=== PATIENT | male | born 1960 | race Caucasian/White ===

== ENCOUNTER 2022-08-01 20:44 | Emergency (ER) | payer OTHER, SELFPAY ==
[2022-08-01 20:47] VITALS: BP 108/62; PULSE 63; RESP 16; TEMP 36.8; O2SAT 97; BMI 24.7
--- NOTE | 2022-08-01 21:00 | XR_ITS ---
[address] [address] Patient Name: BERTIN ARECHIGA MRN: [id number] date: 1960 Sex: M Assigned Patient Location: ER Current Patient Location: ER Accession/Order Number: [id number] Exam Date: 08/01/2022 21:10 Report Date: 08/01/2022 21:42 At the request of: FEI KINGSLEY Procedure: XR tibia fibula RT 2V EXAM: XR tibia fibula RT 2V, XR knee RT 3V HISTORY: Hit right knee with wood COMPARISON: None. TECHNIQUE: 4 views of the tibia and fibula and 3 views of the knee FINDINGS: No osseous lesion, fracture, dislocation or subluxation. Joint spaces are normal. No visualized effusion. No visualized soft tissue edema. IMPRESSION: Normal x-rays Electronically authenticated by: HANNA LOUIS Date: 08/01/2022 21:42
--- NOTE | 2022-08-01 21:00 | XR_ITS ---
[address] [address] Patient Name: BERTIN ARECHIGA MRN: [id number] date: 1960 Sex: M Assigned Patient Location: ER Current Patient Location: ER Accession/Order Number: [id number] Exam Date: 08/01/2022 21:10 Report Date: 08/01/2022 21:42 At the request of: FEI KINGSLEY Procedure: XR knee RT 3V EXAM: XR tibia fibula RT 2V, XR knee RT 3V HISTORY: Hit right knee with wood COMPARISON: None. TECHNIQUE: 4 views of the tibia and fibula and 3 views of the knee FINDINGS: No osseous lesion, fracture, dislocation or subluxation. Joint spaces are normal. No visualized effusion. No visualized soft tissue edema. IMPRESSION: Normal x-rays Electronically authenticated by: HANNA LOUIS Date: 08/01/2022 21:42
--- NOTE | 2022-08-01 21:01 | ED_ITS ---
HPI - Extremity Injury (Lower) General Stated Complaint: KNEE PAIN Time Seen by Provider: 08/01/22 20:54 Mode of arrival: walk-in History of Present Illness HPI Narrative: using a chain saw and piece of wood swung back striking him just below his right knee. Presents with focal area of swelling just beneath the right knee. No discoloration. Denies other injury. 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 Related Data Home Medications Medication Instructions Recorded Confirmed baclofen 10 mg tablet 10 mg PO Q8H PRN pain 08/01/22 08/01/22 gabapentin 600 mg tablet 600 mg BID 08/01/22 Allergies Allergy/AdvReac Type Severity Reaction Status Date / Time No Known Drug Allergies Allergy Verified 08/01/22 20:50 Review of Systems ROS Status of ROS 10 or more systems reviewed and unremarkable except as noted in history and below PFSH PFSH Social History Smoking status: Former smoker Exam Constitutional Vital Signs - 24 hr 08/01/22 20:47 Temperature 98.2 F Pulse Rate [Monitor] 63 Respiratory Rate 16 Blood Pressure [Left Arm] 108/62 Pulse Oximetry 97 Common normals: no apparent distress, average body habitus, oriented x3, no limitations and healthy appearing HENMT Common normals: normocephalic and head/scalp atraumatic Eye Common normals: EOMs intact bilaterally and conjunctivae normal Respiratory Common normals: normal respiratory effort and no use of accessory muscles Cardio Common normals: regular rate and regular rhythm GI Common normals: Normal to inspection, nondistended, normoactive bowel sounds present Extremity Extremity image (front): 1. focal raised contusion Neuro Common normals: oriented x3, CN's II-XII intact bilaterally and moves all extremities Psych Appearance: grossly normal Course Vital Signs Vital signs: Vital Signs Temperature 98.2 F 08/01/22 20:47 Pulse Rate 63 08/01/22 20:47 Respiratory Rate 16 08/01/22 20:47 Blood Pressure 108/62 08/01/22 20:47 Pulse Oximetry 97 08/01/22 20:47 Temperature 98.2 F 08/01/22 20:47 Pulse Rate 63 08/01/22 20:47 Respiratory Rate 16 08/01/22 20:47 Blood Pressure 108/62 08/01/22 20:47 Pulse Oximetry 97 08/01/22 20:47 MDM - Extremity Injury (Lower) MDM Narrative Medical decision making narrative: patient cutting wood with chain saw and wood swung back striking him on his tibia just beneath his right knee. Has focal area of contusion that is raised and measures about 5 cm. No swelling of the greene area below. xray of the knee and tib fib neg. Patient advised of diagnosis of contusion and discharged home Discharge Plan Discharge Clinical Impression: Contusion of right tibia Patient Disposition: Home, Self-Care Prescriptions / Home Meds: No Action gabapentin 600 mg tablet 600 mg BID baclofen 10 mg tablet 10 mg PO Q8H PRN (Reason: pain) Instructions: Contusion in Adults (ED) Stand Alone Forms: Portal Instructions Referrals: Fallon Gonzalez MD [Primary Care Provider] - 1 week Follow Up Appointments: follow up with your doctor in a couple of days. Return if increasing pain
[2022-08-01] MEDS: IBUPROFEN 400 MG TABLET 800 MG PO (22:10)
[2022-08-01] MEDS: HYDROCODONE/ACETAMINOPHEN 5-325 MG TABLET 2 TAB PO (22:10)
== END 2022-08-01 22:13 | disposition home or self-care (01) ==
PROVIDERS: Emergency Provider Internal Medicine; PCP Family Medicine
DX: S80.11XA Contusion of right lower leg, initial encounter (principal); W22.8XXA Striking against or struck by other objects, initial encounter; Z87.891 Personal history of nicotine dependence
CPT/HCPCS: 73562; 73590; 99283

== ENCOUNTER 2022-08-10 08:06 | Day surgery (SDC) | payer OTHER, SELFPAY ==
--- NOTE | 2022-08-10 08:41 | P.ON_ITS ---
Date of procedure: 08/10/22 Procedure: Right Lumbar 2/3 & 4/5 Radiofrequency ablation PreOp diagnosis: pain secondary to include lumbar spondylosis Postop diagnosis same Under fluoroscopic guidance Rhizotomy was created using radio frequency ablation at 80?C for 90 seconds 1 to 2 lesions created at each site. Post lesioning injection of 2 mL each of 0.25% Marcaine and 2% lidocaine with Depo-Medrol 40mg. 0.5 to 1 mL injected at each site IV in place yes Intravenous fluids: NS at KVO Anesthesia local 2% lidocaine Anesthesia Other: MAC Timeout process compliant After informed consent obtained.Patient brought to the procedure room placed in the prone position skin overlying the area was prepped and draped in a sterile f ashion using betadine. 25 gauge needle was used to create a skin wheal over each of the targeted areas utilizing 2% lidocaine. A rhizotomy needle with a 10 mm active tip was inserted over each of the anesthetized areas and directed towards each of the medial branches accomplished under fluoroscopic guidance. after encountering the same we had positive sensory stimulation, negative motor stimulation was noted. lesions were then created. Post lesioning, steroid solution was injected needles removed. Patient was transferred to recovery room in stable condition to be discharged home after meeting criteria. Anesthesia: MAC Surgeon: Gracie Carrasquillo Condition: stable
[2022-08-10 08:50] VITALS: BP 132/87; PULSE 55; RESP 16; TEMP 36.7; O2SAT 100
[2022-08-10 09:21] LABS: Glucometer 98 mg/dL (74-106)
[2022-08-10] MEDS: METHYLPREDNISOLONE ACETATE 40 MG/ML VIAL INJ (09:50)
[2022-08-10] MEDS: LIDOCAINE HCL 2% 400 MG/20 ML MDV 8 ML INJ (09:50)
[2022-08-10] MEDS: BUPIVACAINE HCL 0.25% PF 25 MG/10 ML VIAL 4 ML INJ (09:51)
[2022-08-10 10:08] VITALS: BP 148/89; PULSE 52; RESP 16; TEMP 36.7; O2SAT 96
[2022-08-10 10:10] VITALS: BP 137/87; PULSE 55; RESP 16; TEMP 36.6; O2SAT 99
[2022-08-18] MEDS: LACTATED RINGER'S SOLUTION 1,000 ML 50 ML IV (09:51)
== END 2022-08-10 10:28 | disposition home or self-care (01) ==
LOC: SURGOUT 08:07
PROVIDERS: PCP Family Medicine; Visit Provider Anesthesiology Pain Medicine
DX: M47.816 Spondylosis without myelopathy or radiculopathy, lumbar region (principal)
CPT/HCPCS: 36415; 64635; 64636; J1030; J2704

== ENCOUNTER 2022-08-24 07:59 | Day surgery (SDC) | payer OTHER, SELFPAY ==
[2022-08-24 08:40] LABS: Glucometer 106 mg/dL (74-106)
[2022-08-24] MEDS: 0.9 % SODIUM CHLORIDE 500 ML 50 ML IV (08:41)
[2022-08-24] MEDS: BUPIVACAINE HCL 0.25% PF 25 MG/10 ML VIAL INJ (09:09)
[2022-08-24] MEDS: LIDOCAINE HCL 2% 400 MG/20 ML MDV 8 ML INJ (09:09)
[2022-08-24] MEDS: METHYLPREDNISOLONE ACETATE 40 MG/ML VIAL INJ (09:10)
[2022-08-24 09:24] VITALS: BP 122/75; PULSE 50; RESP 16; O2SAT 100
[2022-08-24 09:26] VITALS: BP 121/71; PULSE 50; RESP 16; O2SAT 99
--- NOTE | 2022-08-24 09:47 | W.PM.PROCNOT ---
Date of procedure: 08/24/22 Pre-op diagnosis: lumbar spondylosis Post-op diagnosis: same Procedure: Left lumbar 2,3 and 4,5 Radiofrequency ablation Under fluoroscopic guidance Rhizotomy was created using radio frequency ablation at 80?C for 90 seconds 1 to 2 lesions created at each site. Post lesioning injection of 2 mL each of 0.25% Marcaine and 2% lidocaine with Depo-Medrol 40mg. 0.5 to 1 mL injected at each site IV in place yes/no If Intravenous fluids: NS at KVO Anesthesia local 2% lidocaine for Anesthesia Other: MAC Timeout process compliant After informed consent obtained.Patient brought to the procedure room placed in the prone position skin overlying the area was prepped and draped in a sterile fashion using betadine. 25 gauge needle was used to create a skin wheal over each of the targeted areas utilizing 2% lidocaine. A rhizotomy needle with a 10 mm active tip was inserted over each of the anesthetized areas and directed towards each of the medial branches accomplished under fluoroscopic guidance. after encountering the same we had positive sensory stimulation, negative motor stimulation was noted. lesions were then created. Post lesioning, steroid solution was injected needles removed. Patient was transferred to recovery room in stable condition to be discharged home after meeting criteria. Anesthesia: MAC Surgeon: Gracie Carrasquillo Condition: stable
== END 2022-08-24 09:38 | disposition home or self-care (01) ==
LOC: SURGOUT 08:00
PROVIDERS: PCP Family Medicine; Visit Provider Anesthesiology Pain Medicine
DX: M47.816 Spondylosis without myelopathy or radiculopathy, lumbar region (principal); E11.9 Type 2 diabetes mellitus without complications
CPT/HCPCS: 36415; 64635; 64636; 82948; J1030; J2704

== ENCOUNTER 2022-09-23 09:14 | Outpatient (OUT) | payer OTHER, SELFPAY ==
--- NOTE | 2022-09-23 09:55 | P.CN_ITS ---
Consult Note: HPI Data of Consult Patient: known to practice within the last 3 years Requesting Physician: CUAUHTEMOC OLIVA NP Primary Care Provider: Fallon Gonzalez MD Consult Narrative Reason for consult: RFA follow up Narrative: Abimael Ruano a pleasant 62 year old male presents to our office for follow up on chronic low back pain, recently had bilateral L2-3 L4-5 RFA (two separate procedures one time for left side one time for right side). Patient reporting 3/10 pain in low back most days, today 5/10 as he was doing more activity and strenuous activity yesterday. Patient reporting >80% pain relief and improvement in ADLs since RFA. Patient is using medical marijuana and tramdol from another provider, still on gabapentin 600mg BID and baclofen 10mg BID PRN for muscle spasms through our office. cc:: CC: CUAUHTEMOC OLIVA NP Review of Systems ROS Status of ROS 10 or more systems reviewed and unremarkable except as noted in history and below PFSH PFS Medical History (Updated 09/23/22 @ 10:02 by Aaliyah Slater NP) Social History Smoking status: Former smoker Meds Home Medications and Allergies Home Medications Medication Instructions Recorded Confirmed Type baclofen 10 mg tablet 10 mg PO Q8H PRN pain 08/01/22 08/24/22 History gabapentin 600 mg tablet 600 mg BID 08/01/22 History atorvastatin 10 mg tablet 10 mg PO .hs 08/05/22 08/24/22 History docusate sodium 100 mg capsule 100 mg PO DAILY 08/05/22 08/24/22 History flecainide 50 mg tablet 50 mg PO Q12H 08/05/22 08/24/22 History medical marijuan 08/05/22 History metoprolol succinate 50 mg 25 mg PO QDAY 08/05/22 08/24/22 History tablet,extended release 24 hr psyllium (Hydrocil oral powder) 1 tbsp PO DAILY 08/05/22 08/24/22 History tramadol 50 mg tablet 50 mg PO TID PRN pain 08/05/22 08/24/22 History Allergies Allergy/AdvReac Type Severity Reaction Status Date / Time No Known Drug Allergies Allergy Verified 08/24/22 08:31 Exam Constitutional Common normals: no apparent distress, average body habitus, oriented x3, healthy appearing, alert and well nourished General appearance: cooperative HENMS Common normals: normocephalic Head and scalp: normocephalic Mouth: oral and palatal mucosa normal Eye Common normals: PERRL Pupil: PERRL Neck & C-Spine Common normals: full ROM General: normal visual inspection Chest Common normals: inspection of chest normal Respiratory Common normals: normal respiratory effort, no retractions and no use of accessory muscles Back & Pelvis Common normals: thoracic and lumbar spine normal to inspection Thoracic spine/upper back: normal to inspection and thoracic ROM normal Lumbar spine/lower back: ROM limited (mild) and pain with ROM (mild) Extremity Other: 5/5 strength in BLE Neuro Common normals: oriented x3, CN's II-XII intact bilaterally, moves all extremities, no focal motor deficits, no sensory deficits noted, deep tendon reflexes 2+ bilaterally and gait normal Sensorium/orientation: alert Motor exam: strength 5/5 throughout and no movement abnormalities noted Psych Common normals: mental status grossly normal, thought process normal, c ooperative, affect normal, speech normal and activity/motor behavior normal Speech: normal speech Thought process: normal thought process Assessment and Plan Assessment and Plan (1) Lumbar spondylosis: (2) Muscle spasm: Plan Patient reporting >80% pain relief and improvement in function with ADLs since L&R L3-4 L4-5 RFA. Discussed expectancy of at least 6 months relief of pain in most patients, discussed calling the office if his pain worsens. Reviewed curr ent medication regimen with patient, no refills at this time. Patient denies negative S/E from current medications. I have checked an [facility] report on this patient today and there are no aberrancies noted in the prescribing history. ? A drug screen was completed and reviewed within the last year, and if there has not been a drug screen completed we ordered one today to monitor higher risk, state monitored pain medication use. Continue gabapentin 600mg BID Continue Baclofen 10mg PRN muscle spasms F/U in 3 months
== END 2022-09-23 09:15 | disposition home or self-care (01) ==
LOC: PM 09:15
PROVIDERS: PCP Family Medicine; Visit Provider Nurse Practitioner
DX: M47.816 Spondylosis without myelopathy or radiculopathy, lumbar region (principal); M62.838 Other muscle spasm
CPT/HCPCS: G0463

== ENCOUNTER 2022-10-27 11:23 | Outpatient (OUT) | payer OTHER, SELFPAY ==
--- NOTE | 2022-10-27 11:29 | XR_ITS ---
[address] [address] Patient Name: BERTIN ARECHIGA MRN: [id number] date: 1960 Sex: M Assigned Patient Location: LAB Current Patient Location: LAB Accession/Order Number: [id number] Exam Date: 10/27/2022 11:30 Report Date: 10/27/2022 13:20 At the request of: JACKELIN HENRY Procedure: XR shoulder RT min 2V EXAM: XR shoulder RT min 2V HISTORY: Pain In Right Shoulder M25.511 COMPARISON: None. TECHNIQUE: 2 views FINDINGS: No acute fracture or dislocation. Mild degenerative change of the acromioclavicular joint. Unremarkable soft tissues. XR/XR shoulder RT min 2V IMPRESSION: Mild degenerative changes as above. Electronically authenticated by: BERTIN SHELBY Date: 10/27/2022 13:20
== END 2022-10-27 11:24 | disposition home or self-care (01) ==
PROVIDERS: PCP Family Medicine; Visit Provider Family Medicine
DX: M25.511 Pain in right shoulder (principal); I10 Essential (primary) hypertension; E78.5 Hyperlipidemia, unspecified; Z12.5 Encounter for screening for malignant neoplasm of prostate
CPT/HCPCS: 73030

== ENCOUNTER 2022-10-28 10:08 | Outpatient (OUT) | payer OTHER, SELFPAY ==
[2022-10-28 11:39] LABS: Basophils Absolute Auto 0.1 10^3/uL (0.0-0.1); Eosinophils Absolute Auto 0.3 10^3/uL (0.0-0.7); Eosinophils Percent Auto 3.4 % (0.9-7.0); Hematocrit 45.9 % (42.0-54.0); Immature Granulocytes Abs Auto 0.01 10^3/uL (0.00-0.03); Immature Granulocytes Pct Auto 0.1 % (0.0-0.5); Lymphocytes Absolute Auto 1.6 10^3/uL (1.2-3.8); Lymphocytes Percent Auto 20.9 % (20.5-60.0); Mean Corpuscular HGB Conc 32.7 g/dL (29.9-35.2); Mean Corpuscular Hemoglobin 29.2 pg (25.9-34.0); Mean Corpuscular Volume 89.3 fL (80.0-94.0); Mean Platelet Volume 9.8 fL (9.5-13.5); Monocytes Absolute Auto 0.4 10^3/uL (0.3-0.8); Monocytes Percent Auto 5.8 % (1.7-12.0); Neutrophils Absolute Auto 5.2 10^3/uL (1.4-6.5); Neutrophils Percent Auto 68.8 % (43.0-75.0); Platelet Count 209 10^3/uL (150-450); Red Blood Count 5.14 10^6/uL (4.70-6.10); White Blood Count 7.6 10^3/uL (4.0-11.0)
[2022-10-28 11:40] LABS: Prostate Specific Antigen Scrn 3.11 ng/mL (<=4.00)
[2022-10-28 11:52] LABS: Alanine Aminotransferase 31 U/L (16-63); Albumin Globulin Ratio 1.3; Albumin Level 4.1 g/dL (3.4-5.0); Alkaline Phosphatase 77 U/L (46-116); Anion Gap 9.6; Aspartate Amino Transferase 22 U/L (15-37); BUN Creatinine Ratio 17.3; Bilirubin Total 0.4 mg/dL (0.2-1.0); Calcium 9.2 mg/dL (8.5-10.1); Carbon Dioxide 30.5 mmol/L (21.0-32.0); Chloride 104 mmol/L (98-107); Chol HDL Ratio 2.5; Cholesterol 128 mg/dL (<=200); Estimated GFR (African America >60 (>=60); Estimated GFR (Non-African Ame >60 (>=60); Globulin 3.2 g/dL; Glucose 98 mg/dL (74-106); HDL Cholesterol 51 mg/dL (40-60); LDL Cholesterol Calculated 66.6 mg/dL; Potassium 4.1 mmol/L (3.5-5.1); Sodium 140 mmol/L (136-145); Total Protein 7.3 g/dL (6.4-8.2); Triglycerides 52 mg/dL (<=150); VLDL CHOLESTEROL 10.4 mg/dL
== END 2022-10-28 10:09 | disposition home or self-care (01) ==
LOC: LAB 10:08
PROVIDERS: PCP Family Medicine; Visit Provider Family Medicine
DX: I10 Essential (primary) hypertension (principal); E78.5 Hyperlipidemia, unspecified; Z12.5 Encounter for screening for malignant neoplasm of prostate
CPT/HCPCS: 36415; 80053; 80061; 85025; G0103

== ENCOUNTER 2022-12-16 09:56 | Outpatient (OUT) | payer OTHER, SELFPAY ==
--- NOTE | 2022-12-16 10:21 | P.CN_ITS ---
Consult Note: HPI Data of Consult Requesting Physician: Aaliyah Slater NP Primary Care Provider: Fallon Gonzalez MD Consult Narrative Reason for consult: f/u Narrative: Abimael Ruano a pleasant 62 year old male presents for evaluation and management of chronic low back pain. Today rating pain 6/10. Has noticed increase in right lower back pain over the last week after working hard in the yard. Pain has not completely responded to current medication regimen, baclofen BID PRN and gabapentin 600mg BID. Patient would like to discuss additional options. cc:: CC: Aaliyah Slater NP Review of Systems ROS Status of ROS 10 or more systems reviewed and unremarkable except as noted in history and below Musculoskeletal Reports: back pain PFSH PFSH Medical History (Updated 09/23/22 @ 10:02 by Aaliyah Slater NP) Atrial fibrillation ?I48.91 - Unspecified atrial fibrillation (ICD-10) Carpal tunnel syndrome ?G56.00 - Carpal tunnel syndrome, unspecified upper limb (ICD-10) Diabetes ?E11.9 - Type 2 diabetes mellitus without complications (ICD-10) Former smoker ?Z87.891 - Personal history of nicotine dependence (ICD-10) Hernia ?K46.9 - Unspecified abdominal hernia without obstruction or gangrene (ICD- 10) High cholesterol ?E78.00 - Pure hypercholesterolemia, unspecified (ICD-10) Hypertension ?I10 - Essential (primary) hypertension (ICD-10) Implantable loop recorder present ?Z95.818 - Presence of other cardiac implants and grafts (ICD-10) Low back pain ?M54.50 - Low back pain, unspecified (ICD-10) Neck pain ?M54.2 - Cervicalgia (ICD-10) Osteoarthritis ?M19.90 - Unspecified osteoarthritis, unspecified site (ICD-10) Upper back pain ?M54.9 - Dorsalgia, unspecified (ICD-10) Social History Smoking status: Former smoker Meds Home Medications and Allergies Home Medications Medication Instructions Recorded Confirmed Type baclofen 10 mg tablet 10 mg PO Q8H PRN pain 08/01/22 08/24/22 History gabapentin 600 mg tablet 600 mg BID 08/01/22 History atorvastatin 10 mg tablet 10 mg PO .hs 08/05/22 08/24/22 History docusate sodium 100 mg capsule 100 mg PO DAILY 08/05/22 08/24/22 History flecainide 50 mg tablet 50 mg PO Q12H 08/05/22 08/24/22 History medical marijuan 08/05/22 History metoprolol succinate 50 mg 25 mg PO QDAY 08/05/22 08/24/22 History tablet,extended release 24 hr psyllium (Hydrocil oral powder) 1 tbsp PO DAILY 08/05/22 08/24/22 History tramadol 50 mg tablet 50 mg PO TID PRN pain 08/05/22 08/24/22 History Allergies Allergy/AdvReac Type Severity Reaction Status Date / Time No Known Drug Allergies Allergy Verified 08/24/22 08:31 Exam Constitutional Common normals: no apparent distress, average body habitus, oriented x3, healthy appearing, alert and well nourished General appearance: cooperative [facility] Common normals: normocephalic Head and scalp: normocephalic Mouth: oral and palatal mucosa normal Eye Common normals: PERRL Pupil: PERRL Neck & C-Spine Common normals: full ROM General: normal visual inspection Chest Common normals: inspection of chest normal Respiratory Common normals: normal respiratory effort, no retractions and no use of ac cessory muscles Back & Pelvis Common normals: thoracic and lumbar spine normal to inspection Lumbar spine/lower back: paraspinal muscle tenderness, paraspinal muscle spasm and straight leg raise negative bilaterally Sacroiliac joints: SI joint(s) abnormal (pain with MINDY and tender over PSIS) Back image (male): 1. Extremity Other: 5/5 strength in BLE Neuro Common normals: oriented x3, CN's II-XII intact bilaterally, moves all extr emities, no focal motor deficits, no sensory deficits noted, deep tendon reflexes 2+ bilaterally and gait normal Sensorium/orientation: alert Motor exam: strength 5/5 throughout and no movement abnormalities noted Psych Common normals: mental status grossly normal, thought process normal, cooperative, affect normal, speech normal and activity/motor behavior normal Speech: normal speech Thought process: normal thought process Assessment and Plan Assessment and Plan (1) Lumbar spondylosis: (2) Muscle spasm: Plan increase baclofen to TID PRN with increase in right lumbar paraspinal muscle spasms continue gabapentin 600mg BID f/u with Dr Yung for right lumbar paraspinal TPI consider right SIJ injection if pain persists after TPI
== END 2022-12-16 09:57 | disposition home or self-care (01) ==
LOC: PM 09:59
PROVIDERS: PCP Family Medicine; Visit Provider Nurse Practitioner
DX: M47.816 Spondylosis without myelopathy or radiculopathy, lumbar region (principal); M62.838 Other muscle spasm
CPT/HCPCS: G0463

== ENCOUNTER 2022-12-22 12:57 | Outpatient (OUT) | payer OTHER, SELFPAY ==
[2022-12-22 14:23] LABS: Prostate Specific Antigen Dx 5.19 ng/mL (<=4.00)
--- OUTSIDE RECORDS SUMMARY | 2023-02-01 14:39 | XMS_ITS | CCD ---
Author Name Unknown Address [address] [facility] [facility] [address] [place] [address] Organization [facility] Care Team Providers Care French Polisher Name Role Phone Brett Quiros Unavailable Unavailable Unavailable FALLON HENRY Primary Care Unavailable SANTO HAMRON Referring Unavailable FALLON HENRY Primary Care Unavailable SANTO HARMON Referring Unavailable FALLON HENRY Primary Care Unavailable SANTO HARMON Referring Unavailable SHAAN ., DR ROWAN Shea Admitting Unavailable GARDUNO ., DR ROWAN Shea Attending Unavailable CARL, DR FALLON Emmanuel Primary Care Unavailable GARDUNO ., DR ROWAN Shea Consulting Unavailable LAKSHMIPATHY, NARENDRANATH Admitting Unava ilable LAKSHMIPATHY, NARSHYAM Attending Unava ilable CARL, DR FALLON Emmanuel Primary Care Unavailable LAKSHMIPATHY, NARSHYAM Consulting Unava ilable SHAAN ., DR ROWAN Shea Admitting Unavailable GARDUNO ., DR ROWAN Shea Attending Unavailable CARL, DR FALLON Emmanuel Primary Care Unavailable WATKINS .MICHELLE Consulting Unavailable GARDUNO ., DR ROWAN Shea Admitting Unavailable GARDUNO ., DR ROWAN Shea Attending Unavailable CARL, DR FALLON Emmanuel Primary Care Unavailable GARDUNO ., DR ROWAN Shea Consulting Unavailable ROD KANG Consulting Unavailable GADRUNO ., DR ROWAN Shea Admitting Unavailable GARDUNO ., DR ROWAN Shea Attending Unavailable CARL, DR FALLON Emmanuel Primary Care Unavailable WATKINS ., MICHELLE Consulting Unavailable SHAAN ., DR ROWAN Shea Admitting Unavailable GARDUNO ., DR ROWAN Shea Attending Unavailable CARL, DR FALLON Emmanuel Primary Care Unavailable GARDUNO ., DR ROWAN Shea Consulting Unavailable LAKSHMIPATHY, NARENDKUMARATH Admitting Unava ilable LAKSHMIPATHY, NARSHYAM Attending Unava ilable CARL, DR FALLON Emmanuel Primary Care Unavailable DR ABEBA DOUGHERTY Consulting Unavailable LAKSHMIPATHY, NARENDKUMARATH Consulting Unava ilable Henry, Fallon Unavailable PATTIE PICHARDO Attending Unavailable Medications Current Medications Medication Drug Class(es) Dates Sig (Normalized) Sig (Original) ALPRAZolam 0.5 mg oral tablet (5 sources) Benzodiazepine Xanax 0.5 MG 1 tablet Orally prn Active aspirin 81 mg delayed release oral tablet (6 sources) Platelet Aggregation Inhibitor, Nonsteroidal Anti-inflammatory Drug take 1 tablet by mouth every twenty-four hours Aspirin 81 81 MG 1 tablet Orally Once a day Active take 1 tablet by mouth once gina y Aspirin 81 81 MG 1 tablet Orally Once a day Active atorvastatin 10 mg oral tablet (6 sources) HMG-CoA Reductase Inhibitor take 1 tablet by mouth once daily Atorvastatin Calcium 10 mg TAKE 1 TABLET BY MOUTH DAILY for 90 Active docusate sodium 100 mg oral capsule (6 sources) take 1 capsule by mouth every twenty-four hours Docusate Sodium 100 MG 1 capsule as needed Orally Once a day Active gabapentin 600 mg oral tablet (6 sources) Anti-epileptic Agent take 1 tablet by mouth every twelve hours Gabapentin 600 MG 1 tablet Orally twice a day Active metaxalone 800 mg oral tablet (6 sources) take 1 tablet by mouth every twelve hours Metaxalone 800 MG 1 tablet Orally two times a day Active 24 hr metoprolol succinate 25 mg extended release oral tablet (5 sources) beta-Adrenergic Vandana take 1 tablet by mouth every twenty-four hours Metoprolol Succinate ER 25 MG 1 tablet Orally Once a day Active Psyllium (5 sources) Psyllium 48.57 % as directed Orally Active traMADol hydrochloride 50 mg oral tablet (6 sources) Opioid Agonist Start: take 1 tablet by mouth twice daily as needed traMADol HCl 50 MG 1 tablet as needed Orally bid prn for 30 days Jan, Active Start: 10-25-2022 take 1 tablet by maurice twice daily as needed traMADol HCl 50 MG 1 tablet as needed Orally bid prn for 30 days Oct, Active Completed/Discontinued Medications Medication Drug Class(es) Dates Sig (Normalized) Sig (Original) amLODIPine 10 mg / benazepril hydrochloride 20 mg oral capsule (1 source) Dihydropyridine Calcium Channel Vandana, Angiotensin Converting Enzyme Inhibitor take 10-20 mg by mouth once daily amLODIPine Besy-Benazepril HCl - 10-20 MG Oral Capsule TAKE 1 CAPSULE Daily Quantity: 0 Refills: 0 Ordered: 16-Feb-2021 Ehsa Scott MD Active Problems Active Problems Problem Classification Problem Date Documented Date Episodic/Chronic Cardiac dysrhythmias (7 sources) Paroxysmal atrial fibrillation; Translations: [Paroxysmal atrial fibrillation] Chronic Cardiac dysrhythmias (6 sources) Sinus bradycardia; Translations: [Bradycardia, unspecified] Episodic Diabetes mellitus without complication (1 source) Type 2 diabetes mellitus without complications; Translations: [TYPE 2 DM WITHOUT COMPLICATIONS] Onset: 01-14-2022 Chronic Disorders of lipid metabolism (7 sources) Hyperlipidemia; Translations: [Hyperlipidemia, unspecified] Chronic Essential hypertension (8 sources) Benign essential hypertension; Translations: [Benign essential hypertension] Chronic Osteoarthritis (7 sources) Primary osteoarthritis, unspecified hand; Translations: [Chronic osteoarthritis] Onset: 10-15-2021 Chronic Other connective tissue disease (1 source) Other muscle spasm; Translations: [OTHER MUSCLE SPASM] Onset: 05-29-2022 Episodic Other connective tissue disease (1 source) Full thickness rotator cuff tear; Translations: [Complete rotator cuff tear or rupture of right shoulder, not specified as traumatic] Episodic Other connective tissue disease (1 source) Complete rotator cuff tear or rupture of right shoulder, not specified as traumatic Episodic Other hereditary and degenerative nervous system conditions (1 source) Other dystonia; Translations: [OTHER DYSTONIA] Onset: 12-13-2021 Chronic Other lower respiratory disease (1 source) Dyspnea, unspecified; Translations: [Dyspnea, unspecified] Onset: 10-15-2021 Episodic Other non-traumatic joint disorders (3 sources) Pain in right shoulder; Translations: [Pain in right shoulder] Onset: 10-15-2021 Episodic Other non-traumatic joint disorders (1 source) Pain in left shoulder; Translations: [Pain in left shoulder] Onset: 10-15-2021 Episodic Other non-traumatic joint disorders (4 sources) Pain in right hip; Translations: [PAIN IN RIGHT HIP] Onset: 05-20-2022 Episodic Other non-traumatic joint disorders (1 source) Pain in left hip; Translations: [PAIN IN LEFT HIP] Onset: 05-28-2022 Episodic Other screening for suspected conditions (not mental disorders or infectious disease) (2 sources) Encounter for screening for malignant neoplasm of prostate; Translations: [Elevated prostate specific antigen [PSA]] Episodic Spondylosis; intervertebral disc disorders; other back problems (20 sources) Spondylosis without myelopathy or radiculopathy, lumbar region; Translations: [Other intervertebral disc degeneration, lumbar region] Onset: 12-08-2021 Chronic Spondylosis; intervertebral disc disorders; other back problems (8 sources) Muscle spasm of back; Translations: [Intervertebral disc disorders with radiculopathy, lumbar region] Onset: 01-25-2022 Episodic Unclassified (4 sources) LOW BACK PAIN, UNSPECIFIED; Translations: [LOW BACK PAIN, UNSPECIFIED] Onset: 03-09-2022 Past or Other Problems Problem Classification Problem Date Documented Da te Episodic/Chronic Unclassified (1 source) LOW BACK PAIN, UNSPECIFIED; Translations: [LOW BACK PAIN, UNSPECIFIED] Onset: 05-20-2022 Results Test Name Value Interpretation Reference Range Facil ity XR HIPS STEPH 3_4V WO PELVISon 05-20-2022 XR HIPS STEPH 3_4V WO PELVIS EXAMINATION: XR HIPS STEPH 3_4V WO PELVIS HISTORY: Bilateral hip joint pain , chronic COMPARISON: XR hips bilateral 09/12/2020 FINDINGS: RIGHT FINDINGS: BONES: No significant arthropathy or acute abnormality. SOFT TISSUES: No visible soft tissue swelling. OTHER: Negative. LEFT FINDINGS: BONES: No significant arthropathy or acute abnormality. SOFT TISSUES: No visible soft tissue swelling. OTHER: Negative. IMPRESSION: RIGHT CONCLUSION: Minimal degenerative changes. No acute bone abnormality. LEFT CONCLUSION: Minimal degenerative changes. No acute bone abnormality. Electronically authenticated by: ABEBA DOUGHERTY Date: 2022-05-20 11:00 Normal [facility] POINT OF CARE GLUCOSEon 11-2 Glucose [Mass/Vol] 84 mg/dL Normal 74-106 [facility] Comment on above: Performed By: #### P OCGLUC #### [facility] [address] [address] [address] Erin Anthony TOAN SCREEN WITH REFLEXon TOAN Screen, IFA Negative Normal Negative [facility] Comment on above: Order Comment: [facility] performed at: [employer], [facility], [address] [place] [address], , Accounts Officer: Remberto Clemens MD PhD\X0D0A\[facility] Collection Date/Time: \X0D0A\[facility] Results Received Date/Time: \X0D0A\[facility] Reported Date/Time: [id number] Result Comment: \X0D 0A\TOAN IFA is a first line screen for detecting the\X0D0A\presence of up to approximately 150 autoantibodies in\X0D0A\various autoimmune diseases. A negative TOAN IFA result\X0D0A\suggests TOAN-associated autoimmune disease is not\X0D0A\present at this time, but is not definitive. If there\X0D0A\is high clinical suspicion for Sjogren's Syndrome,\X0D0A\testing for anti-SS-A/Ro antibody should be considered.\X0D0A\Anti-Marjan-1 antibody should be considered for clinically\X0D0A\suspected inflammatory myopathies.\X0D0A\ \X0D0A\AC-0: Negative\X0D0A\International Consensus on TOAN Patterns\X0D0A\[email or web address]\X0D0A\ \X0D0A\For additional information, please refer to\X0D0A\[email or web address]\X0D0A\ \X0D0A\(This link is being provided for informational/\X0D0A\educational purposes only.)\X0D0A\ Performed By: #### O RD264 #### [place] [address] Ph. [phone] ANCA Screen with Reflex to A NCA Titeron 10-15-2021 ANCA Screen Negative Normal Negative [facility] Comment on above: Order Comment: [facility] performed at: [facility], [facility], [address] [place] [address], , Accounts Officer: Remberto Clemens MD PhD\X0D0A\[facility] Collection Date/Time: \X0D0A\[facility] Results Received Date/Time: \X0D0A\[facility] Reported Date/Time: Result Comment: \X0D 0A\ANCA Screen includes evaluation for p-ANCA, c-ANCA and\X0D0A\atypical p-ANCA. A positive ANCA screen reflexes to\X0D0A\titer and pattern(s), e.g., cytoplasmic pattern\X0D0A\(c-ANCA), perinuclear pattern (p-ANCA), or atypical\X0D0A\p-ANCA pattern. c-ANCA and p- ANCA are observed in\X0D0A\vasculitis, whereas atypical p-ANCA is observed in IBD\X0D0A\(Inflammatory Bowel Disease). Atypical p-ANCA is\X0D0A\detected in about 55% to 80% of patients with\X0D0A\ulcerative colitis but only 5% to 25% of patients with\X0D0A\Crohn's disease.\X0D0A\ Performed By: #### O RD264 #### [place] [id number] Ph. [phone] ANGIOTENSIN CONVERTING ENZYM [place] 10-15-2021 Angiotensin Conv Enzyme 5 U/L Low [facility] Comment on above: Order Comment: [facility] performed at: [employer], [facility], [address] [place] [address], , Accounts Officer: Remberto Clemens MD PhD\X0D0A\[facility] Collection Date/Time: \X0D0A\[facility] Results Received Date/Time: \X0D0A\[facility] Reported Date/Time: Performed By: #### O RD264 #### [address] [address] Ph. [phone] ANTI CENTROMERE ANTIBODYon 0 10-15-2021 Centromere B Antibody <1.0 Normal [facility] Comment on above: Order Comment: [facility] performed at: [facility], [address] [place] [address], , Accounts Officer: Remberto Clemens MD PhD\X0D0A\[facility] Collection Date/Time: \X0D0A\[facility] Results Received Date/Time: \X0D0A\[facility] Reported Date/Time: Result Comment: \X0D 0A\ Reference Range: < 1.0 NEG AI\X0D0A\ Performed By: #### O RD264 #### [place] [id number] Ph. [phone] ANTI-DNA ANTIBODY, DOUBLE-ST RANDEDon 10-15-2021 DNA (ds) Antibody <1 Normal <=4 [facility] Comment on above: Order Comment: [facility] performed at: [facility], [address] [place] [address], , Accounts Officer: Remberto Clemens MD PhD\X0D0A\[facility] Collection Date/Time: \X0D0A\[facility] Results Received Date/Time: \X0D0A\[facility] Reported Date/Time: Result Comment: \X0D 0A\ Value Interpretation\X0D0A\ \X0D0A\ or=10 IU/mL: Positive\X0D0A\ Performed By: #### O RD264 #### [place] [id number] Ph. [phone] ANTI-CAMP NURSE (EUN AB)on 10-16-19 CAMP NURSE Antibody <1.0 Normal [facility] Comment on above: Order Comment: [facility] performed at: [facility], [address] [place] [address], , Accounts Officer: Remberto Clemens MD PhD\X0D0A\[facility] Collection Date/Time: \X0D0A\[facility] Results Received Date/Time: \X0D0A\[facility] Reported Date/Time: Result Comment: \X0D 0A\ Reference Range: < 1.0 NEG AI\X0D0A\ Performed By: #### O RD263 #### [place] [address] Ph. [phone] ANTI-SCLERODERMA ANTIBODY (a ka SCL 70)on 10-15-2021 Scl-70 Antibody <1.0 Normal [facility] Comment on above: Order Comment: [facility] performed at: [facility], [facility], [address] [place] [address], , Accounts Officer: Remberto Clemens MD PhD\X0D0A\[facility] Collection Date/Time: \X0D0A\[facility] Results Received Date/Time: \X0D0A\[facility] Reported Date/Time: Result Comment: \X0D 0A\ Reference Range: < 1.0 NEG AI\X0D0A\ Performed By: #### O RD264 #### [place] [address] Ph. [phone] C-Reactive Proteinon 022 CRP [Mass/Vol] mg/L Normal 0.0-1.0 [facility] Comment on above: Performed By: #### C K, URIC, CRP, CMP ####[address] [address]Ry. [phone] C3 COMPLEMENTon 10-15-2021 Complement Component C3c 132 mg/dL Normal 82-185 [facility] Comment on above: Order Comment: [facility] performed at: [employer], [facility] [employer], [address] [place] [address], , Accounts Officer: Remberto Clemens MD PhD\X0D0A\[facility] Collection Date/Time: \X0D0A\[facility] Results Received Date/Time: \X0D0A\[facility] Reported Date/Time: Performed By: #### O RD264 #### [place] [address] Ph. [phone] C4 COMPLEMENTon 10-15-2021 Complement Component C4c 31 mg/dL Normal 15-53 [facility] Comment on above: Order Comment: [facility] performed at: [employer], [facility] [employer] [place], [address] [place] [address], , Accounts Officer: Remberto Clemens MD PhD\X0D0A\[facility] Collection Date/Time: \X0D0A\[facility] Results Received Date/Time: [id number]\X0D0A\[facility] Reported Date/Time: Performed By: #### O [address]263 #### [place] [address] Ph. [phone] Complete Blood Count with Au to Diffon 10-15-2021 Basophils (Bld) [#/Vol] 0.1 10*3/uL Normal 0.0-0.1 [facility] Comment on above: Performed By: #### C BCAD #### [place] [address] Ph. [phone] Basophils/100 WBC (Bld) 1 % Normal 0-1 [facility] Comment on above: Performed By: #### C BCAD #### [place] [address] Ph. [phone] Eosinophils (Bld) [#/Vol] 0.3 10*3/uL Normal 0.0-0.5 [facility] Comment on above: Performed By: #### C BCAD #### [place] [address] Ph. [phone] Eosinophils/100 WBC (Bld) 3 % Normal 0-5 [facility] Comment on above: Performed By: #### C BCAD #### [place] [address] Ph. [phone] Erythrocyte distribution wid th (RBC) [Ratio] 12.8 % Normal 11.5-14.5 [facility] Comment on above: Performed By: #### C BCAD #### [place] [address] Ph. [phone] Hematocrit (Bld) [Volume fraction] 45.9 % Normal 4 2.0-52.0 [facility] Comment on above: Performed By: #### C BCAD #### [place] [address] Ph. [phone] Hemoglobin (Bld) [Mass/Vol] 15.2 g/dL Normal 13.5-17. 5 [facility] Comment on above: Performed By: #### C BCAD #### [place] [address] Ph. [phone] Lymphocytes (Bld) [#/Vol] 2.4 10*3/uL Normal 1.0-4.0 [facility] Comment on above: Performed By: #### C BCAD #### [place] [address] Ph. [phone] Lymphocytes/100 WBC (Bld) 26 % Normal 20-40 [facility] Comment on above: Performed By: #### C BCAD #### [place] [address] Ph. [phone] MCH (RBC) [Entitic mass] 28.8 pg Normal 27.0-35.0 [facility] Comment on above: Performed By: #### C BCAD #### [address] [address] Ph. [phone] MCHC (RBC) [Mass/Vol] 33.1 g/dL Normal 32.0-36.0 [facility] Comment on above: Performed By: #### C BCAD #### [place] [address] Ph. [phone] MCV (RBC) [Entitic vol] 87 fL Normal 80-100 [facility] Comment on above: Performed By: #### C BCAD #### [place] [address] Ph. [phone] Monocytes (Bld) [#/Vol] 0.6 10*3/uL Normal 0.3-1.0 [facility] Comment on above: Performed By: #### C BCAD #### [place] [address] Ph. [phone] Monocytes/100 WBC (Bld) 7 % Normal 1-15 [facility] Comment on above: Performed By: #### C BCAD #### [place] [address] Ph. [phone] Neutrophils (Bld) [#/Vol] 5.9 10*3/uL Normal 1.8-7.7 [facility] Comment on above: Performed By: #### C BCAD #### [address] [address] Ph. [phone] Neutrophils/100 WBC (Bld) 64 % Normal 50-70 [facility] Comment on above: Performed By: #### C BCAD #### [place] [address] Ph. [phone] Platelet mean volume (Bld) [ Entitic vol] 9.5 fL Normal 9.4-12.3 [facility] Comment on above: Performed By: #### C BCAD #### [address] [address] Ph. [phone] Platelets (Bld) [#/Vol] 230 10*3/uL Normal 150-450 [facility] Comment on above: Performed By: #### C BCAD #### [place] [address] Ph. [phone] RBC (Bld) [#/Vol] 5.27 10*6/uL Normal 4.70-6.10 [facility] Comment on above: Performed By: #### C BCAD #### [address] [address] Ph. [phone] WBC (Bld) [#/Vol] 9.3 10*3/uL Normal 3.7-11.0 [facility] Comment on above: Performed By: #### C BCAD #### [address] [address] Ph. [phone] Comprehensive Metabolic Pane idania 10-15-2021 Albumin [Mass/Vol] 4.4 g/dL Normal 3.5-5.0 [facility] Comment on above: Performed By: #### C K, URIC, CRP, CMP ####[address] [address]Qc. [phone] ALP [Catalytic activity/Vol] 73 U/L Normal 38-126 [facility] Comment on above: Performed By: #### C K, URIC, CRP, CMP ####[address] [address]Sj. [phone] ALT [Catalytic activity/Vol] 18 U/L Normal 0-50 [facility] Comment on above: Performed By: #### C K, URIC, CRP, CMP ####[address] [address]Pb. [phone] AST [Catalytic activity/Vol] 32 U/L Normal 17-59 [facility] Comment on above: Performed By: #### C K, URIC, CRP, CMP ####[address] [address]Up. [phone] Bilirubin [Mass/Vol] 0.8 mg/dL Normal 0.2-1.3 [facility] Comment on above: Performed By: #### C K, URIC, CRP, CMP ####[address] [address]Yt. [phone] Calcium [Mass/Vol] 8.8 mg/dL Normal 8.4-10.2 [facility] Comment on above: Performed By: #### C K, URIC, CRP, CMP ####[address] [address]Co. [phone] Chloride [Moles/Vol] 101 mmol/L Normal 98-107 [facility] Comment on above: Performed By: #### C K, URIC, CRP, CMP ####[address] [address]Cz. [phone] CO2 [Moles/Vol] 27 mmol/L Normal 22-32 [facility] Comment on above: Performed By: #### C K, URIC, CRP, CMP ####[address] [address]Hs. [phone] Creatinine [Mass/Vol] 0.95 mg/dL Normal 0.66-1.25 [facility] Comment on above: Performed By: #### C K, URIC, CRP, CMP ####[address] [address]Fr. [phone] GFR/1.73 sq M.predicted shanthi g non-blacks MDRD (S/P/Bld) [Vol rate/Area] 86 mL/min/{1.73_m2} Normal >60 [facility] Comment on above: Result Comment: Stag e 1 Kidney damage (e.g., protein in the urine) with normal GFR >=90\X0D0A\Stage 2 Kidney damage with mild decrease in GFR 60-89\X0D0A\Stage 3a Moderate decrease in GFR 45-59\X0D0A\Stage 3b Moderate decrease in GFR 30-44\X0D0A\Stage 4 Severe reduction in GFR 15- 29\X0D0A\Stage 5 Kidney failure <15 Performed By: #### C K, URIC, CRP, CMP ####[address] [address]Mr. [phone] Glucose [Mass/Vol] 84 mg/dL Normal 65-100 [facility] Comment on above: Performed By: #### C K, URIC, CRP, CMP ####[address] [address]Zd. [phone] Potassium [Moles/Vol] 4.1 mmol/L Normal 3.6-5.0 [facility] Comment on above: Performed By: #### C K, URIC, CRP, CMP ####[address] [address]Wk. [phone] Protein [Mass/Vol] 7.1 g/dL Normal 6.3-8.2 [facility] Comment on above: Performed By: #### C K, URIC, CRP, CMP ####[address] [address]Ok. [phone] Sodium [Moles/Vol] 140 mmol/L Normal 135-145 [facility] Comment on above: Performed By: #### C K, URIC, CRP, CMP ####[address] [address]Nk. [phone] Urea nitrogen [Mass/Vol] 15 mg/dL Normal 9-20 [facility] Comment on above: Performed By: #### C K, URIC, CRP, CMP ####[address] [address]Vj. [phone] Creatine Kinaseon 10-15-2021 CK [Catalytic activity/Vol] 105 U/L Normal 49-397 [facility] Comment on above: Performed By: #### C K, URIC, CRP, CMP ####[address] [address]Oo. [phone] Erythrocyte Sedimentation Ra ann 10-15-2021 ESR (Bld) [Velocity] 2 mm/h Normal 0-20 [facility] Comment on above: Result Comment: The ESR varies with age. The maximum normal ESR at a given age is calculated using the formulas:Men: Age in years/2Women: (Age in years + 10)/2 Performed By: #### E SR ####[address] [address]Uh. [phone] HLA-B27 ANTIGENon 10-15-2021 HLA-B27 Antigen Negative Normal Negative [facility] Comment on above: Order Comment: [facility] performed at: [facility], [facility], [address] [place] [address], , Accounts Officer: Remberto Clemens MD PhD\X0D0A\[facility] Collection Date/Time: [id number]\X0D0A\[facility] Results Received Date/Time: [id number]\X0D0A\[facility] Reported Date/Time: Performed By: #### O RD634 #### [address] [address] Ph. [phone] MISCELLANEOUS SENDOUTon 09-0 Misc Ref Lab Result See Below Normal 0-0 [facility] Comment on above: Result Comment: Rheumatoid Factor Result : <14 IU/mL\X0D0A\X0D0A\Reference Range: <14 IU/mL \X0D0A\ \X0D0A\Performing Laboratory Information:\X0D0A\[facility] [address] Accounts Officer: Remberto Clemens MD PhD Performed By: #### O RD263 #### [place] [address] Ph. [phone] MRI COMPARISON OF OUTSIDE FI LMSon 10-15-2021 MRI COMPARISON OF OUTSIDE FILMS RADRPT There is no result for this study. This is a placeholder for comparison films only. Final result Normal [facility] SJOGREN'S ANTIBODIES (SS-A, SS-B)on 10-15-2021 Sjogren's Antibody (SS-A) <1.0 Normal [facility] Comment on above: Order Comment: [facility] performed at: [facility], [facility], [address] [place] [address], , Accounts Officer: Remberto Clemens MD PhD\X0D0A\[facility] Collection Date/Time: [id number]\X0D0A\[facility] Results Received Date/Time: [id number]\X0D0A\[facility] Reported Date/Time: Result Comment: \X0D 0A\ Reference Range: < 1.0 NEG AI\X0D0A\ Performed By: #### O RD438 #### [place] [id number] Ph. [phone] Sjogren's Antibody (SS-B) <1.0 Normal [facility] Comment on above: Order Comment: [facility] performed at: [facility], [address] [place] [address], , Accounts Officer: Remberto Clemens MD PhD\X0D0A\[facility] Collection Date/Time: \X0D0A\[facility] Results Received Date/Time: \X0D0A\[facility] Reported Date/Time: Result Comment: \X0D 0A\ Reference Range: < 1.0 NEG AI\X0D0A\ Performed By: #### O RD438 #### [place] [address] Ph. [phone] GUERRA ANTIBODYon 10-15-2021 Guerra Antibody <1.0 Normal [facility] Comment on above: Order Comment: [facility] performed at: [employer] [place], [address] [place] [address], , Accounts Officer: Remberto Clemens MD PhD\X0D0A\[facility] Collection Date/Time: \X0D0A\[facility] Results Received Date/Time: \X0D0A\[facility] Reported Date/Time: Result Comment: \X0D 0A\ Reference Range: < 1.0 NEG AI\X0D0A\ Performed By: #### O RD383 #### [place] [address] Ph. [phone] THYROID PEROXIDASE ANTIBODYo n 10-15-2021 Thyroid Peroxidase Abs 8 IU/mL Normal <9 [facility] Comment on above: Order Comment: [facility] performed at: [employer] [employer], [address] [place] [address], , Accounts Officer: Remberto Clemens MD PhD\X0D0A\Quest Collection Date/Time: \X0D0A\[facility] Results Received Date/Time: [id number]\X0D0A\[facility] Reported Date/Time: [id number] Performed By: #### O [id number] #### [address] [phone] THYROID STIMULATING IMMUNOGL OBULINon 10-15-2021 TSI Numeric Value <89 Normal <140 [facility] Comment on above: Order Comment: [facility] performed at: [facility], [employer] [facility], [address] [place] [address], , Accounts Officer: Remberto Clemens MD PhD\X0D0A\Quest Collection Date/Time: \X0D0A\[facility] Results Received Date/Time: [id number]\X0D0A\[facility] Reported Date/Time: Result Comment: \X0D 0A\Thyroid stimulating immunoglobulins (TSI) can engage\X0D0A\the TSH receptors resulting in hyperthyroidism in\X0D0A\Graves' disease patients. TSI levels can be useful in\X0D0A\monitoring the clinical outcome of Graves' disease as\X0D0A\well as assessing the potential for hyperthyroidism\X0D0A\from maternal- transfer. TSI results greater than\X0D0A\or equal to (>=) 140% of the Reference Control are\X0D0A\considered positive.\X0D0A\ \X0D0A\NOTE:\X0D0A\A serum TSH level greater than 350 [employer]\X0D0A\Units/mL can interfere with the TSI bioassay and\X0D0A\potentially give false positive results.\X0D0A\ \X0D0A\Patients who are and are suspected of having\X0D0A\hyperthyroidism should have both TSI and human\X0D0A\Chorionic Gonadotropin(hCG) tests measured. A serum\X0D0A\hCG level greater than 40,625 mIU/mL can interfere\X0D0A\with the TSI bioassay and may give false negative\X0D0A\results. In these patients it is recommended that\X0D0A\a second TSI be obtained when the hCG concentration\X0D0A\falls below 40,625 mIU/mL (usually after approximately\X0D0A\20-weeks gestation).\X0D0A\ \X0D0A\The analytical performance characteristics of this\X0D0A\assay have been determined by [facility]\X0D0A\[facility], [place], [place]. The modifications\X0D0A\have not been cleared or approved by the FDA. This\X0D0A\assay has been validated pursuant to the CLIA\X0D0A\regulations and is used for clinical purposes.\X0D0A\ Performed By: #### O [id number] #### [place] [address] Ph. [phone] Uric Acidon 10-15-2021 URIC 4.9 mg/dL Normal 3.5-8.5 [facility] Comment on above: Performed By: #### C K, URIC, CRP, CMP ####[address] [address]. [phone] XR CHEST (2 VW)on 10-15-2021 XR CHEST (2 VW) RADRPT EXAM: XR CHEST (2 VW) HISTORY: . Dyspnea, unspecified type COMPARISON: None TECHNIQUE: Upright PA and lateral chest x-ray FINDINGS: The heart is not enlarged and the vasculature is not distended. No acute infiltrate, effusion or pneumothorax is identified. Degenerative changes are seen in the spine. A loop recorder is noted. Report electronically signed by: Dr. Rod Mcgill IMPRESSION: No acute infiltrate or evidence of cardiac decompensation. Direct comparison with a previous study would be helpful in determining the chronicity of these findings. Dyspnea Interpreted by: Rod Mcgill MD Signed by: Rod Mcgill MD 10/15/21 Final result Normal [facility] XR COMPARISON OF OUTSIDE BALWINDER MSon 10-15-2021 XR COMPARISON OF OUTSIDE FILMS RADRPT There is no result for this study. This is a placeholder for comparison films only. Final result Normal [facility] XR COMPARISON OF OUTSIDE FILMS RADRPT There is no result for this study. This is a placeholder for comparison films only. Final result Normal [facility] XR COMPARISON OF OUTSIDE FILMS RADRPT There is no result for this study. This is a placeholder for comparison films only. Final result Normal [facility] XR COMPARISON OF OUTSIDE FILMS RADRPT There is no result for this study. This is a placeholder for comparison films only. Final result Normal [facility] XR COMPARISON OF OUTSIDE FILMS RADRPT There is no result for this study. This is a placeholder for comparison films only. Final result Normal [facility] XR HAND LEFT (2 VIEWS)on XR HAND LEFT (2 VIEWS) RADRPT EXAM: XR WRIST RIGHT (2 VIEWS), XR SHOULDER RIGHT (MIN 2 VIEWS), XR SHOULDER LEFT (MIN 2 VIEWS), XR HAND LEFT (2 VIEWS), XR HAND RIGHT (2 VIEWS), XR WRIST LEFT (2 VIEWS) HISTORY: TECH NOTES: Hand arthropathy Hand arthropathy COMPARISON: Comparison is made to the outside studies dated 02/17/2021. TECHNIQUE/FINDINGS: Left shoulder: There is moderate joint space narrowing with marginal spurring at the left acromioclavicular joint. There is no evidence of acute fracture or subluxation. Right shoulder: There is moderate joint space narrowing with marginal spurring at the right acromioclavicular joint. There is no evidence of acute fracture or subluxation. Left wrist and left hand: There is moderate joint space narrowing with marginal spurring at the radiocarpal joint, triscaphe joint, first carpometacarpal, metacarpophalangeal joints and at the interphalangeal joint thumb. Right wrist and right hand: There is mild joint space narrowing with marginal spurring at the radiocarpal joint, carpometacarpal joint and triscaphe joint. Moderate joint space narrowing with marginal spurring is noted at the metacarpophalangeal joint and at the interphalangeal joints of the fingers and thumb. Report electronically signed by: Dr. Agnieszka Sal IMPRESSION: Bilateral shoulders: 1. 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 2. No evidence of acute fracture or subluxation. Left wrist and left hand: 1. Mild to moderate polyarticular osteoarthritis. 2. No evidence of acute fracture or subluxation. Right wrist and right hand: 1. Mild to moderate polyarticular osteoarthritis worst at the first metacarpophalangeal joint. 2. No evidence of acute fracture or subluxation. Hand arthropathy Interpreted by: Agnieszka Sal MD Signed by: Agnieszka Sal MD 10/16/21 Final result Normal [facility] XR HAND RIGHT (2 VIEWS)on XR HAND RIGHT (2 VIEWS) RADRPT EXAM: XR WRIST RIGHT (2 VIEWS), XR SHOULDER RIGHT (MIN 2 VIEWS), XR SHOULDER LEFT (MIN 2 VIEWS), XR HAND LEFT (2 VIEWS), XR HAND RIGHT (2 VIEWS), XR WRIST LEFT (2 VIEWS) HISTORY: TECH NOTES: Hand arthropathy Hand arthropathy COMPARISON: Comparison is made to the outside studies dated 02/17/2021. TECHNIQUE/FINDINGS: Left shoulder: There is moderate joint space narrowing with marginal spurring at the left acromioclavicular joint. There is no evidence of acute fracture or subluxation. Right shoulder: There is moderate joint space narrowing with marginal spurring at the right acromioclavicular joint. There is no evidence of acute fracture or subluxation. Left wrist and left hand: There is moderate joint space narrowing with marginal spurring at the radiocarpal joint, triscaphe joint, first carpometacarpal, metacarpophalangeal joints and at the interphalangeal joint thumb. Right wrist and right hand: There is mild joint space narrowing with marginal spurring at the radiocarpal joint, carpometacarpal joint and triscaphe joint. Moderate joint space narrowing with marginal spurring is noted at the metacarpophalangeal joint and at the interphalangeal joints of the fingers and thumb. Report electronically signed by: Dr. Agnieszka Sal IMPRESSION: Bilateral shoulders: 1. 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 2. No evidence of acute fracture or subluxation. Left wrist and left hand: 1. Mild to moderate polyarticular osteoarthritis. 2. No evidence of acute fracture or subluxation. Right wrist and right hand: 1. Mild to moderate polyarticular osteoarthritis worst at the first metacarpophalangeal joint. 2. No evidence of acute fracture or subluxation. Hand arthropathy Interpreted by: Agnieszka Sal MD Signed by: Agnieszka Sal MD 10/16/21 Final result Normal [facility] XR SHOULDER LEFT (MIN 2 VIEW S)on 10-15-2021 XR SHOULDER LEFT (MIN 2 VIEWS) RADRPT EXAM: XR WRIST RIGHT (2 VIEWS), XR SHOULDER RIGHT (MIN 2 VIEWS), XR SHOULDER LEFT (MIN 2 VIEWS), XR HAND LEFT (2 VIEWS), XR HAND RIGHT (2 VIEWS), XR WRIST LEFT (2 VIEWS) HISTORY: TECH NOTES: Hand arthropathy Hand arthropathy COMPARISON: Comparison is made to the outside studies dated 02/17/2021. TECHNIQUE/FINDINGS: Left shoulder: There is moderate joint space narrowing with marginal spurring at the left acromioclavicular joint. There is no evidence of acute fracture or subluxation. Right shoulder: There is moderate joint space narrowing with marginal spurring at the right acromioclavicular joint. There is no evidence of acute fracture or subluxation. Left wrist and left hand: There is moderate joint space narrowing with marginal spurring at the radiocarpal joint, triscaphe joint, first carpometacarpal, metacarpophalangeal joints and at the interphalangeal joint thumb. Right wrist and right hand: There is mild joint space narrowing with marginal spurring at the radiocarpal joint, carpometacarpal joint and triscaphe joint. Moderate joint space narrowing with marginal spurring is noted at the metacarpophalangeal joint and at the interphalangeal joints of the fingers and thumb. Report electronically signed by: Dr. Agnieszka Sal IMPRESSION: Bilateral shoulders: 1. 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 2. No evidence of acute fracture or subluxation. Left wrist and left hand: 1. Mild to moderate polyarticular osteoarthritis. 2. No evidence of acute fracture or subluxation. Right wrist and right hand: 1. Mild to moderate polyarticular osteoarthritis worst at the first metacarpophalangeal joint. 2. No evidence of acute fracture or subluxation. XR SHOULDER LEFT (MIN 2 VIEWS) Bilateral shoulder pain, unspecified chronicity Interpreted by: Agnieszka Sal MD Signed by: Agnieszka Sal MD 10/16/21 Final result Normal [facility] XR SHOULDER RIGHT (MIN 2 VIE WS)on 10-15-2021 XR SHOULDER RIGHT (MIN 2 VIEWS) RADRPT EXAM: XR WRIST RIGHT (2 VIEWS), XR SHOULDER RIGHT (MIN 2 VIEWS), XR SHOULDER LEFT (MIN 2 VIEWS), XR HAND LEFT (2 VIEWS), XR HAND RIGHT (2 VIEWS), XR WRIST LEFT (2 VIEWS) HISTORY: TECH NOTES: Hand arthropathy Hand arthropathy COMPARISON: Comparison is made to the outside studies dated 02/17/2021. TECHNIQUE/FINDINGS: Left shoulder: There is moderate joint space narrowing with marginal spurring at the left acromioclavicular joint. There is no evidence of acute fracture or subluxation. Right shoulder: There is moderate joint space narrowing with marginal spurring at the right acromioclavicular joint. There is no evidence of acute fracture or subluxation. Left wrist and left hand: There is moderate joint space narrowing with marginal spurring at the radiocarpal joint, triscaphe joint, first carpometacarpal, metacarpophalangeal joints and at the interphalangeal joint thumb. Right wrist and right hand: There is mild joint space narrowing with marginal spurring at the radiocarpal joint, carpometacarpal joint and triscaphe joint. Moderate joint space narrowing with marginal spurring is noted at the metacarpophalangeal joint and at the interphalangeal joints of the fingers and thumb. Report electronically signed by: Dr. Agnieszka Sal IMPRESSION: Bilateral shoulders: 1. 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 2. No evidence of acute fracture or subluxation. Left wrist and left hand: 1. Mild to moderate polyarticular osteoarthritis. 2. No evidence of acute fracture or subluxation. Right wrist and right hand: 1. Mild to moderate polyarticular osteoarthritis worst at the first metacarpophalangeal joint. 2. No evidence of acute fracture or subluxation. XR SHOULDER LEFT (MIN 2 VIEWS) Bilateral shoulder pain, unspecified chronicity Interpreted by: Agnieszka Sal MD Signed by: Agnieszka Sal MD 10/16/21 Final result Normal [facility] XR WRIST LEFT (2 VIEWS)on XR WRIST LEFT (2 VIEWS) RADRPT EXAM: XR WRIST RIGHT (2 VIEWS), XR SHOULDER RIGHT (MIN 2 VIEWS), XR SHOULDER LEFT (MIN 2 VIEWS), XR HAND LEFT (2 VIEWS), XR HAND RIGHT (2 VIEWS), XR WRIST LEFT (2 VIEWS) HISTORY: TECH NOTES: Hand arthropathy Hand arthropathy COMPARISON: Comparison is made to the outside studies dated 02/17/2021. TECHNIQUE/FINDINGS: Left shoulder: There is moderate joint space narrowing with marginal spurring at the left acromioclavicular joint. There is no evidence of acute fracture or subluxation. Right shoulder: There is moderate joint space narrowing with marginal spurring at the right acromioclavicular joint. There is no evidence of acute fracture or subluxation. Left wrist and left hand: There is moderate joint space narrowing with marginal spurring at the radiocarpal joint, triscaphe joint, first carpometacarpal, metacarpophalangeal joints and at the interphalangeal joint thumb. Right wrist and right hand: There is mild joint space narrowing with marginal spurring at the radiocarpal joint, carpometacarpal joint and triscaphe joint. Moderate joint space narrowing with marginal spurring is noted at the metacarpophalangeal joint and at the interphalangeal joints of the fingers and thumb. Report electronically signed by: Dr. Agnieszka Sal IMPRESSION: Bilateral shoulders: 1. 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 2. No evidence of acute fracture or subluxation. Left wrist and left hand: 1. Mild to moderate polyarticular osteoarthritis. 2. No evidence of acute fracture or subluxation. Right wrist and right hand: 1. Mild to moderate polyarticular osteoarthritis worst at the first metacarpophalangeal joint. 2. No evidence of acute fracture or subluxation. Hand arthropathy Interpreted by: Agnieszka Sal MD Signed by: Agnieszka Sal MD 10/16/21 Final result Normal [facility] XR WRIST RIGHT (2 VIEWS)on 0 10-15-2021 XR WRIST RIGHT (2 VIEWS) RADRPT EXAM: XR WRIST RIGHT (2 VIEWS), XR SHOULDER RIGHT (MIN 2 VIEWS), XR SHOULDER LEFT (MIN 2 VIEWS), XR HAND LEFT (2 VIEWS), XR HAND RIGHT (2 VIEWS), XR WRIST LEFT (2 VIEWS) HISTORY: TECH NOTES: Hand arthropathy Hand arthropathy COMPARISON: Comparison is made to the outside studies dated 02/17/2021. TECHNIQUE/FINDINGS: Left shoulder: There is moderate joint space narrowing with marginal spurring at the left acromioclavicular joint. There is no evidence of acute fracture or subluxation. Right shoulder: There is moderate joint space narrowing with marginal spurring at the right acromioclavicular joint. There is no evidence of acute fracture or subluxation. Left wrist and left hand: There is moderate joint space narrowing with marginal spurring at the radiocarpal joint, triscaphe joint, first carpometacarpal, metacarpophalangeal joints and at the interphalangeal joint thumb. Right wrist and right hand: There is mild joint space narrowing with marginal spurring at the radiocarpal joint, carpometacarpal joint and triscaphe joint. Moderate joint space narrowing with marginal spurring is noted at the metacarpophalangeal joint and at the interphalangeal joints of the fingers and thumb. Report electronically signed by: Dr. Agnieszka Sal IMPRESSION: Bilateral shoulders: 1. 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 2. No evidence of acute fracture or subluxation. Left wrist and left hand: 1. Mild to moderate polyarticular osteoarthritis. 2. No evidence of acute fracture or subluxation. Right wrist and right hand: 1. Mild to moderate polyarticular osteoarthritis worst at the first metacarpophalangeal joint. 2. No evidence of acute fracture or subluxation. Hand arthropathy Interpreted by: Agnieszka Sal MD Signed by: Agnieszka Sal MD 10/16/21 Final result Normal [facility] CT CARDIAC SCORINGon 02-14 CT CARDIAC SCORING Addendum Begins Patient Name: BERTIN ARECHIGA ADDENDUM: Technical: Following is to serve as an over-read for an unenhanced cardiac CT, to evaluate the extra vascular structures. Contiguous axial CT sections are performed from the level of the talya to the upper abdomen. Findings: The visualized portions of both lungs are clear. There is no sign of pathologic lymph node enlargement. A few nonenlarged calcified lymph nodes are identified in the subcarinal space. There is no pericardial or pleural effusion. Images through the upper abdomen are unremarkable. The visualized osseous and soft tissue structures of the chest wall are intact. Impression: The extra vascular structures have an unremarkable CT appearance. Electronically signed by: NOE LITTLE MD Addendum Ends Patient Name: BERTIN ARECHIGA STUDY: CT CARDIAC SCORING; 02/25/2020 12:11 pm INDICATION: ABN ECG PALPITATIONS SCREENING FOR CARDIOVASCULAR CONDITION. COMPARISON: None. ACCESSION NUMBER(S): [id number] ORDERING CLINICIAN: ESHA SCOTT TECHNIQUE: Using prospective ECG gating, CT scan of the coronary arteries was performed without intravenous contrast. Coronary calcium scoring was performed according to the method of Agatston. CT Dose-Length Product (DLP): 65.1 mGy*cm CT Dose Reduction Employed: Yes, prospective gating, iterative reconstruction. FINDINGS: The score and distribution of calcium in the coronary arteries is as follows: LM 4 LAD 0 LCx 0 RCA 0 Total 4 The visualized ascending thoracic aorta measures 3.5 cm in diameter. The heart is normal in size. No pericardial effusion is present. The main pulmonary artery, right and left pulmonary artery are normal in size. IMPRESSION: 1. Coronary artery calcium score of 4*. 2. CHRISTIAN 37th percentile for age, gender, and race in asymptomatic patients. *Coronary Artery Agatston score Score risk Very low 1-99 Mildly increased 100-299 Moderately increased >300 Moderate to severely increased >800 Yuriy et al. JCCT 2016 (http://dx.doi.org/10.1016/j.jcct.2016.11.003) CHRISTIAN Percentile In general, greater than 75th percentile for age, gender, and race is considered to be a higher relative risk and higher lifetime risk condition. Greater than 75th percentile=moderate to severely increased relative risk irrespective of the score. Advise using CHRISTIAN 10 year CHD risk calculator below for better discrimination of risk. CHRISTIAN 10-Year CHD Risk with Coronary Artery Calcification can be calcuate using link below [email or web address].aspx Fredis perez al. JACC 2014 (http://dx.doi.org/10.1016/j.j acc.2015.08.035) [employer]iliary Powerplant Operator: Dr. Chilango Delarosa, Date: 02/25/2020 7:53 pm Electronically signed by: NOE LITTLE MD [facility] Vital Signs Date Time Vital Sign Value Performing Clinician Facility 01-21-2023 11:15-0500 Body height 177.8 cm Fallon Henry Other Present Other 01-21-2023 11:15-0500 Body mass index (BMI) [Ratio] 23.07 kg/m2 Fallon Henry Other Present Other 01-21-2023 11:15-0500 Body weight 72.94 kg Fallon Henry Other Present Other 01-21-2023 11:15-0500 Diastolic blood pressure 73 mm[Hg] Fallon Henry Other Present Other 01-21-2023 11:15-0500 Systolic blood pressure 115 mm[Hg] Fallon Henry Other Present Other 10-25-2022 13:30-0400 Body height 177.8 cm Fallon Henry Other Present Other 10-25-2022 13:30-0400 Body mass index (BMI) [Ratio] 23.3 kg/m2 Fallon Henry Other Present Other 10-25-2022 13:30-0400 Body weight 73.66 kg Fallon Henry Other Present Other 10-25-2022 13:30-0400 Diastolic blood pressure 84 mm[Hg] Fallon Carl Other Present Other 10-25-2022 13:30-0400 Respiratory rate 12 /min Fallon Carl Other Present Other 10-25-2022 13:30-0400 Systolic blood pressure 136 mm[Hg] Fallon Carl Other Present Other Encounters Encounter Date Encounter Type Care Provider Facility Start: 01-21-2023 End: 01-21-2023 ambulatory Fallon Henry Other Present Other Start: 01-21-2023 Office outpatient visit 10 minutes Fallon Henry [facility] Start: 01-20-2023 End: 01-20-2023 ambulatory PATTIE PICHARDO Not Available Start: 01-14-2023 End: 01-14-2023 ambulatory Fallon Henry Other Present Other Start: 01-14-2023 Telephone encounter Fallon Carl [facility] Start: 11-08-2022 End: 11-08-2022 ambulatory Fallon Carl Other Present Other Start: 11-08-2022 Telephone encounter Fallon Henry [facility] Start: 11-02-2022 End: 11-02-2022 ambulatory Fallon Carl Other Present Other Start: 11-02-2022 Telephone encounter Fallon Henry [facility] Start: 10-29-2022 End: 10-29-2022 ambulatory Fallon Henry Other Present Other Start: 10-29-2022 Telephone encounter Fallon Henry [employer] Start: 10-25-2022 End: 10-25-2022 ambulatory Fallon Henry Other [employer] Other Start: 10-25-2022 Office outpatient visit 15 minutes Fallon Henry [facility] Start: 05-20-2022 End: 05-21-2022 ambulatory SOURAV ESPINOZA Facility:[facility] Start: 03-04-2022 End: 03-05-[address] ROWAN GARDUNO . Facility:[facility] Start: 02-16-2022 End: 02-16-[address] ROWAN GARDUNO . Facility:[facility] Start: 01-21-2022 End: 01-22-[address] ROWAN GARDUNO . Facility:[facility] Start: 01-05-2022 End: 01-05-[address] ROWAN GARDUNO . Facility:[facility] Start: 12-08-2021 End: 12-09-[address] ROWAN GARDUNO . Facility:[facility] Start: 10-15-2021 ambulatory FALLON HENRY [facility] Start: 02-16-2021 Rx Renewal Brett Dolan ce Work Phone: [place] [address] DO Work Phone: Procedures Date Procedure Procedure Detail Performing Clinician Start: 10-15-2021 Cyclic citrullinated peptide antibody FALLON HENRY Comment on above: Order Comment: [facility] performed at: [facility], [facility], [address] [place] [address], , Accounts Officer: Remberto Clemens MD PhD\X0D0A\Quest Collection Date/Time: \X0D0A\[facility] Results Received Date/Time: [id number]\X0D0A\[facility] Reported Date/Time: Result Comment: \X0D 0A\Negative: <20\X0D0A\Weak Positive: 20 - 39\X0D0A\Moderate Positive: 40 - 59\X0D0A\Strong Positive: >59\X0D0A\ Performed By: #### O [id number] #### [place] [address] [facility] [phone] Payers Date Payer Category Payer Unknown [id number] 1960 Unknown [id number] 2.16.840.1.580195.3.579.2.754 1960 Unknown [id number] 2.16.840.1.692199.3.579.2.754 1960 Unknown [id number] 2.16.840.1.136488.3.579.2.754 1961 Unknown [id number] 2.16.840.1.231690.3.579.2.754 1961 Unknown [id number] 2.16.840.1.409316.3.579.2.754 1961 Unknown [id number] 2.16.840.1.981114.3.579.2.754 1961 Unknown [id number] 2.16.840.1.983030.3.579.2.754 1961 Unknown [id number] 2.16.840.1.834431.3.579.2.754 1961 Unknown [id number] 2.16.84 0.1.784431.3.579.2.593 1961 Unknown [id number] 2.16.84 0.1.145629.3.579.2.593 1961 Unknown [id number] 2.16.84 0.1.412564.3.579.2.593 1961 Unknown [id number] 2.16.84 0.1.725982.3.579.2.593 1961 Unknown [id number] 2.16.84 0.1.321734.3.579.2.593 1961 Unknown [id number] 2.16.84 0.1.781438.3.579.2.593 1961 Unknown [id number] 2.16.84 0.1.779869.3.579.2.593 1961 Unknown [id number] 2.16.840 .1.545850.3.579.2.1259 Unknown INSTITUTIONAL BILLING Self-pay [id number] 2.16.840.1.036654.19 Self-pay [id number] 2.16.840.1.494498.19 Self-pay [id number] 2.16.840.1.134291.19 Self-pay [id number] 2.16.840.1.373754.19 Self-pay [id number] 2.16.840.1.069763.19 Self-pay [id number] 2.16.840.1.890756.19 Social History Date Type Detail Facility Sex Assigned At Present Other Clinical Notes 12-08-2021 to 01-21-2023 Note Date & Type Note Facility 01-21-2023 Evaluation note Encounter Date Diagnosis Assessment Notes Jan, Complete tear of right rotator cuff, unspecified whether traumatic (ICD-10 - M75.121) Pt has followup with his telephone lines repairer for clearance today. He is medically cleared barring abnormalities on testing at [facility] which is pending or with his telephone lines repairer. Jan, Intermittent atrial fibrillation (ICD-10 - I48.0) as above. Present Other 12-01-2023 Evaluation note* Encounter Date Diagnosis Assessment Notes Treatment Notes Treatment Clinical Notes Jan, Acute pain of right shoulder (ICD-10 - M25.511) Present Other 09-25-2023 Evaluation note* Encounter Date Diagnosis Assessment Notes Treatment Notes Treatment Clinical Notes Oct, PSA elevation (ICD-10 - R97.20) Present Other 09-11-2023 Evaluation note* Encounter Date Diagnosis Assessment Notes Treatment Notes Treatment Clinical Notes Oct, Acute pain of right shoulder (ICD-10 - M25.511) Pt agrees to referral, xray and further assessment at ortho Oct, Essential hypertension (ICD-10 - I10) Blood pressure remains well controlled at this time. Denies cardiac symptoms. Shows no signs or symptoms or poor control. Patient to continue with above medication and we will continue to monitor. Advised to pay attention to body and symptoms. Any developing patterns. Stay well hydrated. Oct, Hyperlipemia (ICD-10 - E78.5) Patient to continue to watch diet and increase exercise routine. Remain active as tolerated and we will continue to monitor with routine blood work. Patient is to continue with above medication as directed. Oct, Screening PSA (prostate specific antigen) (ICD-10 - Z12.5) Present Other 04-06-2023 NoteCONSULTATION CONSULTATION DATE: 05/20/2022 TO: Fallon Henry M.D. CHIEF COMPLAINT: Includes lower back pain, worse on the right than left side. HISTORY: He describes it at 5-7/10 pain, sharp in character, increased with activities such as standing, walking and performing transitioning maneuvers. He also reports having had progressive pain in his right hip area, which also increased with activities such as standing, walking and performing transitioning maneuvers. He feels most comfortable in the semi-recumbent position. Denies any change in bowel and bladder habits or new sensorimotor change in the lower extremities. EXAM: Notable for the patient having no clinical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
== END 2022-12-22 12:58 | disposition home or self-care (01) ==
LOC: LAB 12:58
PROVIDERS: PCP Family Medicine
DX: R97.20 Elevated prostate specific antigen [PSA] (principal)
CPT/HCPCS: 36415; 84153

== ENCOUNTER 2023-01-04 14:25 | Outpatient (OUT) | payer OTHER, SELFPAY ==
--- NOTE | 2023-01-04 | CONS_ITS ---
CONSULTATION DATE: ??01/04/2023 TO:? Fallon Gonzalez M.D. HISTORY:?? Patient returns today complaining of 7/10 pain in his left hip area, left buttock area, described as deep throbbing pain, increased with activities such as standing, walking and performing transitioning maneuvers.? He feels most comfortable in the semi-recumbent position.? Denies any change in bowel and bladder habits or new sensorimotor changes in his lower extremities. EXAM:? Notable for patient having dysesthesia and hypoesthesia overlying the distribution of the left superior nerve.? Patient has severe myofascial spasm of the lumbar iliocostalis muscle. IMPRESSION:? 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 RECOMMENDATIONS:? I recommend proceeding with a diagnostic left superior gluteal nerve injection under fluoroscopic guidance. As part of providing excellent, safe, comprehensive care, the following was completed at our patient's visit: 1. A medication reconciliation and review to ensure accurate knowledge of current/active medications, including asking our patients to inform us about any [id number] medications or herbal remedies/nutritional supplements/alternative remedies. 2. A review to specifically ensure our patients have had annual screening for: elevated body mass index (BMI, see intake chart for exact total), tobacco use, screening for depression, and screening for unhealthy alcohol use.? When screening is concerning, patients are provided with education and the specific recommendation to discuss the concerning health issue and treatment options with their primary care provider. BARBY
--- NOTE | 2023-01-05 | CONS_ITS ---
PROCEDURE DATE: ??01/04/2023 TO:? Fallon Gonzalez M.D. PROCEDURE:? Left lumbar iliocostalis trigger point injection. PREOPERATIVE DIAGNOSIS:? Pain secondary to myofascial spasm left lumbar iliocostalis muscle. POSTOPERATIVE DIAGNOSIS:? Pain secondary to myofascial spasm left lumbar iliocostalis muscle. SOLUTION USED FOR INJECTION:? 2 mL of 2% lidocaine, 2 mL of 0.25% Marcaine and 10 mg of Kenalog, total of 5 mL, and 3 mL used for the injection. IMMEDIATE COMPLICATIONS:? None. PROCEDURE:? After informed consent was obtained from the patient, placed in the prone position.? Skin overlying the area was prepped with alcohol.? A 25 gauge, 1 ?? needle inserted into the substance of the left lumbar iliocostalis muscle at the L5 level.? Needle tip advanced until there was a mild twitch response, at which point we injected 3 mL of solution.? No indication of intravascular or intraneural needle tip placement or injection.? Patient tolerated procedure well with no complications, reports reduction in her pain symptoms.?? ? MTDD
== END 2023-01-04 14:26 | disposition home or self-care (01) ==
LOC: PM 14:29
PROVIDERS: PCP Family Medicine; Visit Provider Nurse Practitioner
DX: M25.552 Pain in left hip (principal)
CPT/HCPCS: 20552

== ENCOUNTER 2023-04-05 10:15 | Day surgery (SDC) | payer OTHER, SELFPAY ==
[2023-04-05 10:28] VITALS: BP 134/80; PULSE 59; RESP 16; TEMP 36.6; O2SAT 97
--- OUTSIDE RECORDS SUMMARY | 2023-04-05 10:30 | XMS_ITS | CCD ---
Author Name Unknown Address [address] [facility] [address] [place] [address] Organization [facility] Care Team Providers Care Cook Candy Name Role Phone ShilohBrett redding Devin Unavailable Unavailable Unavailable FALLON HENRY Primary Care Unavailable SANTO HARMON Referring Unavailable FALLON HENRY Primary Care Unavailable SANTO HARMON Referring Unavailable FALLON EHNRY Primary Care Unavailable SANTO HARMON Referring Unavailable SHAAN ., DR ROWAN Shea Admitting Unavailable GARDUNO ., DR ROWAN Shea Attending Unavailable CARL, DR FALLON Emmanuel Primary Care Unavailable GARDUNO ., DR ROWAN Shea Consulting Unavailable LAKSHMIPATHY, NARENDKUMARATH Admitting Unava ilable LAKRIYA, SOURAV Attending Unava DR FALLON Mcdermott Primary Care Unavailable LAKSHMIPATHY, NARSHYAM Consulting Unava ilable GARDUNO ., DR ROWAN Shea Admitting Unavailable GARDUNO ., DR ROWAN Shea Attending Unavailable CARL, DR FALLON Emmanuel Primary Care Unavailable ROLAND .MICHELLE Consulting Unavailable GARDUNO ., DR ROWAN Shea Admitting Unavailable GARDUNO ., DR ROWAN Shea Attending Unavailable CARL, DR FALLON Emmanuel Primary Care Unavailable GARDUNO ., DR ROWAN Shea Consulting Unavailable ROD KANG Consulting Unavailable GARDUNO ., DR ROWAN Shea Admitting Unavailable GARDUNO ., DR ROWAN Shea Attending Unavailable CARL, DR FALLON Emmanuel Primary Care Unavailable ROLAND .MICHELLE Consulting Unavailable GARDUNO ., DR ROWAN Shea Admitting Unavailable GARDUNO ., DR ROWAN Shea Attending Unavailable DR FALLON HENRY Primary Care Unavailable GARDUNO ., DR ROWAN Shea Consulting Unavailable LAKSHMIPATHAdan, NARENDOLGA Admitting Unava ilable ALEXIS, SOURAV Attending Unava ilDR FALLON Rojas Primary Care Unavailable ZIEBER, DR ABEBA R Consulting Unavailable VERÓNICAMISOURAV LEIGH Consulting Fallon Polanco Unavailable Fallon Henry MD Primary Care Provider Fallon Henry MD Primary Care Provider PATTIE PICHARDO Attending Unavailable PATTIE PICHARDO Attending Unavailable WIL CAO Attending Unavailable PATTIE PICHARDO Attending Unavailable Medications Current Medications Medication Drug Class(es) Dates Sig (Normalized) Sig (Original) ALPRAZolam 0.5 mg oral tablet (5 sources) Benzodiazepine Xanax 0.5 MG 1 tablet Orally prn Active amLODIPine 10 mg / atorvastatin 20 mg oral tablet (2 sources) Dihydropyridine Calcium Channel Vandana, HMG-CoA Reductase Inhibitor amLODIPine-atorv astatin (Caduet) 10-20 MG tablet 1 (one) time each day at the same time. 0 Active amLODIPine 10 mg / benazepril hydrochloride 40 mg oral capsule (6 sources) Dihydropyridine Calcium Channel Vandana, Angiotensin Converting Enzyme Inhibitor Start: 04-01-2022 take 1 capsule by mouth in the morning amLODIPine-benaz epril (Lotrel) 10-40 MG capsule Take 1 capsule by mouth in the morning. 0 04/01/2022 Active Start: 04-01-2022 End: 02-16-2023 take 1 capsule by mouth once in the morning amLODIPine-benazepril (LOTREL) 10-40 mg per capsule Indications: Essential hypertension Take 1 capsule by mouth in the morning. 90 capsule 3 02/16/2023 Active take 10-20 mg by maurice th once daily amLODIPine Besy-Benazepril HCl - 10-20 MG Oral Capsule TAKE 1 CAPSULE Daily Quantity: 0 Refills: 0 Ordered: 16-Feb-2021 Esha Scott MD Active aspirin 81 mg delayed release oral tablet (10 sources) Platelet Aggregation Inhibitor, Nonsteroidal Anti-inflammatory Drug take 1 tablet by mouth in the morning aspirin 81 MG EC tablet Take 81 mg by mouth in the morning. 0 Active take 1 tablet by mouth once gina y Aspirin 81 81 MG 1 tablet Orally Once a day Active atorvastatin 10 mg oral tablet (10 sources) HMG-CoA Reductase Inhibitor Start: 02-01-2021 take 1 tablet by mouth once daily atorvastatin (LIPITOR) 10 mg tablet Take 1 tablet (10 mg total) by mouth nightly. 0 02/01/2021 Active baclofen 10 mg oral tablet (4 sources) gamma-Aminobutyr ic Acid-ergic Agonist Start: 05-20-2022 take 0.5-1 tablets by mouth three times daily as needed baclofen (Lioresal) 10 MG tablet TAKE 1/2 (ONE-HALF) TO 1 (ONE) TABLET BY MOUTH THREE TIMES DAILY NEEDED 0 05/20/2022 Active Cannabinoids (medical cannabis) (2 sources) take 1 dose by inhalation once daily as needed Cannabinoids (medical cannabis) Inhale 1 each Daily as needed. 0 Active docusate sodium 100 mg oral capsule (10 sources) take 1 capsule by mouth in the morning Docusate Sodium (DSS) 100 MG capsule Take 100 mg by mouth in the morning. 0 Active gabapentin 600 mg oral tablet (12 sources) Anti-epileptic Agent take 1 tablet by mouth in the morning gabapentin (Neurontin) 600 MG tablet Take 600 mg by mouth in the morning and 600 mg in the evening. 0 Active gabapentin (Neur ontin) 600 MG tablet every 8 (eight) hours. 0 Active medical marijuana (2 sources) take 1 dose by inhalation once daily as needed for pain medical marijuana Inhale 1 each daily as needed. Pt states he has a medical marijuana card and uses in the evening as needed for chronic pain 0 Active metaxalone 800 mg oral tablet (6 sources) take 1 tablet by mouth every twelve hours Metaxalone 800 MG 1 tablet Orally two times a day Active methylPREDNISolone 4 mg oral tablet (2 sources) Corticosteroid Start : 03-30 End: 03-30 take 1 tablet by mouth once methylPREDNISolone (Medrol Dospak) 4 MG tablets Indications: Status post right rotator cuff repair Take 1 tablet (4 mg) by mouth 1 (one) time for 1 dose Use as directed by package instructions 1 tablet 0 03/30/2023 03/30/2023 Active 24 hr metoprolol succinate 25 mg extended release oral tablet (5 sources) beta-Adrenergic Vandana take 1 tablet by mouth every twenty-four hours Metoprolol Succinate ER 25 MG 1 tablet Orally Once a day Active psyllium 3400 mg powder for oral suspension (7 sources) take 1 dose by mouth in the morning psyllium (METAMUCIL) powder Take 1 packet by mouth in the morning. 0 Active Psyllium 48.57 % as directed Orally Active traMADol hydrochloride 50 mg oral tablet (12 sources) Opioid Agonist Start: 01-14-2023 take 1 tablet by mouth twice daily as needed traMADol HCl 50 MG 1 tablet as needed Orally bid prn for 30 days Jan, Active Start: 10-25-2022 take 1 tablet by maurice th twice daily as needed traMADol HCl 50 MG 1 tablet as needed Orally bid prn for 30 days Oct, Active take 1 tablet by maurice th every eight hours as needed traMADol (Ultram) 50 MG tablet Take 50 mg by mouth every 8 (eight) hours if needed. 0 Active Problems Active Problems Problem Classification Problem Date Documented Date Episodic/Chronic Cardiac dysrhythmias (11 sources) Paroxysmal atrial fibrillation; Translations: [Paroxysmal atrial fibrillation] Onset: 01-19-2022 Chronic Diabetes mellitus without complication (1 source) Type 2 diabetes mellitus without complications; Translations: [TYPE 2 DM WITHOUT COMPLICATIONS] Onset: 01-14-2022 Chronic Disorders of lipid metabolism (7 sources) Hyperlipidemia; Translations: [Hyperlipidemia, unspecified] Chronic Essential hypertension (13 sources) Benign essential hypertension; Translations: [Benign essential hypertension] Onset: 04-26-2018 Chronic Osteoarthritis (9 sources) Primary osteoarthritis, unspecified hand; Translations: [Chronic osteoarthritis] Onset: 10-15-2021 03-29-2023 Chronic Other circulatory disease (2 sources) Raynaud's phenomenon; Translations: [Raynaud's syndrome without gangrene] Onset: 11-09-2022 11-09-2022 Chronic Other connective tissue disease (1 source) [...] Translations: [Dyspnea, unspecified] Onset: 10-15-2021 Episodic Other nervous system disorders (2 sources) Carpal tunnel syndrome; Translations: [Carpal tunnel syndrome, unspecified upper limb] Onset: 11-09-2022 11-09-2022 Chronic Other nervous system disorders (2 sources) Lesion of ulnar nerve, right upper limb; Translations: [Lesion of ulnar nerve] Onset: 11-09-2022 11-09-2022 Chronic Other nervous system disorders (2 sources) Chronic pain due to injury; Translations: [Chronic pain due to trauma] Onset: 11-09-2022 11-09-2022 Chronic Other nervous system disorders (2 sources) Chronic pain; Translations: [Other chronic pain] Onset: 11-09-2022 11-09-2022 Chronic Other nervous system disorders (2 sources) Disorder of right median nerve; Translations: [Other lesions of median nerve, right upper limb] Onset: 11-09-2022 11-09-2022 Chronic Other nervous system disorders (2 sources) Ulnar neuropathy; Translations: [Lesion of ulnar nerve, right upper limb] Onset: 11-09-2022 11-09-2022 Chronic Other non-traumatic joint disorders (3 sources) Pain [...] conditions (not mental disorders or infectious disease) (5 sources) Encounter for screening for malignant neoplasm of prostate; Translations: [Elevated prostate specific antigen [PSA]] Onset: 12-22-2022 Episodic Spondylosis; intervertebral disc disorders; other back problems (20 sources) Spondylosis without myelopathy or radiculopathy, lumbar region; Translations: [Other intervertebral disc degeneration, lumbar region] Onset: 12-08-2021 Chronic Unclassified (4 sources) LOW BACK PAIN, UNSPECIFIED; Translations: [LOW BACK PAIN, UNSPECIFIED] Onset: 03-09-2022 Past or Other Problems Problem Classification Problem Date Documented Da te Episodic/Chronic Cardiac dysrhythmias (10 sources) Sinus bradycardia; Translations: [Bradycardia, unspecified] Onset: 01-19-2022 01-19-2022 Episodic Mood disorders (2 sources) Mood disorders Onset: 11-24-2018 11-24-2018 Nonspecific chest pain (4 sources) Chest pain; Translations: [Other chest pain] Onset: 09-07-2021 09-07-2021 Episodic Other connective tissue disease (2 sources) Neurogenic pain; Translations: [Neuralgia and neuritis, unspecified] Onset: 11-09-2022 11-09-2022 Episodic Other connective tissue disease (2 sources) Pain of left hand; Translations: [Pain in left hand] Onset: 11-09-2022 11-09-2022 Episodic Other connective tissue disease (2 sources) Pain in right hand; Translations: [Pain in right hand] Onset: 11-09-2022 11-09-2022 Episodic Spondylosis; intervertebral disc disorders; other back problems (14 sources) Muscle spasm of back; Translations: [Intervertebral disc disorders with radiculopathy, lumbar region] Onset: 01-25-2022 11-09-2022 Episodic Unclassified (1 source) LOW BACK PAIN, UNSPECIFIED; Translations: [LOW BACK PAIN, UNSPECIFIED] Onset: 05-20-2022 Unclassified (2 sources) Onset: 11-24-2018 11-24-2018 Results Test Name Value Interpretation Reference Range Facility XR HIPS STEPH 3_4V WO PELVISon 05-20-2022 [...] ABEBA DOUGHERTY Date: 2022-05-20 11:00 Normal [facility] POINT OF CARE GLUCOSEon 12-16 Glucose [Mass/Vol] 84 mg/dL Normal 74-106 [facility] Comment on above: Performed By: #### P OCGLUC #### [facility] [address] [address] [address] Erin Anthony TOAN SCREEN WITH REFLEXon TOAN Screen, IFA Negative Normal Negative [facility] Comment on above: Order Comment: [facility] performed at: [facility], [facility], [address] [place] [address], , Station Worker: Remberto Clemens MD PhD\X0D0A\[facility] Collection Date/Time: [id number]\X0D0A\[facility] Results Received Date/Time: [id number]\X0D0A\[facility] Reported Date/Time: [id number] Result Comment: \X0D 0A\TOAN IFA is a [...] inflammatory myopathies.\X0D0A\ \X0D0A\AC-0: Negative\X0D0A\International Consensus on TOAN Patterns\X0D0A\https://doi.org/10.1515/fclb-9767-2151\X0D0A\ \X0D0A\For additional information, please refer to\X0D0A\[email or web address].[email or web address]\X0D0A\ \X0D0A\(This link is being provided for informational/\X0D0A\educational purposes only.)\X0D0A\ Performed By: #### O RD264 #### [address] [address] Ph. [phone] ANCA Screen with Reflex to A NCA [place] 10-15-2021 ANCA Screen Negative Normal Negative [facility] Comment on above: Order Comment: [facility] performed at: [facility], [address] [place] [address], , Station Worker: Remberto Clemens MD PhD\X0D0A\[facility] Collection Date/Time: \X0D0A\[facility] Results Received Date/Time: \X0D0A\[facility] Reported Date/Time: Result Comment: \X0D 0A\ANCA Screen includes evaluation for p-ANCA, c-ANCA and\X0D0A\atypical p-ANCA. A positive ANCA screen reflexes to\X0D0A\titer and pattern(s), e.g., cytoplasmic pattern\X0D0A\(c-ANCA), perinuclear pattern (p-ANCA), or atypical\X0D0A\p-ANCA pattern. c-ANCA and p-ANCA are observed in\X0D0A\vasculitis, whereas atypical p-ANCA is observed in IBD\X0D0A\(Inflammatory Bowel Disease). Atypical p-ANCA is\X0D0A\detected in about 55% to 80% of patients with\X0D0A\ulcerative colitis but only 5% to 25% of patients with\X0D0A\Crohn's disease.\X0D0A\ Performed By: #### O RD264 #### [address] [address] Ph. [phone] ANGIOTENSIN CONVERTING ENZYM [place] 10-15-2021 Angiotensin Conv Enzyme 5 U/L Low [facility] Comment on above: Order Comment: [facility] performed at: [facility], [address] [place] [address], Station Worker: Remberto Clemens MD PhD\X0D0A\[facility] Collection Date/Time: \X0D0A\[facility] Results Received Date/Time: \X0D0A\[facility] Reported Date/Time: Performed By: #### O RD264 #### [place] [address] Ph. [phone] ANTI CENTROMERE ANTIBODYon 0 10-15-2021 Centromere B Antibody <1.0 Normal [facility] Comment on above: Order Comment: [facility] performed at: [employer], [employer], [address] [place] [address], Station Worker: Remberto Clemens MD PhD\X0D0A\[facility] Collection Date/Time: \X0D0A\[facility] Results Received Date/Time: \X0D0A\[facility] Reported Date/Time: Result Comment: \X0D 0A\ Reference Range: < 1.0 NEG AI\X0D0A\ Performed By: #### O RD264 #### [place] [address] Ph. [phone] ANTI-DNA ANTIBODY, DOUBLE-ST RANDEDon 10-15-2021 DNA (ds) Antibody <1 Normal <=4 [facility] Comment on above: Order Comment: [facility] performed at: [facility], [address] [place] [address], , Station Worker: Remberto Clemens MD PhD\X0D0A\[facility] Collection Date/Time: \X0D0A\[facility] Results Received Date/Time: \X0D0A\[facility] Reported Date/Time: Result Comment: \X0D 0A\ Value Interpretation\X0D0A\ \X0D0A\ or=10 IU/mL: Positive\X0D0A\ Performed By: #### O RD264 #### [place] [address] Ph. [phone] ANTI-GENERAL SCRAP WORKER (EUN AB)on 10-16-19 GENERAL SCRAP WORKER Antibody <1.0 Normal [facility] Comment on above: Order Comment: [facility] performed at: [employer], [facility] [facility], [address] [place] [address], , Station Worker: Remberto Clemens MD PhD\X0D0A\[facility] Collection Date/Time: \X0D0A\[facility] Results Received Date/Time: \X0D0A\[facility] Reported Date/Time: Result Comment: \X0D 0A\ Reference Range: < 1.0 NEG AI\X0D0A\ Performed By: #### O RD263 #### [place] [address] Ph. [phone] ANTI-SCLERODERMA ANTIBODY (a ka SCL 70)on 10-15-2021 Scl-70 Antibody <1.0 Normal [facility] Comment on above: Order Comment: [facility] performed at: [facility], [address] [place] [address], , Station Worker: Remberto Clemens MD PhD\X0D0A\[facility] Collection Date/Time: \X0D0A\[facility] Results Received Date/Time: \X0D0A\[facility] Reported Date/Time: Result Comment: \X0D 0A\ Reference Range: < 1.0 NEG AI\X0D0A\ Performed By: #### O RD264 #### [place] [address] Ph. [phone] C-Reactive Proteinon 022 CRP [Mass/Vol] mg/L Normal 0.0-1.0 [facility] Comment on above: Performed By: #### C K, URIC, CRP, CMP ####[facility] [place], [place] [address]Wj. [phone] C3 COMPLEMENTon 10-15-2021 Complement Component C3c 132 mg/dL Normal 82-185 [facility] Comment on above: Order Comment: [facility] performed at: [employer], [employer], [address] [place] [address], , Station Worker: Remberto Clemens MD PhD\X0D0A\[facility] Collection Date/Time: \X0D0A\[facility] Results Received Date/Time: \X0D0A\[facility] Reported Date/Time: Performed By: #### O RD264 #### [place] [address] Ph. [phone] C4 COMPLEMENTon 10-15-2021 Complement Component C4c 31 mg/dL Normal 15-53 [facility] Comment on above: Order Comment: [facility] performed at: [employer], [employer], [address] [place] [address], , Station Worker: Remberto Clemens MD PhD\X0D0A\[facility] Collection Date/Time: \X0D0A\[facility] Results Received Date/Time: \X0D0A\[facility] Reported Date/Time: Performed By: #### O RD263 #### [address] [address] Ph. [phone] Complete Blood Count with Au to Diffon 10-15-2021 Basophils (Bld) [#/Vol] 0.1 10*3/uL Normal 0.0-0.1 [facility] Comment on above: Performed By: #### C BCAD #### [place] [address] Ph. [phone] Basophils/100 WBC (Bld) 1 % Normal 0-1 [facility] Comment on above: Performed By: #### C BCAD #### [place] [address] Ph. [phone] Eosinophils (Bld) [#/Vol] 0.3 10*3/uL Normal 0.0-0.5 [facility] Comment on above: Performed By: #### C BCAD #### [place] [address] Ph. [phone] Eosinophils/100 WBC (Bld) 3 % Normal 0-5 [facility] Comment on above: Performed By: #### C BCAD #### [place] [address] Ph. [phone] Erythrocyte distribution width (RBC) [Ratio] 12.8 % Normal 11.5-14.5 [facility] Comment on above: Performed By: #### C BCAD #### [place] [address] Ph. [phone] Hematocrit (Bld) [Volume fraction] 45.9 % Normal 42.0-52.0 [facility] Comment on above: Performed By: #### C BCAD #### [place] [address] Ph. [phone] Hemoglobin (Bld) [Mass/Vol] 15.2 g/dL Normal 13.5-17.5 [facility] Comment on above: Performed By: #### C BCAD #### [place] [address] Ph. [phone] Lymphocytes (Bld) [#/Vol] 2.4 10*3/uL Normal 1.0-4.0 [facility] Comment on above: Performed By: #### C BCAD #### [address] [address] Ph. [phone] Lymphocytes/100 WBC (Bld) 26 % Normal 20-40 [facility] Comment on above: Performed By: #### C BCAD #### [address] [address] Ph. [phone] MCH (RBC) [Entitic mass] 28.8 pg Normal 27.0-35.0 [facility] Comment on above: Performed By: #### C BCAD #### [address] [address] Ph. [phone] MCHC (RBC) [Mass/Vol] 33.1 g/dL Normal 32.0-36.0 [facility] Comment on above: Performed By: #### C BCAD #### [address] [address] Ph. [phone] MCV (RBC) [Entitic vol] 87 fL Normal 80-100 [facility] Comment on above: Performed By: #### C BCAD #### [address] [address] Ph. [phone] Monocytes (Bld) [#/Vol] 0.6 10*3/uL Normal 0.3-1.0 [facility] Comment on above: Performed By: #### C BCAD #### [address] [address] Ph. [phone] Monocytes/100 WBC (Bld) 7 % Normal 1-15 [facility] Comment on above: Performed By: #### C BCAD #### [address] [address] Ph. [phone] Neutrophils (Bld) [#/Vol] 5.9 10*3/uL Normal 1.8-7.7 [facility] Comment on above: Performed By: #### C BCAD #### [address] [address] Ph. [phone] Neutrophils/100 WBC (Bld) 64 % Normal 50-70 [facility] Comment on above: Performed By: #### C BCAD #### [address] [address] Ph. [phone] Platelet mean volume (Bld) [Entitic vol] 9.5 fL Normal 9.4-12.3 [facility] Comment on above: Performed By: #### C BCAD #### [address] [address] Ph. [phone] Platelets (Bld) [#/Vol] 230 10*3/uL Normal 150-450 [facility] Comment on above: Performed By: #### C BCAD #### [address] [place] [address] Ph. [phone] RBC (Bld) [#/Vol] 5.27 10*6/uL Normal 4.70-6.10 [facility] Comment on above: Performed By: #### C BCAD #### [address] [address] Ph. [phone] WBC (Bld) [#/Vol] 9.3 10*3/uL Normal 3.7-11.0 [facility] Comment on above: Performed By: #### C BCAD #### [address] [address] Ph. [phone] Comprehensive Metabolic Pane idania 10-15-2021 Albumin [Mass/Vol] 4.4 g/dL Normal 3.5-5.0 [facility] Comment on above: Performed By: #### C K, URIC, CRP, CMP ####[address] [address]Jk. [phone] ALP [Catalytic activity/Vol] 73 U/L Normal 38-126 [facility] Comment on above: Performed By: #### C K, URIC, CRP, CMP ####[address] [address]Oh. [phone] ALT [Catalytic activity/Vol] 18 U/L Normal 0-50 [facility] Comment on above: Performed By: #### C K, URIC, CRP, CMP ####[address] [address]Pu. [phone] AST [Catalytic activity/Vol] 32 U/L Normal 17-59 [facility] Comment on above: Performed By: #### C K, URIC, CRP, CMP ####[address] [address]Yd. [phone] Bilirubin [Mass/Vol] 0.8 mg/dL Normal 0.2-1.3 [facility] Comment on above: Performed By: #### C K, URIC, CRP, CMP ####[address] [address]Sd. [phone] Calcium [Mass/Vol] 8.8 mg/dL Normal 8.4-10.2 [facility] Comment on above: Performed By: #### C K, URIC, CRP, CMP ####[address] [address]Aw. [phone] Chloride [Moles/Vol] 101 mmol/L Normal 98-107 [facility] Comment on above: Performed By: #### C K, URIC, CRP, CMP ####[address] [address]Ub. [phone] CO2 [Moles/Vol] 27 mmol/L Normal 22-32 [facility] Comment on above: Performed By: #### C K, URIC, CRP, CMP ####[place] [address] [address]Os. [phone] Creatinine [Mass/Vol] 0.95 mg/dL Normal 0.66-1.25 [facility] Comment on above: Performed By: #### C K, URIC, CRP, CMP ####[address] [address]Dm. [phone] GFR/1.73 sq M.predicted among non-blacks MDRD (S/P/Bld) [Vol rate/Area] 86 mL/min/{1.73_m2} Normal >60 [facility] Comment on above: Result Comment: Stag e 1 Kidney damage (e.g., protein in the urine) with normal GFR >=90\X0D0A\Stage 2 Kidney damage with mild decrease in GFR 60-89\X0D0A\Stage 3a Moderate decrease in GFR 45-59\X0D0A\Stage 3b Moderate decrease in GFR 30-44\X0D0A\Stage 4 Severe reduction in GFR 15-29\X0D0A\Stage 5 Kidney failure <15 Performed By: #### C K, URIC, CRP, CMP ####[address] [address]Yh. [phone] Glucose [Mass/Vol] 84 mg/dL Normal 65-100 [facility] Comment on above: Performed By: #### C K, URIC, CRP, CMP ####[address] [address]Wj. [phone] Potassium [Moles/Vol] 4.1 mmol/L Normal 3.6-5.0 [facility] Comment on above: Performed By: #### C K, URIC, CRP, CMP ####[address] [address]Um. [phone] Protein [Mass/Vol] 7.1 g/dL Normal 6.3-8.2 [facility] Comment on above: Performed By: #### C K, URIC, CRP, CMP ####[address] [place], [place] [address]Nu. [phone] Sodium [Moles/Vol] 140 mmol/L Normal 135-145 [facility] Comment on above: Performed By: #### C K, URIC, CRP, CMP ####[address] [place], [place] [address]Ua. [phone] Urea nitrogen [Mass/Vol] 15 mg/dL Normal 9-20 [facility] Comment on above: Performed By: #### C K, URIC, CRP, CMP ####[address] [place], [place] [address]Lv. [phone] Creatine Kinaseon 10-15-2021 CK [Catalytic activity/Vol] 105 U/L Normal 49-397 [facility] Comment on above: Performed By: #### C K, URIC, CRP, CMP ####[address] [address]Jq. [phone] Erythrocyte Sedimentation Ra ann 10-15-2021 ESR (Bld) [Velocity] 2 mm/h Normal 0-20 [facility] Comment on above: Result Comment: The ESR varies with age. The maximum normal ESR at a given age is calculated using the formulas:Men: Age in years/2Women: (Age in years + 10)/2 Performed By: #### E SR ####[address] [address]Yt. [phone] HLA-B27 ANTIGENon 10-15-2021 HLA-B27 Antigen Negative Normal Negative [facility] Comment on above: Order Comment: [facility] performed at: [facility], [facility], [address] [place] [address], , Station Worker: Remberto Clemens MD PhD\X0D0A\[facility] Collection Date/Time: [id number]\X0D0A\[facility] Results Received Date/Time: \X0D0A\[facility] Reported Date/Time: Performed By: #### O RD634 #### [address] [address] Ph. [phone] MISCELLANEOUS SENDOUTon 09-0 Misc Ref Lab Result See Below Normal 0-0 [facility] Comment on above: Result Comment: Rheu matoid Factor Result: <14 IU/mL\X0D0A\X0D0A\Reference Range: <14 IU/mL \X0D0A\ \X0D0A\Performing Laboratory Information:\X0D0A\[facility] [address] [place] [address] Station Worker: Remberto Clemens MD PhD Performed By: #### O RD263 #### [place] [id number] Ph. [phone] MRI COMPARISON OF OUTSIDE FI LMSon 10-15-2021 MRI COMPARISON OF OUTSIDE FILMS RADRPT There is no result for this study. This is a placeholder for comparison films only. Final result Normal [facility] SJOGREN'S ANTIBODIES (SS-A, SS-B)on 10-15-2021 Sjogren's Antibody (SS-A) <1.0 Normal [facility] Comment on above: Order Comment: Quest performed at: [facility], [employer], [address] [place] [address], , Station Worker: Remberto Clemens MD PhD\X0D0A\Quest Collection Date/Time: \X0D0A\Quest Results Received Date/Time: \X0D0A\Quest Reported Date/Time: Result Comment: \X0D 0A\ Reference Range: < 1.0 NEG AI\X0D0A\ Performed By: #### O [id number] #### [place] [address] Ph. [phone] Sjogren's Antibody (SS-B) <1.0 Normal [facility] Comment on above: Order Comment: Quest performed at: [employer], [employer] [place], [address] [place] [address], , Station Worker: Remberto Clemens MD PhD\X0D0A\Quest Collection Date/Time: \X0D0A\Quest Results Received Date/Time: \X0D0A\Quest Reported Date/Time: Result Comment: \X0D 0A\ Reference Range: < 1.0 NEG AI\X0D0A\ Performed By: #### O RD438 #### [place] [address] Ph. [phone] GUERRA ANTIBODYon 10-15-2021 Guerra Antibody <1.0 Normal [facility] Comment on above: Order Comment: Quest performed at: [employer] [place], [address] [place] [address], , Station Worker: Remberto Clemens MD PhD\X0D0A\Quest Collection Date/Time: \X0D0A\Quest Results Received Date/Time: \X0D0A\Quest Reported Date/Time: Result Comment: \X0D 0A\ Reference Range: < 1.0 NEG AI\X0D0A\ Performed By: #### O RD383 #### [place] [address] Ph. [phone] THYROID PEROXIDASE ANTIBODYo n 10-15-2021 Thyroid Peroxidase Abs 8 IU/mL Normal <9 [facility] Comment on above: Order Comment: Quest performed at: [employer], [address] [place] [address], , Station Worker: Remberto Clemens MD PhD\X0D0A\Quest Collection Date/Time: \X0D0A\Quest Results Received Date/Time: [id number]\X0D0A\Quest Reported Date/Time: [id number] Performed By: #### O RD264 #### [place] [address] [place] [id number] Ph. [phone] THYROID STIMULATING IMMUNOGL OBULINon 10-15-2021 TSI Numeric Value <89 Normal <140 [facility] Comment on above: Order Comment: Quest performed at: [employer], [address] [place] [address], , Station Worker: Remberto Clemens MD PhD\X0D0A\Quest Collection Date/Time: \X0D0A\Quest Results Received Date/Time: [id number]\X0D0A\Quest Reported Date/Time: [id number] Result Comment: \X0D 0A\Thyroid stimulating immunoglobulins (TSI) [...] characteristics of this\X0D0A\assay have been determined by [employer]\X0D0A\[facility], [place], [place]. The modifications\X0D0A\have not been cleared or approved by the FDA. This\X0D0A\assay has been validated pursuant to the CLIA\X0D0A\regulations and is used for clinical purposes.\X0D0A\ Performed By: #### O RD562 #### [address] [address] Ph. [phone] Uric Acidon 10-15-2021 URIC 4.9 mg/dL Normal 3.5-8.5 [facility] Comment on above: Performed By: #### C K, URIC, CRP, CMP ####[address] [address]Hk. [phone] XR CHEST (2 VW)on 10-15-2021 XR CHEST [...] by: Rod Mcgill MD Signed by: Rod Mgcill MD 10/15/21 Final result Normal [facility] XR COMPARISON OF OUTSIDE BALWINDER MSon 10-15-2021 XR COMPARISON OF OUTSIDE FILMS RADRPT There is no result for this study. This is a placeholder for comparison films only. Final result Normal [facility] XR COMPARISON OF OUTSIDE FILMS RADRPT There is no result for this study. This is a placeholder for comparison films only. Final result Normal [facility] XR COMPARISON OF OUTSIDE FILMS RADRPT There is no result for this study. This is a placeholder for comparison films only. Final result Normal [facility] XR COMPARISON OF OUTSIDE FILMS RADRPT There is no result for this study. This is a placeholder for comparison films only. Final result Normal [facility] XR COMPARISON OF OUTSIDE FILMS RADRPT There is no result for this study. This is a placeholder for comparison films only. Final result Normal [facility] XR HAND LEFT (2 VIEWS)on XR HAND [...] Agnieszka Sal MD 10/16/21 Final result Normal [facility] XR HAND RIGHT (2 VIEWS)on XR HAND [...] Agnieszka Sal MD 10/16/21 Final result Normal [facility] XR SHOULDER LEFT (MIN 2 VIEW S)on [...] Agnieszka Sal MD 10/16/21 Final result Normal [facility] XR SHOULDER RIGHT (MIN 2 VIE WS)on [...] Agnieszka Sal MD 10/16/21 Final result Normal [facility] XR WRIST LEFT (2 VIEWS)on XR WRIST [...] Agnieszka Sal MD 10/16/21 Final result Normal [facility] XR WRIST RIGHT (2 VIEWS)on 0 10-15-2021 [...] Agnieszka Sal MD 10/16/21 Final result Normal [facility] TH CT CARDIAC SCORINGon 02-14 CT CARDIAC SCORING [...] FOR CARDIOVASCULAR CONDITION. COMPARISON: None. ACCESSION NUMBER(S): [id number] ORDERING CLINICIAN: ESHA SCOTT TECHNIQUE: Using prospective [...] increased >800 Yuriy et al. JCCT 2016 (http://dx.doi.org/10. 1016/j.jcct.2016.11.00 3) CHRISTIAN Percentile In general, greater than 75th [...] Calcification can be calcuate using link below [email or web address]://[email or web address] [email or web address] [email or web address] x Fredis perez al. JACC 2015 (http://dx.doi.org/10. 1016/j.j acc.2015.08.035) Reading Machine Packager: Dr. Chilango Delarosa, Date: 02/25/2020 7:53 pm Electronically signed by: NOE LITTLE MD [facility] Vital Signs Date Time Vital Sign Value Performing Clinician Facility 02-08-2023 12:17-0500 Body height 177.8 cm Humberto Khoury MD Work Phone: [facility] 02-08-2023 12:17-0500 Body mass index (BMI) [Ratio] 23.24 kg/m2 Humberto Khoury MD Work Phone: [facility] 02-08-2023 12:17-0500 Body weight 73.48 kg Humberto Khoury MD Work Phone: [facility] 02-08-2023 12:17-0500 Diastolic blood pressure 83 mm[Hg] Humberto Khoury MD Work Phone: [facility] 02-08-2023 12:17-0500 Heart rate 64 /min Humberto Khoury MD Work Phone: [facility] 02-08-2023 12:17-0500 Systolic blood pressure 127 mm[Hg] Humberto Khoury MD Work Phone: [facility] 01-21-2023 11:15-0500 Body height 177.8 cm Fallon Henry Other [employer] Other 01-21-2023 11:15-0500 Body mass index (BMI) [Ratio] 23.07 kg/m2 Fallon Henry Other [employer] Other 01-21-2023 11:15-0500 Body weight 72.94 kg Fallon Henry Other [employer] Other 01-21-2023 11:15-0500 Diastolic blood pressure 73 mm[Hg] Fallon Henry Other [employer] Other 01-21-2023 11:15-0500 Systolic blood pressure 115 mm[Hg] Fallon Henry Other [employer] Other 10-25-2022 13:30-0400 Body height 177.8 cm Fallon Henry Other [employer] Other 10-25-2022 13:30-0400 Body mass index (BMI) [Ratio] 23.3 kg/m2 Fallon Henry Other [employer] Other 10-25-2022 13:30-0400 Body weight 73.66 kg Fallon Henry Other [employer] Other 10-25-2022 13:30-0400 Diastolic blood pressure 84 mm[Hg] Fallon Henry Other [employer] Other 10-25-2022 13:30-0400 Respiratory rate 12 /min Fallon Henry Other [employer] Other 10-25-2022 13:30-0400 Systolic blood pressure 136 mm[Hg] Fallon Henry Other [employer] Other Encounters Encounter Date Encounter Type Care Provider Facility Start: 03-30-2023 End: 03-30-2023 ambulatory WIL CAO Not Available Start: 03-30-2023 End: 03-30-2023 Postop follow up visit related to original px Wil Cao [employer] Work Phone: [facility] Comment on above: Status post right ro tator cuff repair (Primary Dx); Arthritis of right acromioclavicular joint Start: 03-15-2023 End: 03-15-2023 ambulatory PATTIE PICHARDO Not Available Start: 02-13-2023 Refill Yasmin Roca er [employer]SE [employer]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 Work Phone: [facility] Comment on above: Med Refill Start: 02-10-2023 End: 02-10-2023 ambulatory PATTIE PICHARDO Not Available Start: 02-08-2023 End: 02-08-2023 Office outpatient visit 25 minutes Humberto Khoury MD Work Phone: [facility] Comment on above: Elevated PSA (Primar y Dx) Start: 01-21-2023 End: 01-21-2023 ambulatory Fallon Henry Other [employer] Other Start: 01-21-2023 Office outpatient vi sit 10 minutes Fallon Henry [facility] Start: 01-21-2023 Patient encounter status Tiffanie Khoruy MD Work Phone: [employer] Work Phone: Start: 01-20-2023 End: 01-20-2023 ambulatory PATTIE PICHARDO Not Available Start: 01-14-2023 End: 01-14-2023 ambulatory Fallon Henry Other [employer] Other Start: 01-14-2023 Telephone encounter Fallon Henry [facility] Start: 11-08-2022 End: 11-08-2022 ambulatory Fallon Henry Other [employer] Other Start: 11-08-2022 Telephone encounter Fallon Henry [facility] Start: 11-02-2022 End: 11-02-2022 ambulatory Fallon Henry Other [employer] Other Start: 11-02-2022 Telephone encounter Fallon Henry [facility] Start: 10-29-2022 End: 10-29-2022 ambulatory Fallon Henry Other [employer] Other Start: 10-29-2022 Telephone encounter Fallon Henry [employer] Start: 10-25-2022 End: 10-25-2022 ambulatory Fallon Henry Other [employer] Other Start: 10-25-2022 Office outpatient vi sit 15 minutes Fallon Carl [facility] Start: 05-20-2022 End: 05-21-2022 ambulatory SOURAV SANCHESMIPATHY Facility:[facility] Start: 03-04-2022 End: 03-05-[address] ROWAN GARDUNO . Facility:[facility] Start: 02-16-2022 End: 02-16-[address] ROWAN GARDUNO . Facility:[facility] Start: 01-21-2022 End: 01-22-[address] ROWAN GARDUNO . Facility:[facility] Start: 01-05-2022 End: 01-05-[address] ROWAN GARDUNO . Facility:[facility] Start: 12-08-2021 End: 12-09-[address] ROWAN GARDUNO . Facility:[facility] Start: 10-15-2021 ambulatory FALLON CARL [facility] Start: 02-16-2021 Rx Renewal Brett Dolan ce Work Phone: [facility] 250 DO Work Phone: Procedures Date Procedure Procedure Detail Performing Clinician Start: 10-15-2021 Cyclic citrullinated peptide antibody FALLON CARL Comment on above: Order Comment: Quest performed at: [facility], [facility], [address] [place] [address], , Station Worker: Remberto Clemens MD PhD\X0D0A\Quest Collection Date/Time: [id number]\X0D0A\Quest Results Received Date/Time: \X0D0A\Quest Reported Date/Time: [id number] Result Comment: \X0D 0A\Negative: <20\X0D0A\Weak Positive: 20 - 39\X0D0A\Moderate Positive: 40 - 59\X0D0A\Strong Positive: >59\X0D0A\ Performed By: #### O RD264 #### [place] [address] Ph. [phone] History of repair of musculotendinous cuff of shoulder Status post right rotator cuff repair Wil Cao NP Work Phone: Plan of Treatment Date Care Activity Detail Author Start: 02-09-2024 Adult BMI Screening Adult BMI Screen ing [facility] Start: 02-09-2024 Tobacco Screening Tobacco Screening [facility] Start: 05-10-2023 End: 05-10-2023 Patient encounter procedure 05/10/2023 11:15 AM EDT Office Visit [facility] [address] [place] [phone] Humberto Khoury MD [address] [place] [address] [facility] Start: 05-09-2023 End: 02-08-2024 Prostatic specific antigen, diagnostic Prostatic specific antigen, diagnostic Lab Routine Elevated PSA Expected: 05/09/2023, Expires: 02/08/2024 [facility] Work Phone: Comment on above: Expected: 05/09/2023 , Expires: 02/08/2024 Start: 04-26-2023 End: 04-26-2023 Patient encounter procedure 04/26/2023 9:45 AM EDT Office Visit [facility] [address] [facility] [address] [place] [id number] Pattie Pichardo, DO [address] [facility] [address] [place] [address] [facility] Start: 10-15-2022 Influenza vaccination Influenza Vacc ine [facility] Start: 2011 Administration of varicella zoster vaccine Zoster (Shingles) Vaccine (1 of 2) [facility] Start: 02-19-1980 DTaP,Tdap and Td Vaccines (1 - Tdap) DTaP,Tdap and Td Vaccines (1 - Tdap) [facility] Start: 1973 Depression Screening Depression Scre ening [facility] Immunizations Immunization Date Immunization Notes Care Provider Fa cility 02-15-2016 influenza virus vaccine, unspecified formulation Humberto Khoury MD Work Phone: [facility] 11-13-2013 influenza virus vaccine, unspecified formulation Humberto Khoury MD Work Phone: [facility] Payers Date Payer Category Payer Unknown [id number] 2020 Unknown 1960 Unknown [id number] 2.16.8 40.1.921843.3.579.2.754 1960 Unknown [id number] 2.16.8 40.1.704918.3.579.2.754 1960 Unknown [id number] 2.16.8 40.1.952480.3.579.2.754 1960 Unknown [id number] 2.16.8 40.1.579181.3.579.2.754 1961 Unknown [id number] 2.16.8 40.1.719150.3.579.2.754 1960 Unknown [id number] 2.16.8 40.1.669169.3.579.2.754 1960 Unknown [id number] 2.16.8 40.1.024734.3.579.2.754 1960 Unknown [id number] 2.16.8 40.1.991577.3.579.2.754 1960 Unknown [id number] 2.16.84 0.1.117089.3.579.2.593 1961 Unknown [id number] 2.16.84 0.1.708904.3.579.2.593 1961 Unknown [id number] 2.16.84 0.1.407214.3.579.2.593 1961 Unknown [id number] 2.16.84 0.1.487410.3.579.2.593 1961 Unknown [id number] 2.16.84 0.1.101489.3.579.2.593 1961 Unknown [id number] 2.16.84 0.1.610619.3.579.2.593 1961 Unknown [id number] 2.16.84 0.1.334386.3.579.2.593 1961 Unknown [id number] 2.16.84 0.1.192399.3.579.2.1259 1961 Unknown [id number] 2.16.84 0.1.647766.3.579.2.1259 1961 Unknown [id number] 2.16.840 .1.648311.3.579.2.1259 1960 Unknown [id number] 2.16.840 .1.390300.3.579.2.1259 Self-pay [id number] 2.16.840.1.841747.19 Self-pay [id number] 2.16.840.1.558834.19 Self-pay [id number] 2.16.840.1.923998.19 Self-pay [id number] 2.840.1.696155.19 Self-pay [id number] 2.0.1.734713.19 Self-pay [id number] 2.0.1.556297.19 Social History Date Type Detail Facility Start: 04-19-2018 End: 01-20-2023 Sex Assigned At [facility] Start: 05-04-2021 End: 11-10-2022 Tobacco smoking status NHIS Ex-smoker [facility] End: 02-04-2001 History of tobacco use Current smoker [facility] End: 02-04-2001 History of tobacco use Cigarette Smoker [facility] Start: 05-04-2021 End: 01-20-2023 Cigarettes smoked current (pack per day) - Reported 1.5 [facility] Start: 05-04-2021 Tobacco use and exposure Smoke less tobacco non-user [facility] Start: 02-08-2023 End: 03-30-2023 Alcohol intake Ex-drinker (finding) [facility] Frequency of Alcohol Consumption Never [facility] Start: 1960 Sex Assigned At Not on file P [facility] Start: 11-10-2022 Tobacco use and exposure Forme r smokeless tobacco user [facility] Start: 01-07-2023 Alcohol Comment caffeine more than 4 cups per day [facility] Medical Equipment Procedure Code Equipment Code Equipment Origin al Text Equipment Identifier Dates Recorder Crd Annette q Ii Ins - [id number] - [id number] Start: 07-10-2021 [employer], [id number] Start: 02-02-2023 Clinical Notes 12-08-2021 to 03-30-2023 Wil Cao NP - 03/30/2023 10:30 AM Deon Khoury MD - 02/08/2023 12:15 PM EST Note Date & Type Note Facility 03-30-2023 History of Present illness Narrative HISTORY OF PRESENT ILLNESS: Bertin Arechiga is an 63 y.o. @ male. Chief complaint RT shoulder s/p scope RT shoulder: 8 weeks s/p arthroscopic RT RCR, distal clavicle resection and subacromial decompression DOS 02/02/23. Describes pain as constant ache but noting slow improvement. He is not in therapy, he was told not to do therapy. Pain mainly posterior lateral shoulder. Pain radiates into entire arm all the way into fingers, constant since surgery. Constant neck pain since surgery. Admits constant N/T in Little finger and thumb x the last few weeks. Admits gabapentin for back issues (pain management). He took one yesterday. No relief with shoulder pain. Using ice with little relief and CBD cream, with some relief. Minimal swelling. Admits stiffness. Doing pendulums. Notes pendulums are painful. Portals well healed. Pain 5/10 at rest, goes to 7/10 after he does pendulum exercises. He is not sleeping well, goes between the bed and chair. Notes his RT hand spasms and he shakes when trying to eat. Shoulder and arm is very weak, he is taking baclofen BID from pain management PHYSICAL EXAM: Right Shoulder Exam Range of Motion Active abduction: 30 Shoulder Musculoskeletal Exam Range of Motion Right Active forward elevation: 30. Shoulder active abduction: 30. Active external rotation at side: 20. Internal rotation: side. ASSESSMENT: ICD-10-CM 1. Status post right rotator cuff repair Z98.890 methylPREDNISolone (Medrol Dospak) 4 MG tablets Ambulatory referral to Physical Therapy 2. Arthritis of right acromioclavicular joint M19.011 Ambulatory referral to Physical Therapy May begin AROM/PROM, also sent a referral for P.T. for therapy to begin no strengthening, will try MDP, take as directed, no nsaids while taking MDP until 24 hrs after the last dose of MDP, may increase BP/HR, f/U in 2 weeks documented in this encounter [facility] 02-08-2023 History of Present illness Narrative Images from the original note were not included. [address] [place] [phone] Patient: Bertin Arechiga Date of : 1960 Encounter Date: 02/08/2023 History of Present Illness: The patient is a 62 y.o. male, an established patient, and is here for follow up with his . He has a history of a PSA which had increased from 1.5 in December 16 1021 to 3.11 in October 2022. Is asymptomatic urologically. He had a repeat PSA which had increased to 5.19. This prompted a 3 eusebia MRI performed January 27, 2023 showing a prostate volume of 31 cc with PI rads 2 only. Summary of old records: Urinalysis today: No results for input(s): EXTPOCURCO , EXTPOCURCH , EXTPOCAPP , EXTPOCURBS , EXTPOCURBIL , EXTPOCUKET , EXTPOCUSPG , EXTPOCUHGB , EXTPOCUPRO , EXTPOCUURO , EXTPOCULEU , EXTPOCUNIT , EXTPOCUWBC , EXTPOCUBLD , EXTPOCURBC , EXTPOCUCRY , EXTPOCUBAC , EXTPOCUTREP , EXTPOCUPH in the last 72 hours. Last BUN and creatinine: Lab Results Component Value Date BUN 19 01/25/2023 Lab Results Component Value Date CREATININE 0.95 01/25/2023 Last PSA: No results found for: PSA Lab Results Component Value Date PROSTATICSP 1.50 12/23/2021 Additional Lab/Culture results: None Imaging Reviewed during this Office Visit: None (Results were independently reviewed by physician and radiology report verified) Past Medical, Family, and Social History Update: The following portions of the patient's history were reviewed and updated as appropriate: allergies, current medications, past family history, past medical history, past social history, past surgical history and problem list. Past Medical History: Diagnosis Date Angina pectoris ([facility]) 1981 was kept few days in hospital and tests were ran Anxiety not diagnosed doesn't see doctor Arrhythmia 1981 x1 episode when he was 31 Arthritis Atrial fibrillation ([facility]) Back pain 1989 Carpal tunnel syndrome Disc disorder of lumbosacral region Fractures Gallstones Headache Hypertension hasn't seen dr in 15 years not officially dx not on meds Injury of back Lumbar paraspinal muscle spasm Lumbar radiculopathy Neurogenic pain Raynaud's phenomenon without gangrene Past Surgical History: Procedure Laterality Date Afib Ablation, Carto, ICE N/A 03/18/2022 Performed by Abelardo Oneill MD at [facility] () ARTHROSCOPIC REPAIR ROTATOR CUFF SHOULDER Right 02/02/2023 Performed by Pattie Pichardo DO at [facility] COLONOSCOPY N/A 04/25/2018 Performed by Chilango Jason DO at [facility] HEMORRHOIDECTOMY N/A 04/25/2018 Performed by Chilango Jason DO at [facility] HERNIA REPAIR INSERTION LOOP RECORDER RELEASE CARPAL TUNNEL Right 02/04/2021 Performed by Pattie Pichardo DO at [facility] Family History Problem Relation Age of Onset Heart disease Mother Hypertension Mother Heart disease Father Passed of heart at 46 Heart disease Brother Heart attack at 60 Hypertension Brother Heart disease Paternal Grandmother Passed at 49 Hypertension Sister Stroke Sister At 59 Hypertension Sister Current Outpatient Medications Medication Sig Dispense Refill amLODIPine-benazepril (LOTREL) 10-40 mg per capsule Take 1 capsule by mouth in the morning. 30 capsule 11 aspirin 81 mg Take 1 tablet (81 mg total) by mouth in the morning. 30 tablet 11 atorvastatin (LIPITOR) 10 mg tablet Take 1 tablet (10 mg total) by mouth nightly. baclofen (LIORESAL) 10 mg tablet TAKE 1/2 (ONE-HALF) TO 1 (ONE) TABLET BY MOUTH THREE TIMES DAILY NEEDED docusate sodium (COLACE) 100 mg capsule Take 1 capsule (100 mg total) by mouth in the morning. gabapentin (NEURONTIN) 600 mg tablet Take 1 tablet (600 mg total) by mouth in the morning and 1 tablet (600 mg total) before bedtime. medical marijuana Inhale 1 each daily as needed. Pt states he has a medical marijuana card and uses in the evening as needed for chronic pain psyllium (METAMUCIL) powder Take 1 packet by mouth in the morning. traMADoL (ULTRAM) 50 mg tablet Take 1 tablet (50 mg total) by mouth every 8 (eight) hours as needed for pain. No current facility-administered medications for this visit. (All medications reviewed and updated by provider since last office visit or hospitalization) Allergies: Patient has no known allergies. Tobacco History: Social History Tobacco Use Smoking Status Former Packs/day: 1.50 Years: 28.00 Additional pack years: 0.00 Total pack years: 42.00 Types: Cigarettes Quit date: 02/04/2001 Years since quittin.0 Smokeless Tobacco Never (If patient a smoker, smoking cessation counseling offered) Social History: Social History Substance and Sexual Activity Alcohol Use Not Currently Review of Systems: General: Negative for chills and fever. Cardiovascular: Negative for chest pain and shortness of breath. Gastrointestinal: Negative for constipation, diarrhea, nausea, and vomitting. Physical Exam: BP 127/83 Pulse 64 Ht 177.8 cm (5' 10 ) Wt 73.5 kg (162 lb) BMI 23.24 kg/m Assessment and Plan: Bertin was seen today for follow-up. Diagnoses and all orders for this visit: Elevated PSA Problem List Other Elevated PSA - Primary Overview 12/22/22: PSA 3.11 (up from 1.5). No family history of prostate cancer. Question of asymmetry on exam. Will recheck PSA. He is looking into whether or not he is able to get an MRI with his loop recorder 12/24/22: PSA 5.19. Will check MRI MRI vol 31 cc; pi rads 2 02/08/23: Findings reviewed. Plan recheck psa in about 3-4 months. If still rising may consider random biopsies Follow-up: Humberto Khoury MD This note was created with the assistance of a speech recognition program. While intending to generate a timely document that accurately reflects the content of the visit, no guarantee can be provided that every grammatical or spelling mistake has been or will be identified or corrected. Thank you for your understanding. documented in this encounter [facility] 01-21-2023 Evaluation note Encounter Date Diagnosis Assessment Notes Jan, Complete tear of right rotator cuff, unspecified whether traumatic (ICD-10 - M75.121) Pt has followup with his fast brim pouncer for clearance today. He is medically cleared barring abnormalities on testing at [facility] which is pending or with his fast brim pouncer. Jan, Intermittent atrial fibrillation (ICD-10 - I48.0) as above. [employer] Other 12-01-2023 Evaluation note* Encounter Date Diagnosis Assessment Notes Treatment Notes Treatment Clinical Notes Jan, Acute pain of right shoulder (ICD-10 - M25.511) [employer] Other 09-25-2023 Evaluation note* Encounter Date Diagnosis Assessment Notes Treatment Notes Treatment Clinical Notes Oct, PSA elevation (ICD-10 - R97.20) [employer] Other 09-11-2023 Evaluation note* Encounter Date Diagnosis [...] PSA (prostate specific antigen) (ICD-10 - Z12.5) [employer] Other 04-06-2023 NoteCONSULTATION CONSULTATION DATE: 05/20/2022 TO: [...] our patients to inform us about any iwbg-etw-ppcoybu medications or herbal remedies/nutritional supplements/alternative remedies. 2. [...] treatment options with their primary care provider.[id number] Note CONSULTATION CONSULTATION DATE: 03/04/2022 HISTORY OF [...] ablation for his atrial fibrillation scheduled at [facility] in [place]. Medications include Eliquis, gabapentin 600 mg b.i.d., [...] successful cardiac ablation and approval from his fast brim pouncer. We will also gain approval to hold his Eliquis for our procedure. 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 The patient also sees Dr. Harmon in [place] for his Raynaud's disease and also autonomic [...] the autonomic dystonia and the hyperhidrosis at [facility], where he may get attention for this. In the meantime, we will look to proceed with the chronic low back pain that the patient has and is the most problematic for him, by proceeding with a lumbar medial branch block at the level of L2-3 and L4-5. Questions/answers were done. The patient understands and would like to proceed. CC: Fallon Henry M.D.[facility] noteNo [facility] [employer] Other Evaluation note* Diagnosis Elevated PSA- Primary Elevated prostate specific antigen (PSA) documented in this encounter [facility] [employer] SystemEvaluation note* Diagnosis Essential hypertension Unspecified essential hypertension documented in this encounter [facility] [employer] note* Diagnosis Status post right rotator cuff repair- Primary Arthritis of right acromioclavicular joint documented in this encounter [facility] HealthcareHistory general Narrative - Reported* Type Description Date [...] 5 2018 Hospitalization History see surgical history [employer] Other History general Narrative - Reported* Type [...] 2018 - had polyp re check 5 yrs 2018 Surgical History Back injection 12/2022 Hospitalization History see surgical history [employer] Other Instructions* Attachments The following attachments cannot be sent through Care Everywhere. * Going Home on Blood Thinners (Urdu) [facility] SystemInstructionsNot on file documented [facility]UC [facility] Summary Purpose Family History No Family History Records FoundNo Family History Records FoundNo Family History Records FoundNo Family History Records Found Advance Directives No Advanced Directives Records FoundLatest Code Status on File Code Status Date Activated Date Inactivated Comments Full Code 03/18/2022 10:28 AM 03/18/2022 5:55 PM Reason for Referral Reason R shoulder - xr ay pending Diagnosis 1 Acute pain of right shoulder (M25.511) Referral Organization [facility] Rukuku tasneem Referring Provider First Name Fallon Referring Provider Last Name Carl Referring Provider Specialty [facility] [employer] Referred Organization [facility] Referred Provider Pattie Pichardo Referred Address ,[place], [place],[address] Referred Provider Specialty Orthopedic S urgery Referral Priority Routine General Notes Regi Merchant 12:12:13 PM >received today, waiting for XR and for Notes to be locked Regi Merchant 10/29/2022 08:52:53 AM >XR attached, sent TE to lock office notes Reason *FU 11/16 Dr. Kathya abbott - Urology [facility] [place]. PSA went from 1.5 to 3.1 Diagnosis 1 PSA elevation (R97.2 0) Referral Organization [facility] Rukuku tasneem Referring Provider First Name Fallon Referring Provider Last Name Carl Referring Provider Specialty [facility] [employer] Referred Organization [employer] Referred Address [address] [facility] [facility],[place],[address] Referred Provider Specialty Urology Referral Priority Routine General Notes Regi Merchant 01:58:34 PM >received today. P: [phone] F: [phone] Regi Merchant 11/09/2022 02:06:57 PM >attachments made, notes locked, referral faxed Specialty Diagnoses / Procedures Referred By Elder morgan Referred To Contact Physical Therapy Diagnoses Status post right rotator cuff repair Arthritis of right acromioclavicular joint Procedures MT OFFICE/OUTPATIENT NEW HIGH MDM 60 MINUTES Wil Cao NP [address] [place] [address] Kai Suarez, PT [address] [facility] [address] [place] [address] Referral ID Status Reason Start Date Expiration Date Visits Requested Visits Authorized [id number] Pending Review Specialty Services Required 03/30/2023 09/26/2023 1 1 Additional Source Comments (unrecognized sect ion and content) No Status Records FoundNo Status Records FoundNo Status Records FoundNo Status Records Found INFORMATION SOURCE (unrecogn ized section and content) DATE CREATED AUTHOR [facility] DATE CREATED AUTHOR AUTHOR'S ORGANIZ ATION 10/27/2021 [facility] DATE CREATED AUTHOR AUTHOR'S ORGANIZ ATION 05/29/2022 [facility] DATE CREATED AUTHOR AUTHOR'S ORGANIZ ATION 04/01/2023 [facility] dical Specialists EPIC REASON FOR VISIT (unrecogniz ed section and content) Reason Comments Follow-up Reason Comments Med Refill Reason Comments Pain Care Teams (unrecognized sec tion and content) Cook Candy Relationship Specialty Start Date End Date Fallon Henry MD [address] [place], [place] [id number] PCP - General Family Medicine 01/22/21 Cook Candy Relationship Specialty Start Date End Date Fallon Henry MD [address] [place] [id number] PCP - General Family Medicine 01/22/21 Cook Candy Relationship Specialty Start Date End Date Fallon Henry MD [address] [place] [phone] PCP - General Family Medicine 11/09/22 FOR RECORDS PERTAINING TO PATIENTS WHO ARE [...] BE BASED ON THE PRIMARY CLINICAL RECORDS. [employer] provides no warranty or guarantee of the accuracy or completeness of information in this document.
[2023-04-05 11:05] VITALS: BP 152/85; PULSE 52; RESP 18; O2SAT 97
[2023-04-05 11:06] VITALS: BP 158/83; PULSE 53; RESP 18; O2SAT 97
[2023-04-05] MEDS: BUPIVACAINE HCL 0.25% PF 25 MG/10 ML VIAL 2 ML INJ (11:09)
--- NOTE | 2023-04-05 11:10 | W.PM.PROCNOT ---
Date of procedure: 04/05/23 Pre-op diagnosis: Left superior gluteal neuritis Post-op diagnosis: same as pre-op Procedure: Left Superior gluteal nerve block, diagnostic Performed under fluoroscopic guidance Immediate complications none Anesthesia: none Solution used for injection: In each syringe, 2 milliliters 0.25% Marcaine 2.5 mL is used for injection for each side Time out process compliant After informed consent obtained patient was brought to the procedure room placed in the prone position skin overlying the area was prepped and draped in a sterile fashion using betadine. 25 gauge spinal needle Insert over each of the target areas identified in fluoroscopy corresponding needles were advanced Under fluoroscopic guidance until the target/targets encountered, no indication of intravascular or Intraneuronal needle tip placement. Solution injected.needles removed post procedurally. patient transferred to recovery room in stable condition to be discharged home after meeting criteria Anesthesia: Local Surgeon: Gracie Carrasquillo Condition: stable
== END 2023-04-05 11:12 | disposition home or self-care (01) ==
LOC: SURGOUT 10:15
PROVIDERS: PCP Family Medicine; Visit Provider Anesthesiology Pain Medicine
DX: G57.82 Other specified mononeuropathies of left lower limb (principal)
CPT/HCPCS: 64450; J0665

== ENCOUNTER 2023-04-20 14:06 | Outpatient (OUT) | payer OTHER, SELFPAY ==
--- NOTE | 2023-04-20 14:43 | P.CN_ITS ---
Consult Note: HPI Data of Consult Patient: known to practice within the last 3 years Requesting Physician: Aaliyah Slater NP Primary Care Provider: Fallon Gonzalez MD Consult Narrative Reason for consult: f/u Narrative: Abimael Ruano a pleasant 62 year old male presents for evaluation and management of chronic low back pain. Today rating pain 2/10 in right low back. No pain in left low back pain since left superior gluteal NB and trigger point injections with Dr Carrasquillo. Patient has been recovering from right rotator cuff surgery and is in PT now. Patient is getting tramadol 50mg BID PRN through PCP, does utilize medical marijuana. Patient reports low back pain is well controlled and he does not need additional injections cc:: CC: Aaliyah Slater NP Review of Systems ROS Status of ROS 10 or more systems reviewed and unremark able except as noted in history and below Musculoskeletal Reports: back pain and joint pain PFSH PFSH Medical History Hernia ?K46.9 - Unspecified abdominal hernia without obstruction or gangrene (ICD- 10) Upper back pain ?M54.9 - Dorsalgia, unspecified (ICD-10) Neck pain ?M54.2 - Cervicalgia (ICD-10) Low back pain ?M54.50 - Low back pain, unspecified (ICD-10) Osteoarthritis ?M19.90 - Unspecified osteoarthritis, unspecified site (ICD-10) Carpal tunnel syndrome ?G56.00 - Carpal tunnel syndrome, unspecified upper limb (ICD-10) Diabetes ?E11.9 - Type 2 diabetes mellitus without complications (ICD-10) Former smoker ?Z87.891 - Personal history of nicotine dependence (ICD-10) Atrial fibrillation ?I48.91 - Unspecified atrial fibrillation (ICD-10) Implantable loop recorder present ?Z95.818 - Presence of other cardiac implants and grafts (ICD-10) High cholesterol ?E78.00 - Pure hypercholesterolemia, unspecified (ICD-10) Hypertension ?I10 - Essential (primary) hypertension (ICD-10) Social History Smoking status: Former smoker Meds Home Medications and Allergies Home Medications Medication Instructions Recorded Confirmed Type baclofen 10 mg tablet 10 mg PO Q8H PRN pain 08/01/22 04/05/23 History gabapentin 600 mg tablet 600 mg BID 08/01/22 History atorvastatin 10 mg tablet 10 mg PO .hs 08/05/22 04/05/23 History docusate sodium 100 mg capsule 100 mg PO DAILY 08/05/22 04/05/23 History flecainide 50 mg tablet 50 mg PO Q12H 08/05/22 04/05/23 History medical marijuan 08/05/22 History metoprolol succinate 50 mg 25 mg PO QDAY 08/05/22 04/05/23 History tablet,extended release 24 hr psyllium (Hydrocil oral powder) 1 tbsp PO DAILY 08/05/22 04/05/23 History tramadol 50 mg tablet 50 mg PO TID PRN pain 08/05/22 04/05/23 History aspirin 81 mg capsule 81 mg PO DAILY 04/05/23 04/05/23 History Allergies Allergy/AdvReac Type Severity Reaction Status Date / Time No Known Drug Allergies Allergy Verified 04/05/23 10:33 Exam Constitutional Documenting provider has reviewed patient's vital signs: yes Common normals: no apparent distress, oriented x3, healthy appearing, alert and well nourished General appearance: cooperative HENMT Common normals: normocephalic, hearing grossly normal bilaterally and moist oral mucous membranes Head and scalp: normocephalic Mouth: oral and palatal mucosa normal Eye Common normals: PERRL Pupil: PERRL Neck & C-Spine Common normals: full ROM General: normal visual inspection Chest Common normals: inspection of chest normal Respiratory Common normals: normal respiratory effort, no retractions and no use of accessory muscles Back & Pelvis Common normals: thoracic and lumbar spine normal to inspection Lumbar spine/lower back: normal to inspection, lumbar ROM normal and pain with ROM Sacroiliac joints: SI joints normal Extremity Other: 5/5 strength in BLE Neuro Common normals: oriented x3, CN's II-XII intact bilaterally, moves all extremities, no focal motor deficits, no sensory deficits noted and deep tendon reflexes 2+ bilaterally Sensorium/orientation: alert Motor exam: strength 5/5 throughout and no movement abnormalities noted Psych Common normals: mental status grossly normal, thought process normal, cooperative, affect normal, speech normal and activity/motor behavior normal Speech: normal speech Thought process: normal thought process Results Additional Findings Additional findings: I have checked an OARRS report on this patient today and there are no aberrancies noted in the prescribing history.?? A drug screen was completed and reviewed within the last year, and if there has not been a drug screen completed we ordered one today to monitor higher risk, state monitored pain medication use. As part of providing excellent, safe, comprehensive care, the following was completed at our patient's visit: 1. A medication reconciliation and review to ensure accurate knowledge of current/active medications, including asking our patients to inform us about any geqj-rcr-pjhpaff medications or herbal remedies/nutritional supplements/alternative remedies. 2. A review to specifically ensure our patients have had annual screening for: elevated body mass index (BMI), tobacco use, screening for depression, and screening for unhealthy alcohol use. When screening is concerning, patients are provided with education and the specific recommendation to discuss the concerning health issue and treatment options with their primary care provider. Assessment and Plan Assessment and Plan (1) Lumbar spondylosis: (2) Muscle spasm: Plan continue gabapentin 600mg BID and baclofen 10mg BID PRN myofascial pain f/u 6 months, sooner if needed
== END 2023-04-20 14:07 | disposition home or self-care (01) ==
LOC: PM 14:07
PROVIDERS: PCP Family Medicine; Visit Provider Nurse Practitioner
DX: M47.816 Spondylosis without myelopathy or radiculopathy, lumbar region (principal); M62.838 Other muscle spasm
CPT/HCPCS: G0463

== ENCOUNTER 2023-10-27 09:56 | Outpatient (OUT) | payer OTHER, SELFPAY ==
--- OUTSIDE RECORDS SUMMARY | 2023-10-27 10:02 | XMS_ITS | CCD ---
Author Organization [facility] Care Team Providers Care Plant Custodian Name Role Phone Hanna Quiros Unavailable Unavailable Unavailable FALLON HENRY Primary [...] Admitting Unava ilable LAKSHMIPATHY, NARSHYAM Attending Unava ilbran HENRY, DR FALLON Emmanuel Primary Care Unavailable LAKSHKELLIPATHY, NARSHYAM Consulting Unava ilable SHAAN ., DR [...] Unavailable LAKSHMIPATHY, NARENDRANATH Admitting Unava ilable LAKSHMIPATHY, NARENDOLGA Attending Unava ilbran HENRY, DR FALLON Emmanuel Primary Care Unavailable DR ABEBA DOUGHERTY Consulting Unavailable LAKSHMIPATHY, NARSHYAM Consulting Unava ilable Henry, Fallon Unavailable Fallon Henry MD Primary Care Provider Fallon Henry MD Primary Care Provider [phone] HUMBERTO KHOURY Attending Unavailable HENRY, FALLON E Referring Unavailable HENRY, FALLON E Primary Care Unavailable HUMBERTO KHOURY Attending Unavailable HENRY, FALLON E Referring Unavailable HENRY, FALLON E Primary Care Unavailable HUMBERTO KHOURY Referring Unavailable HENRY, FALLON E Primary Care Unavailable DL, PATTIE Vera Admitting Unavailable DL, PATTIE Vera Attending Unavailable HENRY, FALLON E Primary Care Unavailable HANNA SCHMIDT Attending Unavailable HENRY, FALLON E Primary Care Unavailable DL, PATTIE Vera Attending Unavailable DL, PATTIE Vera Attending Unavailable APLING, WIL Menjivar Attending Unavailable BLACKSTON, MEAL T Attending Unavailable APLING, WIL B Referring Unavailable BRINK, CORNELL Attending Unavailable APLING, WIL B Referring Unavailable BRINK, CORNELL Attending Unavailable APLING, WIL B Referring Unavailable BLACKSTON, MELA T Attending Unavailable APLING, WIL B Referring Unavailable BLACKSTON, MELA T Attending Unavailable APLING, WIL B Referring Unavailable BRINK, CORNELL Attending Unavailable APLING, WIL B Referring Unavailable DL, PATTIE Vera Attending Unavailable BLACKSTON, MELA T Attending Unavailable APLING, WIL B Referring Unavailable KELBLEY, CRISTI Attending Unavailable APLING, WIL B Referring Unavailable BRINK, CORNELL Attending Unavailable APLING, WIL B Referring Unavailable BRINK, CORNELL Attending Unavailable APLING, WIL B Referring Unavailable BRINK, CORNELL Attending Unavailable APLING, WIL B Referring Unavailable BLACKSTON, MELA T Attending Unavailable APLING, WIL B Referring Unavailable KELBLEY, CRISTI Attending Unavailable APLING, WIL B Referring Unavailable BRINK, CORNELL Attending Unavailable APLING, WIL B Referring Unavailable BLACKSTON, MELA T Attending Unavailable APLING, WIL B Referring Unavailable BRINK, CORNELL Attending Unavailable APLING, WIL B Referring Unavailable BLACKSTON, MELA T Attending Unavailable APLING, WIL B Referring Unavailable BRINK, CORNELL Attending Unavailable APLING, WIL B Referring Unavailable BRINK, CORNELL Attending Unavailable APLING, WIL B Referring Unavailable BLACKSTON, MELA T Attending Unavailable APLING, WIL B Referring Unavailable BRINK, CORNELL Attending Unavailable APLING, WIL B Referring Unavailable BRINK, CORNELL Attending Unavailable APLING, WIL B Referring Unavailable BLACKSTON, MELA T Attending Unavailable WIL CAO Referring Unavailable CORNELL CHAO Attending Unavailable WIL CAO Referring Unavailable CORNELL CHAO Attending Unavailable WIL CAO Referring Unavailable CORNELL CHAO Attending Unavailable WIL CAO Referring Unavailable PATTIE PICHARDO Attending Unavailable PATTIE PICHARDO Attending Unavailable Medications Current Medications Medication Drug Class(es) Dates Sig (Normalized) Sig (Original) ALPRAZolam 0.5 mg oral tablet (5 sources) Benzodiazepine Xanax 0.5 MG 1 tablet Orally prn Active amLODIPine 10 mg / atorvastatin 20 mg oral tablet (2 sources) Dihydropyridine Calcium Channel Vandana, HMG-CoA Reductase Inhibitor amLODIPine-atorva statin (Caduet) 10-20 MG tablet 1 (one) time each day at the same time. 0 Active amLODIPine 10 mg / benazepril hydrochloride 40 mg oral capsule (7 sources) Dihydropyridine Calcium Channel Vandana, Angiotensin Converting Enzyme Inhibitor Start: 04-01-2022 End: 02-16-2023 take 1 capsule by mouth once in the morning amLODIPine-benaze pril (LOTREL) 10-40 mg per capsule Indications: Essential hypertension Take 1 capsule by mouth in the morning. 90 capsule 3 02/16/2023 Active Start: 04-01-2022 take 1 capsule by mo uth in the morning amLODIPine-benazepril (Lotrel) 10-40 MG capsule Take 1 capsule by mouth in the morning. 0 04/01/2022 Active take 10-20 mg by maurice th once daily amLODIPine Besy-Benazepril HCl - 10-20 MG Oral Capsule TAKE 1 CAPSULE Daily Quantity: 0 Refills: 0 Ordered: 16-Feb-2021 Esha Scott MD Active aspirin 81 mg delayed release oral tablet (11 sources) Platelet Aggregation Inhibitor, Nonsteroidal Anti-inflammatory Drug take 1 tablet by mouth in the morning aspirin 81 mg Take 1 tablet (81 mg total) by mouth in the morning. 30 tablet 11 Active take 1 tablet by mouth once gina y Aspirin 81 81 MG 1 tablet Orally Once a day Active atorvastatin 10 mg oral tablet (11 sources) HMG-CoA Reductase Inhibitor Start: 02-01-2021 take 1 tablet by mouth once daily atorvastatin (LIPITOR) 10 mg tablet Take 1 tablet (10 mg total) by mouth nightly. 0 02/01/2021 Active baclofen 10 mg oral tablet (5 sources) gamma-Aminobutyr ic Acid-ergic Agonist Start: 05-20-2022 take 0.5-1 tablets by mouth three times daily as needed baclofen (LIORESAL) 10 mg tablet TAKE 1/2 (ONE-HALF) TO 1 (ONE) TABLET BY MOUTH THREE TIMES DAILY NEEDED 0 05/20/2022 Active Cannabinoids (medical cannabis) (2 sources) take 1 dose by inhalation once daily as needed Cannabinoids (medical cannabis) Inhale 1 each Daily as needed. 0 Active docusate sodium 100 mg oral capsule (11 sources) take 1 capsule by mouth in the morning docusate sodium (COLACE) 100 mg capsule Take 1 capsule (100 mg total) by mouth in the morning. 0 Active gabapentin 600 mg oral tablet (13 sources) Anti-epileptic Agent take 1 tablet by mouth in the morning, then take 1 tablet by mouth at bedtime gabapentin (NEURONTIN) 600 mg tablet Take 1 tablet (600 mg total) by mouth in the morning and 1 tablet (600 mg total) before bedtime. 0 Active gabapentin (Neur ontin) 600 MG tablet every 8 (eight) hours. 0 Active medical marijuana (3 sources) take 1 dose by inhalation once [...] psyllium 3400 mg powder for oral suspension (8 sources) take 1 dose by mouth in the morning psyllium (METAMUCIL) powder Take 1 packet by mouth in the morning. 0 Active Psyllium 48.57 % as directed Orally Active traMADol hydrochloride 50 mg oral tablet (13 sources) Opioid Agonist Start: 01-14-2023 take 1 [...] maurice th every eight hours as needed for pain traMADoL (ULTRAM) 50 mg tablet Take 1 tablet (50 mg total) by mouth every 8 (eight) hours as needed for pain. 0 Active Problems Active Problems Problem Classification Problem Date Documented Date Episodic/Chronic Cardiac dysrhythmias (12 sources) Paroxysmal atrial fibrillation; Translations: [Paroxysmal atrial fibrillation] Onset: 01-19-2022 Chronic Diabetes mellitus without complication (1 source) Type 2 diabetes mellitus without complications; Translations: [TYPE 2 DM WITHOUT COMPLICATIONS] Onset: 01-14-2022 Chronic Disorders of lipid metabolism (7 sources) Hyperlipidemia; Translations: [Hyperlipidemia, unspecified] Chronic Essential hypertension (14 sources) Benign essential hypertension; Translations: [Benign essential [...] conditions (not mental disorders or infectious disease) (9 sources) Encounter for screening for malignant neoplasm of prostate; Translations: [Elevated prostate specific antigen [PSA]] Onset: 12-22-2022 Episodic Spondylosis; intervertebral disc disorders; other back problems (20 sources) Spondylosis without myelopathy or radiculopathy, lumbar region; Translations: [Other intervertebral disc degeneration, lumbar region] Onset: 12-08-2021 Chronic Unclassified (4 sources) LOW BACK PAIN, UNSPECIFIED; Translations: [LOW BACK PAIN, UNSPECIFIED] Onset: 03-09-2022 Unclassified (1 source) right shoulder rotator cuff tear Onset: 02-02-2023 Past or Other Problems Problem Classification Problem Date Documented Da te Episodic/Chronic Cardiac dysrhythmias (11 sources) Sinus bradycardia; Translations: [Bradycardia, unspecified] Onset: 01-19-2022 01-19-2022 Episodic Mood disorders (3 sources) Mood disorders Onset: 11-24-2018 11-24-2018 Nonspecific chest pain (5 sources) Chest pain; Translations: [Other chest pain] [...] [LOW BACK PAIN, UNSPECIFIED] Onset: 05-20-2022 Unclassified (3 sources) Onset: 11-24-2018 11-24-2018 Results Test Name Value Interpretation Reference Range Facility Prostate specific Ag [Mass/V ol]on 05-10-2023 PROSTATIC SPEC ANT 2.23 ng/mL Normal 0.00-4.[address] [facility] Comment on above: Result Comment: The method used for this test is Kathya Qitio DXI chemiluminescent immunoassay. Values obtained by different assay methods cannot be used interchangeably. Performed By: #### 2 857-1 #### [facility] ([id number]) [address], [address] [place] [address] XR HIPS STEPH 3_4V WO PELVISon 05-20-2022 [...] ABEBA DOUGHERTY Date: 2022-05-20 11:00 Normal [facility] POINT OF CARE GLUCOSEon 11-2 Glucose [Mass/Vol] 84 mg/dL Normal 74-106 [facility] Comment on above: Performed By: #### P OCGLUC #### [facility] [address] [place] [address] Dr. Erin Anthony TOAN SCREEN WITH REFLEXon TOAN Screen, IFA Negative Normal Negative [facility] Comment on above: Order Comment: [facility] performed at: [email or web address], [facility], [address] [place] [address], , Pediatric Urologist: Remberto Clemens MD PhD\X0D0A\[facility] Collection Date/Time: [id number]\X0D0A\[facility] Results Received Date/Time: [id number]\X0D0A\[facility] Reported Date/Time: [id number] Result Comment: \X0D 0A\TOAN IFA is a [...] inflammatory myopathies.\X0D0A\ \X0D0A\AC-0: Negative\X0D0A\International Consensus on TOAN Patterns\X0D0A\https://doi.org/10.1515/nhov-0657-9212\X0D0A\ \X0D0A\For additional information, please refer to\X0D0A\http://[email or web address]/faq/[email or web address]\X0D0A\ \X0D0A\(This link is being provided for informational/\X0D0A\educational purposes only.)\X0D0A\ Performed By: #### O RD264 #### [place] [address] Ph. [phone] ANCA Screen with Reflex to A NCA Titeron 10-15-2021 ANCA Screen Negative Normal Negative [facility] Comment on above: Order Comment: [facility] performed at: [facility], [employer] [facility], [address] [place] [address], , Pediatric Urologist: Remberto Clemens MD PhD\X0D0A\[facility] Collection Date/Time: [id number]\X0D0A\[facility] Results Received Date/Time: [id number]\X0D0A\[facility] Reported Date/Time: [id number] Result Comment: \X0D 0A\ANCA Screen includes evaluation [...] disease.\X0D0A\ Performed By: #### O RD264 #### [place] [address] Ph. [phone] ANGIOTENSIN CONVERTING ENZYM [place] 10-15-2021 Angiotensin Conv Enzyme 5 U/L Low [facility] Comment on above: Order Comment: [facility] performed at: [email or web address], [employer], [address] [place] [address], , Pediatric Urologist: Remberto Clemens MD PhD\X0D0A\[facility] Collection Date/Time: \X0D0A\[facility] Results Received Date/Time: \X0D0A\[facility] Reported Date/Time: Performed By: #### O RD264 #### [place] [address] Ph. [phone] ANTI CENTROMERE ANTIBODYon 0 10-15-2021 Centromere B Antibody <1.0 Normal [facility] Comment on above: Order Comment: [facility] performed at: [email or web address], [employer] [facility], [address] [place] [address], , Pediatric Urologist: Remberto Clemens MD PhD\X0D0A\[facility] Collection Date/Time: \X0D0A\[facility] Results Received Date/Time: \X0D0A\[facility] Reported Date/Time: Result Comment: \X0D 0A\ Reference Range: < 1.0 NEG AI\X0D0A\ Performed By: #### O RD264 #### [place] [address] Ph. [phone] ANTI-DNA ANTIBODY, DOUBLE-ST RANDEDon 10-15-2021 DNA (ds) Antibody <1 Normal <=4 [facility] Comment on above: Order Comment: [facility] performed at: [employer], [address] [place] [address], , Pediatric Urologist: Remberto Clemens MD PhD\X0D0A\[facility] Collection Date/Time: \X0D0A\[facility] Results Received Date/Time: \X0D0A\[facility] Reported Date/Time: Result Comment: \X0D 0A\ Value Interpretation\X0D0A\ \X0D0A\ or=10 IU/mL: Positive\X0D0A\ Performed By: #### O RD264 #### [place] [address] Ph. [phone] ANTI-INSTRUCTOR KNITTING (EUN AB)on 10-16-19 INSTRUCTOR KNITTING Antibody <1.0 Normal [facility] Comment on above: Order Comment: [facility] performed at: [facility], [address] [place] [address], , Pediatric Urologist: Remberto Clemens MD PhD\X0D0A\[facility] Collection Date/Time: \X0D0A\[facility] Results Received Date/Time: \X0D0A\[facility] Reported Date/Time: Result Comment: \X0D 0A\ Reference Range: < 1.0 NEG AI\X0D0A\ Performed By: #### O RD263 #### [place] [address] Ph. [phone] ANTI-SCLERODERMA ANTIBODY (a ka SCL 70)on 10-15-2021 Scl-70 Antibody <1.0 Normal [facility] Comment on above: Order Comment: [facility] performed at: [facility], [address] [place] [address], Pediatric Urologist: Remberto Clemens MD PhD\X0D0A\[facility] Collection Date/Time: \X0D0A\[facility] Results Received Date/Time: \X0D0A\[facility] Reported Date/Time: Result Comment: \X0D 0A\ Reference Range: < 1.0 NEG AI\X0D0A\ Performed By: #### O RD264 #### [place] [address] Ph. [phone] C-Reactive Proteinon 022 CRP [Mass/Vol] mg/L Normal 0.0-1.0 [facility] Comment on above: Performed By: #### C K, URIC, CRP, CMP ####[place], [place] [address]Ph. [phone] C3 COMPLEMENTon 10-15-2021 Complement Component C3c 132 mg/dL Normal 82-185 [facility] Comment on above: Order Comment: [facility] performed at: [email or web address], [employer] [facility], [address] [place] [address], , Pediatric Urologist: Remberto Clemens MD PhD\X0D0A\[facility] Collection Date/Time: \X0D0A\[facility] Results Received Date/Time: \X0D0A\[facility] Reported Date/Time: Performed By: #### O RD264 #### [place] [address] Ph. [phone] C4 COMPLEMENTon 10-15-2021 Complement Component C4c 31 mg/dL Normal 15-53 [facility] Comment on above: Order Comment: [facility] performed at: [email or web address], [employer] [facility], [address] [place] [address], Pediatric Urologist: Remberto Clemens MD PhD\X0D0A\[facility] Collection Date/Time: \X0D0A\[facility] Results Received Date/Time: \X0D0A\[facility] Reported Date/Time: Performed By: #### O RD263 #### [place] [address] Ph. [phone] Complete Blood Count with Au to Diffon 10-15-2021 Basophils (Bld) [#/Vol] 0.1 10*3/uL Normal 0.0-0.1 [facility] Comment on above: Performed By: #### C BCAD #### [place] [address] Ph. [phone] Basophils/100 WBC (Bld) 1 % Normal 0-1 [facility] Comment on above: Performed By: #### C BCAD #### [place] [address] Ph. [phone] Eosinophils (Bld) [#/Vol] 0.3 10*3/uL Normal 0.0-0.5 [facility] Comment on above: Performed By: #### C BCAD #### [place] [address] Ph. [phone] Eosinophils/100 WBC (Bld) 3 % Normal 0-5 [facility] Comment on above: Performed By: #### C BCAD #### [place] [address] Ph. [phone] Erythrocyte distribution width (RBC) [Ratio] 12.8 % Normal 11.5-14.5 [facility] Comment on above: Performed By: #### C BCAD #### [place] [address] Ph. [phone] Hematocrit (Bld) [Volume fraction] 45.9 % Normal 42.0-52.0 [facility] Comment on above: Performed By: #### C BCAD #### [address] [address] Ph. [phone] Hemoglobin (Bld) [Mass/Vol] 15.2 g/dL Normal 13.5-17.5 [facility] Comment on above: Performed By: #### C BCAD #### [address] [address] Ph. [phone] Lymphocytes (Bld) [#/Vol] 2.4 10*3/uL Normal 1.0-4.0 [facility] Comment on above: Performed By: #### C BCAD #### [place] [address] Ph. [phone] Lymphocytes/100 WBC (Bld) 26 % Normal 20-40 [facility] Comment on above: Performed By: #### C BCAD #### [address] [address] Ph. [phone] MCH (RBC) [Entitic mass] 28.8 pg Normal 27.0-35.0 [facility] Comment on above: Performed By: #### C BCAD #### [address] [address] Ph. [phone] MCHC (RBC) [Mass/Vol] 33.1 g/dL Normal 32.0-36.0 [facility] Comment on above: Performed By: #### C BCAD #### [address] [address] Ph. [phone] MCV (RBC) [Entitic vol] 87 fL Normal 80-100 [facility] Comment on above: Performed By: #### C BCAD #### [address] [address] Ph. [phone] Monocytes (Bld) [#/Vol] 0.6 10*3/uL Normal 0.3-1.0 [facility] Comment on above: Performed By: #### C BCAD #### [address] [address] Ph. [phone] Monocytes/100 WBC (Bld) 7 % Normal 1-15 [facility] Comment on above: Performed By: #### C BCAD #### [address] [address] Ph. [phone] Neutrophils (Bld) [#/Vol] 5.9 10*3/uL Normal 1.8-7.7 [facility] Comment on above: Performed By: #### C BCAD #### [address] [address] Ph. [phone] Neutrophils/100 WBC (Bld) 64 % Normal 50-70 [facility] Comment on above: Performed By: #### C BCAD #### [address] [address] Ph. [phone] Platelet mean volume (Bld) [Entitic vol] 9.5 fL Normal 9.4-12.3 [facility] Comment on above: Performed By: #### C BCAD #### [address] [address] Ph. [phone] Platelets (Bld) [#/Vol] 230 10*3/uL Normal 150-450 [facility] Comment on above: Performed By: #### C BCAD #### [address] [address] Ph. [phone] RBC (Bld) [#/Vol] 5.27 10*6/uL Normal 4.70-6.10 [facility] Comment on above: Performed By: #### C BCAD #### [address] [address] Ph. [phone] WBC (Bld) [#/Vol] 9.3 10*3/uL Normal 3.7-11.0 [facility] Comment on above: Performed By: #### C BCAD #### [address] [address] Ph. [phone] Comprehensive Metabolic Pane idania 10-15-2021 Albumin [Mass/Vol] 4.4 g/dL Normal 3.5-5.0 [facility] Comment on above: Performed By: #### C K, URIC, CRP, CMP ####[address] [address]Ld. [phone] ALP [Catalytic activity/Vol] 73 U/L Normal 38-126 [facility] Comment on above: Performed By: #### C K, URIC, CRP, CMP ####[address] [address]Wm. [phone] ALT [Catalytic activity/Vol] 18 U/L Normal 0-50 [facility] Comment on above: Performed By: #### C K, URIC, CRP, CMP ####[address] [address]Ll. [phone] AST [Catalytic activity/Vol] 32 U/L Normal 17-59 [facility] Comment on above: Performed By: #### C K, URIC, CRP, CMP ####[address] [address]Mo. [phone] Bilirubin [Mass/Vol] 0.8 mg/dL Normal 0.2-1.3 [facility] Comment on above: Performed By: #### C K, URIC, CRP, CMP ####[address] [address]Vr. [phone] Calcium [Mass/Vol] 8.8 mg/dL Normal 8.4-10.2 [facility] Comment on above: Performed By: #### C K, URIC, CRP, CMP ####[place] [address] [place], [place] [address]Ew. [phone] Chloride [Moles/Vol] 101 mmol/L Normal 98-107 [facility] Comment on above: Performed By: #### C K, URIC, CRP, CMP ####[address] [address]Ck. [phone] CO2 [Moles/Vol] 27 mmol/L Normal 22-32 [facility] Comment on above: Performed By: #### C K, URIC, CRP, CMP ####[address] [address]Sf. [phone] Creatinine [Mass/Vol] 0.95 mg/dL Normal 0.66-1.25 [facility] Comment on above: Performed By: #### C K, URIC, CRP, CMP ####[address] [address]Ck. [phone] GFR/1.73 sq M.predicted among non-blacks MDRD (S/P/Bld) [Vol rate/Area] 86 mL/min/{1.73_m2} Normal >60 [facility] Comment on above: Result Comment: Stag e 1 Kidney damage (e.g., protein in the urine) with normal GFR >=90\X0D0A\Stage 2 Kidney damage with mild decrease in GFR 60-89\X0D0A\Stage 3a Moderate decrease in GFR 45-59\X0D0A\Stage 3b Moderate decrease in GFR 30-44\X0D0A\Stage 4 Severe reduction in GFR 15-29\X0D0A\Stage 5 Kidney failure <15 Performed By: #### C K, URIC, CRP, CMP ####[address] [address]Bw. [phone] Glucose [Mass/Vol] 84 mg/dL Normal 65-100 [facility] Comment on above: Performed By: #### C K, URIC, CRP, CMP ####[address] [address]Xd. [phone] Potassium [Moles/Vol] 4.1 mmol/L Normal 3.6-5.0 [facility] Comment on above: Performed By: #### C K, URIC, CRP, CMP ####[address] [address]Mi. [phone] Protein [Mass/Vol] 7.1 g/dL Normal 6.3-8.2 [facility] Comment on above: Performed By: #### C K, URIC, CRP, CMP ####[address] [address]Ua. [phone] Sodium [Moles/Vol] 140 mmol/L Normal 135-145 [facility] Comment on above: Performed By: #### C K, URIC, CRP, CMP ####[address] [address]Pt. [phone] Urea nitrogen [Mass/Vol] 15 mg/dL Normal 9-20 [facility] Comment on above: Performed By: #### C K, URIC, CRP, CMP ####[address] [address]Vb. [phone] Creatine Kinaseon 10-15-2021 CK [Catalytic activity/Vol] 105 U/L Normal 49-397 [facility] Comment on above: Performed By: #### C K, URIC, CRP, CMP ####[address] [address]. [phone] Erythrocyte Sedimentation Ra ann 10-15-2021 ESR (Bld) [Velocity] 2 mm/h Normal 0-20 [facility] Comment on above: Result Comment: The ESR varies with age. The maximum normal ESR at a given age is calculated using the formulas:Men: Age in years/2Women: (Age in years + 10)/2 Performed By: #### E SR ####[address] [address]Oy. [phone] HLA-B27 ANTIGENon 10-15-2021 HLA-B27 Antigen Negative Normal Negative [facility] Comment on above: Order Comment: [facility] performed at: [facility], [facility], [address] [place] [address], , Pediatric Urologist: Remberto Clemens MD PhD\X0D0A\Quest Collection Date/Time: [id number]\X0D0A\[facility] Results Received Date/Time: [id number]\X0D0A\[facility] Reported Date/Time: Performed By: #### O RD634 #### [address] [address] Ph. [phone] MISCELLANEOUS SENDOUTon 09-0 Misc Ref Lab Result See Below Normal 0-0 [facility] Comment on above: Result Comment: Rheu matoid Factor Result: <14 IU/mL\X0D0A\X0D0A\Reference Range: <14 IU/mL \X0D0A\ \X0D0A\Performing Laboratory Information:\X0D0A\[facility] [place] [id number] [facility] Pediatric Urologist: Remberto Clemens MD PhD Performed By: #### O RD263 #### [address] [address] Ph. [phone] MRI COMPARISON OF OUTSIDE FI LMSon 10-15-2021 MRI COMPARISON OF OUTSIDE FILMS RADRPT There is no result for this study. This is a placeholder for comparison films only. Final result Normal [facility] SJOGREN'S ANTIBODIES (SS-A, SS-B)on 10-15-2021 Sjogren's Antibody (SS-A) <1.0 Normal [facility] Comment on above: Order Comment: [facility] performed at: [facility], [address] [place] [address], , Pediatric Urologist: Remberto Clemens MD PhD\X0D0A\[facility] Collection Date/Time: \X0D0A\[facility] Results Received Date/Time: \X0D0A\[facility] Reported Date/Time: Result Comment: \X0D 0A\ Reference Range: < 1.0 NEG AI\X0D0A\ Performed By: #### O RD438 #### [place] [address] Ph. [phone] Sjogren's Antibody (SS-B) <1.0 [facility] Comment on above: Order Comment: [facility] performed at: [facility], [address] [place] [address], , Pediatric Urologist: Remberto Clemens MD PhD\X0D0A\[facility] Collection Date/Time: \X0D0A\[facility] Results Received Date/Time: \X0D0A\[facility] Reported Date/Time: Result Comment: \X0D 0A\ Reference Range: < 1.0 NEG AI\X0D0A\ Performed By: #### O RD438 #### [place] [address] Ph. [phone] GUERRA ANTIBODYon 10-15-2021 Guerra Antibody <1.0 Normal [facility] Comment on above: Order Comment: [facility] performed at: [facility], [address] [place] [address], , Pediatric Urologist: Remberto Clemens MD PhD\X0D0A\[facility] Collection Date/Time: \X0D0A\[facility] Results Received Date/Time: \X0D0A\[facility] Reported Date/Time: Result Comment: \X0D 0A\ Reference Range: < 1.0 NEG AI\X0D0A\ Performed By: #### O [id number] #### [place] [address] Ph. [phone] THYROID PEROXIDASE ANTIBODYo n 10-15-2021 Thyroid Peroxidase Abs 8 IU/mL Normal <9 [facility] Comment on above: Order Comment: [facility] performed at: [facility], [address] [place] [address], , Pediatric Urologist: Remberto Clemens MD PhD\X0D0A\Quest Collection Date/Time: \X0D0A\[facility] Results Received Date/Time: \X0D0A\[facility] Reported Date/Time: Performed By: #### O [id number] #### [place] [address] Ph. [phone] THYROID STIMULATING IMMUNOGL OBULINon 10-15-2021 TSI Numeric Value <89 Normal <140 [facility] Comment on above: Order Comment: [facility] performed at: [facility], [address] [place] [address], Pediatric Urologist: Remberto Clemens MD PhD\X0D0A\Quest Collection Date/Time: \X0D0A\[facility] Results Received Date/Time: \X0D0A\[facility] Reported Date/Time: Result Comment: \X0D 0A\Thyroid stimulating [...] characteristics of this\X0D0A\assay have been determined by [facility]\X0D0A\[facility], [place], [place]. The modifications\X0D0A\have not been cleared or approved by the FDA. This\X0D0A\assay has been validated pursuant to the CLIA\X0D0A\regulations and is used for clinical purposes.\X0D0A\ Performed By: #### O [address] #### [place] [address] Ph. [phone] [place] [address]-01-2022 URIC 4.9 mg/dL Normal 3.5-8.5 [facility] Comment on above: Performed By: #### C K, URIC, CRP, CMP ####[facility] [place], [place] [address]Dd. [phone] XR CHEST (2 VW)on 10-15-2021 XR CHEST [...] Rod Mcgill MD 10/15/21 Final result Normal [facility] XR COMPARISON OF OUTSIDE BALWINDER MSon 10-15-2021 XR COMPARISON OF OUTSIDE FILMS RADRPT There is no result for this study. This is a placeholder for comparison films only. Final result Normal [facility] XR COMPARISON OF OUTSIDE FILMS RADRPT There is no result for this study. This is a placeholder for comparison films only. Final result Normal [facility] XR COMPARISON OF OUTSIDE FILMS RADRPT There is no result for this study. This is a placeholder for comparison films only. Final result Normal [facility] XR COMPARISON OF OUTSIDE FILMS RADRPT There is no result for this study. This is a placeholder for comparison films only. Final result Normal [facility] XR COMPARISON OF OUTSIDE FILMS RADRPT There is no result for this study. This is a placeholder for comparison films only. Final result Normal [facility] XR HAND LEFT (2 VIEWS)on XR [...] Agnieszka Sal MD 10/16/21 Final result Normal [facility] XR HAND RIGHT (2 VIEWS)on XR [...] Agnieszka Sal MD 10/16/21 Final result Normal [facility] XR SHOULDER LEFT (MIN 2 VIEW [...] Agnieszka Sal MD 10/16/21 Final result Normal [facility] XR SHOULDER RIGHT (MIN 2 VIE [...] Agnieszka Sal MD 10/16/21 Final result Normal [facility] XR WRIST LEFT (2 VIEWS)on XR [...] Agnieszka Sal MD 10/16/21 Final result Normal [facility] XR WRIST RIGHT (2 VIEWS)on 0 [...] Agnieszka Sal MD 10/16/21 Final result Normal [facility] CT CARDIAC SCORINGon 02-14 CT CARDIAC SCORING [...] LITTLE MD Addendum Ends Patient Name: BERTIN RAECHIGA STUDY: CT CARDIAC SCORING; 02/25/2020 12:11 pm INDICATION: ABN ECG PALPITATIONS SCREENING FOR CARDIOVASCULAR CONDITION. COMPARISON: None. ACCESSION NUMBER(S): [id number] ORDERING CLINICIAN: ESHA SCOTT TECHNIQUE: Using prospective [...] link below [email or web address] x Fredis et al. JACC 2015 (http://dx.doi.org/10. 1016/j.j acc.2015.08.035) Reading Independent Producer: Dr. Chilango Delarosa, Date: 02/25/2020 7:53 pm Electronically signed by: NOE LITTLE MD [facility] Vital Signs Date Time Vital Sign Value Performing Clinician Facility 05-10-2023 11: Body height 177.8 cm Humberto Khoury MD Work Phone: [facility] [employer] [facility] 05-10-2023 11:17040 Body mass index (BMI) [Ratio] 23.24 kg/m2 Humberto Khoury MD Work Phone: [facility] [employer] [facility] 05-10-2023 11:17 Body weight 73.48 kg Humberto Khoury MD Work Phone: [facility] 05-10-2023 11:17-0400 Diastolic blood pressure 72 mm[Hg] Humberto Khoury MD Work Phone: [facility] [employer] [facility] 05-10-2023 11:17-0400 Heart rate 54 /min Humberto Khoury MD Work Phone: [facility] [employer] [facility] 05-10-2023 11:17-0400 Systolic blood pressure 120 mm[Hg] Humberto Khoury MD Work Phone: [facility] [employer] 02-08-2023 12:17-0500 Body height 177.8 cm Humberto Khoury MD Work Phone: [facility] [employer] 02-08-2023 12:17-0500 Body mass index (BMI) [Ratio] 23.24 kg/m2 Humberto Khoury MD Work Phone: [facility] [employer] 02-08-2023 12:17-0500 Body weight 73.48 kg Humberto Khoury MD Work Phone: [facility] [employer] 02-08-2023 12:17-0500 Diastolic blood pressure 83 mm[Hg] Humberto Khoury MD Work Phone: [facility] [employer] 02-08-2023 12:17-0500 Heart rate 64 /min Humberto Khoury MD Work Phone: [facility] [employer] 02-08-2023 12:17-0500 Systolic blood pressure 127 mm[Hg] Humberto Khoury MD Work Phone: [facility] [employer] 01-21-2023 11:15-0500 Body height 177.8 cm Fallon Henry Other [employer] Other 01-21-2023 11:15-0500 Body mass index (BMI) [Ratio] 23.07 kg/m2 Fallon Henry Other [employer] Other 01-21-2023 11:15-0500 Body weight 72.94 kg Fallon Henry Other [employer] Other 01-21-2023 11:15-0500 Diastolic blood pressure 73 mm[Hg] Fallon Henry Other [employer] Other 01-21-2023 11:15-0500 Systolic blood pressure 115 mm[Hg] Fallon Henry Other [employer] Other 10-25-2022 13:30-0400 Body height 177.8 cm Fallon Henry Other [employer] Other 10-25-2022 13:30-0400 Body mass index (BMI) [Ratio] 23.3 kg/m2 Fallon Henry Other [employer] Other 10-25-2022 13:30-0400 Body weight 73.66 kg Fallon Henry Other [employer] Other 10-25-2022 13:30-0400 Diastolic blood pressure 84 mm[Hg] Fallon Henry Other [employer] Other 10-25-2022 13:30-0400 Respiratory rate 12 /min Fallon Henry Other [employer] Other 10-25-2022 13:30-0400 Systolic blood pressure 136 mm[Hg] Fallon Henry Other [employer] Other Encounters Encounter Date Encounter Type Care Provider Facility Start: 08-02-2023 End: 08-02-2023 ambulatory PATTIE PICHARDO Not Available Start: 06-21-2023 End: 06-21-2023 ambulatory CORNELL CHAO Not Available Start: 06-17-2023 End: 06-17-2023 ambulatory CORNELL CHAO Not Available Start: 06-15-2023 End: 06-15-2023 ambulatory CORNELL CHAO Not Available Start: 06-13-2023 End: 06-13-2023 ambulatory MELA T BLACKSTON Not Available Start: 06-10-2023 End: 06-10-2023 ambulatory CORNELL BRINK Not Available Start: 06-08-2023 End: 06-08-2023 ambulatory CORNELL BRINK Not Available Start: 06-06-2023 End: 06-06-2023 ambulatory MELA T BLACKSTON Not Available Start: 06-03-2023 End: 06-03-2023 ambulatory CORNELL BRINK Not Available Start: 05-27-2023 End: 05-27-2023 ambulatory CORNELL BRINK Not Available Start: 05-25-2023 End: 05-25-2023 ambulatory MELA T BLACKSTON Not Available Start: 05-19-2023 End: 05-19-2023 ambulatory CORNELL BRINK Not Available Start: 05-17-2023 End: 05-17-2023 ambulatory MELA T BLACKSTON Not Available Start: 05-13-2023 End: 05-13-2023 ambulatory CORNELL BRINK Not Available Start: 05-11-2023 End: 05-11-2023 ambulatory CRISTI KELBLEY Not Available Start: 05-10-2023 End: 05-11-2023 ambulatory HUMBERTO KHOURY [facility] Start: 05-10-2023 End: 05-10-2023 Office outpatient visit 15 minutes Humberto Khoury MD Work Phone: [facility] Comment on above: Elevated PSA (Primar y Dx) Start: 05-09-2023 End: 05-09-2023 ambulatory MELA T BLACKSTON Not Available Start: 05-06-2023 End: 05-06-2023 ambulatory CORNELL BRINK Not Available Start: 05-04-2023 End: 05-04-2023 ambulatory CORNELL BRINK Not Available Start: 05-02-2023 End: 05-02-2023 ambulatory CORNELL BRINK Not Available Start: 04-29-2023 End: 04-29-2023 ambulatory CRISTI KELBLEY Not Available Start: 04-27-2023 End: 04-27-2023 ambulatory MELA T BLACKSTON Not Available Start: 04-26-2023 End: 04-26-2023 ambulatory PATTIE PICHARDO Not Available Start: 04-21-2023 End: 04-21-2023 ambulatory CORNELL CHAO Not Available Start: 04-18-2023 End: 04-18-2023 ambulatory MELA SUAREZ Not Available Start: 04-13-2023 End: 04-13-2023 ambulatory MELA SUAREZ Not Available Start: 04-11-2023 End: 04-11-2023 ambulatory CORNELL CHAO Not Available Start: 04-08-2023 End: 04-08-2023 ambulatory CORNELL CHAO Not Available Start: 04-06-2023 End: 04-06-2023 ambulatory MELA SUAREZ Not Available Start: 03-30-2023 End: 03-30-2023 Postop follow up visit related to original px Wil Cao [employer] Work Phone: [facility] Comment on above: Status post right ro tator cuff repair (Primary Dx); Arthritis of right acromioclavicular joint Start: 03-30-2023 End: 03-30-2023 ambulatory WIL CAO Not Available Start: 03-15-2023 End: 03-15-2023 ambulatory PATTIE PICHARDO Not Available Start: 02-13-2023 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 [employer] Work Phone: [facility] Comment on above: Med Refill Start: 02-10-2023 End: 02-10-2023 ambulatory PATTIE PICHARDO Not Available Start: 02-08-2023 End: 02-08-2023 ambulatory HUMBERTO KOHURY [facility] Start: 02-08-2023 End: 02-08-2023 Office outpatient visit 25 minutes Humberto Khoury MD Work Phone: [facility] Comment on above: Elevated PSA (Primar y Dx) Start: 02-02-2023 End: 02-02-2023 Evaluation and management of inpatient HANNA SCHMIDT [facility] Start: 02-02-2023 End: 02-02-2023 Evaluation and management of inpatient PATTIE PICHARDO [facility] Start: 01-21-2023 End: 01-21-2023 ambulatory Fallon Henry Other [employer] Other Start: 01-21-2023 Office outpatient vi sit 10 minutes Fallon Henry [facility] Start: 01-21-2023 Patient encounter status Tiffanie Khoury MD Work Phone: [employer] Work Phone: Start: 01-20-2023 End: 01-20-2023 ambulatory PATTIE PICHARDO Not Available Start: 01-14-2023 End: 01-14-2023 ambulatory Fallon Henry Other [employer] Other Start: 01-14-2023 Telephone encounter Fallon Carl [facility] Start: 11-08-2022 End: 11-08-2022 ambulatory Fallon Henry Other [employer] Other Start: 11-08-2022 Telephone encounter Fallon Carl [facility] Start: 11-02-2022 End: 11-02-2022 ambulatory Fallon Carl Other [employer] Other Start: 11-02-2022 Telephone encounter Fallon Carl [facility] Start: 10-29-2022 End: 10-29-2022 ambulatory Fallon Carl Other [employer] Other Start: 10-29-2022 Telephone encounter Fallon Henry [employer] Start: 10-25-2022 End: 10-25-2022 ambulatory Fallon Carl Other [employer] Other Start: 10-25-2022 Office outpatient vi sit 15 minutes Fallon Henry [facility] Start: 05-20-2022 End: 05-21-2022 ambulatory SOURAV SANCHESMIWHITNEYY Facility:[facility] Start: 03-04-2022 End: 03-05-[address] ROWAN GARDUNO . Facility:[facility] Start: 02-16-2022 End: 02-16-[address] ROWAN GARDUNO . Facility:[facility] Start: 01-21-2022 End: 01-22-[address] ROWAN GARDUNO . Facility:[facility] Start: 01-05-2022 End: 01-05-[address] ROWAN GARDUNO . Facility:[facility] Start: 12-08-2021 End: 12-09-[address] ROWAN GARDUNO . Facility:[facility] Start: 10-15-2021 ambulatory FALLON HNERY [facility] Start: 02-16-2021 Rx Renewal Hanna Dolan ce Work Phone: [place] [address] DO Work Phone: Procedures Date Procedure Procedure Detail Performing Clinician Start: 02-08-2023 Follow-up visit Follow-up HUMBERTO Karen KHOURY Start: 10-15-2021 Cyclic citrullinated peptide antibody FALLON HENRY Comment on above: Order Comment: [facility] performed at: [email or web address] [facility], [address] [place] [address], , Pediatric Urologist: Remberto Clemens MD PhD\X0D0A\Quest Collection Date/Time: \X0D0A\Quest Results Received Date/Time: \X0D0A\[facility] Reported Date/Time: [id number] Result Comment: \X0D 0A\Negative: <20\X0D0A\Weak Positive: 20 - 39\X0D0A\Moderate Positive: 40 - 59\X0D0A\Strong Positive: >59\X0D0A\ Performed By: #### O [address] #### [place] [address] Ph. [phone] History of repair of musculotendinous cuff of shoulder Status post right rotator cuff repair Wil Cao [employer]UC[employer] Work Phone: Plan of Treatment Date Care Activity Detail Author Start: 05-09-2024 Adult BMI Screening Adult BMI Screen [facility] Start: 05-09-2024 Tobacco Screening Tobacco Screening [facility] Start: 02-09-2024 Adult BMI Screening Adult BMI Screen ing [facility] Start: 02-09-2024 Tobacco Screening Tobacco Screening [facility] Start: 05-10-2023 End: 05-10-2023 Patient encounter procedure 05/10/2023 11:15 AM EDT Office Visit [facility] [address] [place] [address] [facility] [place] [address] Humberto Khoury MD [address] [place] [address] [facility] Start: 05-09-2023 End: 02-08-2024 Prostatic specific antigen, diagnostic Prostatic specific antigen, diagnostic Lab Routine Elevated PSA Expected: 05/09/2023, Expires: 02/08/2024 [facility] Work Phone: Comment on above: Expected: 05/09/2023 , Expires: 02/08/2024 Start: 04-26-2023 End: 04-26-2023 Patient encounter procedure 04/26/2023 9:45 AM EDT Office Visit [facility] [address] [place] [address] Pattie Pichardo DO [address] [place] [address] [facility] Start: 10-15-2022 Influenza vaccination Influenza Vacc ine [facility] Start: 2011 Administration of varicella zoster vaccine Zoster (Shingles) Vaccine (1 of 2) [facility] Start: 02-19-1980 DTaP,Tdap and Td Vaccines (1 - Tdap) DTaP,Tdap and Td Vaccines (1 - Tdap) [facility] Start: 1973 Depression Screening Depression Scre ening [facility] Immunizations Immunization Date Immunization Notes Care Provider Fa cility 02-15-2016 influenza virus vaccine, unspecified formulation Humberto Khoury MD Work Phone: [facility] 11-13-2013 influenza virus vaccine, unspecified formulation Humberto Khoury MD Work Phone: [facility] Payers Date Payer Category Payer Unknown 2020 Unknown [id number] 1960 Unknown [id number] 2.16.8 40.1.221056.3.579.2.754 1960 Unknown [id number] 2.16.8 40.1.797689.3.579.2.754 1961 Unknown [id number] 2.16.8 40.1.816663.3.579.2.754 1961 Unknown [id number] 2.16.8 40.1.425890.3.579.2.754 1961 Unknown [id number] 2.16.8 40.1.774239.3.579.2.754 1961 Unknown [id number] 2.16.8 40.1.727713.3.579.2.754 1961 Unknown [id number] 2.16.8 40.1.610404.3.579.2.754 1961 Unknown [id number] 2.16.8 40.1.824286.3.579.2.754 1961 Unknown [id number] 2.16.84 0.1.667904.3.579.2.593 1961 Unknown [id number] 2.16.84 0.1.992524.3.579.2.593 1961 Unknown [id number] 2.16.84 0.1.512573.3.579.2.593 1961 Unknown [id number] 2.16.84 0.1.116359.3.579.2.593 1961 Unknown [id number] 2.16.84 0.1.398586.3.579.2.593 1961 Unknown [id number] 2.16.84 0.1.970873.3.579.2.593 1961 Unknown [id number] 2.16.84 0.1.880757.3.579.2.593 1961 Unknown [id number] 2.16.8 40.1.872142.3.579.2.1286 1961 Unknown [id number] 2.16.84 0.1.858898.3.579.2.1286 1961 Unknown [id number] 2.16.8 40.1.942590.3.579.2.1286 1961 Unknown [id number] 2.16.84 0.1.950488.3.579.2.1286 1961 Unknown [id number] 2.16.84 0.1.495000.3.579.2.1286 1961 Unknown [id number] 2.16.84 0.1.342120.3.579.2.1286 1961 Unknown [id number] 2.16.84 0.1.468804.3.579.2.9 1961 Unknown [id number] 2.16.84 0.1.980778.3.579.2.1259 1961 Unknown [id number] 2.16.84 0.1.272243.3.579.2.1259 1961 Unknown [id number] 2.16.84 0.1.511140.3.579.2.9 1961 Unknown [id number] 2.16.84 0.1.848818.3.579.2.1259 1961 Unknown [id number] 2.16.84 0.1.941771.3.579.2.9 1961 Unknown [id number] 2.16.84 0.1.846110.3.579.2.1259 1961 Unknown [id number] 2.16.84 0.1.875978.3.579.2.1259 1961 Unknown [id number] 2.16.84 0.1.014345.3.579.2.9 1961 Unknown [id number] 2.16.84 0.1.870427.3.579.2.9 1961 Unknown [id number] 2.16.84 0.1.817298.3.579.2.1258 1961 Unknown [id number] 2.16.84 0.1.693835.3.579.2.1258 1961 Unknown [id number] 2.16.84 0.1.494577.3.579.2.1258 1961 Unknown [id number] 2.16.84 0.1.525366.3.579.2.9 1961 Unknown [id number] 2.16.84 0.1.307877.3.579.2.1258 1961 Unknown [id number] 2.16.84 0.1.557422.3.579.2.9 1961 Unknown [id number] 2.16.84 0.1.085327.3.579.2.1258 1961 Unknown [id number] 2.16.84 0.1.748505.3.579.2.9 1961 Unknown [id number] 2.16.84 0.1.303895.3.579.2.1258 1961 Unknown [id number] 2.16.84 0.1.327646.3.579.2.9 1961 Unknown [id number] 2.16.84 0.1.456825.3.579.2.1258 1961 Unknown [id number] 2.16.84 0.1.889982.3.579.2.9 1961 Unknown [id number] 2.16.84 0.1.906476.3.579.2.1258 1961 Unknown [id number] 2.16.84 0.1.457573.3.579.2.1259 1961 Unknown [id number] 2.16.84 0.1.541785.3.579.2.1258 1961 Unknown [id number] 2.16.84 0.1.599729.3.579.2.1258 1961 Unknown [id number] 2.16.84 0.1.986806.3.579.2.1258 1961 Unknown [id number] 2.16.84 0.1.516535.3.579.2.1258 1961 Unknown [id number] 2.16.84 0.1.889170.3.579.2.1258 1961 Unknown [id number] 2.16.84 0.1.063366.3.579.2.1258 1961 Unknown [id number] 2.16.840 .1.868504.3.579.2.1258 1961 Unknown [id number] 2.16.840 .1.010948.3.579.2.1259 Self-pay [id number] 2.16.840.1.898821.19 Self-pay [id number] 2.16.840.1.549900.19 Self-pay [id number] 2.16.840.1.177533.19 Self-pay [id number] 2.16.840.1.479484.19 Self-pay [id number] 2.16.840.1.789209.19 Self-pay [id number] 2.16.840.1.410404.19 Social History Date Type Detail Facility Start: 04-19-2018 End: 03-27-2020 Sex Assigned At [facility] Start: 05-04-2021 End: 11-10-2022 Tobacco smoking status NHIS Ex-smoker [facility] End: 02-04-2001 History of tobacco use Current smoker [facility] End: 02-04-2001 History of tobacco use Cigarette Smoker [facility] Start: 03-27-2020 End: 05-04-2021 Cigarettes smoked current (pack per day) - Reported 1.5 [facility] Start: 05-04-2021 Tobacco use and exposure Smoke less tobacco non-user [facility] Start: 02-08-2023 End: 05-10-2023 Alcohol intake Ex-drinker (finding) [facility] Frequency of Alcohol Consumption Never [facility] Start: 1960 Sex Assigned At Not on file P [facility] Start: 11-10-2022 Tobacco use and exposure Forme r smokeless tobacco user [facility] Start: 01-07-2023 Alcohol Comment caffeine more than 4 cups per day [facility] Medical Equipment Procedure Code Equipment Code Equipment Origin al Text Equipment Identifier Dates Recorder Crd Annette q Ii Ins - [id number] - [id number] Start: 07-10-2021 Ultratape, 38 [id number] Start: 02-02-2023 Clinical Notes 12-08-2021 to 05-10-2023 Humberto Khoury MD - 05/10/2023 11:15 AM EDTera Cao NP - 03/30/2023 10:30 AM Deon Khoury MD - 02/08/2023 12:15 PM EST Note Date & Type Note Facility 05-10-2023 History of Present illness Narrative Images from the original note were not included. [address] [place] [address] A [facility] [address] Patient: Bertin Arechiga Date of : 1960 Encounter Date: 05/10/2023 History of Present Illness: The patient is a 63 y.o. male, an established patient, and is here for followup. He has a history of a PSA which had increased from 1.5 in December 16 1021 to 3.11 in October 2022. Is asymptomatic urologically. He had a repeat PSA which had increased to 5.19. This prompted a 3 eusebia MRI performed January 27, 2023 showing a prostate volume of 31 cc with PI rads 2 only. Continues to void fine without symptoms. No repeat psa done yet. Summary of old records: Urinalysis today: No [...] Past Medical History: Diagnosis Date Angina pectoris ([facility]) 1981 was kept few days in hospital and tests were ran Anxiety not diagnosed doesn't see doctor Arrhythmia 1981 x1 episode when he was 31 Arthritis Atrial fibrillation ([facility]) Back pain 1989 Carpal tunnel syndrome Disc disorder of lumbosacral region Fractures Gallstones Headache Hypertension hasn't seen dr in 15 years not officially dx not on meds Injury of back Lumbar paraspinal muscle spasm Lumbar radiculopathy Neurogenic pain Raynaud's phenomenon without gangrene Past Surgical History: Procedure Laterality Date Afib Ablation, Carto, ICE N/A 03/18/2022 Performed by Abelardo Oneill MD at [facility] (EP) ARTHROSCOPIC REPAIR ROTATOR CUFF SHOULDER Right 02/02/2023 Performed by Pattie Pichardo DO at [facility] COLONOSCOPY N/A 04/25/2018 Performed by Chilango Jason DO at [facility] HEMORRHOIDECTOMY N/A 04/25/2018 Performed by Chilango Jason DO at [facility] HERNIA REPAIR INSERTION LOOP RECORDER RELEASE CARPAL TUNNEL Right 02/04/2021 Performed by Pattie Pichardo DO at [facility] Family History Problem Relation Age of Onset [...] mouth in the morning. 90 capsule 3 aspirin 81 mg Take 1 tablet (81 [...] Types: Cigarettes Quit date: 02/04/2001 Years since quittin.2 Smokeless Tobacco Never (If patient a smoker, smoking cessation counseling offered) Social History: Social History Substance and Sexual Activity Alcohol Use Not Currently Review of Systems: General: Negative for chills and fever. Cardiovascular: Negative for chest pain and shortness of breath. Gastrointestinal: Negative for constipation, diarrhea, nausea, and vomitting. Physical Exam: BP 120/72 Pulse 54 Ht 177.8 cm (5' 10 ) Wt [...] If still rising may consider random biopsies 05/10/23: Repeat PSA today. Options reviewed. If PSA continues to rise plan for random biopsies. If improved we will continue to monitor Follow-up: Humberto Khoury MD This note was created with the assistance of a speech recognition program. While intending to generate a timely document that accurately reflects the content of the visit, no guarantee can be provided that every grammatical or spelling mistake has been or will be identified or corrected. Thank you for your understanding. documented in this encounter [facility] 03-30-2023 History of Present illness Narrative HISTORY [...] in 2 weeks documented in this encounter [facility] 02-08-2023 History of Present illness Narrative Images from the original note were not included. [address] [place] [address] [facility] [address] Patient: Bertin Arechiga Date of : 1960 [...] Past Medical History: Diagnosis Date Angina pectoris ([facility]) 1981 was kept few days in hospital and tests were ran Anxiety not diagnosed doesn't see doctor Arrhythmia 1981 x1 episode when he was 31 Arthritis Atrial fibrillation ([facility]) Back pain 1989 Carpal tunnel syndrome Disc disorder of lumbosacral region Fractures Gallstones Headache Hypertension hasn't seen dr in 15 years not officially dx not on meds Injury of back Lumbar paraspinal muscle spasm Lumbar radiculopathy Neurogenic pain Raynaud's phenomenon without gangrene Past Surgical History: Procedure Laterality Date Afib Ablation, Carto, ICE N/A 03/18/2022 Performed by Abelardo Oneill MD at [facility] () ARTHROSCOPIC REPAIR ROTATOR CUFF SHOULDER Right 02/02/2023 Performed by Pattie Pichardo DO at [facility] COLONOSCOPY N/A 04/25/2018 Performed by Chilango Jason DO at [facility] HEMORRHOIDECTOMY N/A 04/25/2018 Performed by Chilango Jason DO at [facility] HERNIA REPAIR INSERTION LOOP RECORDER RELEASE CARPAL TUNNEL Right 02/04/2021 Performed by Pattie Pichardo DO at [facility] Family History Problem Relation Age of Onset [...] for your understanding. documented in this encounter [facility] 01-21-2023 Evaluation note Encounter Date Diagnosis Assessment Notes Jan, Complete tear of right rotator cuff, unspecified whether traumatic (ICD-10 - M75.121) Pt has followup with his supervisor data processing for clearance today. He is medically cleared barring abnormalities on testing at [facility] which is pending or with his supervisor data processing. Jan, Intermittent atrial fibrillation (ICD-10 - I48.0) as above. [employer] Other 12-01-2023 Evaluation note* Encounter Date Diagnosis Assessment Notes Treatment Notes Treatment Clinical Notes Jan, Acute pain of right shoulder (ICD-10 - M25.511) [employer] Other 09-25-2023 Evaluation note* Encounter Date Diagnosis Assessment Notes Treatment Notes Treatment Clinical Notes Oct, PSA elevation (ICD-10 - R97.20) [employer] Other 09-11-2023 Evaluation note* Encounter Date Diagnosis [...] PSA (prostate specific antigen) (ICD-10 - Z12.5) [employer] Other 04-06-2023 NoteCONSULTATION CONSULTATION DATE: 05/20/2022 TO: [...] our patients to inform us about any xhnm-kuv-lrnptek medications or herbal remedies/nutritional supplements/alternative remedies. 2. [...] treatment options with their primary care provider.[facility] [id number] Note CONSULTATION CONSULTATION DATE: 03/04/2022 HISTORY OF [...] ablation for his atrial fibrillation scheduled at [facility] in [place]. Medications include Eliquis, gabapentin 600 mg b.i.d., [...] successful cardiac ablation and approval from his supervisor data processing. We will also gain approval to hold his Eliquis for our procedure. 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 The patient also sees Dr. Harmon in [place] for his Raynaud's disease and also autonomic [...] the autonomic dystonia and the hyperhidrosis at [facility], where he may get attention for this. In the meantime, we will look to proceed with the chronic low back pain that the patient has and is the most problematic for him, by proceeding with a lumbar medial branch block at the level of L2-3 and L4-5. Questions/answers were done. The patient understands and would like to proceed. CC: Fallon Henry M.D.[facility] noteNo [facility] [employer] Other Evaluation note* Diagnosis Elevated PSA- Primary Elevated prostate specific antigen (PSA) [facility] Essential hypertension Unspecified essential hypertension [facility] Diagnosis Status post right rotator cuff repair- Primary Arthritis of right acromioclavicular joint [facility] Diagnosis Elevated PSA- Primary Elevated prostate specific antigen (PSA) documented in this encounter [facility] [employer] [facility]ative - Reported* Type Description Date [...] 2019 - had polyp re check 5 yrs 2018 Hospitalization History see surgical history [employer] Other History general Narrative - Reported* Type [...] 2019 - had polyp re check 5 yrs 2019 Surgical History Back injection 12/2022 Hospitalization History see surgical history [employer] Other Instructions* Attachments The following attachments cannot be sent through Care Everywhere. * Going Home on Blood Thinners (Irish) documented in this [facility] Search SystemInstructionsNot on file documented in this encounterPro[facility] Search SystemInstructionsNot on file documented in this [facility]Pro[facility] Search System Summary Purpose Family History No Family History [...] pain of right shoulder (M25.511) Referral Organization [facility] [email or web address] Referring Provider First Name Fallon Referring Provider Last Name Carl Referring Provider Specialty [facility] [employer] Referred Organization [facility] Referred Provider Pattie Pichardo Referred Address ,[place], [place],[address] Referred Provider Specialty Orthopedic S urgery Referral Priority Routine General Notes Micheleradhakarsten Regi 12:12:13 PM >received today, waiting for XR and for Notes to be locked Shonda Regi 10/29/2022 08:52:53 AM >XR attached, sent TE to lock office notes Reason *FU 11/16 Dr. Kathya abbott - Urology [facility] surgeons [facility]. PSA went from 1.5 to 3.1 Diagnosis 1 PSA elevation (R97.2 0) Referral Organization [facility] [email or web address] Referring Provider First Name Fallon Referring Provider Last Name Carl Referring Provider Specialty [facility] [employer] Referred Organization [employer] Referred Address [address],[place], [place],[address] Referred Provider Specialty Urology Referral Priority Routine General Notes MicheleradhaRegi shelley 01:58:34 PM >received today. P: [phone] F: [id number] Regi Merchant 11/09/2022 02:06:57 PM >attachments made, notes locked, referral faxed Specialty Diagnoses / Procedures Referred By Elder morgan Referred To Contact Physical Therapy Diagnoses Status post right rotator cuff repair Arthritis of right acromioclavicular joint Procedures IA OFFICE/OUTPATIENT NEW HIGH MDM 60 MINUTES Wil Cao, INDEPENDENT PRODUCER [address] [place] [address] Mela Suarez, PT [address] [place] [address] Referral ID Status Reason Start Date Expiration Date Visits Requested Visits Authorized [id number] Pending Review Specialty Services Required 03/30/2023 09/26/2023 1 1 Additional Source Comments (unrecognized sect ion and content) No Status Records FoundNo Status Records FoundNo Status Records FoundNo Status Records FoundNo Status Records FoundNo Status Records Found INFORMATION SOURCE (unrecogn ized section and content) DATE CREATED AUTHOR [facility] DATE CREATED AUTHOR AUTHOR'S ORGANIZ ATION 10/27/2021 [facility] DATE CREATED AUTHOR AUTHOR'S ORGANIZ ATION 05/29/2022 [facility] DATE CREATED AUTHOR AUTHOR'S ORGANIZ ATION 05/11/2023 [facility] DATE CREATED AUTHOR AUTHOR'S ORGANIZ ATION [facility]/11/20[facility] DATE CREATED AUTHOR AUTHOR'S ORGANIZ ATION 08/03/2023 [facility] dical Specialists EPIC REASON FOR VISIT (unrecogniz ed section and content) Reason Comments Follow-up Reason Comments Med Refill Reason Comments Pain Care Teams (unrecognized sec tion and content) Plant Custodian Relationship Specialty Start Date End Date Fallno Henry MD [address] [place] [id number] PCP - General Family Medicine 01/22/21 Plant Custodian Relationship Specialty Start Date End Date Fallon Henry MD [address] [place] [id number] PCP - General Family Medicine 01/22/21 Plant Custodian Relationship Specialty Start Date End Date Fallon Henry MD [address] [place] [address] [phone] PCP - General Family Medicine 11/09/22 Plant Custodian Relationship Specialty Start Date End Date Fallon Henry MD [address] [place] [id number] PCP - General Family Medicine 01/22/21 FOR RECORDS PERTAINING TO PATIENTS WHO ARE [...] BE BASED ON THE PRIMARY CLINICAL RECORDS. [facility] [employer] [facility]. provides no warranty or guarantee of the accuracy or completeness of information in this document.
--- NOTE | 2023-10-27 10:34 | P.CN_ITS ---
Consult Note: HPI Data of Consult Patient: known to practice within the last 3 years Requesting Physician: Aaliyah Sltaer NP Primary Care Provider: Fallon Gonzalez MD Consult Narrative Reason for consult: f/u Narrative: Abimael Ruano a pleasant 62 year old male presents for evaluation and management of chronic neck, right shoulder and low back pain. Today rating pain 3/10 in right low back. No pain in left low back pain since left superior gluteal NB and trigger point injections with Dr Carrasquillo. Patient is getting tramadol 50mg BID PRN through PCP, does utilize medical marijuana. Patient reports low back pain is well controlled and he does not need additional injections. Patient reports he continues to have moderate to severe right shoulder pain post rotator cuff surgery, and is noticing increase in neck pain. hx of cervical DDD and cervical facet arthropathy. gabapentin 600mg BID and baclofen 10mg BID PRN helpful without side effects. cc:: CC: Aaliyah Slater NP Review of Systems ROS Status of ROS 10 or more systems reviewed and unremark able except as noted in history and below Musculoskeletal Reports: neck pain and joint pain PFSH PFSH Medical History Hernia ?K46.9 - Unspecified abdominal hernia without obstruction or gangrene (ICD- 10) Upper back pain ?M54.9 - Dorsalgia, unspecified (ICD-10) Neck pain ?M54.2 - Cervicalgia (ICD-10) Low back pain ?M54.50 - Low back pain, unspecified (ICD-10) Osteoarthritis ?M19.90 - Unspecified osteoarthritis, unspecified site (ICD-10) Carpal tunnel syndrome ?G56.00 - Carpal tunnel syndrome, unspecified upper limb (ICD-10) Diabetes ?E11.9 - Type 2 diabetes mellitus without complications (ICD-10) Former smoker ?Z87.891 - Personal history of nicotine dependence (ICD-10) Atrial fibrillation ?I48.91 - Unspecified atrial fibrillation (ICD-10) Implantable loop recorder present ?Z95.818 - Presence of other cardiac implants and grafts (ICD-10) High cholesterol ?E78.00 - Pure hypercholesterolemia, unspecified (ICD-10) Hypertension ?I10 - Essential (primary) hypertension (ICD-10) Social History Smoking status: Former smoker Meds Home Medications and Allergies Home Medications ?Medication ?Instructions ?Recorded ?Confirmed ?Type baclofen 10 mg tablet 10 mg PO Q8H PRN pain 08/01/22 04/05/23 History gabapentin 600 mg tablet 600 mg BID 08/01/22 History atorvastatin 10 mg tablet 10 mg PO .hs 08/05/22 04/05/23 History docusate sodium 100 mg capsule 100 mg PO DAILY 08/05/22 04/05/23 History flecainide 50 mg tablet 50 mg PO Q12H 08/05/22 04/05/23 History medical marijuan 08/05/22 History metoprolol succinate 50 mg 25 mg PO QDAY 08/05/22 04/05/23 History tablet,extended release 24 hr psyllium (Hydrocil oral powder) 1 tbsp PO DAILY 08/05/22 04/05/23 History tramadol 50 mg tablet 50 mg PO TID PRN pain 08/05/22 04/05/23 History aspirin 81 mg capsule 81 mg PO DAILY 04/05/23 04/05/23 History gabapentin 600 mg tablet 600 mg PO BID #60 tabs 10/05/23 Rx Allergies Allergy/AdvReac Type Severity Reaction Status Date / Time No Known Drug Allergies Allergy Verified 04/05/23 10:33 Exam Constitutional Documenting provider has reviewed patient's vital signs: yes Common normals: no apparent distress, oriented x3, healthy appearing, alert and well nourished General appearance: cooperative [facility] Common normals: normocephalic, hearing grossly normal bilaterally and moist oral mucous membranes Head and scalp: normocephalic Mouth: oral and palatal mucosa normal Eye Common normals: PERRL Pupil: PERRL Neck & C-Spine Common normals: full ROM General: normal visual inspection Cervical spine: pain with cervical ROM, paracervical muscle tenderness, paracervical muscle spasm and trapezius muscle tenderness Other: negative spurlings facet pain C3/4 C4/5 trigger points noted to right paracervical spine, including splenus capitus as well as right trapezius and suprascapular Chest Common normals: inspection of chest normal Respiratory Common normals: normal respiratory effort, no retractions and no use of accessory muscles Back & Pelvis Common normals: thoracic and lumbar spine normal to inspection Lumbar spine/lower back: normal to inspection and lumbar ROM normal; no pain with ROM Sacroiliac joints: SI joints normal Extremity Right upper extremity: shoulder joint Other: 5/5 strength in BLE increased pain with empty can test right shoulder, posterior liftoff, overhead ROM Neuro Common normals: oriented x3, CN's II-XII intact bilaterally, moves all extremities, no focal motor deficits, no sensory deficits noted and deep tendon reflexes 2+ bilaterally Sensorium/orientation: alert Motor exam: strength 5/5 throughout and no movement abnormalities noted Psych Common normals: mental status grossly normal, thought process normal, cooperative, affect normal, speech normal and activity/motor behavior normal Speech: normal speech Thought process: normal thought process Results Additional Findings Additional findings: If on a controlled substance or opioids, I have checked an [place]AR[place] report on this patient and there are no aberrancies noted in the prescribing history.??If on a controlled substance or opioid a drug screen was completed and reviewed within the last year, and if there has not been a drug screen completed we ordered one today to monitor higher risk, state monitored pain medication use. As part of providing excellent, safe, comprehensive care, the following was completed at our patient's visit: 1. A medication reconciliation and review to ensure accurate knowledge of current/active medications, including asking our patients to inform us about any izdx-rzi-birwjhs medications or herbal remedies/nutritional supplements/alternative remedies. 2. A review to specifically ensure our patients have had annual screening for screening for depression, screening for tobacco use, and screening for unhealthy alcohol use. For concerning screenings had a discussion with the patient, provided patient education, and recommended follow-up with primary care provider when appropriate. If patient noted with a risk of falling, they received education on strength, gait, and balance training to prevent future risk of falling. Assessment and Plan Assessment and Plan (1) Myalgia, other site: Assessment and Plan: Trigger points noted to right paracervical spine including splenus capitus, trapezius, and suprascapular area (2) Lumbar spondylosis: (3) Muscle spasm: (4) Degenerative disc disease, cervical: (5) Cervical spondylosis: (6) Chronic right shoulder pain: (7) Status post rotator cuff surgery: Plan update cervical xray to evaluate cervical DDD and facet arthropathy TPI to be completed with Dr Carrasquillo to above noted areas continue current medications f/u with Dr Carrasquillo
== END 2023-10-27 09:57 | disposition home or self-care (01) ==
LOC: PM 09:57
PROVIDERS: PCP Family Medicine; Visit Provider Nurse Practitioner
DX: M47.812 Spondylosis without myelopathy or radiculopathy, cervical region (principal); M50.30 Other cervical disc degeneration, unspecified cervical region; M79.18 Myalgia, other site; M47.816 Spondylosis without myelopathy or radiculopathy, lumbar region; M25.511 Pain in right shoulder; Z98.890 Other specified postprocedural states
CPT/HCPCS: 72050; G0463

== ENCOUNTER 2023-10-27 10:43 | Outpatient (OUT) | payer OTHER, SELFPAY ==
--- NOTE | 2023-10-27 10:48 | XR_ITS ---
The [address] [address] Patient Name: BERTIN ARECHIGA MRN: [id number] date: 1960 Sex: M Assigned Patient Location: LAB Current Patient Location: Accession/Order Number: [id number] Exam Date: 10/27/2023 10:55 Report Date: 10/28/2023 06:36 At the request of: MATEO FERGUSON Procedure: XR cervical spine 5V EXAMINATION: XR cervical spine 5V HISTORY: Cervical Degenerative Disc Disease COMPARISON: XR C-spine 09/12/2020 FINDINGS: BONES: Mild grade 1 anterolisthesis of C4-C5 and C5 on C6. Multilevel moderate-marked degenerative facet arthropathy which appears to be mostly confined to the right side. No fracture or bone lesion. DISC SPACES: Mild narrowing C4-C5. Moderate narrowing C5-C6. Marked narrowing C6-C7. PARASPINOUS: Negative. No paraspinous abnormality is seen. OTHER: Negative. XR/XR cervical spine 5V IMPRESSION: 1. Multilevel degenerative changes; grossly stable. Electronically authenticated by: ABEBA DOUGHERTY Date: 10/28/2023 06:36
--- OUTSIDE RECORDS SUMMARY | 2023-10-27 11:06 | XMS_ITS | CCD ---
Author Organization [facility] Care Team Providers Care Landscape Manager Name Role Phone Hanna Quiros Unavailable Unavailable [...] Provider Fallon Henry MD Primary Care Provider HUMBERTO KHOURY Attending Unavailable HENRY, FALLON E [...] Unavailable APLING, WIL Menjivar Attending Unavailable BLACKSTON, MELA T Attending Unavailable [...] PROSTATIC SPEC ANT 2.23 ng/mL Normal 0.00-4.00 [facility] Comment on above: Result Comment: The method used for this test is Kathya PopJam DXI chemiluminescent immunoassay. Values obtained by different assay methods cannot be used interchangeably. Performed By: #### 2 857-1 #### [facility] ([id number]) [address], [address] [place] [address] XR HIPS STEPH 3_4V WO PELVISon 05-20-2022 [...] ABEBA DOUGHERTY Date: 2022-05-20 11:00 Normal [facility] POINT OF CARE GLUCOSEon 11-2 Glucose [Mass/Vol] 84 mg/dL Normal 74-106 [facility] Comment on above: Performed By: #### P OCGLUC #### [facility] [address] [place] [address] Dr. Erin Anthony TOAN SCREEN WITH REFLEXon TOAN Screen, IFA Negative Normal Negative [facility] Comment on above: Order Comment: [facility] performed at: [facility], [facility], [address] [place] [address], , Commissary Representative: Remberto Clemens MD PhD\X0D0A\[facility] Collection Date/Time: [id number]\X0D0A\[facility] Results Received Date/Time: [id number]\X0D0A\[facility] Reported Date/Time: [id number] Result Comment: \X0D 0A\TOAN IFA is a [...] inflammatory myopathies.\X0D0A\ \X0D0A\AC-0: Negative\X0D0A\International Consensus on TOAN Patterns\X0D0A\https://doi.org/10.1515/tdnk-6618-8038\X0D0A\ \X0D0A\For additional information, please refer to\X0D0A\[email or web address]/faq/MEI540\X0D0A\ \X0D0A\(This link is being provided for informational/\X0D0A\educational purposes only.)\X0D0A\ Performed By: #### O RD264 #### [place] [address] Ph. [phone] ANCA Screen with Reflex to A NCA Titeron 10-15-2021 ANCA Screen Negative Normal Negative [facility] Comment on above: Order Comment: Quest performed at: [facility], [employer] [facility], [address] [place] [address], , Commissary Representative: Remberto Clemens MD PhD\X0D0A\Quest Collection Date/Time: [id number]\X0D0A\[facility] Results Received Date/Time: [id number]\X0D0A\[facility] Reported Date/Time: [id number] Result Comment: \X0D 0A\ANCA Screen includes evaluation [...] disease.\X0D0A\ Performed By: #### O RD264 #### [place] [id number] Ph. [phone] ANGIOTENSIN CONVERTING ENZYM [place] 10-15-2021 Angiotensin Conv Enzyme 5 U/L Low [facility] Comment on above: Order Comment: [facility] performed at: [employer], [employer], [address] [place] [address], , Commissary Representative: Remberto Clemens MD PhD\X0D0A\[facility] Collection Date/Time: \X0D0A\[facility] Results Received Date/Time: \X0D0A\[facility] Reported Date/Time: Performed By: #### O RD264 #### [place] [id number] Ph. [phone] ANTI CENTROMERE ANTIBODYon 0 10-15-2021 Centromere B Antibody <1.0 Normal [facility] Comment on above: Order Comment: Quest performed at: [facility], [employer] [place], [address] [place] [address], , Commissary Representative: Remberto Clemens MD PhD\X0D0A\[facility] Collection Date/Time: \X0D0A\[facility] Results Received Date/Time: \X0D0A\[facility] Reported Date/Time: Result Comment: \X0D 0A\ Reference Range: < 1.0 NEG AI\X0D0A\ Performed By: #### O RD264 #### [place] [id number] Ph. [phone] ANTI-DNA ANTIBODY, DOUBLE-ST RANDEDon 10-15-2021 DNA (ds) Antibody <1 Normal <=4 [facility] Comment on above: Order Comment: [facility] performed at: [facility], [address] [place] [address], , Commissary Representative: Remberto Clemens MD PhD\X0D0A\Quest Collection Date/Time: \X0D0A\[facility] Results Received Date/Time: \X0D0A\[facility] Reported Date/Time: Result Comment: \X0D 0A\ Value Interpretation\X0D0A\ \X0D0A\ or=10 IU/mL: Positive\X0D0A\ Performed By: #### O RD264 #### [place] [address] Ph. [phone] ANTI-MICROSOFT BI ARCHITECT (EUN AB)on 10-16-19 MICROSOFT BI ARCHITECT Antibody <1.0 Normal [facility] Comment on above: Order Comment: [facility] performed at: [facility], [address] [place] [address], , Commissary Representative: Remberto Clemens MD PhD\X0D0A\Quest Collection Date/Time: \X0D0A\[facility] Results Received Date/Time: \X0D0A\[facility] Reported Date/Time: Result Comment: \X0D 0A\ Reference Range: < 1.0 NEG AI\X0D0A\ Performed By: #### O RD263 #### [place] [address] Ph. [phone] ANTI-SCLERODERMA ANTIBODY (a ka SCL 70)on 10-15-2021 Scl-70 Antibody <1.0 Normal [facility] Comment on above: Order Comment: [facility] performed at: [facility], [address] [place] [address], Commissary Representative: Remberto Clemens MD PhD\X0D0A\Quest Collection Date/Time: \X0D0A\[facility] Results Received Date/Time: \X0D0A\[facility] Reported Date/Time: Result Comment: \X0D 0A\ Reference Range: < 1.0 NEG AI\X0D0A\ Performed By: #### O RD264 #### [place] [address] Ph. [phone] C-Reactive Proteinon 022 CRP [Mass/Vol] mg/L Normal 0.0-1.0 [facility] Comment on above: Performed By: #### C K, URIC, CRP, CMP ####[place], [place] [address]Ph. [phone] C3 COMPLEMENTon 10-15-2021 Complement Component C3c 132 mg/dL Normal 82-185 [facility] Comment on above: Order Comment: Quest performed at: [employer], [employer] [place], [address] [place] [address], , Commissary Representative: Remberto Clemens MD PhD\X0D0A\[facility] Collection Date/Time: \X0D0A\[facility] Results Received Date/Time: \X0D0A\[facility] Reported Date/Time: Performed By: #### O RD264 #### [place] [address] Ph. [phone] C4 COMPLEMENTon 10-15-2021 Complement Component C4c 31 mg/dL Normal 15-53 [facility] Comment on above: Order Comment: [facility] performed at: [employer], [employer] [place], [address] [place] [address], Commissary Representative: Remberto Clemens MD PhD\X0D0A\Quest Collection Date/Time: \X0D0A\[facility] Results Received Date/Time: \X0D0A\[facility] Reported Date/Time: Performed By: #### O RD263 #### [place] [address] Ph. [phone] Complete Blood Count with Au to Diffon 10-15-2021 Basophils (Bld) [#/Vol] 0.1 10*3/uL Normal 0.0-0.1 [facility] Comment on above: Performed By: #### C BCAD #### [place] [address] Ph. [phone] Basophils/100 WBC (Bld) 1 % Normal 0-1 [facility] Comment on above: Performed By: #### C BCAD #### [place] [address] Ph. [phone] Eosinophils (Bld) [#/Vol] 0.3 10*3/uL Normal 0.0-0.5 [facility] Comment on above: Performed By: #### C BCAD #### [place] [address] Ph. [phone] Eosinophils/100 WBC (Bld) 3 % Normal 0-5 [facility] Comment on above: Performed By: #### C BCAD #### [place] [address] Ph. [phone] Erythrocyte distribution width (RBC) [Ratio] 12.8 % Normal 11.5-14.5 [facility] Comment on above: Performed By: #### C BCAD #### [place] [address] Ph. [phone] Hematocrit (Bld) [Volume fraction] 45.9 % Normal 42.0-52.0 [facility] Comment on above: Performed By: #### C BCAD #### [address] [address] Ph. [phone] Hemoglobin (Bld) [Mass/Vol] 15.2 g/dL Normal 13.5-17.5 [facility] Comment on above: Performed By: #### C BCAD #### [address] [address] Ph. [phone] Lymphocytes (Bld) [#/Vol] 2.4 10*3/uL Normal 1.0-4.0 [facility] Comment on above: Performed By: #### C BCAD #### [place] [address] Ph. [phone] Lymphocytes/100 WBC (Bld) 26 % Normal 20-40 [facility] Comment on above: Performed By: #### C BCAD #### [address] [address] Ph. [phone] MCH (RBC) [Entitic mass] 28.8 pg Normal 27.0-35.0 [facility] Comment on above: Performed By: #### C BCAD #### [address] [address] Ph. [phone] MCHC (RBC) [Mass/Vol] 33.1 g/dL Normal 32.0-36.0 [facility] Comment on above: Performed By: #### C BCAD #### [address] [address] Ph. [phone] MCV (RBC) [Entitic vol] 87 fL Normal 80-100 [facility] Comment on above: Performed By: #### C BCAD #### [address] [address] Ph. [phone] Monocytes (Bld) [#/Vol] 0.6 10*3/uL Normal 0.3-1.0 [facility] Comment on above: Performed By: #### C BCAD #### [address] [address] Ph. [phone] Monocytes/100 WBC (Bld) 7 % Normal 1-15 [facility] Comment on above: Performed By: #### C BCAD #### [address] [address] Ph. [phone] Neutrophils (Bld) [#/Vol] 5.9 10*3/uL Normal 1.8-7.7 [facility] Comment on above: Performed By: #### C BCAD #### [address] [address] Ph. [phone] Neutrophils/100 WBC (Bld) 64 % Normal 50-70 [facility] Comment on above: Performed By: #### C BCAD #### [address] [address] Ph. [phone] Platelet mean volume (Bld) [Entitic vol] 9.5 fL Normal 9.4-12.3 [facility] Comment on above: Performed By: #### C BCAD #### [address] [address] Ph. [phone] Platelets (Bld) [#/Vol] 230 10*3/uL Normal 150-450 [facility] Comment on above: Performed By: #### C BCAD #### [address] [address] Ph. [phone] RBC (Bld) [#/Vol] 5.27 10*6/uL Normal 4.70-6.10 [facility] Comment on above: Performed By: #### C BCAD #### [address] [address] Ph. [phone] WBC (Bld) [#/Vol] 9.3 10*3/uL Normal 3.7-11.0 [facility] Comment on above: Performed By: #### C BCAD #### [address] [address] Ph. [phone] Comprehensive Metabolic Pane idania 10-15-2021 Albumin [Mass/Vol] 4.4 g/dL Normal 3.5-5.0 [facility] Comment on above: Performed By: #### C K, URIC, CRP, CMP ####[address] [address]Jr. [phone] ALP [Catalytic activity/Vol] 73 U/L Normal 38-126 [facility] Comment on above: Performed By: #### C K, URIC, CRP, CMP ####[address] [address]Yl. [phone] ALT [Catalytic activity/Vol] 18 U/L Normal 0-50 [facility] Comment on above: Performed By: #### C K, URIC, CRP, CMP ####[address] [address]Yx. [phone] AST [Catalytic activity/Vol] 32 U/L Normal 17-59 [facility] Comment on above: Performed By: #### C K, URIC, CRP, CMP ####[address] [address]Lt. [phone] Bilirubin [Mass/Vol] 0.8 mg/dL Normal 0.2-1.3 [facility] Comment on above: Performed By: #### C K, URIC, CRP, CMP ####[address] [address]Xc. [phone] Calcium [Mass/Vol] 8.8 mg/dL Normal 8.4-10.2 [facility] Comment on above: Performed By: #### C K, URIC, CRP, CMP ####[place] [address] [place], [place] [address]Wa. [phone] Chloride [Moles/Vol] 101 mmol/L Normal 98-107 [facility] Comment on above: Performed By: #### C K, URIC, CRP, CMP ####[address] [address]Wb. [phone] CO2 [Moles/Vol] 27 mmol/L Normal 22-32 [facility] Comment on above: Performed By: #### C K, URIC, CRP, CMP ####[address] [address]Dp. [phone] Creatinine [Mass/Vol] 0.95 mg/dL Normal 0.66-1.25 [facility] Comment on above: Performed By: #### C K, URIC, CRP, CMP ####[address] [address]Zk. [phone] GFR/1.73 sq M.predicted among non-blacks MDRD (S/P/Bld) [Vol rate/Area] 86 mL/min/{1.73_m2} Normal >60 [facility] Comment on above: Result Comment: Stag e 1 Kidney damage (e.g., protein in the urine) with normal GFR >=90\X0D0A\Stage 2 Kidney damage with mild decrease in GFR 60-89\X0D0A\Stage 3a Moderate decrease in GFR 45-59\X0D0A\Stage 3b Moderate decrease in GFR 30-44\X0D0A\Stage 4 Severe reduction in GFR 15-29\X0D0A\Stage 5 Kidney failure <15 Performed By: #### C K, URIC, CRP, CMP ####[address] [address]Nq. [phone] Glucose [Mass/Vol] 84 mg/dL Normal 65-100 [facility] Comment on above: Performed By: #### C K, URIC, CRP, CMP ####[address] [address]Vq. [phone] Potassium [Moles/Vol] 4.1 mmol/L Normal 3.6-5.0 [facility] Comment on above: Performed By: #### C K, URIC, CRP, CMP ####[address] [address]Re. [phone] Protein [Mass/Vol] 7.1 g/dL Normal 6.3-8.2 [facility] Comment on above: Performed By: #### C K, URIC, CRP, CMP ####[address] [address]Vo. [phone] Sodium [Moles/Vol] 140 mmol/L Normal 135-145 [facility] Comment on above: Performed By: #### C K, URIC, CRP, CMP ####[address] [address]Qa. [phone] Urea nitrogen [Mass/Vol] 15 mg/dL Normal 9-20 [facility] Comment on above: Performed By: #### C K, URIC, CRP, CMP ####[address] [address]Zj. [phone] Creatine Kinaseon 10-15-2021 CK [Catalytic activity/Vol] 105 U/L Normal 49-397 [facility] Comment on above: Performed By: #### C K, URIC, CRP, CMP ####[address] [address]Mj. [phone] Erythrocyte Sedimentation Ra ann 10-15-2021 ESR (Bld) [Velocity] 2 mm/h Normal 0-20 [facility] Comment on above: Result Comment: The ESR varies with age. The maximum normal ESR at a given age is calculated using the formulas:Men: Age in years/2Women: (Age in years + 10)/2 Performed By: #### E SR ####[address] [address]We. [phone] HLA-B27 ANTIGENon 10-15-2021 HLA-B27 Antigen Negative Normal Negative [facility] Comment on above: Order Comment: Quest performed at: [facility], [employer], [address] [place] [address], , Commissary Representative: Remberto Clemens MD PhD\X0D0A\Quest Collection Date/Time: [id number]\X0D0A\[facility] Results Received Date/Time: [id number]\X0D0A\[facility] Reported Date/Time: Performed By: #### O RD634 #### [address] [address] Ph. [phone] MISCELLANEOUS SENDOUTon 09-0 Misc Ref Lab Result See Below Normal 0-0 [facility] Comment on above: Result Comment: Rheu matoid Factor Result: <14 IU/mL\X0D0A\X0D0A\Reference Range: <14 IU/mL \X0D0A\ \X0D0A\Performing Laboratory Information:\X0D0A\[facility] [place] [id number] [facility] Commissary Representative: Remberto Clemens MD PhD Performed By: #### O RD263 #### [address] [address] Ph. [phone] MRI COMPARISON OF OUTSIDE FI LMSon 10-15-2021 MRI COMPARISON OF OUTSIDE FILMS RADRPT There is no result for this study. This is a placeholder for comparison films only. Final result Normal [facility] SJOGREN'S ANTIBODIES (SS-A, SS-B)on 10-15-2021 Sjogren's Antibody (SS-A) <1.0 Normal [facility] Comment on above: Order Comment: Quest performed at: [employer] [place], [address] [place] [address], , Commissary Representative: Remberto Clemens MD PhD\X0D0A\Quest Collection Date/Time: \X0D0A\[facility] Results Received Date/Time: \X0D0A\[facility] Reported Date/Time: Result Comment: \X0D 0A\ Reference Range: < 1.0 NEG AI\X0D0A\ Performed By: #### O RD438 #### [place] [address] Ph. [phone] Sjogren's Antibody (SS-B) <1.0 [facility] Comment on above: Order Comment: Quest performed at: [employer] [place], [address] [place] [address], , Commissary Representative: Remberto Clemens MD PhD\X0D0A\Quest Collection Date/Time: \X0D0A\[facility] Results Received Date/Time: \X0D0A\[facility] Reported Date/Time: Result Comment: \X0D 0A\ Reference Range: < 1.0 NEG AI\X0D0A\ Performed By: #### O RD438 #### [place] [address] Ph. [phone] GUERRA ANTIBODYon 10-15-2021 Guerra Antibody <1.0 Normal [facility] Comment on above: Order Comment: Quest performed at: [employer], [address] [place] [address], , Commissary Representative: Remberto Clemens MD PhD\X0D0A\Quest Collection Date/Time: \X0D0A\[facility] Results Received Date/Time: \X0D0A\[facility] Reported Date/Time: Result Comment: \X0D 0A\ Reference Range: < 1.0 NEG AI\X0D0A\ Performed By: #### O RD383 #### [place] [address] Ph. [phone] THYROID PEROXIDASE ANTIBODYo n 10-15-2021 Thyroid Peroxidase Abs 8 IU/mL Normal <9 [facility] Comment on above: Order Comment: Quest performed at: [employer], [address] [place] [address], , Commissary Representative: Remberto Clemens MD PhD\X0D0A\Quest Collection Date/Time: \X0D0A\[facility] Results Received Date/Time: \X0D0A\[facility] Reported Date/Time: Performed By: #### O RD264 #### [place] [address] Ph. [phone] THYROID STIMULATING IMMUNOGL OBULINon 10-15-2021 TSI Numeric Value <89 Normal <140 [facility] Comment on above: Order Comment: Quest performed at: [employer], [address] [place] [address], Commissary Representative: Remberto Clemens MD PhD\X0D0A\Quest Collection Date/Time: \X0D0A\Quest [...] characteristics of this\X0D0A\assay have been determined by [facility]\X0D0A\[facility], [place], [place]. The modifications\X0D0A\have not been cleared or approved by the FDA. This\X0D0A\assay has been validated pursuant to the CLIA\X0D0A\regulations and is used for clinical purposes.\X0D0A\ Performed By: #### O RD562 #### [place] [address] Ph. [phone] [place] [address]-01-2022 URIC 4.9 mg/dL Normal 3.5-8.5 [facility] Comment on above: Performed By: #### C K, URIC, CRP, CMP ####[facility] [place], [place] [address]Db. [phone] XR CHEST (2 VW)on 10-15-2021 XR CHEST [...] Rod Mcgill MD 10/15/21 Final result Normal [facility] XR COMPARISON OF OUTSIDE BALWINDER MSon 10-15-2021 XR COMPARISON OF OUTSIDE FILMS RADRPT There is no result for this study. This is a placeholder for comparison films only. Final result Normal [facility] XR COMPARISON OF OUTSIDE FILMS RADRPT There is no result for this study. This is a placeholder for comparison films only. Final result Normal [facility] XR COMPARISON OF OUTSIDE FILMS RADRPT There is no result for this study. This is a placeholder for comparison films only. Final result Normal [facility] XR COMPARISON OF OUTSIDE FILMS RADRPT There is no result for this study. This is a placeholder for comparison films only. Final result Normal [facility] XR COMPARISON OF OUTSIDE FILMS RADRPT There is no result for this study. This is a placeholder for comparison films only. Final result Normal [facility] XR HAND LEFT (2 VIEWS)on XR [...] Agnieszka Sal MD 10/16/21 Final result Normal [facility] XR HAND RIGHT (2 VIEWS)on XR [...] Agnieszka Sal MD 10/16/21 Final result Normal [facility] XR SHOULDER LEFT (MIN 2 VIEW [...] Agnieszka Sal MD 10/16/21 Final result Normal [facility] XR SHOULDER RIGHT (MIN 2 VIE [...] Agnieszka Sal MD 10/16/21 Final result Normal [facility] XR WRIST LEFT (2 VIEWS)on XR [...] Agnieszka Sal MD 10/16/21 Final result Normal [facility] XR WRIST RIGHT (2 VIEWS)on 0 [...] Agnieszka Sal MD 10/16/21 Final result Normal [facility] CT CARDIAC SCORINGon 02-14 CT CARDIAC SCORING [...] FOR CARDIOVASCULAR CONDITION. COMPARISON: None. ACCESSION NUMBER(S): [id number] ORDERING CLINICIAN: ESHA SCOTT TECHNIQUE: Using prospective [...] al. JACC 2015 (http://dx.doi.org/10. 1016/j.j acc.2015.08.035) Reading Teacher Of Family And Consumer Science: Dr. Chilango Delarosa, Date: 02/25/2020 7:53 pm Electronically signed by: NOE LITTLE MD [facility] Vital Signs Date Time Vital Sign Value Performing Clinician Facility 05-10-2023 11: Body height 177.8 cm Humberto Khoury MD Work Phone: [facility] 05-10-2023 11:17040 Body mass index (BMI) [Ratio] 23.24 kg/m2 Humberto Khoury MD Work Phone: [facility] 05-10-2023 11:17 Body weight 73.48 kg Humberto Khoury MD Work Phone: [facility] 05-10-2023 11:17-0400 Diastolic blood pressure 72 mm[Hg] Humberto Khoury MD Work Phone: [facility] 05-10-2023 11:17-0400 Heart rate 54 /min Humberto Khoury MD Work Phone: [facility] 05-10-2023 11:17-0400 Systolic blood pressure 120 mm[Hg] Humberto Khoury MD Work Phone: [facility] [employer] 02-08-2023 12:17-0500 Body height 177.8 cm Humberto Khoury MD Work Phone: [facility] [employer] 02-08-2023 12:17-0500 Body mass index (BMI) [Ratio] 23.24 kg/m2 Humberto Khoury MD Work Phone: [facility] [employer] 02-08-2023 12:17-0500 Body weight 73.48 kg Humberto Khoury MD Work Phone: [facility] [employer] 02-08-2023 12:17-0500 Diastolic blood pressure 83 mm[Hg] Humberto Khoury MD Work Phone: [facility] [employer] 02-08-2023 12:17-0500 Heart rate 64 /min Humberto Khoury MD Work Phone: [facility] [employer] 02-08-2023 12:17-0500 Systolic blood pressure 127 mm[Hg] [facility] 01-21-2023 11:15-0500 Body height 177.8 cm Fallon Henry Other [employer] Other 01-21-2023 11:15-0500 Body mass index (BMI) [Ratio] 23.07 kg/m2 Fallon Henry Other [employer] Other 01-21-2023 11:15-0500 Body weight 72.94 kg Fallon Henry Other [employer] Other 01-21-2023 11:15-0500 Diastolic blood pressure 73 mm[Hg] Fallon Henry Other [employer] Other 01-21-2023 11:15-0500 Systolic blood pressure 115 mm[Hg] Fallon Henry Other [employer] Other 10-25-2022 13:30-0400 Body height 177.8 cm Fallon Henry Other [employer] Other 10-25-2022 13:30-0400 Body mass index (BMI) [Ratio] 23.3 kg/m2 Fallon Henry Other [employer] Other 10-25-2022 13:30-0400 Body weight 73.66 kg Fallon Henry Other [employer] Other 10-25-2022 13:30-0400 Diastolic blood pressure 84 mm[Hg] Fallon Henry Other [employer] Other 10-25-2022 13:30-0400 Respiratory rate 12 /min Fallon Henry Other [employer] Other 10-25-2022 13:30-0400 Systolic blood pressure 136 mm[Hg] Fallon Henry Other [employer] Other Encounters Encounter Date Encounter Type Care [...] Start: 05-10-2023 End: 05-11-2023 ambulatory HUMBERTO KHOURY [facility] Start: 05-10-2023 End: 05-10-2023 Office outpatient visit 15 minutes Humberto Khoury MD Work Phone: [facility] Comment on above: [...] Available Start: 04-06-2023 End: 04-06-2023 ambulatory MELA SUARZE Not Available Start: 03-30-2023 End: 03-30-2023 Postop follow up visit related to original px Wil Cao AN/SQQ 89(V)15 [employer]OURNEY[employer] Work Phone: [facility] Comment on above: Status post right ro tator cuff repair (Primary Dx); Arthritis of right acromioclavicular joint Start: 03-30-2023 End: 03-30-2023 ambulatory WIL CAO Not Available Start: 03-15-2023 End: 03-15-2023 ambulatory PATTIE PICHARDO Not Available Start: 02-13-2023 Refill Yasmin shelley [employer] Work Phone: [facility] Comment on above: Med Refill Start: 02-10-2023 End: 02-10-2023 ambulatory PATTIE PICHARDO Not Available Start: 02-08-2023 End: 02-08-2023 ambulatory HUMBERTO KHOURY [facility] Start: 02-08-2023 End: 02-08-2023 Office outpatient visit 25 minutes Humberto Khoury MD Work Phone: [facility] Comment on above: Elevated PSA (Primar y Dx) Start: 02-02-2023 End: 02-02-2023 Evaluation and management of inpatient HANNA SCHMIDT [facility] Start: 02-02-2023 End: 02-02-2023 Evaluation and management of inpatient PATTIE PICHARDO [facility] Start: 01-21-2023 End: 01-21-2023 ambulatory Fallon Henry Other [employer] Other Start: 01-21-2023 Office outpatient vi sit 10 minutes Fallon Henry [facility] Start: 01-21-2023 Patient encounter status Tiffanie Khoury MD Work Phone: [employer] Work Phone: Start: 01-20-2023 End: 01-20-2023 ambulatory PATTIE PICHARDO Not Available Start: 01-14-2023 End: 01-14-2023 ambulatory Fallon Henry Other [employer] Other Start: 01-14-2023 Telephone encounter Fallon Carl [facility] Start: 11-08-2022 End: 11-08-2022 ambulatory Fallon Henry Other [employer] Other Start: 11-08-2022 Telephone encounter Fallon Carl [facility] Start: 11-02-2022 End: 11-02-2022 ambulatory Fallon Carl Other [employer] Other Start: 11-02-2022 Telephone encounter Fallon Carl [facility] Start: 10-29-2022 End: 10-29-2022 ambulatory Fallon Carl Other [employer] Other Start: 10-29-2022 Telephone encounter Fallon Henry [employer] Start: 10-25-2022 End: 10-25-2022 ambulatory Fallon Carl Other [employer] Other Start: 10-25-2022 Office outpatient vi sit 15 minutes Fallon Henry [facility] Start: 05-20-2022 End: 05-21-2022 ambulatory SOURAV [...] . Facility:H1 Start: 10-15-2021 ambulatory FALLON HENRY [facility] Start: 02-16-2021 Rx Renewal Hanna Dolan ce Work Phone: [place] [address] DO Work Phone: Procedures Date Procedure Procedure Detail Performing Clinician Start: 02-08-2023 Follow-up visit Follow-up HUMBERTO Karen KHOURY Start: 10-15-2021 Cyclic citrullinated peptide antibody FALLON HENRY Comment on above: Order Comment: Quest performed at: [employer] [employer] [facility], [address] [place] [address], , Commissary Representative: Remberto Clemens MD PhD\X0D0A\Quest Collection Date/Time: \X0D0A\[facility] Results Received Date/Time: \X0D0A\[facility] Reported Date/Time: [id number] Result Comment: \X0D 0A\Negative: <20\X0D0A\Weak Positive: 20 - 39\X0D0A\Moderate Positive: 40 - 59\X0D0A\Strong Positive: >59\X0D0A\ Performed By: #### [address] #### [place] [address] Ph. [phone] History of repair of musculotendinous cuff of shoulder Status post right rotator cuff repair Wil Cao AN/SQQ 89(V)15 [employer] Work Phone: Plan of Treatment Date Care Activity Detail Author Start: 05-09-2024 Adult BMI Screening Adult BMI Screen [facility] Start: 05-09-2024 Tobacco Screening Tobacco Screening [facility] Start: 02-09-2024 Adult BMI Screening Adult BMI Screen ing [facility] Start: 02-09-2024 Tobacco Screening Tobacco Screening [facility] Start: 05-10-2023 End: 05-10-2023 Patient encounter procedure 05/10/2023 11:15 AM EDT Office Visit [facility] [address] [place] [address] A [facility] [place] [address] Humberto Khoury MD [address] [place] [address] [facility] Start: 05-09-2023 End: 02-08-2024 Prostatic specific antigen, diagnostic Prostatic specific antigen, diagnostic Lab Routine Elevated PSA Expected: 05/09/2023, Expires: 02/08/2024 [facility] Work Phone: Comment on above: Expected: 05/09/2023 , Expires: 02/08/2024 Start: 04-26-2023 End: 04-26-2023 Patient encounter procedure 04/26/2023 9:45 AM EDT Office Visit [facility] [address] [place] [address] Pattie Pichardo DO [address] [place] [address] [facility] Start: 10-15-2022 Influenza vaccination Influenza Vacc ine [facility] Start: 2011 Administration of varicella zoster vaccine Zoster (Shingles) Vaccine (1 of 2) [facility] Start: 02-19-1980 DTaP,Tdap and Td Vaccines (1 - Tdap) DTaP,Tdap and Td Vaccines (1 - Tdap) [facility] Start: 1973 Depression Screening Depression Scre ening [facility] Immunizations Immunization Date Immunization Notes Care Provider Fa cility 02-15-2016 influenza virus vaccine, unspecified formulation Humberto Khoury MD Work Phone: [facility] 11-13-2013 influenza virus vaccine, unspecified formulation Humberto Khoury MD Work Phone: [facility] Payers Date Payer Category Payer Unknown 2020 Unknown [id number] 1960 Unknown [id number] 2.16.8 40.1.540332.3.579.2.754 1961 Unknown [id number] 2.16.8 40.1.485448.3.579.2.754 1961 Unknown [id number] 2.16.8 40.1.564838.3.579.2.754 1961 Unknown [id number] 2.16.8 40.1.806930.3.579.2.754 1961 Unknown [id number] 2.16.8 40.1.078791.3.579.2.754 1961 Unknown [id number] 2.16.8 40.1.546260.3.579.2.754 1961 Unknown [id number] 2.16.8 40.1.235241.3.579.2.754 1961 Unknown [id number] 2.16.8 40.1.407060.3.579.2.754 1961 Unknown [id number] 2.16.84 0.1.552782.3.579.2.593 1961 Unknown [id number] 2.16.84 0.1.546348.3.579.2.593 1961 Unknown [id number] 2.16.84 0.1.268845.3.579.2.593 1961 Unknown [id number] 2.16.84 0.1.696023.3.579.2.593 1961 Unknown [id number] 2.16.84 0.1.689910.3.579.2.593 1961 Unknown [id number] 2.16.84 0.1.950752.3.579.2.593 1961 Unknown [id number] 2.16.84 0.1.112431.3.579.2.593 1961 Unknown [id number] 2.16.8 40.1.415271.3.579.2.1286 1961 Unknown [id number] 2.16.84 0.1.594485.3.579.2.1286 1961 Unknown [id number] 2.16.8 40.1.509376.3.579.2.1286 1961 Unknown [id number] 2.16.84 0.1.974899.3.579.2.1286 1961 Unknown [id number] 2.16.84 0.1.745331.3.579.2.1286 1961 Unknown [id number] 2.16.84 0.1.721777.3.579.2.1286 1961 Unknown [id number] 2.16.84 0.1.583120.3.579.2.9 1961 Unknown [id number] 2.16.84 0.1.838235.3.579.2.1259 1961 Unknown [id number] 2.16.84 0.1.480420.3.579.2.1259 1961 Unknown [id number] 2.16.84 0.1.528893.3.579.2.9 1961 Unknown [id number] 2.16.84 0.1.825984.3.579.2.1259 1961 Unknown [id number] 2.16.84 0.1.516187.3.579.2.9 1961 Unknown [id number] 2.16.84 0.1.181459.3.579.2.1259 1961 Unknown [id number] 2.16.84 0.1.113207.3.579.2.1259 1961 Unknown [id number] 2.16.84 0.1.367864.3.579.2.9 1961 Unknown [id number] 2.16.84 0.1.105449.3.579.2.9 1961 Unknown [id number] 2.16.84 0.1.777491.3.579.2.1258 1961 Unknown [id number] 2.16.84 0.1.692830.3.579.2.1258 1961 Unknown [id number] 2.16.84 0.1.102411.3.579.2.1258 1961 Unknown [id number] 2.16.84 0.1.507983.3.579.2.9 1961 Unknown [id number] 2.16.84 0.1.261587.3.579.2.1258 1961 Unknown [id number] 2.16.84 0.1.210865.3.579.2.9 1961 Unknown [id number] 2.16.84 0.1.680563.3.579.2.1258 1961 Unknown [id number] 2.16.84 0.1.509195.3.579.2.9 1961 Unknown [id number] 2.16.84 0.1.277152.3.579.2.1258 1961 Unknown [id number] 2.16.84 0.1.091321.3.579.2.9 1961 Unknown [id number] 2.16.84 0.1.129639.3.579.2.1258 1961 Unknown [id number] 2.16.84 0.1.713105.3.579.2.9 1961 Unknown [id number] 2.16.84 0.1.349589.3.579.2.1258 1961 Unknown [id number] 2.16.84 0.1.420681.3.579.2.1259 1961 Unknown [id number] 2.16.84 0.1.286110.3.579.2.1258 1961 Unknown [id number] 2.16.84 0.1.802468.3.579.2.1258 1961 Unknown [id number] 2.16.84 0.1.179081.3.579.2.1258 1961 Unknown [id number] 2.16.84 0.1.967911.3.579.2.1258 1961 Unknown [id number] 2.16.84 0.1.597293.3.579.2.1258 1961 Unknown [id number] 2.16.84 0.1.508911.3.579.2.1258 1961 Unknown [id number] 2.16.840 .1.772368.3.579.2.1258 1961 Unknown [id number] 2.16.840 .1.988072.3.579.2.1259 Self-pay [id number] 2.16.840.1.663169.19 Self-pay [id number] 2.16.840.1.481996.19 Self-pay [id number] 2.16.840.1.386169.19 Self-pay [id number] 2.16.840.1.643208.19 Self-pay [id number] 2.16.840.1.676741.19 Self-pay [id number] 2.16.840.1.447647.19 Social History Date Type Detail Facility Start: 04-19-2018 End: 03-27-2020 Sex Assigned At [facility] Start: 05-04-2021 End: 11-10-2022 Tobacco smoking status NHIS Ex-smoker [facility] End: 02-04-2001 History of tobacco use Current smoker [facility] End: 02-04-2001 History of tobacco use Cigarette Smoker [facility] Start: 03-27-2020 End: 05-04-2021 Cigarettes smoked current (pack per day) - Reported 1.5 [facility] Start: 05-04-2021 Tobacco use and exposure Smoke less tobacco non-user [facility] Start: 02-08-2023 End: 05-10-2023 Alcohol intake Ex-drinker (finding) [facility] Frequency of Alcohol Consumption Never [facility] Start: 1960 Sex Assigned At Not on file [facility] Start: 11-10-2022 Tobacco use and exposure Forme r smokeless tobacco user [facility] Start: 01-07-2023 Alcohol Comment caffeine more than 4 cups per day [facility] Medical Equipment Procedure Code Equipment Code Equipment Origin al Text Equipment Identifier Dates Recorder Crd Annette q Ii Ins - [id number] - [id number] Start: 07-10-2021 Ultratape, [id number] Start: 02-02-2023 Clinical Notes 12-08-2021 to 05-10-2023 Humberto Khoury MD - 05/10/2023 11:15 AM EDTera Cao NP - 03/30/2023 10:30 AM Deon Khoury MD - 02/08/2023 12:15 PM EST Note Date & Type Note Facility 05-10-2023 History of Present illness Narrative Images from the original note were not included. [address] [place] [address] A [facility] [address] Patient: Bertin Arechiga Date of : 1960 [...] Past Medical History: Diagnosis Date Angina pectoris ([facility]) 1981 was kept few days in hospital and tests were ran Anxiety not diagnosed doesn't see doctor Arrhythmia 1981 x1 episode when he was 31 Arthritis Atrial fibrillation ([facility]) Back pain 1989 Carpal tunnel syndrome Disc disorder of lumbosacral region Fractures Gallstones Headache Hypertension hasn't seen dr in 15 years not officially dx not on meds Injury of back Lumbar paraspinal muscle spasm Lumbar radiculopathy Neurogenic pain Raynaud's phenomenon without gangrene Past Surgical History: Procedure Laterality Date Afib Ablation, Carto, ICE N/A 03/18/2022 Performed by Abelardo Oneill MD at [facility] (EP) ARTHROSCOPIC REPAIR ROTATOR CUFF SHOULDER Right 02/02/2023 Performed by Pattie Pichardo DO at [facility] COLONOSCOPY N/A 04/25/2018 Performed by Chilango Jason DO at [facility] HEMORRHOIDECTOMY N/A 04/25/2018 Performed by Chilango Jason DO at [facility] HERNIA REPAIR INSERTION LOOP RECORDER RELEASE CARPAL TUNNEL Right 02/04/2021 Performed by Pattie Pichardo DO at [facility] Family History Problem Relation Age [...] for your understanding. documented in this encounter [facility] 03-30-2023 History of Present illness Narrative [...] in 2 weeks documented in this encounter [facility] 02-08-2023 History of Present illness Narrative Images from the original note were not included. [address] [place] [address] [facility] [address] Patient: Bertin Arechiga Date of : 1960 [...] Past Medical History: Diagnosis Date Angina pectoris ([facility]) 1981 was kept few days in hospital and tests were ran Anxiety not diagnosed doesn't see doctor Arrhythmia 1981 x1 episode when he was 31 Arthritis Atrial fibrillation ([facility]) Back pain 1989 Carpal tunnel syndrome Disc disorder of lumbosacral region Fractures Gallstones Headache Hypertension hasn't seen dr in 15 years not officially dx not on meds Injury of back Lumbar paraspinal muscle spasm Lumbar radiculopathy Neurogenic pain Raynaud's phenomenon without gangrene Past Surgical History: Procedure Laterality Date Afib Ablation, Carto, ICE N/A 03/18/2022 Performed by Abelardo Oneill MD at [facility] () ARTHROSCOPIC REPAIR ROTATOR CUFF SHOULDER Right 02/02/2023 Performed by Pattie Pichardo DO at [facility] COLONOSCOPY N/A 04/25/2018 Performed by Chilango Jason DO at [facility] HEMORRHOIDECTOMY N/A 04/25/2018 Performed by Chilango Jason DO at [facility] HERNIA REPAIR INSERTION LOOP RECORDER RELEASE CARPAL TUNNEL Right 02/04/2021 Performed by Pattie Pichardo DO at [facility] Family History Problem Relation Age [...] for your understanding. documented in this encounter [facility] 01-21-2023 Evaluation note Encounter Date Diagnosis Assessment Notes Jan, Complete tear of right rotator cuff, unspecified whether traumatic (ICD-10 - M75.121) Pt has followup with his director life for clearance today. He is medically cleared barring abnormalities on testing at [facility] which is pending or with his director life. Jan, Intermittent atrial fibrillation (ICD-10 - I48.0) as above. [employer] Other 12-01-2023 Evaluation note* Encounter Date Diagnosis Assessment Notes Treatment Notes Treatment Clinical Notes Jan, Acute pain of right shoulder (ICD-10 - M25.511) [employer] Other 09-25-2023 Evaluation note* Encounter Date Diagnosis Assessment Notes Treatment Notes Treatment Clinical Notes Oct, PSA elevation (ICD-10 - R97.20) [employer] Other 09-11-2023 Evaluation note* Encounter Date Diagnosis [...] PSA (prostate specific antigen) (ICD-10 - Z12.5) [employer] Other 04-06-2023 NoteCONSULTATION CONSULTATION DATE: 05/20/2022 TO: [...] our patients to inform us about any lrdr-flv-ffkpkju medications or herbal remedies/nutritional supplements/alternative remedies. 2. [...] treatment options with their primary care provider.[id number] Note CONSULTATION CONSULTATION DATE: 03/04/2022 HISTORY OF [...] ablation for his atrial fibrillation scheduled at [facility] in [place]. Medications include Eliquis, gabapentin 600 mg b.i.d., [...] successful cardiac ablation and approval from his director life. We will also gain approval to hold his Eliquis for our procedure. 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 The patient also sees Dr. Harmon in [place] for his Raynaud's disease and also autonomic [...] the autonomic dystonia and the hyperhidrosis at [facility], where he may get attention for this. In the meantime, we will look to proceed with the chronic low back pain that the patient has and is the most problematic for him, by proceeding with a lumbar medial branch block at the level of L2-3 and L4-5. Questions/answers were done. The patient understands and would like to proceed. CC: Fallon Henry M.D.[facility] [employer] Other Evaluation note* Diagnosis Elevated PSA- Primary Elevated prostate specific antigen (PSA) [facility] Diagnosis Essential hypertension Unspecified essential hypertension [facility] Diagnosis Status post right rotator cuff repair- Primary Arthritis of right acromioclavicular joint [facility]* Diagnosis Elevated PSA- Primary Elevated prostate specific antigen (PSA) documented in this encounter [facility] - [facility]orted* Type Description [...] yrs 2018 Hospitalization History see surgical history [employer] Other History general Narrative - Reported* Type [...] injection 12/2022 Hospitalization History see surgical history [employer] Other Instructions* Attachments The following attachments cannot be sent through Care Everywhere. * Going Home on Blood Thinners (Slovak) documented in [facility] Fair SystemInstructionsNot on file documented in this encounterProGood Samaritan HospitalThe [facility] Fair SystemInstructionsNot on file documented in this [facility]ProGood [facility] Summary Purpose Family History No Family [...] pain of right shoulder (M25.511) Referral Organization [facility] [employer] Referring Provider First Name Fallon Referring Provider Last Name Carl Referring Provider Specialty [facility] Lazarus Effect Referred Organization [facility] Referred Provider Pattie Pichardo Referred Address ,[place], [place],[address] Referred Provider Specialty Orthopedic S urgery Referral Priority Routine General Notes Micheleradhakarsten Regi 12:12:13 PM >received today, waiting for XR and for Notes to be locked Shonda Regi 10/29/2022 08:52:53 AM >XR attached, sent TE to lock office notes Reason *FU 11/16 Dr. Kathya abbott - Urology [facility] surgeons [facility]. PSA went from 1.5 to 3.1 Diagnosis 1 PSA elevation (R97.2 0) Referral Organization [facility] [employer] Referring Provider First Name Fallon Referring Provider Last Name Carl Referring Provider Specialty [facility] Lazarus Effect Referred Organization [employer] Referred Address [address] [facility],[place],[address] Referred Provider Specialty Urology Referral Priority Routine General Notes MicheleradhaRegi shelley 01:58:34 PM >received today. P: [phone] F: [phone] Regi Merchant 11/09/2022 02:06:57 PM >attachments made, notes locked, referral faxed Specialty Diagnoses / Procedures Referred By Elder morgan Referred To Contact Physical Therapy Diagnoses Status post right rotator cuff repair Arthritis of right acromioclavicular joint Procedures SC OFFICE/OUTPATIENT NEW HIGH MDM 60 MINUTES Wil Cao, AN/SQQ 89(V)15 [employer] [address] [place] [address] Mela Suarez, PT [address] [place] [address] Referral ID Status Reason Start Date Expiration Date Visits Requested Visits Authorized [id number] Pending Review Specialty Services Required 03/30/2023 09/26/2023 1 1 Additional Source Comments (unrecognized sect ion and content) No Status Records FoundNo Status Records FoundNo Status Records FoundNo Status Records FoundNo Status Records FoundNo Status Records Found INFORMATION SOURCE (unrecogn ized section and content) DATE CREATED AUTHOR 02/28/2020 [facility] DATE CREATED AUTHOR AUTHOR'S ORGANIZ ATION 10/27/2021 [facility] DATE CREATED AUTHOR AUTHOR'S ORGANIZ ATION 05/29/2022 [facility] DATE CREATED AUTHOR AUTHOR'S ORGANIZ ATION 05/11/2023 [facility] DATE CREATED AUTHOR AUTHOR'S ORGANIZ ATION [facility]/11/2023 [facility] DATE CREATED AUTHOR AUTHOR'S ORGANIZ ATION 08/03/2023 [facility] dical Specialists EPIC REASON FOR VISIT (unrecogniz ed section and content) Reason Comments Follow-up Reason Comments Med Refill Reason Comments Pain Care Teams (unrecognized sec tion and content) Landscape Manager Relationship Specialty Start Date End Date Fallon Henyr MD [address] [place] [address] PCP - General Family Medicine 01/22/21 Landscape Manager Relationship Specialty Start Date End Date Fallon Henry MD [address] [place] [address] PCP - General Family Medicine 01/22/21 Landscape Manager Relationship Specialty Start Date End Date Fallon Henry MD [address] [place] [phone] PCP - General Family Medicine 11/09/22 Landscape Manager Relationship Specialty Start Date End Date Fallon Henry MD [address] [place] [address] PCP - General Family Medicine 01/22/21 FOR [...] BE BASED ON THE PRIMARY CLINICAL RECORDS. [facility] [employer] [facility]. provides no warranty or guarantee of the accuracy or completeness of information in this document.
== END 2023-10-27 10:44 | disposition home or self-care (01) ==
LOC: LAB 10:44
PROVIDERS: PCP Family Medicine; Visit Provider Nurse Practitioner
DX: M47.812 Spondylosis without myelopathy or radiculopathy, cervical region (principal); M50.30 Other cervical disc degeneration, unspecified cervical region
CPT/HCPCS: 72050

== ENCOUNTER 2023-11-15 11:45 | Outpatient (OUT) | payer OTHER, SELFPAY ==
--- NOTE | 2023-11-15 | CONS_ITS ---
PROCEDURE DATE: 11/15/2023 PROCEDURE: Trigger point injection right splenius capitis and right suprascapular trigger point injection. PREOPERATIVE DIAGNOSIS: Pain secondary to myalgia and spasm of the above mentioned muscle groups. POSTOPERATIVE DIAGNOSIS: Pain secondary to myalgia and spasm of the above mentioned muscle groups. SOLUTION USED FOR INJECTION: 2 mL of 2% lidocaine, 2 mL of 0.25% Marcaine and 10 mg of Kenalog, total of 5 mL, and 5 mL used for the injection in divided doses. IMMEDIATE COMPLICATIONS: None. PROCEDURE: After informed consent was obtained, the patient placed in the sitting position with the neck flexed. Skin overlying the area was prepped with alcohol. A 25 gauge, 1 ?? needle was inserted into the substance of the right splenius capitis muscle and advanced until there was a mild twitch response, at which point we injected 2.5 mL of solution in divided doses. This procedure was repeated in a similar fashion in the right suprascapular area. Post procedure, needle was removed. Patient reports a dramatic reduction in pain symptoms. No evidence of post procedure pneumothorax. [facility] SYSTEM[facility]
--- OUTSIDE RECORDS SUMMARY | 2023-11-15 12:04 | XMS_ITS | CCD ---
Author Organization [facility] Care Team Providers Care Pipe Liner Name Role Phone Hanna Quiros Unavailable Unavailable [...] HENRY, FALLON E Primary Care Unavailable HUMBERTO KOHURY Referring Unavailable HENRY, FALLON E Primary Care [...] PROSTATIC SPEC ANT 2.23 ng/mL Normal 0.00-4.00 [facility] Comment on above: Result Comment: The method used for this test is Kathya Gamma Medica DXI chemiluminescent immunoassay. Values obtained by different assay methods cannot be used interchangeably. Performed By: #### 2 857-1 #### [facility] ([id number]) [address], [address] [place] [address] XR HIPS STEPH 3_4V WO PELVISon 05-20-2022 [...] ABEBA DOUGHERTY Date: 2022-05-20 11:00 Normal [facility] POINT OF CARE GLUCOSEon 11-2 Glucose [Mass/Vol] 84 mg/dL Normal 74-106 [facility] Comment on above: Performed By: #### P OCGLUC #### [facility] [address] [place] [address] Dr. Erin Anthony TOAN SCREEN WITH REFLEXon TOAN Screen, IFA Negative Normal Negative [facility] Comment on above: Order Comment: [facility] performed at: [facility], [employer] [facility], [address] [place] [address], , [employer] Assembler: Remberto Clemens MD PhD\X0D0A\[facility] Collection Date/Time: [id number]\X0D0A\[facility] Results Received Date/Time: [id number]\X0D0A\[facility] Reported Date/Time: [id number] Result Comment: \X0D 0A\TOAN IFA is a [...] inflammatory myopathies.\X0D0A\ \X0D0A\AC-0: Negative\X0D0A\International Consensus on TOAN Patterns\X0D0A\https://doi.org/10.1515/jhjm-8061-3709\X0D0A\ \X0D0A\For additional information, please refer to\X0D0A\http://education.TerraSky/[email or web address]\X0D0A\ \X0D0A\(This link is being provided for informational/\X0D0A\educational purposes only.)\X0D0A\ Performed By: #### O RD264 #### [place] [address] Ph. [phone] ANCA Screen with Reflex to A NCA Titeron 10-15-2021 ANCA Screen Negative Normal Negative [facility] Comment on above: Order Comment: [facility] performed at: [facility], [facility] [facility], [address] [place] [address], , [employer] Assembler: Remberto Clemens MD PhD\X0D0A\[facility] Collection Date/Time: [id number]\X0D0A\[facility] Results Received Date/Time: [id number]\X0D0A\[facility] Reported Date/Time: [id number] Result Comment: \X0D 0A\ANCA Screen includes evaluation [...] disease.\X0D0A\ Performed By: #### O RD264 #### [place] [id number] Ph. [phone] ANGIOTENSIN CONVERTING ENZYM [place] 10-15-2021 Angiotensin Conv Enzyme 5 U/L Low [facility] Comment on above: Order Comment: [facility] performed at: [employer], [facility], [address] [place] [address], , [employer] Assembler: Remberto Clemens MD PhD\X0D0A\[facility] Collection Date/Time: \X0D0A\[facility] Results Received Date/Time: \X0D0A\[facility] Reported Date/Time: Performed By: #### O RD264 #### [place] [id number] Ph. [phone] ANTI CENTROMERE ANTIBODYon 0 10-15-2021 Centromere B Antibody <1.0 Normal [facility] Comment on above: Order Comment: [facility] performed at: [employer], [employer] [facility], [address] [place] [address], , [employer] Assembler: Remberto Clemens MD PhD\X0D0A\[facility] Collection Date/Time: \X0D0A\[facility] Results Received Date/Time: \X0D0A\[facility] Reported Date/Time: Result Comment: \X0D 0A\ Reference Range: < 1.0 NEG AI\X0D0A\ Performed By: #### O RD264 #### [place] [id number] Ph. [phone] ANTI-DNA ANTIBODY, DOUBLE-ST RANDEDon 10-15-2021 DNA (ds) Antibody <1 Normal <=4 [facility] Comment on above: Order Comment: [facility] performed at: [facility], [address] [place] [address], , [employer] Assembler: Remberto Clemens MD PhD\X0D0A\Quest Collection Date/Time: \X0D0A\[facility] Results Received Date/Time: \X0D0A\[facility] Reported Date/Time: Result Comment: \X0D 0A\ Value Interpretation\X0D0A\ \X0D0A\ or=10 IU/mL: Positive\X0D0A\ Performed By: #### O RD264 #### [place] [address] Ph. [phone] ANTI-PROPOSAL REVIEW ANALYST (EUN AB)on 10-16-19 PROPOSAL REVIEW ANALYST Antibody <1.0 Normal [facility] Comment on above: Order Comment: [facility] performed at: [facility], [address] [place] [address], , [employer] Assembler: Remberto Clemens MD PhD\X0D0A\[facility] Collection Date/Time: \X0D0A\[facility] Results Received Date/Time: \X0D0A\[facility] Reported Date/Time: Result Comment: \X0D 0A\ Reference Range: < 1.0 NEG AI\X0D0A\ Performed By: #### O RD263 #### [place] [address] Ph. [phone] ANTI-SCLERODERMA ANTIBODY (a ka SCL 70)on 10-15-2021 Scl-70 Antibody <1.0 Normal [facility] Comment on above: Order Comment: [facility] performed at: [facility], [address] [place] [address], [employer] As[employer]er: Remberto Clemens MD PhD\X0D0A\[facility] Collection Date/Time: \X0D0A\[facility] Results Received Date/Time: \X0D0A\[facility] Reported Date/Time: Result Comment: \X0D 0A\ Reference Range: < 1.0 NEG AI\X0D0A\ Performed By: #### O RD264 #### [place] [address] Ph. [phone] C-Reactive Proteinon 022 CRP [Mass/Vol] mg/L Normal 0.0-1.0 [facility] Comment on above: Performed By: #### C K, URIC, CRP, CMP ####[place], [place] [address]Ph. [phone] C3 COMPLEMENTon 10-15-2021 Complement Component C3c 132 mg/dL Normal 82-185 [facility] Comment on above: Order Comment: [facility] performed at: [employer], [employer], [address] [place] [address], , [employer] Assembler: Remberto Clemens MD PhD\X0D0A\[facility] Collection Date/Time: \X0D0A\[facility] Results Received Date/Time: \X0D0A\[facility] Reported Date/Time: Performed By: #### O RD264 #### [place] [address] Ph. [phone] C4 COMPLEMENTon 10-15-2021 Complement Component C4c 31 mg/dL Normal 15-53 [facility] Comment on above: Order Comment: [facility] performed at: [employer], [facility] [facility], [address] [place] [address], [employer] Assembler: Remberto Clemens MD PhD\X0D0A\[facility] Collection Date/Time: \X0D0A\[facility] Results Received Date/Time: \X0D0A\[facility] Reported Date/Time: Performed By: #### O RD263 #### [place] [address] Ph. [phone] Complete Blood Count with Au to Diffon 10-15-2021 Basophils (Bld) [#/Vol] 0.1 10*3/uL Normal 0.0-0.1 [facility] Comment on above: Performed By: #### C BCAD #### [place] [address] Ph. [phone] Basophils/100 WBC (Bld) 1 % Normal 0-1 [facility] Comment on above: Performed By: #### C BCAD #### [place] [address] Ph. [phone] Eosinophils (Bld) [#/Vol] 0.3 10*3/uL Normal 0.0-0.5 [facility] Comment on above: Performed By: #### C BCAD #### [place] [address] Ph. [phone] Eosinophils/100 WBC (Bld) 3 % Normal 0-5 [facility] Comment on above: Performed By: #### C BCAD #### [place] [address] Ph. [phone] Erythrocyte distribution width (RBC) [Ratio] 12.8 % Normal 11.5-14.5 [facility] Comment on above: Performed By: #### C BCAD #### [place] [address] Ph. [phone] Hematocrit (Bld) [Volume fraction] 45.9 % Normal 42.0-52.0 [facility] Comment on above: Performed By: #### C BCAD #### [address] [address] Ph. [phone] Hemoglobin (Bld) [Mass/Vol] 15.2 g/dL Normal 13.5-17.5 [facility] Comment on above: Performed By: #### C BCAD #### [address] [address] Ph. [phone] Lymphocytes (Bld) [#/Vol] 2.4 10*3/uL Normal 1.0-4.0 [facility] Comment on above: Performed By: #### C BCAD #### [place] [address] Ph. [phone] Lymphocytes/100 WBC (Bld) 26 % Normal 20-40 [facility] Comment on above: Performed By: #### C BCAD #### [address] [address] Ph. [phone] MCH (RBC) [Entitic mass] 28.8 pg Normal 27.0-35.0 [facility] Comment on above: Performed By: #### C BCAD #### [address] [address] Ph. [phone] MCHC (RBC) [Mass/Vol] 33.1 g/dL Normal 32.0-36.0 [facility] Comment on above: Performed By: #### C BCAD #### [address] [address] Ph. [phone] MCV (RBC) [Entitic vol] 87 fL Normal 80-100 [facility] Comment on above: Performed By: #### C BCAD #### [address] [address] Ph. [phone] Monocytes (Bld) [#/Vol] 0.6 10*3/uL Normal 0.3-1.0 [facility] Comment on above: Performed By: #### C BCAD #### [address] [address] Ph. [phone] Monocytes/100 WBC (Bld) 7 % Normal 1-15 [facility] Comment on above: Performed By: #### C BCAD #### [address] [address] Ph. [phone] Neutrophils (Bld) [#/Vol] 5.9 10*3/uL Normal 1.8-7.7 [facility] Comment on above: Performed By: #### C BCAD #### [address] [address] Ph. [phone] Neutrophils/100 WBC (Bld) 64 % Normal 50-70 [facility] Comment on above: Performed By: #### C BCAD #### [address] [address] Ph. [phone] Platelet mean volume (Bld) [Entitic vol] 9.5 fL Normal 9.4-12.3 [facility] Comment on above: Performed By: #### C BCAD #### [address] [address] Ph. [phone] Platelets (Bld) [#/Vol] 230 10*3/uL Normal 150-450 [facility] Comment on above: Performed By: #### C BCAD #### [address] [address] Ph. [phone] RBC (Bld) [#/Vol] 5.27 10*6/uL Normal 4.70-6.10 [facility] Comment on above: Performed By: #### C BCAD #### [address] [address] Ph. [phone] WBC (Bld) [#/Vol] 9.3 10*3/uL Normal 3.7-11.0 [facility] Comment on above: Performed By: #### C BCAD #### [address] [address] Ph. [phone] Comprehensive Metabolic Pane idania 10-15-2021 Albumin [Mass/Vol] 4.4 g/dL Normal 3.5-5.0 [facility] Comment on above: Performed By: #### C K, URIC, CRP, CMP ####[address] [address]Tw. [phone] ALP [Catalytic activity/Vol] 73 U/L Normal 38-126 [facility] Comment on above: Performed By: #### C K, URIC, CRP, CMP ####[address] [address]. [phone] ALT [Catalytic activity/Vol] 18 U/L Normal 0-50 [facility] Comment on above: Performed By: #### C K, URIC, CRP, CMP ####[address] [address]Eo. [phone] AST [Catalytic activity/Vol] 32 U/L Normal 17-59 [facility] Comment on above: Performed By: #### C K, URIC, CRP, CMP ####[address] [address]Yh. [phone] Bilirubin [Mass/Vol] 0.8 mg/dL Normal 0.2-1.3 [facility] Comment on above: Performed By: #### C K, URIC, CRP, CMP ####[address] [address]Af. [phone] Calcium [Mass/Vol] 8.8 mg/dL Normal 8.4-10.2 [facility] Comment on above: Performed By: #### C K, URIC, CRP, CMP ####[place] [address] [place], [place] [address]Bh. [phone] Chloride [Moles/Vol] 101 mmol/L Normal 98-107 [facility] Comment on above: Performed By: #### C K, URIC, CRP, CMP ####[address] [address]He. [phone] CO2 [Moles/Vol] 27 mmol/L Normal 22-32 [facility] Comment on above: Performed By: #### C K, URIC, CRP, CMP ####[address] [address]Bi. [phone] Creatinine [Mass/Vol] 0.95 mg/dL Normal 0.66-1.25 [facility] Comment on above: Performed By: #### C K, URIC, CRP, CMP ####[address] [address]Pe. [phone] GFR/1.73 sq M.predicted among non-blacks MDRD (S/P/Bld) [Vol rate/Area] 86 mL/min/{1.73_m2} Normal >60 [facility] Comment on above: Result Comment: Stag e 1 Kidney damage (e.g., protein in the urine) with normal GFR >=90\X0D0A\Stage 2 Kidney damage with mild decrease in GFR 60-89\X0D0A\Stage 3a Moderate decrease in GFR 45-59\X0D0A\Stage 3b Moderate decrease in GFR 30-44\X0D0A\Stage 4 Severe reduction in GFR 15-29\X0D0A\Stage 5 Kidney failure <15 Performed By: #### C K, URIC, CRP, CMP ####[address] [address]Lv. [phone] Glucose [Mass/Vol] 84 mg/dL Normal 65-100 [facility] Comment on above: Performed By: #### C K, URIC, CRP, CMP ####[address] [address]Xp. [phone] Potassium [Moles/Vol] 4.1 mmol/L Normal 3.6-5.0 [facility] Comment on above: Performed By: #### C K, URIC, CRP, CMP ####[address] [address]Ve. [phone] Protein [Mass/Vol] 7.1 g/dL Normal 6.3-8.2 [facility] Comment on above: Performed By: #### C K, URIC, CRP, CMP ####[address] [address]Em. [phone] Sodium [Moles/Vol] 140 mmol/L Normal 135-145 [facility] Comment on above: Performed By: #### C K, URIC, CRP, CMP ####[address] [address]Ls. [phone] Urea nitrogen [Mass/Vol] 15 mg/dL Normal 9-20 [facility] Comment on above: Performed By: #### C K, URIC, CRP, CMP ####[address] [address]Ly. [phone] Creatine Kinaseon 10-15-2021 CK [Catalytic activity/Vol] 105 U/L Normal 49-397 [facility] Comment on above: Performed By: #### C K, URIC, CRP, CMP ####[address] [address]Ny. [phone] Erythrocyte Sedimentation Ra ann 10-15-2021 ESR (Bld) [Velocity] 2 mm/h Normal 0-20 [facility] Comment on above: Result Comment: The ESR varies with age. The maximum normal ESR at a given age is calculated using the formulas:Men: Age in years/2Women: (Age in years + 10)/2 Performed By: #### E SR ####[address] [address]Ai. [phone] HLA-B27 ANTIGENon 10-15-2021 HLA-B27 Antigen Negative Normal Negative [facility] Comment on above: Order Comment: [facility] performed at: [facility], [facility], [address] [place] [address], , [employer] Assembler: Remberto Clemens MD PhD\X0D0A\Quest Collection Date/Time: [id number]\X0D0A\[facility] Results Received Date/Time: [id number]\X0D0A\[facility] Reported Date/Time: Performed By: #### O RD634 #### [address] [address] Ph. [phone] MISCELLANEOUS SENDOUTon 09-0 Misc Ref Lab Result See Below Normal 0-0 [facility] Comment on above: Result Comment: Rheu matoid Factor Result: <14 IU/mL\X0D0A\X0D0A\Reference Range: <14 IU/mL \X0D0A\ \X0D0A\Performing Laboratory Information:\X0D0A\[facility] [employer] [facility] [place] [id number] [facility] [employer] As[employer]er: Remberto Clemens MD PhD Performed By: #### O RD263 #### [address] [address] Ph. [phone] MRI COMPARISON OF OUTSIDE FI LMSon 10-15-2021 MRI COMPARISON OF OUTSIDE FILMS RADRPT There is no result for this study. This is a placeholder for comparison films only. Final result Normal [facility] SJOGREN'S ANTIBODIES (SS-A, SS-B)on 10-15-2021 Sjogren's Antibody (SS-A) <1.0 Normal [facility] Comment on above: Order Comment: [facility] performed at: [facility], [address] [place] [address], , [employer] As[employer]er: Remberto Clemens MD PhD\X0D0A\Quest Collection Date/Time: \X0D0A\[facility] Results Received Date/Time: \X0D0A\[facility] Reported Date/Time: Result Comment: \X0D 0A\ Reference Range: < 1.0 NEG AI\X0D0A\ Performed By: #### O RD438 #### [place] [address] Ph. [phone] Sjogren's Antibody (SS-B) <1.0 [facility] Comment on above: Order Comment: [facility] performed at: [facility], [address] [place] [address], , [employer] As[employer]er: Remberto Clemens MD PhD\X0D0A\Quest Collection Date/Time: \X0D0A\[facility] Results Received Date/Time: \X0D0A\[facility] Reported Date/Time: Result Comment: \X0D 0A\ Reference Range: < 1.0 NEG AI\X0D0A\ Performed By: #### O RD438 #### [place] [id number] Ph. [phone] GUERRA ANTIBODYon 10-15-2021 Guerra Antibody <1.0 Normal [facility] Comment on above: Order Comment: [facility] performed at: [facility], [address] [place] [address], , [employer] As[employer]er: Remberto Clemens MD PhD\X0D0A\Quest Collection Date/Time: \X0D0A\[facility] Results Received Date/Time: \X0D0A\[facility] Reported Date/Time: Result Comment: \X0D 0A\ Reference Range: < 1.0 NEG AI\X0D0A\ Performed By: #### O RD383 #### [place] [address] Ph. [phone] THYROID PEROXIDASE ANTIBODYo n 10-15-2021 Thyroid Peroxidase Abs 8 IU/mL Normal <9 [facility] Comment on above: Order Comment: [facility] performed at: [facility], [address] [place] [address], , [employer] As[employer]er: Remberto Clemens MD PhD\X0D0A\Quest Collection Date/Time: \X0D0A\[facility] Results Received Date/Time: \X0D0A\[facility] Reported Date/Time: Performed By: #### O RD264 #### [place] [address] Ph. [phone] THYROID STIMULATING IMMUNOGL OBULINon 10-15-2021 TSI Numeric Value <89 Normal <140 [facility] Comment on above: Order Comment: [facility] performed at: [facility], [address] [place] [address], [employer] As[employer]er: Remberto Clemens MD PhD\X0D0A\Quest Collection Date/Time: \X0D0A\Quest [...] characteristics of this\X0D0A\assay have been determined by [facility]\X0D0A\[facility], [place], [place]. The modifications\X0D0A\have not been cleared or approved by the FDA. This\X0D0A\assay has been validated pursuant to the CLIA\X0D0A\regulations and is used for clinical purposes.\X0D0A\ Performed By: #### O RD562 #### [place] [address] Ph. [phone] [place] [address]-01-2022 URIC 4.9 mg/dL Normal 3.5-8.5 [facility] Comment on above: Performed By: #### C K, URIC, CRP, CMP ####[facility] [place], [place] [address]Fs. [phone] XR CHEST (2 VW)on 10-15-2021 XR CHEST [...] Rod Mcgill MD 10/15/21 Final result Normal [facility] XR COMPARISON OF OUTSIDE BALWINDER MSon 10-15-2021 XR COMPARISON OF OUTSIDE FILMS RADRPT There is no result for this study. This is a placeholder for comparison films only. Final result Normal [facility] XR COMPARISON OF OUTSIDE FILMS RADRPT There is no result for this study. This is a placeholder for comparison films only. Final result Normal [facility] XR COMPARISON OF OUTSIDE FILMS RADRPT There is no result for this study. This is a placeholder for comparison films only. Final result Normal [facility] XR COMPARISON OF OUTSIDE FILMS RADRPT There is no result for this study. This is a placeholder for comparison films only. Final result Normal [facility] XR COMPARISON OF OUTSIDE FILMS RADRPT There is no result for this study. This is a placeholder for comparison films only. Final result Normal [facility] XR HAND LEFT (2 VIEWS)on XR HAND [...] Agnieszka Sal MD 10/16/21 Final result Normal [facility] XR HAND RIGHT (2 VIEWS)on XR HAND [...] Agnieszka Sal MD 10/16/21 Final result Normal [facility] XR SHOULDER LEFT (MIN 2 VIEW S)on [...] Agnieszka Sal MD 10/16/21 Final result Normal [facility] XR SHOULDER RIGHT (MIN 2 VIE WS)on [...] Agnieszka Sal MD 10/16/21 Final result Normal [facility] XR WRIST LEFT (2 VIEWS)on XR WRIST [...] Agnieszka Sal MD 10/16/21 Final result Normal [facility] XR WRIST RIGHT (2 VIEWS)on 0 10-15-2021 [...] Agnieszka Sal MD 10/16/21 Final result Normal [facility] CT CARDIAC SCORINGon 02-14 CT CARDIAC [...] FOR CARDIOVASCULAR CONDITION. COMPARISON: None. ACCESSION NUMBER(S): [id number] ORDERING CLINICIAN: ESHA SCOTT TECHNIQUE: Using prospective [...] al. JACC 2015 (http://dx.doi.org/10. 1016/j.j acc.2015.08.035) [employer] Librarian: Dr. Chilango Delarosa, Date: 02/25/2020 7:53 pm Electronically signed by: NOE LITTLE MD [facility] Vital Signs Date Time Vital Sign Value Performing Clinician Facility 05-10-2023 11: Body height 177.8 cm Humberto Khoury MD Work Phone: [email or web address] [email or web address] [facility] 05-10-2023 11:17040 Body mass index (BMI) [Ratio] 23.24 kg/m2 Humberto Khoury MD Work Phone: [email or web address] [email or web address] [facility] 05-10-2023 11:17 Body weight 73.48 kg Humberto Khoury MD Work Phone: [facility] 05-10-2023 11:17-0400 Diastolic blood pressure 72 mm[Hg] Humberto Khoury MD Work Phone: [facility] [email or web address] [facility] 05-10-2023 11:17-0400 Heart rate 54 /min Humberto Khoury MD Work Phone: [facility] [email or web address] [facility] 05-10-2023 11:17-0400 Systolic blood pressure 120 mm[Hg] Humberto Khoury MD Work Phone: [facility] [employer] 02-08-2023 12:17-0500 Body height 177.8 cm Humberto Khoury MD Work Phone: [facility] [employer] 02-08-2023 12:17-0500 Body mass index (BMI) [Ratio] 23.24 kg/m2 Humberto Khoury MD Work Phone: [facility] [employer] 02-08-2023 12:17-0500 Body weight 73.48 kg Humberto Khoury MD Work Phone: [facility] [employer] 02-08-2023 12:17-0500 Diastolic blood pressure 83 mm[Hg] Humberto Khoury MD Work Phone: [facility] [employer] 02-08-2023 12:17-0500 Heart rate 64 /min Humberto Khoury MD Work Phone: [facility] [employer] 02-08-2023 12:17-0500 Systolic blood pressure 127 mm[Hg] [facility] 01-21-2023 11:15-0500 Body height 177.8 cm Fallon Henry Other [employer] Other 01-21-2023 11:15-0500 Body mass index (BMI) [Ratio] 23.07 kg/m2 Fallon Henry Other [employer] Other 01-21-2023 11:15-0500 Body weight 72.94 kg Fallon Henry Other [employer] Other 01-21-2023 11:15-0500 Diastolic blood pressure 73 mm[Hg] Fallon Henry Other [facility] Other 01-21-2023 11:15-0500 Systolic blood pressure 115 mm[Hg] Fallon Henry Other [employer] Other 10-25-2022 13:30-0400 Body height 177.8 cm Fallon Henry Other [employer] Other 10-25-2022 13:30-0400 Body mass index (BMI) [Ratio] 23.3 kg/m2 Fallon Henry Other [facility] Other 10-25-2022 13:30-0400 Body weight 73.66 kg Fallon Henry Other [facility] Other 10-25-2022 13:30-0400 Diastolic blood pressure 84 mm[Hg] Fallon Henry Other [facility] Other 10-25-2022 13:30-0400 Respiratory rate 12 /min Fallon Henry Other [facility] Other 10-25-2022 13:30-0400 Systolic blood pressure 136 mm[Hg] Fallon Henry Other [facility] Other Encounters Encounter Date Encounter Type Care [...] Start: 05-10-2023 End: 05-11-2023 ambulatory [facility]O [facility] Start: 05-10-2023 End: 05-10-2023 Office outpatient visit 15 minutes Humberto Khoury MD Work Phone: [facility] Comment on above: Elevated [...] visit related to original px Wil Cao CLEARANCE 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 Work Phone: [facility] Comment on above: Status post right ro tator cuff repair (Primary Dx); Arthritis of right acromioclavicular joint Start: 03-30-2023 End: 03-30-2023 ambulatory WIL CAO Not Available Start: 03-15-2023 End: 03-15-2023 ambulatory PATTIE PICHARDO Not Available Start: 02-13-2023 Refill Yasmin shelley 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: [facility] Comment on above: Med Refill Start: 02-10-2023 End: 02-10-2023 ambulatory PATTIE PICHARDO Not Available Start: 02-08-2023 End: 02-08-2023 ambulatory HUMBERTO KHOURY [facility] Start: 02-08-2023 End: 02-08-2023 Office outpatient visit 25 minutes Humberto Khoury MD Work Phone: [facility] Comment on above: Elevated PSA (Primar y Dx) Start: 02-02-2023 End: 02-02-2023 Evaluation and management of inpatient HANNA SCHMIDT [facility] Start: 02-02-2023 End: 02-02-2023 Evaluation and management of inpatient PATTIE PICHARDO [facility] Start: 01-21-2023 End: 01-21-2023 ambulatory Fallon Henry Other [employer] Other Start: 01-21-2023 Office outpatient vi sit [address] [facility] Start: 01-21-2023 Patient encounter status Tiffanie Khoury MD Work Phone: [employer] Work Phone: Start: 01-20-2023 End: 01-20-2023 ambulatory PATTIE PICHARDO Not Available Start: 01-14-2023 End: 01-14-2023 ambulatory Fallon Henry Other [employer] Other Start: 01-14-2023 Telephone encounter Fallon Carl [facility] Start: 11-08-2022 End: 11-08-2022 ambulatory Fallon Henry Other [employer] Other Start: 11-08-2022 Tele[address] Fallon Carl [facility] Start: 11-02-2022 End: 11-02-2022 ambulatory Fallon Carl Other [employer] Other Start: 11-02-[address] Fallon Carl [facility] Start: 10-29-2022 End: 10-29-2022 ambulatory Fallon Carl Other [facility] Other Start: 10-29-2022 Telephone encounter Fallon Henry [employer] Start: 10-25-2022 End: 10-25-2022 ambulatory Fallon Carl Other [facility] Other Start: 10-25-2022 Office outpatient vi sit [address] [facility] Start: 05-20-2022 End: 05-21-2022 ambulatory SOURAV SANCHSEMIWHITNEYY Facility:H1 Start: 03-04-2022 End: 03-05-[address] ROWAN GARDUNO . Facility:[facility]1 Start: 02-16-2022 End: 02-16-[address] ROWAN GARDUNO . Facility:[facility]1 Start: 01-21-2022 End: 01-22-[address] ROWAN GARDUNO . Facility:[facility]1 Start: 01-05-2022 End: 01-05-[address] ROWAN GARDUNO . Facility:[facility]1 Start: 12-08-2021 End: 12-09-[address] ROWAN GARDUNO . Facility:[facility]1 Start: 10-15-2021 ambulatory FALLON HENRY [facility] Start: 02-16-2021 Rx Renewal Hanna Dolan ce Work Phone: [place] [address] DO Work Phone: Procedures Date Procedure Procedure Detail Performing Clinician Start: 02-08-2023 Follow-up visit Follow-up HUMBERTO Karen KHOURY Start: 10-15-2021 Cyclic citrullinated peptide antibody FALLON HENRY Comment on above: Order Comment: Quest performed at: [employer], [facility], [address] [place] [address], , [employer] As[employer]er: Remberto Clemens MD PhD\X0D0A\Quest Collection Date/Time: \X0D0A\[facility] Results Received Date/Time: \X0D0A\[facility] Reported Date/Time: [id number] Result Comment: \X0D 0A\Negative: <20\X0D0A\Weak Positive: 20 - 39\X0D0A\Moderate Positive: 40 - 59\X0D0A\Strong Positive: >59\X0D0A\ Performed By: #### [id number] #### [place] [address] Ph. [phone] History of repair of musculotendinous cuff of shoulder Status post right rotator cuff repair Wil Cao CLEARANCE CENTER MANAGER Work Phone: Plan of Treatment Date Care Activity Detail Author Start: 05-09-2024 Adult BMI Screening Adult BMI Screen [facility] Start: 05-09-2024 Tobacco Screening Tobacco Screening [facility] Start: 02-09-2024 Adult BMI Screening Adult BMI Screen ing [facility] Start: 02-09-2024 Tobacco Screening Tobacco Screening [facility] Start: 05-10-2023 End: 05-10-2023 Patient encounter procedure 05/10/2023 11:15 AM EDT Office Visit [facility] [address] [place] [address] [facility] [place] [address] Humberto Khoury MD [address] [place] [address] [facility] Start: 05-09-2023 End: 02-08-2024 Prostatic specific antigen, diagnostic Prostatic specific antigen, diagnostic Lab Routine Elevated PSA Expected: 05/09/2023, Expires: 02/08/2024 [facility] Work Phone: Comment on above: Expected: 05/09/2023 , Expires: 02/08/2024 Start: 04-26-2023 End: 04-26-2023 Patient encounter procedure 04/26/2023 9:45 AM EDT Office Visit [facility] [address] [place] [address] Pattie Pichardo DO [address] [place] [address] [facility] Start: 10-15-2022 Influenza vaccination Influenza Vacc ine [facility] Start: 2011 Administration of varicella zoster vaccine Zoster (Shingles) Vaccine (1 of 2) [facility] Start: 02-19-1980 DTaP,Tdap and Td Vaccines (1 - Tdap) DTaP,Tdap and Td Vaccines (1 - Tdap) [facility] Start: 1973 Depression Screening Depression Scre ening [facility] Immunizations Immunization Date Immunization Notes Care Provider Fa cility 02-15-2016 influenza virus vaccine, unspecified formulation Humberto Khoury MD Work Phone: [facility] 11-13-2013 influenza virus vaccine, unspecified formulation Humberto Khoury MD Work Phone: [facility] Payers Date Payer Category Payer Unknown 2020 Unknown [id number] 1960 Unknown [id number] 2.16.8 40.1.059564.3.579.2.754 1961 Unknown [id number] 2.16.8 40.1.615006.3.579.2.754 1961 Unknown [id number] 2.16.8 40.1.840453.3.579.2.754 1961 Unknown [id number] 2.16.8 40.1.691712.3.579.2.754 1961 Unknown [id number] 2.16.8 40.1.925408.3.579.2.754 1961 Unknown [id number] 2.16.8 40.1.379135.3.579.2.754 1961 Unknown [id number] 2.16.8 40.1.957939.3.579.2.754 1961 Unknown [id number] 2.16.8 40.1.030035.3.579.2.754 1961 Unknown [id number] 2.16.84 0.1.473800.3.579.2.593 1961 Unknown [id number] 2.16.84 0.1.058996.3.579.2.593 1961 Unknown [id number] 2.16.84 0.1.686780.3.579.2.593 1961 Unknown [id number] 2.16.84 0.1.107132.3.579.2.593 1961 Unknown [id number] 2.16.84 0.1.489116.3.579.2.593 1961 Unknown [id number] 2.16.84 0.1.798040.3.579.2.593 1961 Unknown [id number] 2.16.84 0.1.763753.3.579.2.593 1961 Unknown [id number] 2.16.8 40.1.301117.3.579.2.1286 1961 Unknown [id number] 2.16.84 0.1.281067.3.579.2.1286 1961 Unknown [id number] 2.16.8 40.1.577187.3.579.2.1286 1961 Unknown [id number] 2.16.84 0.1.224284.3.579.2.1286 1961 Unknown [id number] 2.16.84 0.1.156659.3.579.2.1286 1961 Unknown [id number] 2.16.84 0.1.426202.3.579.2.1286 1961 Unknown [id number] 2.16.84 0.1.767243.3.579.2.9 1961 Unknown [id number] 2.16.84 0.1.963403.3.579.2.1259 1961 Unknown [id number] 2.16.84 0.1.478391.3.579.2.1259 1961 Unknown [id number] 2.16.84 0.1.409381.3.579.2.9 1961 Unknown [id number] 2.16.84 0.1.230945.3.579.2.1259 1961 Unknown [id number] 2.16.84 0.1.081675.3.579.2.9 1961 Unknown [id number] 2.16.84 0.1.260753.3.579.2.1259 1961 Unknown [id number] 2.16.84 0.1.973775.3.579.2.1259 1961 Unknown [id number] 2.16.84 0.1.911435.3.579.2.9 1961 Unknown [id number] 2.16.84 0.1.486371.3.579.2.9 1961 Unknown [id number] 2.16.84 0.1.355935.3.579.2.1258 1961 Unknown [id number] 2.16.84 0.1.714980.3.579.2.1258 1961 Unknown [id number] 2.16.84 0.1.950823.3.579.2.1258 1961 Unknown [id number] 2.16.84 0.1.673013.3.579.2.9 1961 Unknown [id number] 2.16.84 0.1.969696.3.579.2.1258 1961 Unknown [id number] 2.16.84 0.1.339376.3.579.2.9 1961 Unknown [id number] 2.16.84 0.1.108912.3.579.2.1258 1961 Unknown [id number] 2.16.84 0.1.975107.3.579.2.9 1961 Unknown [id number] 2.16.84 0.1.472801.3.579.2.1258 1961 Unknown [id number] 2.16.84 0.1.165286.3.579.2.9 1961 Unknown [id number] 2.16.84 0.1.608177.3.579.2.1258 1961 Unknown [id number] 2.16.84 0.1.142326.3.579.2.9 1961 Unknown [id number] 2.16.84 0.1.493256.3.579.2.1258 1961 Unknown [id number] 2.16.84 0.1.912354.3.579.2.1259 1961 Unknown [id number] 2.16.84 0.1.706237.3.579.2.1258 1961 Unknown [id number] 2.16.84 0.1.109446.3.579.2.1258 1961 Unknown [id number] 2.16.84 0.1.990783.3.579.2.1258 1961 Unknown [id number] 2.16.84 0.1.971006.3.579.2.1258 1961 Unknown [id number] 2.16.84 0.1.160761.3.579.2.1258 1961 Unknown [id number] 2.16.84 0.1.960906.3.579.2.1258 1961 Unknown [id number] 2.16.840 .1.700015.3.579.2.1258 1961 Unknown [id number] 2.16.840 .1.342686.3.579.2.1259 Self-pay [id number] 2.16.840.1.327070.19 Self-pay [id number] 2.16.840.1.837677.19 Self-pay [id number] 2.16.840.1.885554.19 Self-pay [id number] 2.16.840.1.775388.19 Self-pay [id number] 2.16.840.1.928952.19 Self-pay [id number] 2.16.840.1.381503.19 Social History Date Type Detail Facility Start: 04-19-2018 End: 03-27-2020 Sex Assigned At [facility] Start: 05-04-2021 End: 11-10-2022 Tobacco smoking status NHIS Ex-smoker [facility] End: 02-04-2001 History of tobacco use Current smoker [facility] End: 02-04-2001 History of tobacco use Cigarette Smoker [facility] Start: 03-27-2020 End: 05-04-2021 Cigarettes smoked current (pack per day) - Reported 1.5 [facility] Start: 05-04-2021 Tobacco use and exposure Smoke less tobacco non-user [facility] Start: 02-08-2023 End: 05-10-2023 Alcohol intake Ex-drinker (finding) [facility] Frequency of Alcohol Consumption Never [facility] Start: 1960 Sex Assigned At Not on file P [facility] Start: 11-10-2022 Tobacco use and exposure Forme r smokeless tobacco user [facility] Start: 01-07-2023 Alcohol Comment caffeine more than 4 cups per day [facility] Medical Equipment Procedure Code Equipment Code Equipment Origin al Text Equipment Identifier Dates Recorder Crd Annette q Ii Ins - [id number] - [id number] Start: 07-10-2021 Ultratape, [id number] Start: 02-02-2023 Clinical Notes 12-08-2021 to 05-10-2023 Humberto Khoury MD - 05/10/2023 11:15 AM EDTera Cao NP - 03/30/2023 10:30 AM Deon Khoury MD - 02/08/2023 12:15 PM EST Note Date & Type Note Facility 05-10-2023 History of Present illness Narrative Images from the original note were not included. [address] [place] [address] [facility] [id number] Patient: Bertin Arechiga Date of : 1960 [...] Past Medical History: Diagnosis Date Angina pectoris ([facility]) 1981 was kept few days in hospital and tests were ran Anxiety not diagnosed doesn't see doctor Arrhythmia 1981 x1 episode when he was 31 Arthritis Atrial fibrillation ([facility]) Back pain 1989 Carpal tunnel syndrome Disc disorder of lumbosacral region Fractures Gallstones Headache Hypertension hasn't seen dr in 15 years not officially dx not on meds Injury of back Lumbar paraspinal muscle spasm Lumbar radiculopathy Neurogenic pain Raynaud's phenomenon without gangrene Past Surgical History: Procedure Laterality Date Afib Ablation, Carto, ICE N/A 03/18/2022 Performed by Abelardo Oneill MD at [facility] (EP) ARTHROSCOPIC REPAIR ROTATOR CUFF SHOULDER Right 02/02/2023 Performed by Pattie Pichardo DO at [facility] COLONOSCOPY N/A 04/25/2018 Performed by Chilango Jason DO at [facility] HEMORRHOIDECTOMY N/A 04/25/2018 Performed by Chilango Jason DO at [facility] HERNIA REPAIR INSERTION LOOP RECORDER RELEASE CARPAL TUNNEL Right 02/04/2021 Performed by Pattie Pichardo DO at [facility] Family History Problem Relation Age of [...] for your understanding. documented in this encounter [facility] 03-30-2023 History of Present illness Narrative HISTORY [...] in 2 weeks documented in this encounter [facility] 02-08-2023 History of Present illness Narrative Images from the original note were not included. [address] [place] [address] [facility] [id number] Patient: Bertin Arechiga Date of : 1960 [...] Past Medical History: Diagnosis Date Angina pectoris ([facility]) 1981 was kept few days in hospital and tests were ran Anxiety not diagnosed doesn't see doctor Arrhythmia 1981 x1 episode when he was 31 Arthritis Atrial fibrillation ([facility]) Back pain 1989 Carpal tunnel syndrome Disc disorder of lumbosacral region Fractures Gallstones Headache Hypertension hasn't seen dr in 15 years not officially dx not on meds Injury of back Lumbar paraspinal muscle spasm Lumbar radiculopathy Neurogenic pain Raynaud's phenomenon without gangrene Past Surgical History: Procedure Laterality Date Afib Ablation, Carto, ICE N/A 03/18/2022 Performed by Abelardo Oneill MD at [facility] () ARTHROSCOPIC REPAIR ROTATOR CUFF SHOULDER Right 02/02/2023 Performed by Pattie Pichardo DO at [facility] COLONOSCOPY N/A 04/25/2018 Performed by Chilango Jason DO at [facility] HEMORRHOIDECTOMY N/A 04/25/2018 Performed by Chilango Jason DO at [facility] HERNIA REPAIR INSERTION LOOP RECORDER RELEASE CARPAL TUNNEL Right 02/04/2021 Performed by Pattie Pichardo DO at [facility] Family History Problem Relation Age of [...] for your understanding. documented in this encounter [facility] 01-21-2023 Evaluation note Encounter Date Diagnosis Assessment Notes Jan, Complete tear of right rotator cuff, unspecified whether traumatic (ICD-10 - M75.121) Pt has followup with his cra for clearance today. He is medically cleared barring abnormalities on testing at [facility] which is pending or with his cra. Jan, Intermittent atrial fibrillation (ICD-10 - I48.0) as above. [facility] Other 12-01-2023 Evaluation note* Encounter Date Diagnosis Assessment Notes Treatment Notes Treatment Clinical Notes Jan, Acute pain of right shoulder (ICD-10 - M25.511) [facility] Other 09-25-2023 Evaluation note* Encounter Date Diagnosis Assessment Notes Treatment Notes Treatment Clinical Notes Oct, PSA elevation (ICD-10 - R97.20) [facility] Other 09-11-2023 Evaluation note* Encounter Date Diagnosis [...] PSA (prostate specific antigen) (ICD-10 - Z12.5) [facility] Other 04-06-2023 NoteCONSULTATION CONSULTATION DATE: 05/20/2022 TO: [...] our patients to inform us about any [id number] medications or herbal remedies/nutritional supplements/alternative remedies. 2. [...] treatment options with their primary care provider.[facility] [id number] Note CONSULTATION CONSULTATION DATE: 03/04/2022 HISTORY OF [...] ablation for his atrial fibrillation scheduled at [facility] in [place]. Medications include Eliquis, gabapentin 600 mg b.i.d., [...] successful cardiac ablation and approval from his cra. We will also gain approval to hold his Eliquis for our procedure. Patient agrees to move forward and be followed up in the clinic thereafter.[facility] [id number] NoteCONSULTATION CONSULTATION DATE: 01/21/2022 HISTORY OF PRESENT [...] followed up in the clinic post procedure.[facility] 12-08-2021 NoteCONSULTATION CONSULTATION DATE: 12/08/2021 HISTORY [...] evenings. 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 The patient also sees Dr. Harmon in [place] for his Raynaud's disease and also autonomic [...] the autonomic dystonia and the hyperhidrosis at [facility], where he may get attention for this. In the meantime, we will look to proceed with the chronic low back pain that the patient has and is the most problematic for him, by proceeding with a lumbar medial branch block at the level of L2-3 and L4-5. Questions/answers were done. The patient understands and would like to proceed. CC: Fallon Henry M.D.[facility] noteNo [facility] [employer] Other Evaluation note* Diagnosis Elevated PSA- Primary Elevated prostate specific antigen (PSA) [facility] Diagnosis Essential hypertension Unspecified essential hypertension [facility] Diagnosis Status post right rotator cuff repair- Primary Arthritis of right acromioclavicular joint [facility] Diagnosis Elevated PSA- Primary Elevated prostate specific antigen (PSA) documented in this encounter [facility] [email or web address] [facility] Narrative - Reported* Type Description Date [...] yrs 2018 Hospitalization History see surgical history [facility] Other History general Narrative - Reported* Type [...] injection 12/2022 Hospitalization History see surgical history [facility] Other Instructions* Attachments The following attachments cannot be sent through Care Everywhere. * Going Home on Blood Thinners (Canadian) documented in this encounterPro[facility] HospitalSolorein Technology SystemInstructionsNot on file documented in this encounterProRiverside Methodist HospitalSolorein Technology SystemInstructionsNot on file documented in this encounterProRiverside [facility] HospitalSolorein Technology System Summary Purpose Family History No Family [...] pain of right shoulder (M25.511) Referral Organization [facility] [employer] [facility] Referring Provider First Name Fallon Referring Provider Last Name Carl Referring Provider Specialty [facility] [employer] Referred Organization [facility] Referred Provider Pattie Pichardo Referred Address ,[place], [place],[address] Referred Provider Specialty Orthopedic S urgery Referral Priority Routine General Notes Micheleradhakarsten Regi 12:12:13 PM >received today, waiting for XR and for Notes to be locked Shonda Regi 10/29/2022 08:52:53 AM >XR attached, sent TE to lock office notes Reason *FU 11/16 Dr. Kathya abbott - Urology [facility] surgeons [facility]. PSA went from 1.5 to 3.1 Diagnosis 1 PSA elevation (R97.2 0) Referral Organization [facility] [employer]ne[employer] Referring Provider First Name Fallon Referring Provider Last Name Carl Referring Provider Specialty [facility] [employer] Referred Organization [employer] Referred Address [address],[place],[address] Referred Provider Specialty Urology Referral Priority Routine General Notes MicheleradhaRegi shelley 01:58:34 PM >received today. P: [phone] F: [phone] Regi Merchant 11/09/2022 02:06:57 PM >attachments made, notes locked, referral faxed Specialty Diagnoses / Procedures Referred By Elder morgan Referred To Contact Physical Therapy Diagnoses Status post right rotator cuff repair Arthritis of right acromioclavicular joint Procedures CA OFFICE/OUTPATIENT NEW HIGH MDM 60 MINUTES Wil Cao, CLEARANCE CENTER MANAGER [address] [place] [address] Mela Suarez, PT [address] [place] [address] Referral ID Status Reason Start Date Expiration Date Visits Requested Visits Authorized [id number] Pending Review Specialty Services Required 03/30/2023 09/26/2023 1 1 Additional Source Comments (unrecognized sect ion and content) No Status Records FoundNo Status Records FoundNo Status Records FoundNo Status Records FoundNo Status Records FoundNo Status Records Found INFORMATION SOURCE (unrecogn ized section and content) DATE CREATED AUTHOR 02/28/2020 [facility] DATE CREATED AUTHOR AUTHOR'S ORGANIZ ATION 10/27/2021 [facility] DATE CREATED AUTHOR AUTHOR'S ORGANIZ ATION 05/29/2022 [facility] DATE CREATED AUTHOR AUTHOR'S ORGANIZ ATION 05/11/2023 [facility] DATE CREATED AUTHOR AUTHOR'S ORGANIZ ATION [facility]/11/20[facility] DATE CREATED AUTHOR AUTHOR'S ORGANIZ ATION 08/03/2023 [facility] dical Specialists EPIC REASON FOR VISIT (unrecogniz ed section and content) Reason Comments Follow-up Reason Comments Med Refill Reason Comments Pain Care Teams (unrecognized sec tion and content) Pipe Liner Relationship Specialty Start Date End Date Fallon Henry MD [address] [place] [address] PCP - General Family Medicine 01/22/21 Pipe Liner Relationship Specialty Start Date End Date Fallon Henry MD [address] [place] [id number] PCP - General Family Medicine 01/22/21 Pipe Liner Relationship Specialty Start Date End Date Fallon Henry MD [address] [place] [phone] PCP - General Family Medicine 11/09/22 Pipe Liner Relationship Specialty Start Date End Date Fallon Henry MD [address] [place] [phone] PCP - General Family Medicine 01/22/21 FOR [...] BE BASED ON THE PRIMARY CLINICAL RECORDS. [facility] CME [facility]. provides no warranty or guarantee of the accuracy or completeness of information in this document.
== END 2023-11-15 11:46 | disposition home or self-care (01) ==
LOC: PM 11:45
PROVIDERS: PCP Family Medicine; Visit Provider Anesthesiology Pain Medicine
DX: M79.18 Myalgia, other site (principal)
CPT/HCPCS: 20552; J0665; J3301

== ENCOUNTER 2024-01-30 06:29 | Outpatient (OUT) | payer OTHER, SELFPAY ==
--- OUTSIDE RECORDS SUMMARY | 2024-01-30 06:33 | XMS_ITS | CCD ---
Author Organization [facility] CliniSynm Care Team Providers Care Sales Systems Engineer Name Role Phone Hanna Quiros Unavailable Unavailable Unavailable FALLON HENRY Primary Care Unavailable SANTO HARMON Referring Unavailable FALLON HENRY Primary Care Unavailable SANTO HARMON Referring Unavailable CARL, FALLON Primary Care Unavailable SANTO HARMON Referring Unavailable GARDUNO ., DR ROWAN Shea Admitting Unavailable GARDUNO ., DR ROWAN Shea Attending Unavailable CARL, DR FALLON Emmanuel Primary Care Unavailable GARDUNO ., DR ROWAN Shea Consulting Unavailable LAKSHMIPATHY, NARENDKUMARATH Admitting Unava ilable LAKSHMIPATHY, NARSHYAM Attending Unadipesh HENRY, DR FALLON Emmanuel Primary Care Unavailable LAKSHMIPATHY, NARSHYAM Consulting Unava ilable SHAAN ., DR ROWAN Shea Admitting Unavailable GARDUNO ., DR ROWAN Shea Attending Unavailable CARL, DR FALLON Emmanuel Primary Care Unavailable WATKINS ., MICHELLE Consulting Unavailable GARDUNO ., DR ROWAN Shea Admitting Unavailable GARDUNO ., DR ROWAN Shea Attending Unavailable CARL, DR FALLON Emmanuel Primary Care Unavailable GARDUNO ., DR ROWAN Shea Consulting Unavailable ROD KANG Consulting Unavailable GARDUNO ., DR ROWAN Shea Admitting Unavailable GARDUNO ., DR ROWAN Shea Attending Unavailable CARL, DR FALLON Emmanuel Primary Care Unavailable WATKINS ., MICHELLE Consulting Unavailable GARDUNO ., DR ROWAN Shea Admitting Unavailable GARDUNO ., DR ROWAN Shea Attending Unavailable CARL, DR FALLON Emmanuel Primary Care Unavailable GARDUNO ., DR ROWAN Shea Consulting Unavailable LAKSHMIPATHY, NARENDRANATH Admitting Unava ilable LAKSHMIPATHY, NARSHYAM Attending Unadipesh HENRY, DR FALLON Emmanuel Primary Care Unavailable DR ABEBA DOUGHERTY Consulting Unavailable LAKSHMIPATHY, NARKASSYATH Consulting UnaFallon Pathak Unavailable Fallon Henry MD Primary Care Provider Fallon Henry MD Primary Care Provider [phone] HUMBERTO KHOURY Attending Unavailable HENRY, FALLON E Referring Unavailable HENRY, FALLON E Primary Care Unavailable HENRYHUMBERTO Attending Unavailable HENRY, FALLON E Referring Unavailable HENRY, FALLON E Primary Care Unavailable HENRY, HUMBERTO Referring Unavailable HENRY, FALLON E Primary Care Unavailable DL, PATTIE Vera Admitting Unavailable DL, PATTIE Vera Attending Unavailable HENRY, FALLON E Primary Care Unavailable ROXANA, HANNA Chavez Attending Unavailable HENRY, FALLON E Primary Care [...] B Referring Unavailable BRINK, CORNELL Attending Unavailable WIL CAO Referring Unavailable CORNELL [...] / benazepril hydrochloride 40 mg oral capsule (8 sources) Dihydropyridine Calcium Channel Vandana, Angiotensin Converting [...] Daily Quantity: 0 Refills: 0 Ordered: 16-Feb-2021 Viktor Scott MD Active aspirin 81 mg delayed release oral tablet (12 sources) Platelet Aggregation Inhibitor, Nonsteroidal Anti-inflammatory Drug take 1 tablet by mouth in the morning aspirin 81 mg Take 1 tablet (81 mg total) by mouth in the morning. 30 tablet 11 Active take 1 tablet by mouth once gina y Aspirin 81 81 MG 1 tablet Orally Once a day Active atorvastatin 10 mg oral tablet (12 sources) HMG-CoA Reductase Inhibitor Start: 02-01-2021 take 1 tablet by mouth once daily atorvastatin (LIPITOR) 10 mg tablet Take 1 tablet (10 mg total) by mouth nightly. 02/01/2021 Active baclofen 10 mg oral tablet (6 sources) gamma-Aminobutyr ic Acid-ergic Agonist Start: 05-20-2022 take 0.5-1 tablets by mouth three times daily as needed baclofen (LIORESAL) 10 mg tablet TAKE 1/2 (ONE-HALF) TO 1 (ONE) TABLET BY MOUTH THREE TIMES DAILY NEEDED 05/20/2022 Active Cannabinoids (medical cannabis) (2 sources) take 1 dose by inhalation once daily as needed Cannabinoids (medical cannabis) Inhale 1 each Daily as needed. 0 Active docusate sodium 100 mg oral capsule (12 sources) take 1 capsule by mouth in the morning docusate sodium (COLACE) 100 mg capsule Take 1 capsule (100 mg total) by mouth in the morning. Active gabapentin 600 mg oral tablet (14 sources) Anti-epileptic Agent take 1 tablet by mouth in the morning, then take 1 tablet by mouth at bedtime gabapentin (NEURONTIN) 600 mg tablet Take 1 tablet (600 mg total) by mouth in the morning and 1 tablet (600 mg total) before bedtime. Active gabapentin (Neur ontin) 600 MG tablet every 8 (eight) hours. 0 Active medical marijuana (4 sources) take 1 dose by inhal ation once daily as needed for pain medical marijuana Inhale 1 each daily as needed. Pt states he has a medical marijuana card and uses in the evening as needed for chronic pain Active take 1 dose by inhal ation once daily as needed for pain medical [...] 4 mg oral tablet (2 sources) Corticosteroid Start: 2023 End: 2023 take 1 tablet by mouth once methylPREDNISolone [...] psyllium 3400 mg powder for oral suspension (9 sources) take 1 dose by mouth in the morning psyllium (METAMUCIL) powder Take 1 packet by mouth in the morning. Active Psyllium 48.57 % as directed Orally Active traMADol hydrochloride 50 mg oral tablet (14 sources) Opioid Agonist Start: 01-14-2023 take 1 [...] 8 (eight) hours as needed for pain. Active Problems Active Problems Problem Classification Problem Date Documented Date Episodic/Chronic Cardiac dysrhythmias (13 sources) Paroxysmal atrial fibrillation; Translations: [Paroxysmal atrial fibrillation] Onset: 01-19-2022 Chronic Diabetes mellitus without complication (1 source) Type 2 diabetes mellitus without complications; Translations: [TYPE 2 DM WITHOUT COMPLICATIONS] Onset: 01-14-2022 Chronic Disorders of lipid metabolism (7 sources) Hyperlipidemia; Translations: [Hyperlipidemia, unspecified] Chronic Essential hypertension (15 sources) Benign essential hypertension; Translations: [Benign essential hypertension] Onset: 04-26-2018 Chronic Osteoarthritis (9 sources) Primary osteoarthritis, unspecified hand; Translations: [Chronic osteoarthritis] Onset: 10-15-2021 03-29-2023 Chronic Other circulatory disease (2 sources) Raynaud's phenomenon; Translations: [Raynaud's syndrome without gangrene] Onset: 11-09-2022 11-09-2022 Chronic Other circulatory disease (1 source) History of cardiovascular surgery; Translations: [Presence of other cardiac implants and grafts] Onset: 06-14-2021 07-28-2023 Chronic Other connective tissue disease (1 source) [...] [PAIN IN LEFT HIP] Onset: 05-28-2022 Episodic Spondylosis; intervertebral disc disorders; other back [...] Date Documented Da te Episodic/Chronic Cardiac dysrhythmias (12 sources) Sinus bradycardia; Translations: [Bradycardia, unspecified] Onset: 01-19-2022 01-19-2022 Episodic Mood disorders (4 sources) Mood disorders Onset: 11-24-2018 11-24-2018 Nonspecific chest pain (6 sources) Chest pain; Translations: [Other chest pain] [...] in right hand] Onset: 11-09-2022 11-09-2022 Episodic Other screening for suspected conditions (not mental disorders or infectious disease) (10 sources) Encounter for screening for malignant neoplasm of prostate; Translations: [Elevated prostate specific antigen [PSA]] Onset: 12-22-2022 Episodic Spondylosis; intervertebral disc disorders; other back problems (14 sources) Muscle spasm of back; Translations: [Intervertebral disc disorders with radiculopathy, lumbar region] Onset: 01-25-2022 11-09-2022 Episodic Unclassified (1 source) LOW BACK PAIN, UNSPECIFIED; Translations: [LOW BACK PAIN, UNSPECIFIED] Onset: 05-20-2022 Unclassified (4 sources) Onset: 11-24-2018 11-24-2018 Results Test Name Value Interpretation Reference Range Facility Prostate specific Ag [Mass/V ol]on 05-10-2023 PROSTATIC SPEC ANT 2.23 ng/mL Normal 0.00-4.00 [facility] Comment on above: Result Comment: The method used for this test is Kath[employer] DXI chemiluminescent immunoassay. Values obtained by different assay methods cannot be used interchangeably. Performed By: #### 2 857-1 #### [facility] ([id number]) [address], [address] [place] [address] XR HIPS STEPH 3_4V WO PELVISon 05-20-2022 [...] by: ABEBA DOUGHERTY Date: 2022-05-20 11:00 Normal [facility] POINT OF CARE GLUCOSEon 112 Glucose [Mass/Vol] 84 mg/dL Normal 74-106 [facility] Comment on above: Performed By: #### P OCGLUC #### [facility] [address] [place] [address] Dr. Erin Anthony TOAN SCREEN WITH REFLEXon TOAN Screen, IFA Negative Normal Negative [facility] Comment on above: Order Comment: [facility] performed at: [employer], [facility], [address] [place] [address], , Vending Route Servicer: Remberto Clemens MD PhD\X0D0A\[facility] Collection Date/Time: [id number]\X0D0A\[facility] Results Received Date/Time: [id number]\X0D0A\[facility] Reported Date/Time: [id number] Result Comment: \X0D 0A\TOAN IFA is a [...] inflammatory myopathies.\X0D0A\ \X0D0A\AC-0: Negative\X0D0A\International Consensus on TOAN Patterns\X0D0A\https://doi.org/10.1515/wgbk-3854-9171\X0D0A\ \X0D0A\For additional information, please refer to\X0D0A\http://education.Traxer/faq/ASY810\X0D0A\ \X0D0A\(This link is being provided for informational/\X0D0A\educational purposes only.)\X0D0A\ Performed By: #### O RD264 #### [place] [address] Ph. [phone] ANCA Screen with Reflex to A NCA Titeron 10-15-2021 ANCA Screen Negative Normal Negative [facility] Comment on above: Order Comment: [facility] performed at: [employer], [facility], [address] [place] [address], , Vending Route Servicer: Remberto Clemens MD PhD\X0D0A\[facility] Collection Date/Time: [id number]\X0D0A\[facility] Results Received Date/Time: [id number]\X0D0A\[facility] Reported Date/Time: [id number] Result Comment: \X0D 0A\ANCA Screen includes evaluation [...] disease.\X0D0A\ Performed By: #### O RD264 #### [place] [id number] Ph. [phone] ANGIOTENSIN CONVERTING ENZYM [place] 10-15-2021 Angiotensin Conv Enzyme 5 U/L Low [facility] Comment on above: Order Comment: [facility] performed at: [facility], [address] [place] [address], , Vending Route Servicer: Remberto Clemens MD PhD\X0D0A\[facility] Collection Date/Time: \X0D0A\[facility] Results Received Date/Time: \X0D0A\[facility] Reported Date/Time: Performed By: #### O RD264 #### [place] [id number] Ph. [phone] ANTI CENTROMERE ANTIBODYon 0 10-15-2021 Centromere B Antibody <1.0 Normal [facility] Comment on above: Order Comment: [facility] performed at: [facility], [address] [place] [address], , Vending Route Servicer: Remberto Clemens MD PhD\X0D0A\[facility] Collection Date/Time: \X0D0A\[facility] Results Received Date/Time: [id number]\X0D0A\[facility] Reported Date/Time: Result Comment: \X0D 0A\ Reference Range: < 1.0 NEG AI\X0D0A\ Performed By: #### O [address]264 #### [place] [address] Ph. [phone] ANTI-DNA ANTIBODY, DOUBLE-ST RANDEDon 10-15-2021 DNA (ds) Antibody <1 Normal <=4 [facility] Comment on above: Order Comment: [facility] performed at: [employer], [facility], [address] [place] [address], , Vending Route Servicer: Remberto Clemens MD PhD\X0D0A\[facility] Collection Date/Time: \X0D0A\[facility] Results Received Date/Time: \X0D0A\[facility] Reported Date/Time: Result Comment: \X0D 0A\ Value Interpretation\X0D0A\ \X0D0A\ or=10 IU/mL: Positive\X0D0A\ Performed By: #### O [address] #### [place] [address] Ph. [phone] ANTI-ADMISSIONS ADVISOR (EUN AB)on 10-16-19 ADMISSIONS ADVISOR Antibody <1.0 Normal [facility] Comment on above: Order Comment: [facility] performed at: [facility], [address] [place] [address], , Vending Route Servicer: Remberto Clemens MD PhD\X0D0A\[facility] Collection Date/Time: \X0D0A\[facility] Results Received Date/Time: \X0D0A\[facility] Reported Date/Time: Result Comment: \X0D 0A\ Reference Range: < 1.0 NEG AI\X0D0A\ Performed By: #### O [address] #### [place] [address] Ph. [phone] ANTI-SCLERODERMA ANTIBODY (a ka SCL 70)on 10-15-2021 Scl-70 Antibody <1.0 Normal [facility] Comment on above: Order Comment: [facility] performed at: [facility], [address] [place] [address], , Vending Route Servicer: Remberto Clemens MD PhD\X0D0A\[facility] Collection Date/Time: \X0D0A\[facility] Results Received Date/Time: \X0D0A\[facility] Reported Date/Time: Result Comment: \X0D 0A\ Reference Range: < 1.0 NEG AI\X0D0A\ Performed By: #### O [address] #### [place] [address] Ph. [phone] C-Reactive Proteinon 022 CRP [Mass/Vol] mg/L Normal 0.0-1.0 [facility] Comment on above: Performed By: #### C K, URIC, CRP, CMP ####[place], [place] [address]Ph. [phone] C3 COMPLEMENTon 10-15-2021 Complement Component C3c 132 mg/dL Normal 82-185 [facility] Comment on above: Order Comment: [facility] performed at: [facility], [address] [place] [address], , Vending Route Servicer: Remberto Clemens MD PhD\X0D0A\[facility] Collection Date/Time: \X0D0A\[facility] Results Received Date/Time: \X0D0A\[facility] Reported Date/Time: Performed By: #### O [address] #### [place] [address] Ph. [phone] C4 COMPLEMENTon 10-15-2021 Complement Component C4c 31 mg/dL Normal 15-53 [facility] Comment on above: Order Comment: [facility] performed at: [facility], [facility], [address] [place] [address], , Vending Route Servicer: Remberto Clemens MD PhD\X0D0A\[facility] Collection Date/Time: \X0D0A\[facility] Results Received Date/Time: \X0D0A\[facility] Reported Date/Time: Performed By: #### O [address] #### [place] [address] Ph. [phone] Complete Blood Count with Au to Diffon 10-15-2021 Basophils (Bld) [#/Vol] 0.1 10*3/uL Normal 0.0-0.1 [facility] Comment on above: Performed By: #### C BCAD #### [place] [address] Ph. [phone] Basophils/100 WBC (Bld) 1 % Normal 0-1 [facility] Comment on above: Performed By: #### C BCAD #### [place] [address] Ph. [phone] Eosinophils (Bld) [#/Vol] 0.3 10*3/uL Normal 0.0-0.5 [facility] Comment on above: Performed By: #### C BCAD #### [place] [address] Ph. [phone] Eosinophils/100 WBC (Bld) 3 % Normal 0-5 [facility] Comment on above: Performed By: #### C BCAD #### [place] [address] Ph. [phone] Erythrocyte distribution width (RBC) [Ratio] 12.8 % Normal 11.5-14.5 [facility] Comment on above: Performed By: #### C BCAD #### [address] [address] Ph. [phone] Hematocrit (Bld) [Volume fraction] 45.9 % Normal 42.0-52.0 [facility] Comment on above: Performed By: #### C BCAD #### [address] [address] Ph. [phone] Hemoglobin (Bld) [Mass/Vol] 15.2 g/dL Normal 13.5-17.5 [facility] Comment on above: Performed By: #### C BCAD #### [place] [address] Ph. [phone] Lymphocytes (Bld) [#/Vol] 2.4 10*3/uL Normal 1.0-4.0 [facility] Comment on above: Performed By: #### C BCAD #### [place] [address] Ph. [phone] Lymphocytes/100 WBC (Bld) 26 % Normal 20-40 [facility] Comment on above: Performed By: #### C BCAD #### [address] [address] Ph. [phone] MCH (RBC) [Entitic mass] 28.8 pg Normal 27.0-35.0 [facility] Comment on above: Performed By: #### C BCAD #### [address] [address] Ph. [phone] MCHC (RBC) [Mass/Vol] 33.1 g/dL Normal 32.0-36.0 [facility] Comment on above: Performed By: #### C BCAD #### [address] [address] Ph. [phone] MCV (RBC) [Entitic vol] 87 fL Normal 80-100 [facility] Comment on above: Performed By: #### C BCAD #### [address] [address] Ph. [phone] Monocytes (Bld) [#/Vol] 0.6 10*3/uL Normal 0.3-1.0 [facility] Comment on above: Performed By: #### C BCAD #### [address] [address] Ph. [phone] Monocytes/100 WBC (Bld) 7 % Normal 1-15 [facility] Comment on above: Performed By: #### C BCAD #### [address] [address] Ph. [phone] Neutrophils (Bld) [#/Vol] 5.9 10*3/uL Normal 1.8-7.7 [facility] Comment on above: Performed By: #### C BCAD #### [address] [address] Ph. [phone] Neutrophils/100 WBC (Bld) 64 % Normal 50-70 [facility] Comment on above: Performed By: #### C BCAD #### [address] [address] Ph. [phone] Platelet mean volume (Bld) [Entitic vol] 9.5 fL Normal 9.4-12.3 [facility] Comment on above: Performed By: #### C BCAD #### [address] [address] Ph. [phone] Platelets (Bld) [#/Vol] 230 10*3/uL Normal 150-450 [facility] Comment on above: Performed By: #### C BCAD #### [address] [address] Ph. [phone] RBC (Bld) [#/Vol] 5.27 10*6/uL Normal 4.70-6.10 [facility] Comment on above: Performed By: #### C BCAD #### [address] [address] Ph. [phone] WBC (Bld) [#/Vol] 9.3 10*3/uL Normal 3.7-11.0 [facility] Comment on above: Performed By: #### C BCAD #### [address] [address] Ph. [phone] Comprehensive Metabolic Pane idania 10-15-2021 Albumin [Mass/Vol] 4.4 g/dL Normal 3.5-5.0 [facility] Comment on above: Performed By: #### C K, URIC, CRP, CMP ####[address] [address]Np. [phone] ALP [Catalytic activity/Vol] 73 U/L Normal 38-126 [facility] Comment on above: Performed By: #### C K, URIC, CRP, CMP ####[address] [address]Mi. [phone] ALT [Catalytic activity/Vol] 18 U/L Normal 0-50 [facility] Comment on above: Performed By: #### C K, URIC, CRP, CMP ####[address] [address]Lk. [phone] AST [Catalytic activity/Vol] 32 U/L Normal 17-59 [facility] Comment on above: Performed By: #### C K, URIC, CRP, CMP ####[address] [address]Zi. [phone] Bilirubin [Mass/Vol] 0.8 mg/dL Normal 0.2-1.3 [facility] Comment on above: Performed By: #### C K, URIC, CRP, CMP ####[address] [address]Wx. [phone] Calcium [Mass/Vol] 8.8 mg/dL Normal 8.4-10.2 [facility] Comment on above: Performed By: #### C K, URIC, CRP, CMP ####[address] [address]Qw. [phone] Chloride [Moles/Vol] 101 mmol/L Normal 98-107 [facility] Comment on above: Performed By: #### C K, URIC, CRP, CMP ####[address] [address]Io. [phone] CO2 [Moles/Vol] 27 mmol/L Normal 22-32 [facility] Comment on above: Performed By: #### C K, URIC, CRP, CMP ####[address] [address]Iz. [phone] Creatinine [Mass/Vol] 0.95 mg/dL Normal 0.66-1.25 [facility] Comment on above: Performed By: #### C K, URIC, CRP, CMP ####[address] [address]If. [phone] GFR/1.73 sq M.predicted among non-blacks MDRD (S/P/Bld) [Vol rate/Area] 86 mL/min/{1.73_m2} Normal >60 [facility] Comment on above: Result Comment: Stag e 1 Kidney damage (e.g., protein in the urine) with normal GFR >=90\X0D0A\Stage 2 Kidney damage with mild decrease in GFR 60-89\X0D0A\Stage 3a Moderate decrease in GFR 45-59\X0D0A\Stage 3b Moderate decrease in GFR 30-44\X0D0A\Stage 4 Severe reduction in GFR 15-29\X0D0A\Stage 5 Kidney failure <15 Performed By: #### C K, URIC, CRP, CMP ####[address], [place] [address]Fv. [phone] Glucose [Mass/Vol] 84 mg/dL Normal 65-100 [facility] Comment on above: Performed By: #### C K, URIC, CRP, CMP ####[address] [address]Sy. [phone] Potassium [Moles/Vol] 4.1 mmol/L Normal 3.6-5.0 [facility] Comment on above: Performed By: #### C K, URIC, CRP, CMP ####[address] [address]Ko. [phone] Protein [Mass/Vol] 7.1 g/dL Normal 6.3-8.2 [facility] Comment on above: Performed By: #### C K, URIC, CRP, CMP ####[address] [address]Td. [phone] Sodium [Moles/Vol] 140 mmol/L Normal 135-145 [facility] Comment on above: Performed By: #### C K, URIC, CRP, CMP ####[address] [address]Bk. [phone] Urea nitrogen [Mass/Vol] 15 mg/dL Normal 9-20 [facility] Comment on above: Performed By: #### C K, URIC, CRP, CMP ####[address] [address]Mu. [phone] Creatine Kinaseon 10-15-2021 CK [Catalytic activity/Vol] 105 U/L Normal 49-397 [facility] Comment on above: Performed By: #### C K, URIC, CRP, CMP ####[address] [address]Gn. [phone] Erythrocyte Sedimentation Ra ann 10-15-2021 ESR (Bld) [Velocity] 2 mm/h Normal 0-20 [facility] Comment on above: Result Comment: The ESR varies with age. The maximum normal ESR at a given age is calculated using the formulas:Men: Age in years/2Women: (Age in years + 10)/2 Performed By: #### E SR ####[address] [address]Ri. [phone] HLA-B27 ANTIGENon 10-15-2021 HLA-B27 Antigen Negative Normal Negative [facility] Comment on above: Order Comment: [facility] performed at: [employer], [facility], [address] [place] [address], , Vending Route Servicer: Remberto Clemens MD PhD\X0D0A\[facility] Collection Date/Time: [id number]\X0D0A\[facility] Results Received Date/Time: [id number]\X0D0A\[facility] Reported Date/Time: Performed By: #### O RD634 #### [address] [address] Ph. [phone] MISCELLANEOUS SENDOUTon 09-0 Misc Ref Lab Result See Below Normal 0-0 [facility] Comment on above: Result Comment: Rheu matoid Factor Result: <14 IU/mL\X0D0A\X0D0A\Reference Range: <14 IU/mL \X0D0A\ \X0D0A\Performing Laboratory Information:\X0D0A\AMD [facility] [place] [id number] [facility] Vending Route Servicer: Remberto Clemens MD PhD Performed By: #### O RD263 #### [place] [address] Ph. [phone] MRI COMPARISON OF OUTSIDE FI LMSon 10-15-2021 MRI COMPARISON OF OUTSIDE FILMS RADRPT There is no result for this study. This is a placeholder for comparison films only. Final result Normal [facility] SJOGREN'S ANTIBODIES (SS-A, SS-B)on 10-15-2021 Sjogren's Antibody (SS-A) <1.0 Normal [facility] Comment on above: Order Comment: [facility] performed at: [facility], [address] [place] [address], , Vending Route Servicer: Remberto Clemens MD PhD\X0D0A\[facility] Collection Date/Time: \X0D0A\[facility] Results Received Date/Time: \X0D0A\[facility] Reported Date/Time: Result Comment: \X0D 0A\ Reference Range: < 1.0 NEG AI\X0D0A\ Performed By: #### O [address]438 #### [place] [address] Ph. [phone] Sjogren's Antibody (SS-B) <1.0 Normal [facility] Comment on above: Order Comment: [facility] performed at: [facility], [address] [place] [address], , Vending Route Servicer: Remberto Clemens MD PhD\X0D0A\[facility] Collection Date/Time: \X0D0A\[facility] Results Received Date/Time: \X0D0A\[facility] Reported Date/Time: Result Comment: \X0D 0A\ Reference Range: < 1.0 NEG AI\X0D0A\ Performed By: #### O RD438 #### [address] [place] [address] Ph. [phone] GUERRA ANTIBODYon 10-15-2021 Guerra Antibody <1.0 Normal [facility] Comment on above: Order Comment: [facility] performed at: [employer], [facility], [address] [place] [address], , Vending Route Servicer: Remberto Clemens MD PhD\X0D0A\[facility] Collection Date/Time: \X0D0A\[facility] Results Received Date/Time: \X0D0A\[facility] Reported Date/Time: Result Comment: \X0D 0A\ Reference Range: < 1.0 NEG AI\X0D0A\ Performed By: #### O [address] #### [place] [address] Ph. [phone] THYROID PEROXIDASE ANTIBODYo n 10-15-2021 Thyroid Peroxidase Abs 8 IU/mL Normal <9 [facility] Comment on above: Order Comment: [facility] performed at: [facility], [address] [place] [address], , Vending Route Servicer: Remberto Clemens MD PhD\X0D0A\[facility] Collection Date/Time: \X0D0A\[facility] Results Received Date/Time: [id number]\X0D0A\[facility] Reported Date/Time: [id number] Performed By: #### O [address]264 #### [place] [address] Ph. [phone] THYROID STIMULATING IMMUNOGL OBULINon 10-15-2021 TSI Numeric Value <89 Normal <140 [facility] Comment on above: Order Comment: [facility] performed at: [facility], [address] [place] [address], Vending Route Servicer: Remberto Clemens MD PhD\X0D0A\Quest Collection Date/Time: [id number]\X0D0A\[facility] Results Received Date/Time: [id number]\X0D0A\[facility] Reported Date/Time: [id number] Result Comment: \X0D 0A\Thyroid stimulating immunoglobulins (TSI) [...] characteristics of this\X0D0A\assay have been determined by [facility]\X0D0A\[facility] [place], [place]. The modifications\X0D0A\have not been cleared or approved by the FDA. This\X0D0A\assay has been validated pursuant to the CLIA\X0D0A\regulations and is used for clinical purposes.\X0D0A\ Performed By: #### O RD562 #### [address] [address] Ph. [phone] Uric Acidon 10-15-2021 URIC 4.9 mg/dL Normal 3.5-8.5 [facility] Comment on above: Performed By: #### C K, URIC, CRP, CMP ####[address] [address]Ap. [phone] XR CHEST (2 VW)on 10-15-2021 XR CHEST [...] Rod Mcgill MD 10/15/21 Final result Normal [facility] XR COMPARISON OF OUTSIDE BALWINDER MSon 10-15-2021 XR COMPARISON OF OUTSIDE FILMS RADRPT There is no result for this study. This is a placeholder for comparison films only. Final result Normal [facility] XR COMPARISON OF OUTSIDE FILMS RADRPT There is no result for this study. This is a placeholder for comparison films only. Final result Normal [facility] XR COMPARISON OF OUTSIDE FILMS RADRPT There is no result for this study. This is a placeholder for comparison films only. Final result Normal [facility] XR COMPARISON OF OUTSIDE FILMS RADRPT There is no result for this study. This is a placeholder for comparison films only. Final result Normal [facility] XR COMPARISON OF OUTSIDE FILMS RADRPT There is no result for this study. This is a placeholder for comparison films only. Final result Normal [facility] XR HAND LEFT (2 VIEWS)on XR HAND [...] MD 10/16/21 Final result Normal [facility] XR HAND RIGHT (2 VIEWS)on XR HAND [...] MD 10/16/21 Final result Normal [facility] XR SHOULDER LEFT (MIN 2 VIEW S)on [...] MD 10/16/21 Final result Normal [facility] XR SHOULDER RIGHT (MIN 2 VIE WS)on [...] MD 10/16/21 Final result Normal [facility] XR WRIST LEFT (2 VIEWS)on XR WRIST [...] MD 10/16/21 Final result Normal [facility] XR WRIST RIGHT (2 VIEWS)on 0 10-15-2021 [...] Sal MD 10/16/21 Final result Normal [facility] CT CARDIAC SCORINGon 02-14 CT [...] FOR CARDIOVASCULAR CONDITION. COMPARISON: None. ACCESSION NUMBER(S): [id number] ORDERING CLINICIAN: BALBUENA SCOTT TECHNIQUE: Using prospective ECG gating, CT [...] al. JACC 2015 (http://dx.doi.org/10. 1016/j.j acc.2015.08.035) Reading Meat Stocker: Dr. Chilango Delarosa, Date: 02/25/2020 7:53 pm Electronically signed by: NOE LITTLE MD [facility] Vital Signs Date Time Vital Sign Value Performing Clinician Facility 05-10-2023 11: Body height 177.8 cm Humberto Khoury MD Work Phone: [facility] [facility] 05-10-2023 11:170400 Body mass index (BMI) [Ratio] 23.24 kg/m2 Humberto Khoury MD Work Phone: [facility] [employer] [facility] 05-10-2023 11:17-0400 Body weight 73.48 kg Humberto Khoury MD Work Phone: [facility] [employer] [facility] 05-10-2023 11:17-0400 Diastolic blood pressure 72 mm[Hg] Humberto Khoury MD Work Phone: [facility] [employer] [facility] 05-10-2023 11:17-0400 Heart rate 54 /min Humberto Khoury MD Work Phone: [facility] [employer] [facility] 05-10-2023 11:17-0400 Systolic blood pressure 120 mm[Hg] Humberto Khoury MD Work Phone: [facility] 02-08-2023 12:17-0500 Body height 177.8 cm Humberto Khoury MD Work Phone: [facility] [employer] [facility] 02-08-2023 12:17-0500 Body mass index (BMI) [Ratio] 23.24 kg/m2 Humberto Khoury MD Work Phone: [facility] [employer] [facility] 02-08-2023 12:17-0500 Body weight 73.48 kg Humberto Khoury MD Work Phone: [facility] 02-08-2023 12:17-0500 Diastolic blood pressure 83 mm[Hg] Humberto Khoury MD Work Phone: [facility] [employer] [facility] 02-08-2023 12:17-0500 Heart rate 64 /min Humberto Khoury MD Work Phone: [facility] [employer] [facility] 02-08-2023 12:17-0500 Systolic blood pressure 127 mm[Hg] Humberto Khoury MD Work Phone: [facility] [employer] [facility] 01-21-2023 11:15-0500 Body height 177.8 cm Fallon Henry Other [facility] Other 01-21-2023 11:15-0500 Body mass index (BMI) [Ratio] 23.07 kg/m2 Fallon Henry Other [facility] Other 01-21-2023 11:15-0500 Body weight 72.94 kg Fallon Henry Other [facility] Other 01-21-2023 11:15-0500 Diastolic blood pressure 73 mm[Hg] Fallon Henry Other [facility] Other 01-21-2023 11:15-0500 Systolic blood pressure 115 mm[Hg] Fallon Henry Other [facility] Other 10-25-2022 13:30-0400 Body height 177.8 cm Fallon Henry Other [facility] Other 10-25-2022 13:30-0400 Body mass index (BMI) [Ratio] 23.3 kg/m2 Fallon Henry Other [facility] Other 10-25-2022 13:30-0400 Body weight 73.66 kg Fallon Henry Other [facility] Other 10-25-2022 13:30-0400 Diastolic blood pressure 84 mm[Hg] Fallon Henry Other [facility] Other 10-25-2022 13:30-0400 Respiratory rate 12 /min Fallon Henry Other [facility] Other 10-25-2022 13:30-0400 Systolic blood pressure 136 mm[Hg] Fallon Henry Other [facility] Other Encounters Encounter Date Encounter Type Care Provider Facility Start: 01-19-2024 End: 01-20-2024 Telephone encounter [facility] Start: 08-02-2023 End: 08-02-2023 ambulatory PATTIE PICHARDO Not Available Start: 06-21-2023 End: 06-21-2023 ambulatory CORNELL BRINK Not Available Start: 06-17-2023 End: 06-17-2023 ambulatory CORNELL BRINK Not Available Start: 06-15-2023 End: 06-15-2023 ambulatory CORNELL BRINK Not Available Start: 06-13-2023 End: 06-13-2023 ambulatory MELA Devin BLACK[place]ON Not Available Start: 06-10-2023 End: 06-10-2023 ambulatory CORNELL BRINK Not Available Start: 06-08-2023 End: 06-08-2023 ambulatory CORNELL BRINK Not Available Start: 06-06-2023 End: 06-06-2023 ambulatory MELA Devin [place] Not Available Start: 06-03-2023 End: 06-03-2023 ambulatory CORNELL BRINK Not Available Start: 05-27-2023 End: 05-27-2023 ambulatory CORNELL BRINK Not Available Start: 05-25-2023 End: 05-25-2023 ambulatory MELA Devin [place] Not Available Start: 05-19-2023 End: 05-19-2023 ambulatory CORNELL BRINK Not Available Start: 05-17-2023 End: 05-17-2023 ambulatory MELA Devin [place] Not Available Start: 05-13-2023 End: 05-13-2023 ambulatory CORNELL BRINK Not Available Start: 05-11-2023 End: 05-11-2023 ambulatory CRISTI BENSON Not Available Start: 05-10-2023 End: 05-11-2023 ambulatory HUMBERTO KHOURY [facility] Start: 05-10-2023 End: 05-10-2023 Office outpatient visit 15 minutes Humberto Khoury MD Work Phone: [facility] Comment on above: Elevated PSA (Primar y Dx) Start: 05-09-2023 End: 05-09-2023 ambulatory MELA T [place]ACK[place] Not Available Start: 05-06-2023 End: 05-06-2023 ambulatory CORNELL BRINK Not Available Start: 05-04-2023 End: 05-04-2023 ambulatory CORNELL CHAO Not Available Start: 05-02-2023 End: 05-02-2023 ambulatory CORNELL CHAO Not Available Start: 04-29-2023 End: 04-29-2023 ambulatory CRISTI KNOWLES Not Available Start: 04-27-2023 End: 04-27-2023 ambulatory MELA SUAREZ Not Available Start: 04-26-2023 End: 04-26-2023 ambulatory [...] visit related to original px Wil Cao COMMUNITY HEALTH COORDINATOR Work Phone: [facility] Comment on above: Status post right ro tator cuff repair (Primary Dx); Arthritis of right acromioclavicular joint Start: 03-30-2023 End: 03-30-2023 ambulatory WIL CAO Not Available Start: 03-15-2023 End: 03-15-2023 ambulatory PATTIE PICHARDO Not Available Start: 02-13-2023 Refill Yasmin Roca er HEALTH SERVICES MANAGER-MOLDER BENCH Work Phone: [facility] Comment on above: Med Refill Start: 02-10-2023 End: 02-10-2023 ambulatory PATTIE PICHARDO Not Available Start: 02-08-2023 End: 02-08-2023 ambulatory HUMBERTO KHOURY [facility] Start: 02-08-2023 End: 02-08-2023 Office outpatient visit 25 minutes Humberto Khoury MD Work Phone: [facility] Comment on above: Elevated PSA (Primar y Dx) Start: 02-02-2023 End: 02-02-2023 Evaluation and management of inpatient HANNA SCHMIDT [facility] Start: 02-02-2023 End: 02-02-2023 Evaluation and management of inpatient PATTIE PICHARDO [facility] Start: 01-21-2023 End: 01-21-2023 ambulatory Fallon Henry Other [facility] Other Start: 01-21-2023 Office outpatient vi sit 10 minutes Fallon Henry [facility] Start: 01-21-2023 Patient encounter status Tiffanie Khoury MD Work Phone: [facility] [employer] Work Phone: Start: 01-20-2023 End: 01-20-2023 ambulatory PATTIE PICHARDO Not Available Start: 01-14-2023 End: 01-14-2023 ambulatory Fallon Henry Other [facility] Other Start: 01-14-2023 Telephone encounter Fallon Henry [facility] Start: 11-08-2022 End: 11-08-2022 ambulatory Fallon Henry Other [facility] Other Start: 11-08-2022 Telephone encounter Fallon Henry [facility] Start: 11-02-2022 End: 11-02-2022 ambulatory Fallon Henry Other [facility] Other Start: 11-02-2022 Telephone encounter Fallon Henry [facility] Start: 10-29-2022 End: 10-29-2022 ambulatory Fallon Henry Other [facility] Other Start: 10-29-2022 Telephone encounter Fallon Henry [facility] Start: 10-25-2022 End: 10-25-2022 ambulatory Fallon Henry Other [facility] [employer] Other Start: 10-25-2022 Office outpatient vi sit 15 minutes Fallon Henry [facility] Start: 05-20-2022 End: 05-21-2022 ambulatory SOURAV SANCHESMIPATHY Facility:[facility] Start: 03-04-2022 End: 03-05-[address] ROWAN GARDUNO . Facility:[facility] Start: 02-16-2022 End: 02-16-[address] ROWAN GARDUNO . Facility:[facility] Start: 01-21-2022 End: 01-22-[address] ROWAN GARDUNO . Facility:[facility] Start: 01-05-2022 End: 01-05-[address] ROWAN GARDUNO . Facility:[facility] Start: 12-08-2021 End: 12-09-[address] ROWAN GARDUNO . Facility:[facility] Start: 10-15-2021 ambulatory FALLON HENRY [facility] Start: 02-16-2021 Rx Renewal Hanna Dolan ce Work Phone: [facility] 250 DO Work Phone: Procedures Date Procedure Procedure Detail Performing Clinician Start: 02-08-2023 Follow-up visit Follow-up HUMBERTO KHOURY Start: 10-15-2021 Cyclic citrullinated peptide antibody FALLON HENRY Comment on above: Order Comment: [facility] performed at: [facility], [facility], [address] [place] [address], , Vending Route Servicer: Remberto Clemens MD PhD\X0D0A\Quest Collection Date/Time: [id number]\X0D0A\Quest Results Received Date/Time: [id number]\X0D0A\Quest Reported Date/Time: [id number] Result Comment: \X0D 0A\Negative: <20\X0D0A\Weak Positive: 20 - 39\X0D0A\Moderate Positive: 40 - 59\X0D0A\Strong Positive: >59\X0D0A\ Performed By: #### O RD264 #### [place] [id number] Ph. [phone] History of repair of musculotendinous cuff of shoulder Status post right rotator cuff repair Wil Cao NP Work Phone: Plan of Treatment Date Care Activity Detail Author Start: 05-09-2024 Adult BMI Screening Adult BMI Screen ing [facility] Start: 05-09-2024 Tobacco Screening Tobacco Screening [facility] Start: 03-12-2024 End: 03-12-2024 Patient encounter procedure 03/12/2024 11:15 AM EST [facility] [address] [facility] [address] [place] [address] Loli Alamo MD [address] [place], [place] [id number] [facility] Start: 02-09-2024 Adult BMI Screening Adult BMI Screen ing [facility] Start: 02-09-2024 Tobacco Screening Tobacco Screening [facility] Start: 10-16-2023 Influenza vaccination Influenza Vacc ine [facility] Start: 05-10-2023 End: 05-10-2023 Patient encounter procedure 05/10/2023 11:15 AM EDT Office Visit [facility] [address] [place] [address] [place] [id number] Humberto Khoury MD [address] [place] [address] [facility] Start: 05-09-2023 End: 02-08-2024 Prostatic specific antigen, diagnostic Prostatic specific antigen, diagnostic Lab Routine Elevated PSA Expected: 05/09/2023, Expires: 02/08/2024 SILVANO SBMary Work Phone: Comment on above: Expected: 05/09/2023 , Expires: 02/08/2024 Start: 04-26-2023 End: 04-26-2023 Patient encounter procedure 04/26/2023 9:45 AM EDT Office Visit [facility] [address] [facility] [address] [place] [address] Pattie Pichardo DO [address] [facility] [address] [place] [address] [facility] Start: 10-15-2022 Influenza vaccination Influenza Vacc ine [facility] Start: 2011 Administration of varicella zoster vaccine Zoster (Shingles) Vaccine (1 of 2) [facility] Start: 02-19-1980 DTaP,Tdap and Td Vaccines (1 - Tdap) DTaP,Tdap and Td Vaccines (1 - Tdap) [facility] Start: 1973 Depression Screening Depression Scre ening [facility] Immunizations Immunization Date Immunization Notes Care Provider Fa cili 02-15-2016 influenza virus vaccine, unspecified formulation Humberto Khoury MD Work Phone: [facility] 11-13-2013 influenza virus vaccine, unspecified formulation Humberto Khoury MD Work Phone: [facility] Payers Date Payer Category Payer Managed Care O (unspecified) [facility] [id number] 2020 Unknown 2020 Unknown [id number] 1961 Unknown [id number] 2.16.840.1.333342.3.579 .2.754 1961 Unknown [id number] 2.16.840.1.962591.3.579 .2.754 1961 Unknown [id number] 2.16.840.1.482492.3.579 .2.754 1961 Unknown [id number] 2.16.840.1.584433.3.579 .2.754 1961 Unknown [id number] 2.16.840.1.950160.3.579 .2.754 1961 Unknown [id number] 2.16.840.1.804739.3.579 .2.754 1961 Unknown [id number] 2.16.840.1.856383.3.579 .2.754 1961 Unknown [id number] 2.16.840.1.166699.3.579 .2.754 1961 Unknown [id number] 2.16.840.1.018856.3.579 .2.593 1961 Unknown [id number] 2.16.840.1.890755.3.579 .2.593 1961 Unknown [id number] 2.16.840.1.603076.3.579 .2.593 1961 Unknown [id number] 2.16.840.1.919279.3.579 .2.593 1961 Unknown [id number] 2.16.840.1.608852.3.579 .2.593 1961 Unknown [id number] 2.16.840.1.876685.3.579 .2.593 1961 Unknown [id number] 2.16.840.1.430211.3.579 .2.593 1961 Unknown [id number] 2.16.840.1.629459.3.579 .2.1286 1961 Unknown [id number] 2.16.840.1.394040.3.579 .2.1286 1961 Unknown [id number] 2.16.840.1.754514.3.579 .2.1286 1961 Unknown [id number] 2.16.840.1.716284.3.579 .2.1286 1961 Unknown [id number] 2.16.840.1.058430.3.579 .2.128 1961 Unknown [id number] 2.16.840.1.771321.3.579 .2.1286 1961 Unknown [id number] 2.16.840.1.019634.3.579 .2.1258 1961 Unknown [id number] 2.16.840.1.067569.3.579 .2.1258 1961 Unknown [id number] 2.16.840.1.334769.3.579 .2.1258 1961 Unknown [id number] 2.16.840.1.655939.3.579 .2.9 1961 Unknown [id number] 2.16.840.1.309827.3.579 .2.1258 1961 Unknown [id number] 2.16.840.1.251094.3.579 .2.9 1961 Unknown [id number] 2.16.840.1.569935.3.579 .2.1258 1961 Unknown [id number] 2.16.840.1.287529.3.579 .2.125 1961 Unknown [id number] 2.16.840.1.916340.3.579 .2.1258 1961 Unknown [id number] 2.16.840.1.091554.3.579 .2.1258 1961 Unknown [id number] 2.16.840.1.255623.3.579 .2.1258 1961 Unknown [id number] 2.16.840.1.775253.3.579 .2.1258 1961 Unknown [id number] 2.16.840.1.945626.3.579 .2.1258 1961 Unknown [id number] 2.16.840.1.624215.3.579 .2.1258 1961 Unknown [id number] 2.16.840.1.334745.3.579 .2.1258 1961 Unknown [id number] 2.16.840.1.197657.3.579 .2.1258 1961 Unknown [id number] 2.16.840.1.069960.3.579 .2.1258 1961 Unknown [id number] 2.16.840.1.446311.3.579 .2.1258 1961 Unknown [id number] 2.16.840.1.746143.3.579 .2.1258 1961 Unknown [id number] 2.16.840.1.149708.3.579 .2.1258 1961 Unknown [id number] 2.16.840.1.598970.3.579 .2.1258 1961 Unknown [id number] 2.16.840.1.026314.3.579 .2.1258 1961 Unknown [id number] 2.16.840.1.322957.3.579 .2.1258 1961 Unknown [id number] 2.16.840.1.658520.3.579 .2.1258 1961 Unknown [id number] 2.16.840.1.975393.3.579 .2.1258 1961 Unknown [id number] 2.16.840.1.707847.3.579 .2.1258 1961 Unknown [id number] 2.16.840.1.643294.3.579 .2.1258 1961 Unknown [id number] 2.16.840.1.775936.3.579 .2.1259 1961 Unknown [id number] 2.16.840.1.284671.3.579 .2.1259 1961 Unknown [id number] 2.16.840.1.123851.3.579 .2.1259 1961 Unknown [id number] 2.16.840.1.180556.3.579 .2.1259 1961 Unknown [id number] 2.16.840.1.322499.3.579 .2.1259 Self-pay [id number] 2.16840.1.268431.19 Self-pay [id number] 2.840.1.130963.19 Self-pay [id number] 2.16840.1.538261.19 Self-pay [id number] 2.16840.1.054636.19 Self-pay [id number] 2.160.1.666192.19 Self-pay [id number] 2.840.1.183213.19 Social History Date Type Detail Facility Start: 04-19-2018 End: 03-27-2020 Sex Assigned At [facility] Start: 05-04-2021 End: 11-10-2022 Tobacco smoking status NHIS Ex-smoker [facility] Start: 02-04-1973 End: 02-04-2001 History of tobacco use Current smoker [facility] Start: 02-04-1973 End: 02-04-2001 History of tobacco use Cigarette Smoker [facility] Start: 03-27-2020 End: 05-04-2021 Cigarettes smoked current (pack per day) - Reported 1.5 [facility] Start: 05-04-2021 Tobacco use and exposure Smoke less tobacco non-user [facility] Start: 02-08-2023 End: 05-10-2023 Alcohol intake Ex-drinker (finding) [facility] Frequency of Alcohol Consumption Never [facility] Start: 1960 Sex Assigned At Not on file P [facility] Start: 11-10-2022 Tobacco use and exposure Forme r smokeless tobacco user [facility] Start: 01-07-2023 Alcohol Comment caffeine more than 4 cups per day [facility] Start: 04-19-2018 Sex Male (finding) [facility] Procedure Code Equipment Code Equipment Origin al Text Equipment Identifier Dates Recorder Crd Annette q Ii Ins - [id number] - [id number] Start: 07-10-2021 Ultratape, 38 [id number] Start: 02-02-2023 Healicoil Regenesorb, 4.75mm Suture [place] With One Ultratape And One Ultrabraid Suture [id number] Start: 02-02-2023 [employer]il Knotle ss Regenesorb Suture [place] 5.5mm, Self-Tapping [id number] Start: 02-02-2023 Hs-Fiber Ultraloop [id number] Start: 02-02-2023 Clinical Notes 12-08-2021 to 01-19-2024 Telephone Encounter - Annabel Marin RN - 01/19/2024 12:13 PM ESTTelephone Encounter - Abelardo Oneill MD - 01/19/2024 12:13 PM ESTTelephone Encounter - Abelardo Oneill MD - 01/19/2024 12:13 PM EST Note Date & Type Note Facility 01-19-2024 Miscellaneous Notes OK: Pt calls today asking about removal of ILR and gave your name. It looks like Ally also called pt to schedule a 1 year follow up visit with you. Patient has not been seen by [facility] since 02/05 and was by RDG. Do you want to provide any orders now or would you want pt to have a one year follow up with you (or RDG)? You saw pt last 07/01/22 FYI. Thank you, Annabel Okay to schedule loop recorder removal. No meds to hold. Does not need to be NPO. Can be added on schedule any time. Thanks, OK Called and spoke with pt Rosie - agreeable to 02/01 @ 1500 Reviewed pre op instructions: TTH, entrance C, arrive @ 1400, no fasting or meds to hold She v/u of all discussed documented in this encounter [facility] 01-19-2024 Telephone encounter Note OK: Pt calls today asking about removal of ILR and gave your name. It looks like Ally also called pt to schedule a 1 year follow up visit with you. Patient has not been seen by [facility] since 02/05 and was by RDG. Do you want to provide any orders now or would you want pt to have a one year follow up with you (or RDG)? You saw pt last 07/01/22 FYI. Thank you, Annabel [facility] 01-19-2024 Telephone encounter Note Okay to schedule loop recorder removal. No meds to hold. Does not need to be NPO. Can be added on schedule any time. Thanks, OK [facility] 01-19-2024 Telephone encounter Note Called and spoke with pt Rosie - agreeable to 02/01 @ 1500 Reviewed pre op instructions: TTH, entrance C, arrive @ 1400, no fasting or meds to hold She v/u of all discussed [facility] Glider 05-10-2023 History of Present illness Narrative Images from the original note were not included. [address] [place] [address] [address] [facility] [address] Patient: Bertin Arechiga Date of : 1960 [...] Past Medical History: Diagnosis Date Angina pectoris ([facility] 1982 was kept few days in hospital and tests were ran Anxiety not diagnosed doesn't see doctor Arrhythmia 1981 x1 episode when he was 31 Arthritis Atrial fibrillation ([facility]) Back pain 1989 Carpal tunnel syndrome Disc disorder of lumbosacral region Fractures Gallstones Headache Hypertension hasn't seen dr in 15 years not officially dx not on meds Injury of back Lumbar paraspinal muscle spasm Lumbar radiculopathy Neurogenic pain Raynaud's phenomenon without gangrene Past Surgical History: Procedure Laterality Date Afib Ablation, Carto, ICE N/A 03/18/2022 Performed by Abelardo Oneill MD at [facility] () ARTHROSCOPIC REPAIR ROTATOR CUFF SHOULDER Right 02/02/2023 Performed by Pattie Pichardo DO at [facility] COLONOSCOPY N/A 04/25/2018 Performed by Chilango Jason DO at [facility] HEMORRHOIDECTOMY N/A 04/25/2018 Performed by Chilango Jason DO at [facility] HERNIA REPAIR INSERTION LOOP RECORDER RELEASE CARPAL TUNNEL Right 02/04/2021 Performed by Pattie Pichrado DO at [facility] Family History Problem Relation Age of Onset [...] for your understanding. documented in this encounter [facility] 03-30-2023 History of Present illness Narrative [...] in 2 weeks documented in this encounter [facility] 02-08-2023 History of Present illness Narrative Images from the original note were not included. [address] [place] [address] [address] [facility] [address] Patient: Bertin Arechiga Date of : 1960 [...] Past Medical History: Diagnosis Date Angina pectoris ([facility]) 1981 was kept few days in hospital and tests were ran Anxiety not diagnosed doesn't see doctor Arrhythmia 1981 x1 episode when he was 31 Arthritis Atrial fibrillation ([facility]) Back pain 1989 Carpal tunnel syndrome Disc disorder of lumbosacral region Fractures Gallstones Headache Hypertension hasn't seen dr in 15 years not officially dx not on meds Injury of back Lumbar paraspinal muscle spasm Lumbar radiculopathy Neurogenic pain Raynaud's phenomenon without gangrene Past Surgical History: Procedure Laterality Date Afib Ablation, Carto, ICE N/A 03/18/2022 Performed by Abelardo Oneill MD at [facility] () ARTHROSCOPIC REPAIR ROTATOR CUFF SHOULDER Right 02/02/2023 Performed by Pattie Pichardo DO at [facility] COLONOSCOPY N/A 04/25/2018 Performed by Chilango Jason DO at [facility] HEMORRHOIDECTOMY N/A 04/25/2018 Performed by Chilango Jason DO at [facility] HERNIA REPAIR INSERTION LOOP RECORDER RELEASE CARPAL TUNNEL Right 02/04/2021 Performed by Pattie Pichardo DO at [facility] Family History Problem Relation Age of Onset [...] for your understanding. documented in this encounter [facility] 01-21-2023 Evaluation note Encounter Date Diagnosis Assessment Notes Jan, Complete tear of right rotator cuff, unspecified whether traumatic (ICD-10 - M75.121) Pt has followup with his final application reviewer for clearance today. He is medically cleared barring abnormalities on testing at [facility] which is pending or with his final application reviewer. Jan, Intermittent atrial fibrillation (ICD-10 - I48.0) as above. [facility] Other 12-01-2023 Evaluation note* Encounter Date Diagnosis Assessment Notes Treatment Notes Treatment Clinical Notes Jan, Acute pain of right shoulder (ICD-10 - M25.511) [facility] Other 09-25-2023 Evaluation note* Encounter Date Diagnosis Assessment Notes Treatment Notes Treatment Clinical Notes Oct, PSA elevation (ICD-10 - R97.20) [facility] Other 09-11-2023 Evaluation note* Encounter Date Diagnosis [...] PSA (prostate specific antigen) (ICD-10 - Z12.5) [facility] Other 04-06-2023 NoteCONSULTATION CONSULTATION DATE: 05/20/2022 TO: [...] our patients to inform us about any [id number] medications or herbal remedies/nutritional supplements/alternative remedies. 2. [...] treatment options with their primary care provider.[id number] Note CONSULTATION CONSULTATION DATE: 03/04/2022 HISTORY OF [...] ablation for his atrial fibrillation scheduled at [facility] in [place]. Medications include Eliquis, gabapentin 600 mg b.i.d., [...] successful cardiac ablation and approval from his final application reviewer. We will also gain approval to hold his Eliquis for our procedure. Patient agrees to move forward and be followed up in the clinic thereafter.[facility] [id number] NoteCONSULTATION CONSULTATION DATE: 01/21/2022 HISTORY OF PRESENT [...] followed up in the clinic post procedure.[facility] 12-08-2021 NoteCONSULTATION CONSULTATION DATE: 12/08/2021 HISTORY OF PRESENT ILLNESS: This is a very pleasant, 61-year-old gentleman, who was referred to us by Dr. Fallon eHnry. 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 The patient also sees Dr. Harmon in [place] for his Raynaud's disease and also autonomic [...] the autonomic dystonia and the hyperhidrosis at [facility], where he may get attention for this. In the meantime, we will look to proceed with the chronic low back pain that the patient has and is the most problematic for him, by proceeding with a lumbar medial branch block at the level of L2-3 and L4-5. Questions/answers were done. The patient understands and would like to proceed. CC: Fallon Henry M.D.[facility] Hospitalaluation noteNo InformationNort [employer] Other Evaluation note* Diagnosis Elevated PSA- Primary Elevated prostate specific antigen (PSA) documented in this encounter [facility]* Diagnosis Essential hypertension Unspecified essential hypertension [facility] Diagnosis Status post right rotator cuff repair- Primary Arthritis of right acromioclavicular joint [facility] Elevated PSA- Primary Elevated prostate specific antigen (PSA) [facility] - Reported* Type Description [...] had polyp re check 5 yrs 2019 Hospitalization History see surgical history [facility] Other History general Narrative - Reported* Type [...] injection 12/2022 Hospitalization History see surgical history [facility] Other Instructions* Attachments The following attachments cannot be sent through Care Everywhere. * Going Home on Blood Thinners (Belgian) documented in this encounterProAcusphere SystemInstructionsNot on file documented in this encounterProAcusphere SystemInstructionsNot on file documented in this encounterProAcusphere SystemInstructionsNot on file documented in this encounterBar[facility] HospitalAc[facility] Summary Purpose Family History No Family History Records FoundNo Family History Records FoundNo Family History Records FoundNo Family History Records FoundNo Family History Records FoundNo Family History Records Found Advance Directives Latest Code Status on File Code Status Date Activated Date Inactivated Comments Full Code 03/18/2022 10:28 AM 03/18/2022 5:55 PM Date Activated Date Inactivated Comments 03/18/2022 10:28 AM 03/18/2022 5:55 PM Reason for Referral Reason R shoulder - xr ay pending Diagnosis 1 Acute pain of right shoulder (M25.511) Referral Organization [facility] [employer] tasneem Referring Provider First Name Fallon Referring Provider Last Name Carl Referring Provider Specialty [facility] [employer] Referred Organization [facility] Referred Provider Pattie Pichardo Referred Address ,[place], [place],[address] Referred Provider Specialty Orthopedic S urgery Referral Priority Routine General Notes Regi Merchant 12:12:13 PM >received today, waiting for XR and for Notes to be locked Regi Merchant 10/29/2022 08:52:53 AM >XR attached, sent TE to lock office notes Reason *FU 11/16 Dr. Kathya abbott - Urology [facility] surgeons [facility]. PSA went from 1.5 to 3.1 Diagnosis 1 PSA elevation (R97.2 0) Referral Organization [facility] [employer] tasneem Referring Provider First Name Fallon Referring Provider Last Name Carl Referring Provider Specialty [facility] [employer] Referred Organization [facility] Referred Address [address] [facility],[place],[address] Referred Provider Specialty Urology Referral Priority Routine General Notes Regi Merchant 01:58:34 PM >received today. P: [phone] F: [phone] Regi Merchant 11/09/2022 02:06:57 PM >attachments made, notes locked, referral faxed Specialty Diagnoses / Procedures Referred By Elder morgan Referred To Contact Physical Therapy Diagnoses Status post right rotator cuff repair Arthritis of right acromioclavicular joint Procedures AL OFFICE/OUTPATIENT NEW HIGH MDM 60 MINUTES Wil Cao, COMMUNITY HEALTH COORDINATOR [address] [place] [address] Mela Suarez, PT [address] [place] [address] Referral ID Status Reason Start Date Expiration Date Visits Requested Visits Authorized [id number] Pending Review Specialty Services Required 03/30/2023 09/26/2023 1 1 Additional Source Comments (unrecognized sect ion and content) No Status Records FoundNo Status Records FoundNo Status Records FoundNo Status Records FoundNo Status Records FoundNo Status Records Found INFORMATION SOURCE (unrecogn ized section and content) DATE CREATED AUTHOR 02/28/2020 [facility] DATE CREATED AUTHOR AUTHOR'S ORGANIZ ATION 10/27/2021 [facility] DATE CREATED AUTHOR AUTHOR'S ORGANIZ ATION 05/29/2022 [facility] DATE CREATED AUTHOR AUTHOR'S ORGANIZ ATION 05/11/2023 [facility] DATE CREATED AUTHOR AUTHOR'S ORGANIZ ATION 05/11/2023 [facility] DATE CREATED AUTHOR AUTHOR'S ORGANIZ ATION 08/03/2023 [facility] d[facility] Specialists EPIC REASON FOR VISIT (unrecogniz ed section and content) Reason Comments Follow-up Reason Comments Med Refill Reason Comments Pain Care Teams (unrecognized sec tion and content) Sales Systems Engineer Relationship Specialty Start Date End Date Fallon Henry MD [facility] [place] [address] PCP - General Family Medicine 01/22/21 Sales Systems Engineer Relationship Specialty Start Date End Date Fallon Henry MD [address] [place] [address] PCP - General Family Medicine 01/22/21 Sales Systems Engineer Relationship Specialty [place] [address] [place] [phone] PCP - General Family Medicine 11/09/22 Sales Systems Engineer Relationship Specialty Start Date End Date Fallon Henry MD [address] [place] [id number] PCP - General Family Medicine 01/22/21 Sales Systems Engineer Relationship Specialty Start Date End Date Fallon Henry MD [address] [place] [id number] PCP - General Family Medicine 01/22/21 FOR [...] BE BASED ON THE PRIMARY CLINICAL RECORDS. [employer] [facility]. provides no warranty or guarantee of the accuracy or completeness of information in this document.
[2024-01-30 08:05] LABS: Creatinine Urine Random 146.03 mg/dL (20.00-300.00); Microalbumin Urine Random <1.3 mg/dL (<=30.0)
[2024-01-30 08:20] LABS: Prostate Specific Antigen Scrn 3.44 ng/mL (<=4.00)
[2024-01-30 08:25] LABS: Alanine Aminotransferase 27 U/L (16-63); Albumin Globulin Ratio 1.1; Albumin Level 3.6 g/dL (3.4-5.0); Alkaline Phosphatase 82 U/L (46-116); Anion Gap 11.9; Aspartate Amino Transferase 21 U/L (15-37); BUN Creatinine Ratio 14.7; Bilirubin Total 0.2 mg/dL (0.2-1.0); Calcium 8.4 mg/dL (8.5-10.1); Carbon Dioxide 31.2 mmol/L (21.0-32.0); Chloride 106 mmol/L (98-107); Chol HDL Ratio 2.8; Cholesterol 149 mg/dL (<=200); Estimated GFR (African America >60 (>=60 mL/min/1.73m^2); Estimated GFR (Non-African Ame >60 (>=60 mL/min/1.73m^2); Globulin 3.2 g/dL; Glucose 104 mg/dL (74-106); HDL Cholesterol 53 mg/dL (40-60); LDL Cholesterol Calculated 81.4 mg/dL; Potassium 4.1 mmol/L (3.5-5.1); Sodium 145 mmol/L (136-145); Total Protein 6.8 g/dL (6.4-8.2); Triglycerides 73 mg/dL (<=150); VLDL CHOLESTEROL 14.6 mg/dL
== END 2024-01-30 06:30 | disposition home or self-care (01) ==
LOC: LAB 06:30
PROVIDERS: PCP Family Medicine; Visit Provider Family Medicine
DX: Z00.00 Encounter for general adult medical examination without abnormal findings (principal); I10 Essential (primary) hypertension; E78.5 Hyperlipidemia, unspecified; Z12.5 Encounter for screening for malignant neoplasm of prostate
CPT/HCPCS: 36415; 80053; 80061; 82043; 82570; G0103

== ENCOUNTER 2024-06-04 13:52 | Outpatient (OUT) | payer MEDICARE, SELFPAY ==
--- NOTE | 2024-06-04 14:32 | PM.CN ---
Consult Note: HPI Data of Consult Patient: known to practice within the last 3 years Consult date: 06/04/24 Requesting Physician: Delaney Byrne MD Primary Care Provider: Fallon Gonzalez MD Consult Narrative Reason for consult: low back pain Narrative: 64yom who presents for assessment. states that his back and shoulder pain are doing relatively well. continues to use gabapentin and baclofen as needed. denies adverse med side effects. cc:: CC: Delaney Byrne MD Review of Systems ROS Status of ROS 10 or more systems reviewed and unremarkable except as noted in history and below [facility] Medical History Hernia ?K46.9 - Unspecified abdominal hernia without obstruction or gangrene (ICD-10) Upper back pain ?M54.9 - Dorsalgia, unspecified (ICD-10) Neck pain ?M54.2 - Cervicalgia (ICD-10) Low back pain ?M54.50 - Low back pain, unspecified (ICD-10) Osteoarthritis ?M19.90 - Unspecified osteoarthritis, unspecified site (ICD-10) Carpal tunnel syndrome ?G56.00 - Carpal tunnel syndrome, unspecified upper limb (ICD-10) Diabetes ?E11.9 - Type 2 diabetes mellitus without complications (ICD-10) Former smoker ?Z87.891 - Personal history of nicotine dependence (ICD-10) Atrial fibrillation ?I48.91 - Unspecified atrial fibrillation (ICD-10) Implantable loop recorder present ?Z95.818 - Presence of other cardiac implants and grafts (ICD-10) High cholesterol ?E78.00 - Pure hypercholesterolemia, unspecified (ICD-10) Hypertension ?I10 - Essential (primary) hypertension (ICD-10) Social History Smoking status: Former smoker Meds Home Medications and Allergies Home Medications ?Medication ?Instructions ?Recorded ?Confirmed ?Type baclofen 10 mg tablet 10 mg PO Q8H PRN pain 08/01/22 04/05/23 History gabapentin 600 mg tablet 600 mg BID 08/01/22 History atorvastatin 10 mg tablet 10 mg PO .hs 08/05/22 04/05/23 History docusate sodium 100 mg capsule 100 mg PO DAILY 08/05/22 04/05/23 History flecainide 50 mg tablet 50 mg PO Q12H 08/05/22 04/05/23 History medical marijuan 08/05/22 History metoprolol succinate 50 mg 25 mg PO QDAY 08/05/22 04/05/23 History tablet,extended release 24 hr psyllium (Hydrocil oral powder) 1 tbsp PO DAILY 08/05/22 04/05/23 History tramadol 50 mg tablet 50 mg PO TID PRN pain 08/05/22 04/05/23 History aspirin 81 mg capsule 81 mg PO DAILY 04/05/23 04/05/23 History gabapentin 600 mg tablet 600 mg PO BID #60 tabs 10/05/23 Rx baclofen 10 mg tablet 10 mg PO BID #60 tabs 10/27/23 Rx gabapentin 600 mg tablet 600 mg PO BID #60 tabs 10/27/23 Rx gabapentin 600 mg tablet 600 mg PO BID #60 tabs 01/10/24 Rx Allergies Allergy/AdvReac Type Severity Reaction Status Date / Time No Known Drug Allergies Allergy Verified 04/05/23 10:33 Exam Narrative Exam Narrative: Psych-alert and oriented x 3. Attentive and appropriate, constitutionally normal, displays normal mood and affect per situation.? There are no obvious deficits in memory, reasoning, or intellect.? Skin-no obvious rashes, bruising, erythema noted to the patient's area of pain. Extremities- extremities are warm with minimal edema and palpable pulses. Lumbar-no significant tenderness to palpation noted in the lumbar spine and paraspinal musculature.? Pain is elicited with extension, and lateral rotation of the lumbar spine. Range of motion is slightly diminished with these motions due to pain. Coordination remains intact.? Gait remains non-antalgic. Assessment and Plan Assessment and Plan (1) Lumbar spondylosis: Plan 64yom who presents for assessment. continues to do well at this time with his current regimen. discussed that we would continue current regimen, given that he denies side effects. follow up in 6 months.
== END 2024-06-04 13:53 | disposition home or self-care (01) ==
LOC: PM 13:53
PROVIDERS: PCP Family Medicine; Visit Provider Anesthesiology
DX: M47.816 Spondylosis without myelopathy or radiculopathy, lumbar region (principal)
CPT/HCPCS: G0463

== ENCOUNTER 2024-12-05 09:52 | Outpatient (OUT) | payer MEDICARE, SELFPAY ==
--- OUTSIDE RECORDS SUMMARY | 2024-12-05 09:55 | XMS_ITS | CCD ---
Author Organization [facility] Care Team Providers Care Security Systems Installer Name Role Phone Brett Quiros Unavailable Unavailable Unavailable JACKELIN HENRY Primary Care Unavailable SANTO HARMON Referring Unavailable JACKELIN HENRY Primary Care Unavailable SANTO HARMON Referring Unavailable CARL, JACKELIN Primary Care Unavailable SANTO HARMON Referring Unavailable GARDUNO ., DR ROWAN Shea Admitting Unavailable GARDUNO ., DR ROWAN Shea Attending Unavailable CARL, DR JACKELIN Emmanuel Primary Care Unavailable GARDUNO ., DR ROWAN Shea Consulting Unavailable LAKSHMIPATHY, NARENDKUMARATH Admitting Unava ilable LAKSHMIPATHY, NARSHYAM Attending Unava arsenio HENRY, DR JACKELIN Emmanuel Primary Care Unavailable LAKSHMIPATHY, NARSHYAM Consulting Unava ilable SHAAN ., DR ROWAN Shea Admitting Unavailable GARDUNO ., DR ROWAN Shea Attending Unavailable CARL, DR JACKELIN Emmanuel Primary Care Unavailable WATKINS ., MICHELLE Consulting Unavailable GARDUNO ., DR ROWAN Shea Admitting Unavailable GARDUNO ., DR ROWAN Shea Attending Unavailable CARL, DR JACKELIN Emmanuel Primary Care Unavailable GARDUNO ., DR ROWAN Shea Consulting Unavailable ROD KANG Consulting Unavailable GARDUNO ., DR RWOAN Shea Admitting Unavailable GARDUNO ., DR ROWAN Shea Attending Unavailable CARL, DR JACKELIN Emmanuel Primary Care Unavailable WATKINS ., MICHELLE Consulting Unavailable GARDUNO ., DR ROWAN Shea Admitting Unavailable GARDUNO ., DR ROWAN Shea Attending Unavailable CARL, DR JACKELIN Emmanuel Primary Care Unavailable GARDUNO ., DR ROWAN Shea Consulting Unavailable LAKSHMIPATHY, NARENDRANATH Admitting Unava ilable LAKSHMIPATHY, NARSHYAM Attending Unadipesh HENRY, DR JACKELIN Emmanuel Primary Care Unavailable DR ABEBA DOUGHERTY Consulting Unavailable LAKSHMIPATHY, NARKASSYATH Consulting Unadipesh ilJackelin Higginbotham Unavailable Jackelin Henry MD Primary Care Provider DL, PATTIE Vera Attending Unavailable DL, PATTIE Vera Attending Unavailable APLING, TRACIE Menjivar Attending Unavailable BLACKSTON, MELA T Attending Unavailable APLING, TRACIE B Referring Unavailable BRINK, CORNELL Attending Unavailable APLING, TRACIE B Referring Unavailable BRINK, CORNELL Attending Unavailable APLING, TRACIE B Referring Unavailable BLACKSTON, MELA T Attending Unavailable APLING, TRACIE B Referring Unavailable BLACKSTON, MELA Deivn Attending Unavailable APLING, TRACIE B Referring Unavailable BRINK, CORNELL Attending Unavailable APLING, TRACIE B Referring Unavailable DL, PATTIE Vera Attending Unavailable BLACKSTON, MELA T Attending Unavailable APLING, TRACIE B Referring Unavailable KELBLEY, CRISTI Attending Unavailable APLING, TRACIE B Referring Unavailable BRINK, CORNELL Attending Unavailable APLING, TRACIE B Referring Unavailable BRINK, CORNELL Attending Unavailable APLING, TRACIE B Referring Unavailable BRINK, CORNELL Attending Unavailable APLING, TRACIE B Referring Unavailable BLACKSTON, MELA T Attending Unavailable APLING, TRACIE B Referring Unavailable KELBLEY, CRISTI Attending Unavailable APLING, TRACIE B Referring Unavailable BRINK, CORNELL Attending Unavailable APLING, TRACIE B Referring Unavailable BLACKSTON, MELA T Attending Unavailable APLING, TRACIE B Referring Unavailable BRINK, CORNELL Attending Unavailable APLING, TRACIE B Referring Unavailable BLACKSTON, MELA T Attending Unavailable APLING, TRACIE B Referring Unavailable BRINK, CORNELL Attending Unavailable APLING, TRACIE B Referring Unavailable BRINK, CORNELL Attending Unavailable APLING, TRACIE B Referring Unavailable BLACKSTON, MELA T Attending Unavailable APLING, TRACIE B Referring Unavailable BRINK, CORNELL Attending Unavailable APLING, TRACIE B Referring Unavailable BRINK, CORNELL Attending Unavailable APLING, TRACIE B Referring Unavailable BLACKSTON, MELA T Attending Unavailable APLING, TRACIE B Referring Unavailable BRINK, CORNELL Attending Unavailable APLING, TRACIE B Referring Unavailable BRINK, CORNELL Attending Unavailable APLING, TRACIE B Referring Unavailable BRINK, CORNELL Attending Unavailable APLING, TRACIE B Referring Unavailable DL, PATTIE Vera Attending Unavailable DL, PATTIE Vera Attending Unavailable Jackelin Henry MD Primary Care Provider DONYA CASTELAN Attending Unavailable DONYA CASTELAN Referring Unavailable JACKELIN HENRY Primary Care Unavailable CATARINA KHOURY Attending Unavailable JACKELIN HENRY Referring Unavailable JACKELIN HENRY Primary Care Unavailable ABBI MUÑOZ Attending Unavailable JACKELIN HENRY Referring Unavailable JACKELIN HENRY Primary Care Unavailable SAMRA MUNOZ Attending Unavailable JACKELIN HENRY Referring Unavailable JACKELNI HENRY Primary Care Unavailable Jackelin Henry MD Primary Care Provider ABBI MUÑOZ Referring Unavailable JACKELIN HENRY Primary Care Unavailable ABBI MUÑOZ Referring Unavailable JACKELIN HENRY Primary Care Unavailable ABBI MUÑOZ Referring Unavailable JACKELIN HENRY Primary Care Unavailable ABBI MUÑOZ Referring Unavailable JACKELIN HENRY Primary Care Unavailable ABBI MUÑOZ Admitting Unavailable ABBI MUÑOZ Attending Unavailable JACKELIN HENRY Primary Care Unavailable YOKO ASTUDILLO Attending Unavailable JACKELIN HENRY Primary Care Unavailable TERRIE COOLEY Attending Unavailable JACKELIN HENRY Referring Unavailable JACKELIN HENRY Primary Care Unavailable JACKELIN HENRY Referring Unavailable JACKELIN HENRY Primary Care Unavailable Caty SANTOS, Delaney Corea Attending Unavailable Medications Current Medications MedicationDrug Class(es)DatesSig (Normalized)Sig (Original)acetaminophen 325 mg / oxyCODONE hydrochloride 5 mg oral tablet (2 sources)Opioid AgonistStart: 02-21-2024 End: 02-00-2662gfbMVBARJ-acetaminophen (PERCOCET) 5-325 mg per tablet Indications: Right inguinal hernia Take 1 tablet by mouth every 6 (six) hours as needed for pain for up to 12 doses. Max Daily Amount: 4 ggklqet12 tablet 02/21/2024 03/06/2024 Discontinued (Therapy completed)ALPRAZolam 0.5 mg oral tablet (5 sources)BenzodiazepineXanax 0.5 MG 1 tablet Orally prn ActiveamLODIPine 10 mg / atorvastatin 20 mg oral tablet (2 sources)Dihydropyridine Calcium Channel Vandana, HMG-CoA Reductase Inhibitor amLODIPine-atorvastatin (Caduet) 10-20 MG tablet 1 (one) time each day at the same time. 0 ActiveamLODIPine 10 mg / benazepril hydrochloride 40 mg oral capsule (20 sources)Dihydropyridine Calcium Channel Vandana, Angiotensin Converting Enzyme InhibitorStart: 16-62-2567zeot 1 capsule by mouth once daily in the morningamLODIPine-benazepril (LOTREL) 10-40 mg per capsule Indications: Essential hypertension Take 1 capsule by mouth every morning. 90 capsule 1 08/27/2024 ActiveStart: 04-01-2022 End: 29-36-9938aoel 1 capsule by mouth once in the morningamLODIPine-benazepril (LOTREL) 10-40 mg per capsule Indications: Essential hypertension TAKE 1 CAPSULE BY MOUTH BY MOUTH IN THE MORNING 90 capsule 05/26/2024 08/27/2024 Discontinued Start: 55-48-9714ijac 1 capsule by mouth in the morningamLODIPine-benazepril (Lotrel) 10-40 MG capsule Take 1 capsule by mouth in the morning. 0 04/01/2022 Activetake 10-20 mg by mouth once dailyamLODIPine Besy-Benazepril HCl - 10-20 MG Oral Capsule TAKE 1 CAPSULE Daily Quantity: 0 Refills: 0 Ordered: 16-Feb-2021 Viktor Scott MD Activeaspirin 81 mg delayed release oral tablet (20 sources)Platelet Aggregation Inhibitor, Nonsteroidal Anti-inflammatory Drug take 1 tablet by mouth in the morningaspirin 81 mg Take 1 tablet (81 mg total) by mouth in the morning. 30 tablet 11 Activetake 1 tablet by mouth once daily Aspirin 81 81 MG 1 tablet Orally Once a day Activeatorvastatin 10 mg oral tablet (20 sources)HMG-CoA Reductase InhibitorStart: 15-06-3528alrx 1 tablet by mouth in the morningatorvastatin (LIPITOR) 10 mg tablet Take 1 tablet (10 mg total) by mouth in the morning. 02/01/2021ctivebaclofen 10 mg oral tablet (16 sources)gamma-Aminobutyric Acid-ergic AgonistStart: 26-51-7253bwpf 0.5-1 tablets by mouth three times daily as neededbaclofen (LIORESAL) 10 mg tablet TAKE 1/2 (ONE-HALF) TO 1 (ONE) TABLET BY MOUTH THREE TIMES DAILY NEEDED 05/20/2022 ActiveCannabinoids (medical cannabis) (2 sources)take 1 dose by inhalation once daily as neededCannabinoids (medical cannabis) Inhale 1 each Daily as needed. 0 Activedocusate sodium 100 mg oral capsule (20 sources)take 1 capsule by mouth in the morningdocusate sodium (COLACE) 100 mg capsule Take 1 capsule (100 mg total) by mouth in the morning. Active gabapentin 600 mg oral tablet (20 sources)Anti-epileptic Agenttake 1 tablet by mouth in the morning, then take 1 tablet by mouth at bedtimegabapentin (NEURONTIN) 600 mg tablet Take 1 tablet (600 mg total) by mouth in the morning and 1 tablet (600 mg total) before bedtime. Activegabapentin (Neurontin) 600 MG tablet every 8 (eight) hours. 0 Activemagnesium sulfate 0.0277 meq/ml / potassium sulfate 0.0374 meq/ml / sodium sulfate 0.257 meq/ml oral solution (3 sources)Start: 57-17-5563ubay 177 mL by mouth in the morning sodium,potassium,mag sulfates (SUPREP) 17.5-3.13-1.6 gram recon soln Take 177ml BY MOUTH IN THE MORNING and 177ml BEFORE bedtime 354 mL 02/02/2024 ActiveStart: 02-01-2024 End: 04-30-5707xfsb 177 mL by mouth in the morningsodium,potassium,mag sulfates (SUPREP) 17.5-3.13-1.6 gram recon soln Take 177 mL by mouth in the morning and 177 mL before bedtime. Do all this for 1 day. 1 mL 02/01/2024 02/02/2024 Discontinuedmedical marijuana (14 sources)take 1 dose by inhalation once daily as needed for painmedical marijuana Inhale 1 each daily as needed. Pt states he has a medical marijuana card and usesin the evening as needed for chronic pain Activetake 1 dose by inhalation once daily as needed for painmedical marijuana Inhale 1 each daily as needed. Pt states he has a medical marijuana card and usesin the evening as needed for chronic pain 0 Activemeloxicam 7.5 mg oral tablet (10 sources)Nonsteroidal Anti-inflammatory DrugStart: 97-37-2032hyax 1 tablet by mouth in the morningmeloxicam (MOBIC) 7.5 mg tablet Take 1 tablet (7.5 mg total) by mouth in the morning. 01/24/2024 Activemetaxalone 800 mg oral tablet (6 sources)take 1 tablet by mouth every twelve hoursMetaxalone 800 MG 1 tablet Orally two times a day ActivemethylPREDNISolone 4 mg oral tablet (2 sources)CorticosteroidStart: 03-30-2023 End: 78-76-5725snjo 1 tablet by mouth oncemethylPREDNISolone (Medrol Dospak) 4 MG tablets Indications: Status post right rotator cuff repair Take 1 tablet (4 mg) by mouth 1 (one) time for 1 dose Use as directed by package instructions 1 tablet 0 03/30/2023 03/30/2023 Ugucgh97 hr metoprolol succinate 25 mg extended release oral tablet (5 sources)beta-Adrenergic Blockertake 1 tablet by mouth every twenty-four hours Metoprolol Succinate ER 25 MG 1 tablet Orally Once a day Activepsyllium 3400 mg powder for oral suspension (19 sources)take 1 dose by mouth in the morningpsyllium (METAMUCIL) powder Take 1 packet by mouth in the morning. ActivePsyllium 48.57 % as directed Orally ActivetraMADol hydrochloride 50 mg oral tablet (14 sources)Opioid AgonistStart: 70-70-1335xcir 1 tablet by mouth twice daily as neededtraMADol HCl 50 MG 1 tablet as needed Orally bid prn for 30 days Jan, ActiveStart: 00-77-8941qyid 1 tablet by mouth twice daily as neededtraMADol HCl 50 MG 1 tablet as needed Orally bid prn for 30 days Oct, Activetake 1 tablet by mouth every eight hours as needed for paintraMADoL (ULTRAM) 50 mg tablet Take 1 tablet (50 mg total) by mouth every 8 (eight) hours as neededfor pain. Active Problems Active Problems Problem ClassificationProblemDateDocumented DateEpisodic/ChronicCardiac dysrhythmias (20 sources)Paroxysmal atrial fibrillation; Translations: [Paroxysmal atrial fibrillation]Onset: 88-30-8086FjocvsrLgqlyeyi mellitus without complication (1 source)Type 2 diabetes mellitus without complications; Translations: [TYPE 2 DM WITHOUT COMPLICATIONS]Onset: 42-39-1750ZbqoseaSxasfbfuo of lipid metabolism (7 sources)Hyperlipidemia; Translations: [Hyperlipidemia, unspecified]Chronic Essential hypertension (20 sources)Benign essential hypertension; Translations: [Benign essential hypertension]Onset: 35-71-7048DvtmvojLslgicsfkvutey (9 sources)Primary osteoarthritis, unspecified hand; Translations: [Chronic osteoarthritis]Onset: 151813-87-5189SgdpahhDikhl circulatory disease (2 sources)Raynaud's phenomenon; Translations: [Raynaud's syndrome without gangrene]Onset: 094006-36-3243MqluaitMelli circulatory disease (11 sources)History of cardiovascular surgery; Translations: [Presence of other cardiac implants and grafts]Onset: 254089-09-0999ValcjspDliqu connective tissue disease (1 source)Other muscle spasm; Translations: [OTHER MUSCLE SPASM]Onset: 79-62-1195TlkrfgeyNmtgx connective tissue disease (1 source)Full thickness rotator cuff tear; Translations: [Complete rotator cuff tear or rupture of right shoulder, not specified as traumatic]EpisodicOther connective tissue disease (1 source)Complete rotator cuff tear or rupture of right shoulder, not specified as traumaticEpisodicOther gastrointestinal disorders (1 source)Personal history of other diseases of the digestive system; Translations: [Personal history of other diseases of the digestive system]Onset: 31-01-7307RmpbigmaRwnnw hereditary and degenerative nervous system conditions (1 source)Other dystonia; Translations: [OTHER DYSTONIA]Onset: 98-35-6096Pptjfkf Other lower respiratory disease (1 source)Dyspnea, unspecified; Translations: [Dyspnea, unspecified]Onset: 01-57-8257NolmbdqaLrhiq nervous system disorders (2 sources)Carpal tunnel syndrome; Translations: [Carpal tunnel syndrome, unspecified upper limb]Onset: 027898-42-8381BkuocjtWdzwg nervous system disorders (2 sources)Lesion of ulnar nerve, right upper limb; Translations: [Lesion of ulnar nerve]Onset: 994951-05-4831YrbapkwTjicr nervous system disorders (2 sources)Chronic pain due to injury; Translations: [Chronic pain due to trauma]Onset: 670465-91-2127KbqpzboRunaa nervous system disorders (2 sources)Chronic pain; Translations: [Other chronic pain]Onset: 11-09-2022 43-78-4039BkwwfmqGbhqm nervous system disorders (2 sources)Disorder of right median nerve; Translations: [Other lesions of median nerve, right upper limb]Onset: 558742-62-9528DyioouxWnttr nervous system disorders (2 sources)Ulnar neuropathy; Translations: [Lesion of ulnar nerve, right upper limb]Onset: 177568-96-9464DuyitjpVeznn non-traumatic joint disorders (3 sources)Pain in right shoulder; Translations: [Pain in right shoulder]Onset: 85-65-4335PvwohvqzDcika non-traumatic joint disorders (1 source)Pain in left shoulder; Translations: [Pain in left shoulder]Onset: 60-60-1567QnaduccpDqjjq non-traumatic joint disorders (4 sources)Pain in right hip; Translations: [PAIN IN RIGHT HIP]Onset: 05-20-2022 EpisodicOther non-traumatic joint disorders (1 source)Pain in left hip; Translations: [PAIN IN LEFT HIP]Onset: 05-28-2022 EpisodicOther skin disorders (1 source)Generalized hyperhidrosis; Translations: [Generalized hyperhidrosis] Onset: 97-16-7100ChcrgtcoWzfhjcjq codes; unclassified (1 source)Other specified postprocedural states; Translations: [Other specified postprocedural states]Onset: 10-17-4601EakzczvbOgkkcmndfdj; intervertebral disc disorders; other back problems (20 sources)Spondylosis without myelopathy or radiculopathy, lumbar region; Translations: [Other intervertebraldisc degeneration, lumbar region]Onset: 90-87-2390BjblatnUyiyymmlcimp (4 sources)LOW BACK PAIN, UNSPECIFIED; Translations: [LOW BACK PAIN, UNSPECIFIED]Onset: 54-48-5188Iorvrgailiru (1 source)POST-OP VISITOnset: 03-06-2024 Past or Other Problems Problem ClassificationProblemDateDocumented DateEpisodic/ChronicAbdominal hernia (4 sources)Unilateral inguinal hernia, without obstruction or gangrene, not specified as recurrent; Translations: [Hernia of abdominal cavity]Onset: 90-33-4021CqnzgvlhIjtddyk dysrhythmias (20 sources)Sinus bradycardia; Translations: [Bradycardia, unspecified]Onset: 267807-71-5949OumnduiyZtdi disorders (14 sources)Mood disordersOnset: 359969-91-2767Yspvxjvzuzi chest pain (16 sources)Chest pain; Translations: [Other chest pain]Onset: 09-07-2021 29-75-7057FaltbxwiShdzn connective tissue disease (2 sources)Neurogenic pain; Translations: [Neuralgia and neuritis, unspecified] Onset: 215807-68-3706StmzbzdxNumkv connective tissue disease (2 sources)Pain of left hand; Translations: [Pain in left hand]Onset: 11-09-2022 27-83-7910OswnorrpGdqzz connective tissue disease (2 sources)Pain in right hand; Translations: [Pain in right hand]Onset: 445552-04-2984WsimcvkqAiiuw screening for suspected conditions (not mental disorders or infectious disease) (20 sources)Encounter for screening for malignant neoplasm of prostate; Translations: [Elevated prostate specific antigen [PSA]]Onset: 12-22-2022 EpisodicSpondylosis; intervertebral disc disorders; other back problems (14 sources)Muscle spasm of back; Translations: [Intervertebral disc disorders with radiculopathy, lumbar region]Onset: 095875-37-3780Ivlewtor Unclassified (1 source)LOW BACK PAIN, UNSPECIFIED; Translations: [LOW BACK PAIN, UNSPECIFIED] Onset: 08-75-1552Apqdvcyaspas (14 sources)Onset: 251985-86-6060Osysesurshfl (1 source)Preprocedural examination gspi90-34-3436 Results Test NameValueInterpretationReference RangeFacilityCOMPREHENSIVE METABOLIC PANEL on 80-50-2133Rszepfq [Mass/Vol]4.4 g/dLNormal3.2-5.3PMercy Memorial Hospital Comment on above:Performed By: #### ANGELO, 2857-1 #### [facility] ([id number]) [address], [address] [place], [place] [address]TNC [Catalytic activity/Vol]63 U/PDelpbs33-336NmwAbwmpvSt. David'S Georgetown HospitalComment on above:Performed By: #### ANGELO, 2857-1 #### [facility] ([id number]) [address], [address] [place], [place] [address]RVY [Catalytic activity/Vol]24 U/LNormal0-40ProSt. David'S Georgetown HospitalComment on above:Performed By: #### ANGELO, 2857-1 #### [facility] ([id number]) [address], [address] [place], [place] [address]Zpwwe gap [Moles/Vol]9 mmol/LNormal5-15ProSt. David'S Georgetown HospitalComment on above:Performed By: #### ANGELO, 2857-1 #### [facility] ([id number]) [address], [address] [place], [place] [address]UZD [Catalytic activity/Vol]22 U/LNormal0-41ProSt. David'S Georgetown HospitalComment on above:Performed By: #### ANGELO, 2857-1 #### [facility] ([id number]) [address], [address] [place], [place] [address]Nplakbvvb [Mass/Vol]0.6 mg/dLNormal0.3-1.2PMercy Memorial HospitalComment on above:Performed By: #### ANGELO, 2857-1 #### [facility] ([id number]) [address], [address] [place], [place] [address]Sbxqqay [Mass/Vol]9.4 mg/dLNormal8.5-10.5PMercy Memorial HospitalComment on above:Performed By: #### ANGELO, 2857-1 #### [facility] ([id number]) [address], [address] [place], [place] [address]Mjndbbkv [Moles/Vol]105 mmol/QUoizxp00-221TbkOzmpjeSt. David'S Georgetown HospitalComment on above:Performed By: #### CMP, 2857-1 #### [facility] ([id number]) [address], [address] [place], [place] [address]CU8 [Moles/Vol]29 mmol/YEkutcu68-64FjxUvjtvaSelect Medical Specialty Hospital - [place] on above:Performed By: #### CMP, 2857-1 #### [facility] ([id number]) [address], [address] [place], [place] [address]Uogdjkxkhn [Mass/Vol]0.90 mg/dLNormal0.60-1.30ProSt. David'S Georgetown HospitalComment on above:Result Comment: METHOD TRACEABLE TO IDMS STANDARD Performed By: #### ANGELO, 2857-1 #### [facility] ([id number]) [address], [facility] [address] [place], [place] [address]jHAU (CKD-EPI) NON-RACE DEPENDENT>90Normal>59ProSt. David'S Georgetown HospitalComment on above:Result Comment: Reported eGFR is based on the CKD-EPI 2020 equation that does not use a race coefficient.Performed By: #### ANGELO, 2857-1 #### [facility] ([id number]) [address] [place] [address]Xqupbov [Mass/Vol]95 mg/fEDkrkwj41-14EbkUuejovSt. David'S [facility] Hospital Comment on above:Performed By: #### ANGELO, 2857-1 #### [facility] ([id number]) [address] [address] [place], [place] [address]Qevujgxmj [Moles/Vol]4.3 mmol/LNormal3.5-5.0ProSt. David'S Georgetown HospitalComment on above:Performed By: #### ANGELO, 2857-1 #### [facility] ([id number]) [address] [address] [place] [address]Cpwnpfx [Mass/Vol]6.6 g/dLNormal6.0-8.0ProSt. David'S Georgetown HospitalComment on above:Performed By: #### ANGELO, 2857-1 #### [facility] ([id number]) [address] [address] [place] [address]Xmqdlf [Moles/Vol]143 mmol/INvlhmh691-802OdpCufret [facility]remont HospitalComment on above:Performed By: #### ANGELO, 2857-1 #### [facility] ([id number]) [address], [facility] [address] [place], [place] [address]Vunr nitrogen [Mass/Vol]17 mg/dLNormal5-27ProSt. David'S Georgetown HospitalComment on above:Performed By: #### ANGELO, 2857-1 #### [facility] ([id number]) [address], [facility] [address] [place], [place] [address]Jmxnaqva specific Ag [Mass/Vol]on 92-90-0048YDDYVVFAS SPEC ANT 2.81 ng/mLNormal0.00-4.00ProSt. David'S Georgetown HospitalComment on above:Result Comment: The method used for this test is Kathya Denae DXI chemiluminescent immunoassay. Values obtained by different assay methods cannot be used interchangeably.Performed By: #### ANGELO, 2857-1 #### [facility] ([id number]) [address] [address]AFKYMGZV BLOOD COUNTon 84-45-6389Sjtptfoioej distribution width (RBC) [Ratio]14.1 %Kgfvgd08.5-15.0[facility] FoundationComment on above: Performed By: #### CBC #### [facility] ([id number]) [address] [address]Tcdhiszbwa (Bld) [Volume fraction]47.1 %Ncmzrg94-14XjcOedztqSt. David'S Georgetown HospitalComment on above:Performed By: #### CBC #### [facility] ([id number]) [address] [address]Tlceaamzlk (Bld) [Mass/Vol]16.1 g/xRHqdgns95.0-17.0ProSt. David'S Georgetown HospitalComment on above:Performed By: #### CBC #### [facility] ([id number]) [address] [address]DAL (RBC) [Entitic mass]29.5 eeJudknw61-39BydGrdnaqSt. David'S Georgetown HospitalComment on above:Performed By: #### CBC #### [facility] ([id number]) [address], [address] [place], [place] [address]URRQ (RBC) [Mass/Vol]34.2 g/xIMcmwfg04-16OzzVnqcvuCleveland Clinic FoundationComment on above:Performed By: #### CBC #### [facility] ([id number]) [address], [address] [place] [address]ARX (RBC) [Entitic vol]86 yQEeiilf81-679EeaXjkcce [facility] HospitalComment on above:Performed By: #### CBC #### [facility] ([id number]) [address], [address] [place], [place] [address]Cvybfpxq mean volume (Bld) [Entitic vol]7.9 fLNormal7-12 [facility] FoundationComment on above:Performed By: #### CBC #### [facility] ([id number]) [address], [address] [place], [place] [address]Jpdenpmrw (Bld) [#/Vol]202 10*3/fCHccnql833-425BxxVggdxj [facility] HospitalComment on above:Performed By: #### CBC #### [facility] ([id number]) [address], [address] [place], [place] [address]RYB COUNT5.45 X10E12/LNormal4.10-5.70[facility] Comment on above:Performed By: #### CBC #### [facility] ([id number]) [address], [address] [place], [place] [address]PTM (Bld) [#/Vol]8.8 10*3/uLNormal4.0-11.0[facility] FoundationComment on above:Performed By: #### CBC #### [facility] ([id number]) [address], [address] [place] [address]WGV 12 leadon 94-62-0846DOROCACJSYLBKIDdhMmykdkCherokee Regional Medical CenterXR Chest PA and Lateralon 39-55-1714HcjsboHeladio Lott MD - 02/03/2024 Procedure: Chest x-ray performed Number of views:2 History:Preop atrial fibrillation Comparison:01/25/2023 Findings: The heart and lungs show no acute findings, and the mediastinum and dave are grossly negative . Impression: 1. No acute change. Finalized by Heladio Lott MD on 02/03/2024 11:21 AM [facility] [employer] [facility] HospitalRadiology Study observation (narrative)[facility] [employer] [facility] HospitalXR Chest PA and LateralOrdered By: Heladio Lott on 12-04-8655HckKdonpsLouis Stokes [facility] Work Phone: XR HIPS STEPH 3_4V WO PELVISon 28-87-6668NR HIPS STEPH 3_4V WO PELVISEXAMINATION: XR HIPS STEPH 3_4V WO PELVIS HISTORY: [...] Electronically authenticated by: ABEBA DOUGHERTY Date: 2022-05-20 11:00[facility] HospitalPOINT OF [facility] GLUCOSEon 54-94-2150Xozvaaz [Mass/Vol]84 mg/dL Xrynbm25-280Tlo [facility] HospitalComment on above:Performed By: #### POCGLUC #### [facility] [address] [place] [address] Dr. Erin Lux SCREEN WITH REFLEXon 34-26-8275VEN Screen, IFANegativeNormal NegativeWRegency Hospital Cleveland EastCommclaren lapeer region on above:Order Comment: [facility] performed at: [facility], [facility], [address] [place] [address], , Tin Whiz Machine Operator: Remberto Clemens MD PhD\X0D0A\[facility] Collection Date/Time: \X0D0A\[facility] Results Received Date/Time: 20211017\X0D0A\[facility] Reported Date/Time: [id number] Comment: \X0D0A\TOAN IFA is a first line screen for detecting the\X0D0A\presence of up to appr oximately 150 autoantibodies in\X0D0A\various autoimmune diseases. A negative TOAN IFA result\X0D0A\suggests TOAN-associated autoimmune disease is not\X0D0A\present at this time, but is not definitive.If there\X0D0A\is high clinical suspicion for Sjogren's Syndrome,\X0D0A\testing for anti-SS-A/Ro ant ibody should be considered.\X0D0A\Anti-Marjan-1 antibody should be considered for clinically\X0D0A\suspected inflammatory myopathies.\X0D0A\ \X0D0A\AC-0: Negative\X0D0A\International Consensus on TOAN Deya erns\X0D0A\https://doi.org/10.1515/fqza-3957-7650\X0D0A\ \X0D0A\For additional information, please refer to\X0D0A\http://education.[employer]/faq/MAE770\X0D0A\ \X0D0A\(This link is being provided for informational/\X0D0A\educational purposes only.)\X0D0A\Performed By: #### [id number] #### [place] [address] Ph. [phone] Screen with Reflex to ANCA Titeron 76-86-9633MWQJ Screen NegativeNormalNegativeWRegency Hospital Cleveland EastComment on above:Order Comment: [facility] performed at: [facility], [facility] [employer] [facility], [address] [place] [address], , Tin Whiz Machine Operator: Remberto Clemens MD PhD\X0D0A\[facility] Collection Date/Time: \X0D0A\[facility] Results Received Date/Time: 20211017\X0D0A\[facility] Reported Date/Time: [id number] Comment: \X0D0A\ANCA Screen includes evaluation for p-ANCA, c-ANCA and\X0D0A\atypical p-ANCA. A positive ANCA screen reflexes to\X0D0A\titer and pattern(s), e.g., cytoplasmic pattern\X0D0A\(c-ANCA), perinuclear pattern (p-ANCA), or atypical\X0D0A\p-ANCA pattern. c-ANCA and p-ANCA are observed in\X0D0A\vasculitis, whereas atypical p- ANCA is observed in IBD\X0D0A\(Inflammatory Bowel Disease). Atypical p-ANCA is\X0D0A\detected in about 55% to 80% of patients with\X0D0A\ulcerative colitis but only 5% to 25% of patients with\X0D0A\Crohn's disease.\X0D0A\Performed By: #### [id number] #### [place] [address] Ph. [phone] CONVERTING ENZYMEon 72-48-9068Yktacscpsqm Conv Enzyme5 U/LLow9-67[facility]aritan HospitalComment on above:Order Comment: [facility] performed at: [facility], [facility], [address] [place] [address], , Tin Whiz Machine Operator: Remberto Clemens MD PhD\X0D0A\Quest Collection Date/Time: \X0D0A\[facility] Results Received Date/Time: 20211017\X0D0A\[facility] Reported Date/Time: [id number] By: #### [id number] #### [place] [id number] Ph. [phone] CENTROMERE ANTIBODYon 52-42-5292Xslmjtobwf B Antibody<1.0 NormalTrihealth Good Samaritan HospitalComment on above:Order Comment: [facility] performed at: [facility], [employer] [facility], [address] [place] [address], , Tin Whiz Machine Operator: Remberto Clemens MD PhD\X0D0A\[facility] Collection Date/Time: \X0D0A\[facility] Results Received Date/Time: 20211017\X0D0A\[facility] Reported Date/Time: [id number] Comment: \X0D0A\ Reference Range: < 1.0 NEG AI\X0D0A\Performed By: #### [id number] #### [place] [id number] Ph. [phone]-DNA ANTIBODY, DOUBLE-STRANDEDon 66-28-7678BAU (ds) Antibody <1Normal<=4[facility] Samaritan HospitalCommclaren lapeer region on above:Order Comment: [facility] performed at: [facility], [employer], [address] [place] [address], , Tin Whiz Machine Operator: Remberto Clemens MD PhD\X0D0A\[facility] Collection Date/Time: \X0D0A\[facility] Results Received Date/Time: 20211017\X0D0A\[facility] Reported Date/Time: [id number] Comment: \X0D0A\ Value Interpretation\X0D0A\ \X0D0A\ or=10 IU/mL: Positive\X0D0A\Performed By: #### [id number] #### [place] [id number] Ph. [phone]-SPRING UPHOLSTERER (EUN AB)on 31-11-5352RRF Antibody<1.0NormalTrihealth Good Samaritan HospitalComment on above:Order Comment: [facility] performed at: [facility], [facility], [address] [place] [address], , Tin Whiz Machine Operator: Remberto Clemens MD PhD\X0D0A\Quest Collection Date/Time: \X0D0A\[facility] Results Received Date/Time: \X0D0A\[facility] Reported Date/Time: [id number] Comment: \X0D0A\ Reference Range: < 1.0 NEG AI\X0D0A\ Performed By: #### [id number] #### [place] [id number] Ph. [phone]-SCLERODERMA ANTIBODY (aka SCL 70)on 53-18-1583Tfj-70 Antibody<1.0Ohio[facility] Mansfield HospitalComment on above:Order Comment: [facility] performed at: [facility], [facility], [address] [place] [address], , Tin Whiz Machine Operator: Remberto Clemens MD PhD\X0D0A\Quest Collection Date/Time: \X0D0A\[facility] Results Received Date/Time: 20211017\X0D0A\[facility] Reported Date/Time: [id number] Comment: \X0D0A\ Reference Range: < 1.0 NEG AI\X0D0A\Performed By: #### [id number] #### [place] [id number] Ph. [phone]-Reactive Proteinon 51-16-4551YQO [Mass/Vol]mg/LNormal0.0-1.0 [facility]aritan HospitalComment on above:Performed By: #### CK, URIC, CRP, CMP ####[address] [address]Rf. [phone] COMPLEMENTon 09-24-8733Dhsuzbvmxg Component O7t899 mg/dL Wzrtli63-658UknksalRegency Hospital Cleveland EastComment on above:Order Comment: [facility] performed at: [facility], [facility] [employer] [facility], [address] [place] [address], , Tin Whiz Machine Operator: Remberto Clemens MD PhD\X0D0A\Quest Collection Date/Time: \X0D0A\[facility] Results Received Date/Time: 20211017\X0D0A\[facility] Reported Date/Time: [id number] By: #### [id number] #### [place] [address] Ph. [phone] COMPLEMENTon 51-10-7690Eedrsbxhyl Component C4c31 mg/dLNormal 15-53[facility]aritan HospitalComment on above:Order Comment: [facility] performed at: [employer], [employer], [address] [place] [address], , Tin Whiz Machine Operator: Remberto Clemens MD PhD\X0D0A\Quest Collection Date/Time: \X0D0A\[facility] Results Received Date/Time: [id number]\X0D0A\[facility] Reported Date/Time: [id number] By: #### PSI882 #### [place] [address] Ph. [phone] Blood Count with Auto Diffon 09-84-3149Idaqupuhe (Bld) [#/Vol]0.1 10*3/uLNormal0.0-0.1[facility]itan HospitalComment on above: Performed By: #### CBCAD #### [place] [address] Ph. [phone]/100 WBC (Bld)1 %Normal0-1[facility] Comment on above:Performed By: #### CBCAD #### [place] [address] Ph. [phone] (Bld) [#/Vol]0.3 10*3/uLNormal0.0-0.5[facility]itan HospitalComment on above:Performed By: #### CBCAD #### [place] [address] Ph. [phone]/100 WBC (Bld)3 %Normal0-5[facility] Comment on above:Performed By: #### CBCAD #### [place] [address] Ph. [phone] distribution width (RBC) [Ratio]12.8 %Normal 11.5-14.5[facility]aritan HospitalComment on above:Performed By: #### CBCAD #### [place] [address] Ph. [phone] (Bld) [Volume fraction]45.9 %Lqwgsv29.0-52.0[facility] HospitalComment on above:Performed By: #### CBCAD #### [place] [address] Ph. [phone] (Bld) [Mass/Vol]15.2 g/oPHjkvye17.5-17.5[facility] HospitalComment on above:Performed By: #### CBCAD #### [place] [address] Ph. [phone] (Bld) [#/Vol]2.4 10*3/uLNormal1.0-4.0[facility] HospitalComment on above:Performed By: #### CBCAD #### [place] [address] Ph. [phone]/100 WBC (Bld)26 %Hbibae73-12GlbyhbiTrihealth Good Samaritan HospitalComment on above:Performed By: #### CBCAD #### [address] [address] Ph. [phone] (RBC) [Entitic mass]28.8 xlSxzasa99.0-35.0[facility] HospitalComment on above:Performed By: #### CBCAD #### [address] [address] Ph. [phone] (RBC) [Mass/Vol]33.1 g/oXDlrvqq37.0-36.0WRegency Hospital Cleveland EastComment on above:Performed By: #### CBCAD #### [address] [address] Ph. [phone] (RBC) [Entitic vol]87 rBLuwmjt03-920YibaopsRegency Hospital Cleveland EastComment on above:Performed By: #### CBCAD #### [address] [address] Ph. [phone] (Bld) [#/Vol]0.6 10*3/uLNormal0.3-1.0[facility]aritan HospitalComment on above:Performed By: #### CBCAD #### [address] [address] Ph. [phone]/100 WBC (Bld)7 %Normal1-15WRegency Hospital Cleveland East Comment on above:Performed By: #### CBCAD #### [address] [address] Ph. [phone] (Bld) [#/Vol]5.9 10*3/uLNormal1.8-7.7WRegency Hospital Cleveland EastComment on above:Performed By: #### CBCAD #### [address] [address] Ph. [phone]/100 WBC (Bld)64 %Xenpuc48-85HkwxfsfTrihealth Good Samaritan HospitalComment on above:Performed By: #### CBCAD #### [address] [address] Ph. [phone] mean volume (Bld) [Entitic vol]9.5 fLNormal9.4-12.3 [facility] HospitalComment on above:Performed By: #### CBCAD #### [address] [address] Ph. [phone] (Bld) [#/Vol]230 10*3/kGGowqoi384-366FtqxiyuRegency Hospital Cleveland EastComment on above:Performed By: #### CBCAD #### [address] [address] Ph. [phone] (Bld) [#/Vol]5.27 10*6/uLNormal4.70-6.10WRegency Hospital Cleveland EastComment on above:Performed By: #### CBCAD #### [address] [address] Ph. [phone] (Bld) [#/Vol]9.3 10*3/uLNormal3.7-11.0WRegency Hospital Cleveland EastComment on above:Performed By: #### CBCAD #### [address] [address] Ph. [phone] Metabolic Panelon 81-20-3198Fhjnefs [Mass/Vol]4.4 g/dLNormal3.5-5.0WRegency Hospital Cleveland EastComment on above:Performed By: #### CK, URIC, CRP, CMP ####[address] [address]Hk. [phone] [Catalytic activity/Vol]73 U/KBvqbdr84-812 [facility]aritan HospitalComment on above:Performed By: #### CK, URIC, CRP, CMP ####[address] [address]Cm. [phone] [Catalytic activity/Vol]18 U/LNormal0-50WRegency Hospital Cleveland EastComment on above:Performed By: #### CK, URIC, CRP, CMP ####[address] [address]Mi. [phone] [Catalytic activity/Vol]32 U/ASsvejo70-96MznqhdwRegency Hospital Cleveland EastComment on above:Performed By: #### CK, URIC, CRP, CMP ####[address] [address]Vg. [phone] [Mass/Vol]0.8 mg/dLNormal0.2-1.3WRegency Hospital Cleveland EastComment on above:Performed By: #### CK, URIC, CRP, CMP ####[address] [address]Dj. [phone] [Mass/Vol]8.8 mg/dLNormal8.4-10.2W[facility] on above:Performed By: #### CK, URIC, CRP, CMP ####[address] [address]Vf. [phone] Chloride [Moles/Vol]101 mmol/RXrqnja73-281UhuhzstRegency Hospital Cleveland EastComment on above:Performed By: #### CK, URIC, CRP, CMP ####[address] [address]An. [phone] [Moles/Vol]27 mmol/VZzyfis80-66XsdjfytRegency Hospital Cleveland EastComment on above:Performed By: #### CK, URIC, CRP, CMP ####[address], [place] [address]Hu. [phone] [Mass/Vol]0.95 mg/dLNormal0.66-1.25 [facility]aritan HospitalComment on above:Performed By: #### CK, URIC, CRP, CMP ####[address] [address]Kh. [phone]/1.73 sq M.predicted among non-blacks MDRD (S/P/Bld) [Vol rate/Area]86 mL/min/{1.73_m2}Normal>60WRegency Hospital Cleveland EastComment on above:Result Comment: Stage 1 Kidney damage (e.g., protein in the urine) with normal GFR >=90\X0D0A\Stage 2 Kidney damage with mild decrease in GFR 60- 89\X0D0A\Stage 3a Moderate decrease in GFR 45-59\X0D0A\Stage 3b Moderate decrease in GFR 30-44\X0D0A\Stage 4 Severe reduction in GFR 15-29\X0D0A\Stage 5 Kidney failure <15Performed By: #### CK, URIC, CRP, CMP ####[address] [address]Tl. [phone] [Mass/Vol]84 mg/uOIhgsla93-827RzrwiddRegency Hospital Cleveland EastComment on above: Performed By: #### CK, URIC, CRP, CMP ####[address] [address]Qa. [phone] [Moles/Vol]4.1 mmol/LNormal3.6-5.0WRegency Hospital Cleveland EastComment on above:Performed By: #### CK, URIC, CRP, CMP ####[address] [address]Xl. [phone] [Mass/Vol]7.1 g/dLNormal6.3-8.2[facility]aritan HospitalComment on above:Performed By: #### CK, URIC, CRP, CMP ####[address] [address]Op. [phone] [Moles/Vol]140 mmol/SFhmpoz649-947PdggodhTrihealth Good Samaritan HospitalComment on above:Performed By: #### CK, URIC, CRP, CMP ####[address] [address]Wo. [phone] nitrogen [Mass/Vol]15 mg/dLNormwa9-20[facility] Comment on above:Performed By: #### CK, URIC, CRP, CMP ####[address] [address]Xj. [phone] Creatine Kinaseon 77-63-9007OX [Catalytic activity/Vol]105 U/CKexkpe65-976 [facility]aritan HospitalComment on above:Performed By: #### CK, URIC, CRP, CMP ####[address] [address]Da. [phone] Sedimentation Rateon 47-65-0671TAD (Bld) [Velocity]2 mm/hNormal0-20[facility]aritan HospitalComment on above:Result Comment: The ESR varies with age. The maximum normal ESR at a given age is calculated using the formulas:Men: Age in years/2Women: (Age in years + 10)/2 Performed By: #### ESR ####[address] [address]Kn. [phone]-B27 ANTIGENon 66-34-3732GEZ- B27 AntigenNegativeNormalNegativeTrihealth Good Samaritan HospitalComment on above:Order Comment: [facility] performed at: [facility], [employer] [facility], [address] [place] [address], , Tin Whiz Machine Operator: Remberto Clemens MD PhD\X0D0A\Quest Collection Date/Time: \X0D0A\[facility] Results Received Date/Time: 20211017900\X0D0A\[facility] Reported Date/Time: [id number] By: #### [id number] #### [address] [address] Ph. [phone] SENDOUTon 72-08-7340Aokz Ref Lab ResultSee Below Normal0-0[facility]aritan HospitalCommclaren lapeer region on above:Result Comment: Rheumatoid Factor Result: <14 IU/mL\X0D0A\X0D0A\Reference Range: <14 IU/mL \X 0D0A\ \X0D0A\Performing Laboratory Information:\X0D0A\[facility] [address] [employer] Machine Operator: Remberto Clemens MD PhDPerformed By: #### [id number] #### [address] [address] Ph. [phone] COMPARISON OF OUTSIDE FILMSon 86-48-0578BIN COMPARISON OF OUTSIDE FILMSRADRPT There is no result for this study. This is a placeholder for comparison films only. Final resultNormalWWilson HealthJOGREN'S ANTIBODIES (SS-A, SS-B)on 82-34-5752Egsxyvg's Antibody (SS-A)<1.0NormToledo Hospital on above:Order Comment: [facility] performed at: [facility], [employer] [place], [address] [place] [address], , [employer] Wh[employer] Machine Operator: Remberto Clemens MD PhD\X0D0A\[facility] Collection Date/Time: \X0D0A\[facility] Results Received Date/Time: 20211017\X0D0A\[facility] Reported Date/Time: [id number] Comment: \X0D0A\ Reference Range: < 1.0 NEG AI\X0D0A\Performed By: #### [id number] #### [place] [address] Ph. [phone]'s Antibody (SS-B)<1.0[facility] Comment on above:Order Comment: [facility] performed at: [facility] [employer], [address] [place] [address], , [employer] Machine Operator: Remberto Clemens MD PhD\X0D0A\[facility] Collection Date/Time: \X0D0A\[facility] Results Received Date/Time: \X0D0A\[facility] Reported Date/Time: [id number] Comment: \X0D0A\ Reference Range: < 1.0 NEG AI\X0D0A\Performed By: #### [id number] #### [place] [address] Ph. [phone] ANTIBODYon 47-69-1520Tunxr Antibody<1.0NoChillicothe HospitalComment on above:Order Comment: [facility] performed at: [facility], [facility], [address] [place] [address], , [employer] Machine Operator: Remberto Clemens MD PhD\X0D0A\[facility] Collection Date/Time: \X0D0A\[facility] Results Received Date/Time: \X0D0A\[facility] Reported Date/Time: [id number] Comment: \X0D0A\ Reference Range: < 1.0 NEG AI\X0D0A\ Performed By: #### EKI586 #### [place] [address] Ph. [phone] PEROXIDASE ANTIBODYon 51-60-9774Tlmxnvf Peroxidase Abs8 IU/mLNormal<9WRegency Hospital Cleveland EastCommclaren lapeer region on above:Order Comment: [facility] performed at: [employer] [place], [address] [place] [address], , [employer] Machine Operator: Remberto Clemens MD PhD\X0D0A\[facility] Collection Date/Time: \X0D0A\[facility] Results Received Date/Time: 20211017\X0D0A\[facility] Reported Date/Time: [id number] By: #### [id number] #### [place] [address] Ph. [phone] STIMULATING IMMUNOGLOBULINon 54-78-4733UIW Numeric Value <89Normal<140WRegency Hospital Cleveland EastCommclaren lapeer region on above:Order Comment: [facility] performed at: [facility] [place], [address] [place] [address], , [employer] Machine Operator: Remberto Clemens MD PhD\X0D0A\[facility] Collection Date/Time: \X0D0A\[facility] Results Received Date/Time: 20211017\X0D0A\[facility] Reported Date/Time: [id number] Comment: \X0D0A\Thyroid stimulating immunoglobulins (TSI) can engage\X0D0A\the TSH receptorsresulting in hyperthyroidism in\X0D0A\Graves' disease patients. TSI levels can be useful in\X0D0A\monitoring the clinical outcome of Graves' disease as\X0D0A\well as assessing the potential for hyperthyroidism\X0D0A\from maternal- transfer. TSI results greater than\X0D0A\or equal to (>=) 140% of the Reference Control are\X0D0A\considered positive.\X0D0A\ \X0D0A\NOTE:\X0D0A\A serum TSH level greater than 350 micro- International\X0D0A\Units/mL can interfere with the TSI bioassay and\X0D0A\ potentially give false positive results.\X0D0A\ \X0D0A\Patients who are [...] characteristics of this\X0D0A\assay have been determined by [facility]\X0D0A\[facility], [place], [place]. The mo difications\X0D0A\have not been cleared or approved by the FDA. This\X0D0A\assay has been validatedpursuant to the CLIA\X0D0A\regulations and is used for clinical purposes.\X0D0A\Performed By: #### [id number] #### [address] [address] Ph. [phone] Acidon 26-46-9464XDEX4.9 mg/dLNormal3.5-8.5WRegency Hospital Cleveland EastComment on above:Performed By: #### CK, URIC, CRP, CMP ####[address] [address]Nh. [phone] CHEST (2 VW)on 48-35-0182BQ CHEST (2 VW)RADRPT EXAM: XR CHEST (2 VW) HISTORY: . [...] Signed by: Rod Mcgill MD 10/15/21 Final resultNormDiley Ridge Medical CenterXR COMPARISON OF OUTSIDE FILMSon 08-12-9973WT COMPARISON OF OUTSIDE FILMSRADRPT There is no result for this study. This is a placeholder for comparison films only. Final resultNormDiley Ridge Medical CenterXR COMPARISON OF OUTSIDE FILMSRADRPT There is no result for this study. This is a placeholder for comparison films only. Final resultNormDiley Ridge Medical CenterXR COMPARISON OF OUTSIDE FILMSRADRPT There is no result for this study. This is a placeholder for comparison films only. Final resultNormDiley Ridge Medical CenterXR COMPARISON OF OUTSIDE FILMSRADRPT There is no result for this study. This is a placeholder for comparison films only. Final resultNormDiley Ridge Medical CenterXR COMPARISON OF OUTSIDE FILMSRADRPT There is no result for this study. This is a placeholder for comparison films only. Final resultNoChillicothe HospitalXR HAND LEFT (2 VIEWS)on 49-13-0889DO HAND LEFT (2 VIEWS)RADRPT EXAM: XR WRIST RIGHT (2 VIEWS), XR [...] Signed by: Agnieszka Sal MD 10/16/21 Final resultNoChillicothe HospitalXR HAND RIGHT (2 VIEWS)on 10-15-2021 XR HAND RIGHT (2 VIEWS)RADRPT EXAM: XR WRIST RIGHT (2 VIEWS), XR [...] Signed by: Agnieszka Sal MD 10/16/21 Final resultNoChillicothe HospitalXR SHOULDER LEFT (MIN 2 VIEWS)on 37-01-2749SV SHOULDER LEFT (MIN 2 VIEWS)RADRPT EXAM: XR WRIST RIGHT (2 VIEWS), XR [...] Signed by: Agnieszka Sal MD 10/16/21 Final resultNoChillicothe HospitalXR SHOULDER RIGHT (MIN 2 VIEWS)on 07-03-9990PO SHOULDER RIGHT (MIN 2 VIEWS)RADRPT EXAM: XR WRIST RIGHT (2 VIEWS), XR [...] Signed by: Agnieszka Sal MD 10/16/21 Final resultNoChillicothe HospitalXR WRIST LEFT (2 VIEWS)on 10-15-2021 XR WRIST LEFT (2 VIEWS)RADRPT EXAM: XR WRIST RIGHT (2 VIEWS), XR [...] Signed by: Agnieszka Sal MD 10/16/21 Final resultNoChillicothe HospitalXR WRIST RIGHT (2 VIEWS)on 10-15-2021 XR WRIST RIGHT (2 VIEWS)RADRPT EXAM: XR WRIST RIGHT (2 VIEWS), XR [...] Signed by: Agnieszka Sal MD 10/16/21 Final resultNoChildren's Hospital of [facility] CT CARDIAC SCORINGon 12-24-4763PQ CT CARDIAC SCORINGAddendum Begins Patient Name: BERTIN ARECHIGA ADDENDUM: Technical: [...] FOR CARDIOVASCULAR CONDITION. COMPARISON: None. ACCESSION NUMBER(S): [id number] ORDERING CLINICIAN: VIKTOR SCOTT TECHNIQUE: Using prospective ECG gating, CT [...] be calcuate using link below [email or web address] Fredis et al. JACC 2014 (http://dx.doi.org/10.1016/j.j acc.2015.08.035) Reading Brick Loader: Dr. Abbi Delarosa, Date: 02/25/2020 7:53 pm Electronically signed by: NOE LITTLE MDPaladin Healthcare Vital Signs Date TimeVital SignValuePerforming WxuevedruAoxksaxs78-55-1036 11:55-0400Body smnszo210.8 Mirza Cooley MD Work Phone: [facility] Ypulsw46-48-9187 11:55-0400Body mass index (BMI) [Ratio]24.54 kg/o5MfcaiTerrie Cooley MD Work Phone: [employer] Ptjtnf57-52-6698 11:55-0400Body uhvvzl29.56 kgTerrie Cooley MD Work Phone: [facility] Dhvdek07-95-3886 11:55-0400Diastolic blood omjscvrl41 mm[Hg]Terrie Cooley MD Work Phone: [facility] Glhhxt60-83-4993 11:55-0400Heart rate 54 /minTerrie Cooley MD Work Phone: [facility] [employer] [id number] 11:55-9174YmB4% (BldA) [Mass fraction]95 %Terrie Cooley MD Work Phone: [facility]03-21-2025 11:55-0400Systolic blood ysnfvhqz663 mm[Hg]Terrie Cooley MD Work Phone: [facility]01-21-2025 10:09-0500Body .8 cmSamra Munoz REAL ESTATE ACCOUNTANT-NURSE RESEARCHER Work Phone: [facility]01-21-2025 10:09-0500Body mass index (BMI) [Ratio]24.39 kg/j9ZzrgrwvSamra Munoz REAL ESTATE ACCOUNTANT-NURSE RESEARCHER Work Phone: [facility]01-21-2025 10:09-0500Body vkfjli21.11 kgSamra Munoz REAL ESTATE ACCOUNTANT-NURSE RESEARCHER Work Phone: [facility]03-26-2024 11:17-0400Body lsmypb129.8 cmTsusan Khoury MD Work Phone: [facility]03-26-2024 11:17-0400Body mass index (BMI) [Ratio]23.24 kg/b2RcesjzbCatarina Khoury MD Work Phone: [facility]03-26-2024 11:17-0400Body gyavcv57.48 kgCatarina Khoury MD Work Phone: [facility]03-26-2024 11:17-0400Diastolic blood danbhcuh22 mm[Hg]Catarina Khoury MD Work Phone: [facility]03-26-2024 11:17-0400Heart rate 54 /minCatarina Khoury MD Work Phone: [facility]03-26-2024 11:17-0400Systolic blood dqcawbpc469 mm[Hg]Catarina Khoury MD Work Phone: [facility]12-26-2023 12:17-0500Body .8 cmTsusan Khoury MD Work Phone: [facility]12-26-2023 12:17-0500Body mass index (BMI) [Ratio]23.24 kg/y6OsalenfCatarina Khoury MD Work Phone: [facility]12-26-2023 12:17-0500Body mdexyn11.48 kgCatarina Khoury MD Work Phone: [facility]12-26-2023 12:17-0500Diastolic blood qhuvghyi35 mm[Hg]Catarina Khoury MD Work Phone: [facility]12-26-2023 12:17-0500Heart rate 64 /minCatarina Khoury MD Work Phone: [facility]12-26-2023 12:17-0500Systolic blood xljpxebo140 mm[Hg]Catarina Khoury MD Work Phone: [facility]12-08-2023 11:15-0500Body .8 cmJackelin Henry Other [employer] Other 12-08-2023 11:15-0500Body mass index (BMI) [Ratio] 23.07 kg/x5HcwgxjJackelin Henry Other [employer] Other 12-08-2023 11:15-0500Body pyjuvf89.94 kgJackelin Henry Other [employer] Other 12-08-2023 11:15-0500Diastolic blood raahrvoq35 mm[Hg] Jackelin Henry Other [employer] Other 12-08-2023 11:15-0500Systolic blood zhpojvhc757 mm[Hg] Jackelin Henry Other [employer] Other 09-11-2023 13:30-0400Body ghmbye643.8 cmJackelin Henry Other [employer] Other 09-11-2023 13:30-0400Body mass index (BMI) [Ratio]23.3 kg/w5HgmdkrJackelin Henry Other [employer] Other 09-11-2023 13:30-0400Body hlclqy05.66 kgJackelin Henry Other [employer] Other 09-11-2023 13:30-0400Diastolic blood mm[Hg] Jackelin Carl Other [employer] Other 09-11-2023 13:30-0400Respiratory rate12 /minJackelin Carl Other [employer] Other 09-11-2023 13:30-0400Systolic blood dunhrnqk165 mm[Hg] Jackelin Carl Other [employer] Other Encounters Encounter DateEncounter TypeCare ProviderFacilityStart: 08-20-2024 End: 35-38-7447GnkgblXkaohtv P Kyser PA-C Work Phone: [facility] CardiologyComment on above:Med RefillStart: 06-04-2024 End: 89-56-8589fzpthkadjiFmcinlsDelaney Byrne MDFacility:JORGE Henriquez Start: 05-29-2024 End: 47-78-5386drmpvrghyxAPUBHA E BRAUNProMedica Pawnee HospitalStart: 05-23-2024 End: 87-17-8059TyavkeLdquvdvhGeorge PHILLIPS Work Phone: [facility] CardiologyComment on above:Med RefillStart: 05-08-2024 End: 73-55-8796Kxlwzlhok encounterTricia BANKSAProMedsoutheast health medical center Physicians General SurgeryStart: 05-04-2024 End: 09-58-1482Jpudai outpatient visit 25 minutesTerrie Cooley MD Work Phone: [facility] Physicians CardiologyComment on above: Paroxysmal atrial fibrillation (CMS-HCC) (Primary Dx)Start: 05-04-2024 End: 76-46-6178aemuzkamzuGHRWY B PATELGalion Hospital HospitalStart: 05-03-2024 End: 59-16-2400Nmqacdlqj encounterCandace Hdez [facility] Physicians CardiologyStart: 03-09-2024 End: 19-49-4950Kkpcintks encounterCanadce Hdez CMAMarietta Memorial Hospital Physicians CardiologyStart: 03-06-2024 End: 45-45-7976qnrrtuuydzHJDAHDRCommunity Hospital South [facility] Start: 03-06-2024 End: 71-94-5628Vkauvy follow up visit related to original [facility] Jody Carrier REAL ESTATE ACCOUNTANT-NURSE RESEARCHER Work Phone: [facility] Physicians General SurgeryComment on above: Status post right inguinal hernia repair (Primary Dx)Start: 02-21-2024 End: 40-40-8753AqywxgLumnzp R Rettig REAL ESTATE ACCOUNTANT-NURSE RESEARCHER Work Phone: [facility] Physicians CardiologyComment on above:Med RefillStart: 02-21-2024 End: 44-56-3683Qxrkbdztxu and management of inpatientVERN D [facility] HospitalStart: 02-21-2024 End: 57-52-1768Gqvjktujxk and management of inpatientMICHAEL E GRILLIParkwood Hospitaltart: 02-03-2024 End: 07-49-2156Aqxbuxz encounter procedurePmh Pre-Admission Testing [address] [place] [address] - Pre AdmitComment on above:Preop examination (Primary Dx); Paroxysmal atrial fibrillation (CMS-HCC); Essential hypertensionStart: 02-03-2024 End: 18-40-1194Xaohiiaakskeg examination donePmh 1[facility] Ridgetart: 02-03-2024 End: 08-46-1108ojgkcvqbqxRRLHNRX E [facility] Hospitaltart: 56-74-4057Vvdjqufml for other preprocedural examinationMICHAEL [facility] Hospitaltart: 02-02-2024 End: 49-44-5789JpbmdqPxrommr Lien Claytonvaishalis DO Work Phone: [facility] General SurgeryStart: 02-02-2024 End: 58-45-4121gzwfbgytdzPGPG R KAHALYProRiverview Health Institutetart: 02-01-2024 End: 09-42-8469gzzkovlisfKATQJTO E [facility] Start: 01-19-2024 End: 25-34-8860Wmfagoxhj encounterOmaaleah Castelan MD Work Phone: [facility] CardiologyStart: 08-02-2023 End: 05-55-7866xmnaxasafpWHPNF A VANIADLESTONNot AvailableStart: 06-21-2023 End: 04-66-6979ehxzxrhsxbCIIYYOJU BRINKNot AvailableStart: 06-17-2023 End: 87-82-4717sodzflvzdxTCYYHNDH BRINKNot AvailableStart: 06-15-2023 End: 08-70-0374hlmccfjxvlDLTWWHEK BRINKNot AvailableStart: 06-13-2023 End: 79-89-9021iozvszmnbcFOYUDO T BLACKSTONNot AvailableStart: 06-10-2023 End: 11-68-6583ufyuagqktmSWAILZJZ BRINKNot AvailableStart: 06-08-2023 End: 19-27-1109kggbqltfqpHXDQYVDD BRINKNot AvailableStart: 06-06-2023 End: 47-45-9351zoymvqhggjONHOTX T BLACKSTONNot AvailableStart: 06-03-2023 End: 34-33-4189jhhudqgezzEGJAQIYP BRINKNot AvailableStart: 05-27-2023 End: 39-59-1108bthcopsyztFCNGYKAL BRINKNot AvailableStart: 05-25-2023 End: 56-81-2597wmdvfachthETXUIF T BLACKSTONNot AvailableStart: 05-19-2023 End: 93-15-4008gnucpbvwjmJOWYDJMI BRINKNot AvailableStart: 05-17-2023 End: 52-87-9816ihjtrnnfogIWLRRO T BLACKSTONNot AvailableStart: 05-13-2023 End: 09-44-8854gbhsufstpbJKTNWEHF BRINKNot AvailableStart: 05-11-2023 End: 95-98-4808xbufzqnoxwWXOWZIL KELBLEYNot AvailableStart: 05-10-2023 End: 82-27-0996olesjzhtfeIIWLZCC G [facility]ERSelect [facility] Start: 05-10-2023 End: 80-99-1905Wxqbqf outpatient visit 15 minutesCatarina Khoury MD Work Phone: [facility] Physicians Genito-Urinary SurgeonsComment on above:Elevated PSA (Primary Dx)Start: 05-09-2023 End: 73-47-6945hdngemvhyvPMFVIT T QUINNTONNot AvailableStart: 05-06-2023 End: 23-15-9592khldqxizvcDWQFADYD BRINKNot AvailableStart: 05-04-2023 End: 41-28-0017qoyafyraatLMWBXILY BRINKNot AvailableStart: 05-02-2023 End: 06-91-5831ekzrocxdcnLQKGNOUO BRINKNot AvailableStart: 04-29-2023 End: 53-70-0095ckblmasbsiYJPCPEV KELBLEYNot AvailableStart: 04-27-2023 End: 10-88-0924qjuhohmopwDSMGUZ T QUINNTONNot AvailableStart: 04-26-2023 End: 09-31-7268jkxfvtgqhkYAMEP A SHARISTONNot AvailableStart: 04-21-2023 End: 36-02-6193zaivkoxijaSVEPYYBO BRINKNot AvailableStart: 04-18-2023 End: 79-38-9262opwijngezfIQDQUD T BLACKSTONNot AvailableStart: 04-13-2023 End: 77-25-6508rlugnenauqRYTGSM T BLACKSTONNot AvailableStart: 04-11-2023 End: 32-82-2050yvpyaiwlzvDRLVJSBH BRINKNot AvailableStart: 04-08-2023 End: 83-85-5864cdcgukeqhsCKAPJOOK BRINKNot AvailableStart: 04-06-2023 End: 32-76-7993fvhkhmklonFRKAYO Devin SUAREZNot AvailableStart: 03-30-2023 End: 54-53-4374Mtrwca follow up visit related to original pxMaria B Kiley [employer] Work Phone: [facility]THOPAEDICSComment on above:Status post right rotator cuff repair (Primary Dx); Arthritis of right acromioclavicular jointStart: 03-30-2023 End: 39-27-4868djogkrzrkuRNUDU B APLINGNot AvailableStart: 03-15-2023 End: 32-58-6639viyersdycmGRCCB A HUDDLESTONNot AvailableStart: 60-20-4328Pjotpf Yasmin Yves PHILLIPS Work Phone: [facility] Physicians CardiologyComment on above:Med RefillStart: 02-10-2023 End: 38-71-3249shouxxkcqkRLEPT A HUDDLESTONNot AvailableStart: 02-08-2023 End: 09-74-6216Fwvmlk outpatient visit 25 minutesCatarina Khoury MD Work Phone: [facility] Genito-Urinary SurgeonsComment on above:Elevated PSA (Primary Dx)Start: 01-21-2023 End: 89-63-7748aoqxgfyyjuJcdkci Braun Other [employer] Other Start: 87-16-1002Tlqubi outpatient visit 10 minutes [facility]ara [facility] ClinicStart: 08-15-0533Hbhcepm encounter status Catarina Khoury MD Work Phone: [facility] Work Phone: Start: 01-20-2023 End: 49-17-1166ovnlwcukqjUQYIU A VANIADLEEJNot AvailableStart: 01-14-2023 End: 66-54-9353arxswtxglyAvlzkz Braun Other [employer] Other Start: 00-45-6418Zpfrioqzl encounterJackelin Lara [facility] ClinicStart: 11-08-2022 End: 34-57-0525pethoymnnkIkvpqs Henry Other [employer] Other Start: 65-92-9772Rkvterdey encounterJackelin Lara [facility] Planotart: 11-02-2022 End: 37-72-3188thepacplstHhsqzl Henry Other [employer] Other Start: 44-10-7312Fetelvstd encounterJackelin Lara [facility] Planotart: 10-29-2022 End: 96-57-3091lvifcrxtssHvnqsv Henry Other [employer] Other Start: 75-01-7836Ftfuztvmm encounterJackelin Lara Referral CoordinatorStart: 10-25-2022 End: 91-81-7254gndzowbeilKnweay Henry Other [employer] Other Start: 01-45-7139Pwfboe outpatient visit 15 minutes Jackelin Lara [facility] Planotart: 05-20-2022 End: 99-68-4358yatrvfyhamCRUKPCZMGILC LAKSHMIPATHYFacility:V1Nvgrh: 03-04-2022 End: 47-36-1286nsrsbxhfccNU ROWAN S GARDUNO .Facility:F3Bwczd: 02-16-2022 End: 54-66-9419jzvtzigfvlAL ROWAN S GARDUNO .Facility:R4Domnt: 01-21-2022 End: 41-97-8196ivizkbkmstDJ ROWAN S GARDUNO .Facility:O9Kckxc: 01-05-2022 End: 37-73-6056tljofxkkziKD ROWAN S GARDUNO .Facility:I8Jepms: 12-08-2021 End: 75-21-5187nmbwdhyzuiUS ROWAN S GARDUNO .Facility:I3Krtva: 10-15-2021 [facility] Limatart: 18-67-5224Pg RenewalDavid T Defrance Work Phone: [phone]-Jckls [facility] 250 DO Work Phone: Procedures DateProcedureProcedure DetailPerforming ClinicianStart: 70-62-7815Xypuhs-up visitFollow-upRONAK Tiara PATELStart: 10-95-4048Cwrkic-up visitFollow-upTIMALISON Karen SCHUSTERStart: 39-35-8118Myvzgf citrullinated peptide antibodyMARCIA CARL Comment on above:Order Comment: Quest performed at: [facility], Grabbed [facility], [address] [place] [address], , Tin Whiz Machine Operator: Remberto Clemens MD PhD\X0D0A\Quest Collection Date/Time: \X0D0A\[facility] Results Received Date/Time: \X0D0A\[facility] Reported Date/Time: [id number] Comment: \X0D0A\Negative: <20\X0D0A\Weak Positive: 20 - 39\X0D0A\Moderate Positive: 40 - 59\X0D0A\Strong Positive: >59\X0D0A\Performed By: #### [id number] #### [place] [address] Ph. [phone] of repair of inguinal herniaStatus post right inguinal hernia repairJessica Jody Munoz REAL ESTATE ACCOUNTANT-NURSE RESEARCHER Work Phone: History of repair of musculotendinous cuff of shoulder Status post right rotator cuff repairMaria Tiara Cao [employer] Work Phone: Plan of Treatment DateCare ActivityDetailAuthorStart: 21-59-3912Psjnx BMI ScreeningAdult BMI ScreeningProMedica Health SystemStart: 53-83-5306Qwpajhw ScreeningTobacco ScreeningProMedica Health SystemStart: 21-97-6273Mfajd BMI ScreeningAdult BMI ScreeningProMedica Health SystemStart: 31-59-5168Xnrfkzh ScreeningTobacco ScreeningProGlenbeigh Hospitalca Health SystemStart: 93-13-3880Pvrbw BMI ScreeningAdult BMI ScreeningProGlenbeigh Hospitalca Health SystemStart: 83-24-4119Nfqrhoj ScreeningTobacco ScreeningProGlenbeigh Hospitalca Health SystemStart: 91-58-5451Ahhjtsh ScreeningTobacco ScreeningMcKitrick Hospitalca Health SystemStart: 78-60-1896Voadu BMI ScreeningAdult BMI ScreeningProGlenbeigh Hospitalca Health SystemStart: 62-11-9726Oxluvjy ScreeningTobacco ScreeningProGlenbeigh Hospitalca Health SystemStart: 83-53-3271Yvdxhnoar vaccinationInfluenza VaccineProGlenbeigh Hospitalca Health SystemStart: 40-54-7911Ozypj BMI ScreeningAdult BMI ScreeningProGlenbeigh Hospitalca Health SystemStart: 97-47-0983Jdjlhar ScreeningTobacco ScreeningMcKitrick Hospitalca [facility] SystemStart: 05-04-2024 End: 90-86-4565Htplvct encounter mdfupvstm40/21/2025 12:00 PM EDT Office Visit [facility] [address] [place] [address] Terrie Cooley MD [address] [place] [address] [facility] CardiologyStart: 03-12-2024 End: 07-84-2508Bquddtw encounter lznumdgrl50/27/2025 11:15 AM EST Office Visit [facility] [address] [place] [address] Loli Alamo MD [address] [place] [address] [facility] CardiologyStart: 02-21-2024 End: 56-63-7502Lbdimvbua to same day surgery cgdijs1102/21/2024 11:00 AM EST - 02/21/2024 12:15 PM EST Surgery [facility] [address] [place] [address] Abbi Muñoz, DO [address] [place], [place] [id number] REPAIR HERNIA INGUINAL [98586 (CPT )][facility] Comment on above:REPAIR HERNIA INGUINAL [17861 (CPT )]Start: 02-21-2024 End: 28-01-5303Lhw 1st ingun hrna age 6 yrs/> reducibleREPAIR HERNIA INGUINAL right inguinal hernia 02/21/2024 11:00 AM ESTFREMONT SURGERYStart: 02-21-2024 Subsequent hospital visit by jkvgzcxyv61/07/2025 11:00 AM EST Hospital Encounter [facility] [address] [place] [address] Abbi Muñoz, DO [address] [place] [address] [facility] SurgeryStart: 95-31-8549Dqlca BMI ScreeningAdult BMI ScreeningProTroy [facility] Health SystemStart: 67-84-3651Delffov ScreeningTobacco ScreeningProTroy Regional Medical [facility] Health System Start: 02-03-2024 End: 40-91-4112Cdecjku encounter aivaqoege63/20/2024 10:30 AM EST Procedure visit [facility] - Pre Admit [address] [place] [address] [facility] - Pre AdmitStart: 12-11-2503Bnqkkxufx vaccinationInfluenza VaccineProPremier Health SystemStart: 05-10-2023 End: 00-11-7751Pqdequg encounter /26/2024 11:15 AM EDT Office Visit [facility] [address] [place] [address] A [facility] [place] [address] Catarina Khoury MD [address] [place] [id number] [facility] Genito-Urinary SurgeonsStart: 05-09-2023 End: 06-51-0036Oobeilofi specific antigen, diagnosticProstatic specific antigen, diagnostic Lab Routine Elevated PSA Expected: 05/09/2023, Expires: 02/08/2024 TRAVIS JENNI Work Phone: Comment on above:Expected: 05/09/2023, Expires: 02/08/2024Start: 04-26-2023 End: 53-04-7885Fkqwuai encounter kolqsibml24/12/2024 9:45 AM EDT Office Visit [facility] [address] [place] [address] Pattie Pichardo DO [address] [place] [address] [facility]THOPAEDICSStart: 76-94-3214Yifbjpfms vaccinationInfluenza VaccineProPremier Health SystemStart: 82-24-5482Lrpnkadcfkmypz of varicella zoster vaccineZoster (Shingles) Vaccine (1 of 2)[facility]: 07-74-9788KKrI,Tdap and Td Vaccines (1 - Tdap)DTaP,Tdap and Td Vaccines (1 - Tdap)[facility]: 61-57-3017Nbatradcmo ScreeningDepression ScreeningLima Memorial Hospital End: 85-91-3745Fjysl metabolic 2000 panel - Serum or PlasmaBasic Metabolic Panel Lab Routine Essential hypertension 1 Occurrences starting 02/23/2024 until 10/2025ProG[facility]igh Hospitalca Work Phone: Comment on above:1 Occurrences starting 02/23/2024 until 02/22/2025 Immunizations Immunization DateImmunizationNotesCare ZwxunhinWsosuagq82-02-6033wtvnoydwg virus vaccine, unspecified formulationCatarina Khoury MD Work Phone: [facility] HospitalRjoufw19-45-5297soxtbwnsg virus vaccine, unspecified formulationCatarina Khoury MD Work Phone: [facility] Payers DatePayer CategoryPayerPolicy ID01-01-2025Medicare HMO [id number] [id number]d Care HMO (unspecified)[facility] Member Subscriber Plan / Payer (Effective 2020-Present) Name: Bertin Arechiga Relation to Subscriber: Self Name: Bertin Arecihga Payer ID: Not on file Group ID: Not on file Type: Not on file Address: [address] [place] [id number] [id number] 2.0.1.006244.3.57[id number] 2..1.561095.3.579.2.16010-07-3614Abmmjgs19450764 2..1.677525.3.579.2.76282-22-3110Qohvglv96581651 2.0.1.633213.3.579.2.90528-98-1749Zyjbtto78226486 2.0.1.850985.3.579.2.19741-63-0123Pucaysd47310821 2.0.1.141669.3.579.2.66710-12-9080Seltoet21284578 2.0.1.981354.3.579.2.26680-18-3010Ybhzieo59344166 2.16.840.1.688645.3.579.2.79472-66-2210Zjlxxiu1003440 2.16.840.1.536241.3.579.2.85632-46-3794Yhowqwj0580513 2.16.840.1.436287.3.579.2.59054-50-0170Clnfyow3853249 2.16.840.1.719893.3.579.2.55314-16-2561Kpacljz2804650 2.16.840.1.961364.3.579.2.76247-04-0660Iuzhxrl0240026 2.16.840.1.121189.3.579.2.05650-46-2425Bhvkosn5611646 2.16.840.1.500411.3.579.2.63618-59-0275Arotbpx8573552 2.16.840.1.644720.3.579.2.07736-46-9783Wvzfjyd4967943 2.16.840.1.636981.3.579.2.170048-87-7494Ocjafyn0963842 2.16.840.1.743040.3.579.2.282226-71-1296Duayyyr2449000 2.16.840.1.452325.3.579.2.903948-42-8641Zwhzjxh0719507 2.16.840.1.380914.3.579.2.123636-90-2022Yugfhuo4240252 2.16.840.1.973981.3.579.2.112984-60-6754Pzungvu5004219 2.16.840.1.793203.3.579.2.911060-64-5319Cmgaamh6517865 2.16.840.1.583604.3.579.2.913191-99-2900Vupckxs0268359 2.16.840.1.031067.3.579.2.797192-12-1977Jkyjgej6677809 2.16.840.1.637160.3.579.2.412481-50-4479Blvhats0182518 2.16.840.1.904492.3.579.2.132411-58-6095Ciucldy7296463 2.16.840.1.200833.3.579.2.848817-23-7744Dbnpsif4169110 2.16.840.1.773282.3.579.2.439608-18-1799Rvebfrs8104838 2.16.840.1.574518.3.579.2.516312-72-1496Tocfwrc4988190 2.16.840.1.422508.3.579.2.502490-52-9942Jegnhgp0349483 2.16.840.1.086577.3.579.2.456265-86-2035Qcbrvqc4499870 2.16.840.1.636257.3.579.2.723748-61-6914Qvfldio8355889 2.16.840.1.605983.3.579.2.354895-64-2445Lqysuot5226534 2.16.840.1.679382.3.579.2.267761-67-7151Ushevpd8204505 2.16.840.1.526708.3.579.2.689635-06-8023Judahna0204380 2.16.840.1.132034.3.579.2.196836-94-5715Htzhuad0262823 2.16.840.1.488169.3.579.2.964179-18-3946Vcvcsst3005373 2.16.840.1.523946.3.579.2.998062-73-8358Oxatjnx0951601 2.16.840.1.719287.3.579.2.691103-91-2178Yhtjtws5605810 2.840.1.937312.3.579.2.351954-03-5293Clewnbp6471537 2.16840.1.934590.3.579.2.493658-54-9215Yuwxmhw5295918 2.840.1.639247.3.579.2.548670-11-3494Jzorecd6199402 2.0.1.803597.3.579.2.067376-86-8448Otcfakj5449197 2..1.553916.3.579.2.161460-10-5701Esdtykt9915591 2..1.554552.3.579.2.688983-64-5178Xssnhdz2447326 2.840.1.952520.3.579.2.175489-81-0410Jibvvyg680994 2.0.1.960880.3.579.2.852568-33-5176Habrogu716470 2..1.624248.3.579.2.760728-20-2048Uifowrb37570027 2.0.1.027937.3.579.2.423931-23-9769Lwfmgjp931265700 2.0.1.353326.3.579.2.071255-11-1721Sdubzio12354535 2.840.1.273295.3.579.2.964700-26-4717Btpmuap42326353 2.840.1.199624.3.579.2.159267-71-7473Uzjwryw213851905 2.16.840.1.905967.3.579.2.540308-08-5747Mfvmjho127268117 2.0.1.319771.3.579.2.359844-95-5729Wbkueqy951948015 2.0.1.691283.3.579.2.687539-37-1633Dmqqopy019682343 2..1.414382.3.579.2.056267-62-9123Orotwec076447798 2..1.309137.3.579.2.038882-76-4799Nitrdpt84127931 2..1.543022.3.579.2.885392-60-7262Fasyuke05367538 2..1.180880.3.579.2.099961-36-0543Lmbsxtj75455919 2..1.136659.3.579.2.317999-70-3921Zuggrxr41432246 2..1.805683.3.579.2.298738-76-5424Vxvimpz228746000 2..1.638308.3.579.2.528Shem-yxk681f2505-3n31ymk052d5905-6f08-4g15-8b5w-x413965lsa93 2..1.537474.34Aivg-pzo2t456292-85qpchw5g308022-39yd-5mq8-253o-ao89ykj8fg1v 2.0.1.835120.83Iiya-lzi78718ct8-60c6gki52833ou9-34h2-6716-206m-830ab5071865 2.0.1.981816.44Cgky-zxs7jlzi49t-k37vyab0smvt28u-e22m-4l87-2997-nf4ul401g711 2.0.1.493070.00Rlxy-col32r385v4-17xjevy00g344u0-25zs-993d-m8p3-t56so7023r3z 840.1.963272.19Mlum-ucb8bm3z2zq-226tbgp3rr1g6vj-356s-9753-l787-ntp9u30ly06n 840.1.808950.19 Social History DateTypeDetailFacilityStart: 03-27-2020 End: 89-89-5197Xlw Assigned At BirthOhio[facility] SystemStart: 11-10-2022 End: 35-18-4182Ydgdpta smoking status NHISEx-smokerNOUT HealthcareStart: 02-04-1973 End: 22-36-0924Axejkgj of tobacco useCurrent smokerCaroMont Regional Medical Center - Mount Hollytart: 02-[facility]-1973 End: 09-10-3321Anlhmla of tobacco useCigarette SmokerLima [facility] Hospital Start: 91-12-8403Pwpppsr use and exposureFormer smokeless tobacco userNOUT HealthcareStart: 03-30-2023 End: 62-70-0702Sbbfvmj intakeEx-drinker (finding)[facility] SystemStart: 03-27-2020 End: 94-58-6591Amtuioi of Social functionOhioHealth Mansfield Hospital SystemStart: 11-11-8969Lsshprc Commentcaffeine more than 4 cups per dayNOMS HealthcareStart: 76-72-2788Ink Assigned At BirthNot on fileOhioHealth Mansfield Hospital SystemStart: 05-04-2021 End: 58-25-8474Duwvbds use and exposureSmokeless tobacco non-userOhioHealth Mansfield Hospital SystemFrequency of Alcohol ConsumptionNeWexner Medical Center SystemStart: 25-44-7289BlwXedl (finding)[facility] Medical Equipment Procedure CodeEquipment CodeEquipment Original TextEquipment IdentifierDates Recorder Crd Linq Ii Ins - [id number] - [id number]: 07-10-2021 Healicoil Regenesorb, 4.75mm Suture [place] With One Ultratape And One Ultrabraid [id number]_wcoIixaj: 82-50-2302Hnyluklkt Knotless Regenesorb Suture [place] 5.5mm, Self-[id number]_nscWlqqh: 33-26-0885Vr-Fiber [id number]_hvqFlzba: 32-00-1166Nnmrumsqq, [id number]_impStart: 74-09-2784Ukll 1in Med Pp Srgpro Nabsb Knit Plg Srg Strl Clr Hrn Rpl [id number] - Sn/A - [id number] Start: 02-21-2024 Clinical Notes 12-08-2021 to 05-23-2024 Note Date & GxtgFhsyQqltjavm74-19-6924 Miscellaneous Notes* Telephone Encounter - Caity Chambers RN - 05/23/2024 9:37 AM EDT OV 05/04/24 01/25/23 BMP Pt needs updated labs. Orders already in Epic. Organisational Psychologist let pts know. documented in this encounterLima [facility] Hospital04-09-2025 Telephone encounter Note* Telephone Encounter - Caity Chambers RN - 05/23/2024 9:37 AM EDT OV 05/04/24 01/25/23 BMP Pt needs updated labs. Orders already in Epic. Organisational Psychologist let pts know. [facility]03-25-2025 Miscellaneous Notes* Telephone Encounter - TATA Akins - 05/08/2024 1:42 PM EDT Called patient to see if he was ready to schedule his colonoscopy, per his Rosie, patient wants to have Sutab prep and will call us back to schedule for patient was not home. Patient will need an updated H&P visit. I informed patient that we could do the H&P visit as a MyChart video visit that way patient didn't have to come into the office. Patients verbalized understanding. documented in this encounterLima Memorial Hospital03-25-2025 Telephone encounter Note* Telephone Encounter - TATA Akins - 05/08/2024 1:42 PM EDT Called patient to see if he was ready to schedule his colonoscopy, per his Rosie, patient wants to have Sutab prep and will call us back to schedule for patient was not home. Patient will need an updated H&P visit. I informed patient that we could do the H&P visit as a MyChart video visit that way patient didn't have to come into the office. Patients verbalized understanding. [facility]03-21-2025 History of Present illness Narrative* Terrie Cooley MD - 05/04/2024 12:00 PM EDT Bertin Henningmannyflip Date of visit: 05/04/2024 Date of : 1960 Age: 64 y.o. Patient Active Problem List Diagnosis Essential hypertension Other chest pain Paroxysmal atrial fibrillation (CMS-HCC) Sinus bradycardia Elevated PSA Preop cardiovascular exam Status post placement of implantable loop recorder No Known Allergies Current Outpatient Medications Medication Sig Dispense Refill amLODIPine-benazepril (LOTREL) 10-40 mg per capsule TAKE 1 CAPSULE BY MOUTH IN THE MORNING 90 capsule 0 aspirin 81 mg Take 1 tablet (81 mg total) by mouth in the morning. 30 tablet 11 atorvastatin (LIPITOR) 10 mg tablet Take 1 tablet (10 mg total) by mouth in the morning. baclofen (LIORESAL) 10 mg tablet TAKE 1/2 [...] he has a medical marijuana card and usesin the evening as needed for chronic pain meloxicam (MOBIC) 7.5 mg tablet Take 1 tablet (7.5 mg total) by mouth in the morning. psyllium (METAMUCIL) powder Take 1 packet by mouth in the morning. No current facility-administered medications for this visit. Chief Complaint Patient presents with Follow-up 1 YEAR Atrial Fibrillation History of Present Illness 64-year-old hypertension, paroxysmal AFib status post ablation Denies chest pain or chest tightness He is doing well No recurrence of AFib he was highly symptomatic Past Medical History: Diagnosis Date Angina pectoris ([facility]) 1981 was kept few days in [...] radiculopathy Neurogenic pain Raynaud's phenomenon without gangrene No data recorded No data recorded No data recorded Past Surgical History: Procedure Laterality Date Afib Ablation, Carto, ICE N/A 03/18/2022 Performed by Donya Castelan MD at [facility] () ARTHROSCOPIC REPAIR ROTATOR CUFF SHOULDER Right 02/02/2023 Performed by Pattie Pichardo DO at [facility] COLONOSCOPY N/A 04/25/2018 Performed by Abbi Muñoz DO at [facility] HEMORRHOIDECTOMY N/A 04/25/2018 Performed by Abbi Muñoz DO at [facility] HERNIA REPAIR INSERTION LOOP RECORDER and removal 02/02/24 RELEASE CARPAL TUNNEL Right 02/04/2021 Performed by Pattie Pichardo DO at [facility] REPAIR HERNIA INGUINAL Right 02/21/2024 Performed by Abbi Muñoz DO at [facility] Family History Problem Relation Age of Onset Heart disease Mother Hypertension Mother Heart disease Father Passed of heart at 46 Heart disease Brother Heart attack at 60 Hypertension Brother Heart disease Paternal Grandmother Passed at 49 Hypertension Sister Stroke Sister At 59 Hypertension Sister Social History Socioeconomic History Marital status: Spouse name: Not on file Number of children: Not on file Years of education: Not on file Highest education level: Not on file Occupational History Not on file Tobacco Use Smoking status: Former Current packs/day: 0.00 Average packs/day: 1.5 packs/day for 28.0 years (42.0 ttl pk-yrs) Types: Cigarettes Start date: 02/04/1973 Quit date: 02/04/2001 Years since quittin.2 Smokeless tobacco: Never Vaping Use Vaping status: Former Substance and Sexual Activity Alcohol use: Not Currently Drug use: Yes Types: Medical Marijuana Comment: marijuana use couple times per week for back pain Sexual activity: Defer Comment: not reviewed at this visit Other Topics Concern Caffeine Use Yes Comment: 2-3 cans of mountain dew daily Social History Narrative Not on file Social Drivers of Health Financial Resource Strain: Not on file Food Insecurity: No Food Insecurity (05/04/2024) Hunger Screening Food Insecurity - Worry: Never True Food Insecurity - Inability: Never True Transportation Needs: Not on file Physical Activity: Not on file Stress: Not on file Social Connections: Not on file Interpersonal Safety: Not on file Housing Instability: Not on file Review of Systems Review of Systems Constitutional: Negative. HENT: Negative. Eyes: Negative. Respiratory: Negative. Hematologic/Lymphatic: Bruises/bleeds easily. Skin: Negative. Musculoskeletal: Negative. Gastrointestinal: Negative. Neurological: Negative. Psychiatric/Behavioral: The patient is nervous/anxious. Allergic/Immunologic: Positive for environmental allergies. CARDIOVASCULAR: Please review HPI. Physical Examination General appearance: Alert, oriented and cooperative. In no acute distress. Skin: Warm and dry to touch. Head: Normocephalic, without obvious abnormality, atraumatic. Ears, Nose, Mouth, Throat: Throat clear without erythema or exudate. Dentition intact. Eyes: Conjunctivae unremarkable, EOM intact. Neck: No JVD, No carotid bruit. Neck supple, trachea midline. Respiratory: Clear to auscultation bilaterally, no use of accessory muscles. Cardiovascular: RRR with normal S1 and S2 with no murmurs. Gastrointestinal: Soft, non-tender. Bowel sounds normal. Musculoskeletal: No peripheral edema. Neurologic: Oriented to time, person and place, affect appropriate. No focal/major motor defects noted. Psychiatric: Appropriate mood, memory and judgement. VITAL SIGNS: BP 110/70 (BP Site: Left Arm, BP Postition: Sitting) Pulse 54 Ht 177.8 cm (5' 10 ) Wt 77.6 kg(171 lb) SpO2 95% BMI 24.54 kg/m No orders of the defined types were placed in this encounter. There are no discontinued medications. [id number] Score: 1 0.6% Stroke risk per year, 0.9% risk of stroke/TIA/systemic embolism IMPRESSIONS/PLAN 1. Paroxysmal atrial fibrillation (CMS-HCC) Impression 1. Paroxysmal atrial fibrillation status post ablation. Doing well no recurrence of AFib. CHADS2 Vasc was 1, structurally normal heart negative nuclear stress. 2. Coronary calcium score 4 back in 2016 3. Hyperlipidemia on statin therapy Overall doing well follow up as needed if his AFib returns Or any other issues arise TODAYS ORDERS No orders of the defined types were placed in this encounter. FOLLOW UP Return if symptoms worsen or fail to improve. PCP: JACKELIN HENRY MD Referring Physician: Jackelin Henry MD [address] [place] [address] documented [facility]03[facility] Miscellaneous Notes* Telephone Encounter - Candace Hdez CMA - 05/03/2024 12:04 PM EDT Called patient to remind them to bring their most current copy of their medication list with them to their appt. Patient verbalizes understanding. documented in this [facility]03-[facility]25 Telephone encounter Note* Telephone Encounter - Candace Hdez CMA - 05/03/2024 12:04 PM EDT Called patient to remind them to bring their most current copy of their medication list with them to their appt. Patient verbalizes understanding. [facility]01-24-[facility] Miscellaneous Notes* Telephone Encounter - Candace Hdez CMA - 03/09/2024 10:25 AM EST Left message for patient to remind them to bring their most current medication list with them to their appointment. documented in this [facility]01-24-2025 Telephone encounter Note* Telephone Encounter - Candace Hdez CMA - 03/09/2024 10:25 AM EST Left message for patient to remind them to bring their most current medication list with them to their appointment. [facility]01-[facility] History of Present illness Narrative* JACQUELINE Bernstein - 03/06/2024 10:00 AM EST 64-year-old male status post open right inguinal hernia repair with mesh on 02/21/2024. He is doing well and has no concerns. Pain is tolerable. He rates it a 3-4/10. He is not taking anything for this. He denies fever and chills. He is tolerating oral intake and having bowel function. He is retired.On exam, right inguinal incision is clean, dry and intact with minimal swelling and bruising. No signs of infection. No pushing, pulling, lifting over 10 lb for another 4 weeks. He will follow up as needed. JACQUELINE Bernstein 03/06/24 1039 documented in this encounterLima [facility]01-07-2025 Miscellaneous Notes* Telephone Encounter - Guero Oreilly RN - 02/21/2024 4:51 PM EST Ov 01/21/23 Bmp 01/25/23 Has appt sched for 03/12/24 Needs BMP documented in this encounterL[facility]01-07-2025 Telephone encounter Note* Telephone Encounter - Guero Oreilly RN - 02/21/2024 4:51 PM EST Ov 01/21/23 Bmp 01/25/23 Has appt sched for 03/12/24 Needs BMP [facility]12-20[facility] Note Procedure: Chest x-ray performed Number of views:2 History:Preop atrial fibrillation Comparison:01/25/2023 Findings: The heart and lungs show no acute findings, and the mediastinum and dave are grossly negative . Impression: 1. No acute change. Finalized by Heladio Lott MD on 02/03/2024 11:21 [id number] NoteXR CHEST 2 VWS Procedure: Chest x-ray performed Number of views:2 History:Preop atrial fibrillation Comparison:01/25/2023 Findings: The heart and lungs show no acute findings, and the mediastinum and dave are grossly negative . Impression: 1. No acute change. Finalized by Heladio Lott MD on 02/03/2024 11:[address] [facility] 02-03-2024 Instructions* Patient Instructions* Vielka Kirby RN - 02/03/2024 10:30 AM EST Preoperative Education Checklist- General Surgery date: 02/21/24 Surgery time: 11a Arrival time: 9a 1. Bring a photo ID and your insurance card with you the day of surgery. You will check in at the main lobby of the [facility]- registration desk is straight ahead as soon as you walk in. Tell them you are here for surgery. 2. If you have a Living Will/Durable Power of Medical Assistant Cardiology for Health Care that is not on file here, please bring a copy the day of surgery. 3. Please shower/bathe the night before surgery with the provided soap or wipes. Do not shower the morning of surgery- you will do use wipes when you arrive here at the hospital before getting into your surgical gown. Do not shave the area of your procedure for 2 days prior to your surgery. 4. NO powder, lotion, perfume/cologne, aftershave, make-up, deodorant, or hair products after you have bathed. 5. NO nail persian/acrylic on at least one finger. If you are having a hand, wrist or foot surgery then all nail persian and artificial/acrylic nails must be removed from that hand or foot. 6. Avoid ALL Aspirin and non-steroidal anti-inflammatory drugs and certain vitamins (Ibuprofen, Advil, Aleve, Excedrin, Meloxicam, Celebrex, fish/krill oil, etc.) for 7 days prior to surgery as instructed by your surgeon and/or your prescribing doctor. Tylenol IS ALLOWED. If you are on Ticlid, Xarelto, Eliquis, Pradaxa, Plavix or Coumadin, please check with your prescribing doctor for instructions for when to stop them. 7. If you use an inhaler, continue to use it routinely. 8. Nothing to eat or drink (not even water, gum, mints, or hard candy!) AFTER midnight prior to your surgery. 9. Take only medications that you are instructed to on the morning of surgery with a TINY SIP OF WATER. 10. Choose a responsible adult that will be able to drive you home when you are discharged from your hospital stay for your surgery and can stay with you in your home for 24 hours after your procedure. You must NOT drive any vehicle or operate any machinery for 24 hours after surgery. 11. When you dress for your appointment, please wear loose fitting clothing that is appropriate to accommodate your surgical area procedure. BRING WITH YOU ANY DEVICES YOU MAY NEED: JEANE hose, ice machine, sling/swath, brace or special shoe, oversized zip-up or button up shirt, CPAP machine if staying overnight. 12. Do NOT wear jewelry, watches, or any piercings or metal for surgery- leave these valuables and money at home. 13. Do NOT wear contact lenses for surgery- glasses are okay if needed. 14. The anesthesiologist will talk with you the day of surgery and will ask you to sign a Consent Form. 15. Refrain from smoking or any type of tobacco use for at least 8 hours and marijuana for 24 hoursprior to arrival for your surgery. 16. If a GREEN BLOOD band is given to you, please bring it with you for the day of surgery. 17. Notify your surgeon if you develop any illness before your surgery. 18. If you are staying overnight, please DO NOT BRING your home medications with you. 19. If you have any questions prior to surgery, please call the Preadmission Testing office at [phone], Mon.-Fri. 7 a.m.-3 p.m. Leave a voicemail if needed. Pre-Surgery Instructions: Medication Instructions amLODIPine-benazepril (LOTREL) 10-40 mg per capsule Take morning of procedure aspirin 81 mg Check with prescribing doctor for instructions atorvastatin (LIPITOR) 10 mg tablet Stop taking 0 days prior to procedure baclofen (LIORESAL) 10 mg tablet Stop taking 0 days prior to procedure docusate sodium (COLACE) 100 mg capsule Stop taking 0 days prior to procedure gabapentin (NEURONTIN) 600 mg tablet Stop taking 0 days prior to procedure medical marijuana Stop taking 1 days prior to procedure meloxicam (MOBIC) 7.5 mg tablet Stop taking 1 week prior to procedure psyllium (METAMUCIL) powder Stop taking 0 days prior to procedure sodium,potassium,mag sulfates (SUPREP) 17.5-3.13-1.6 gram recon soln Check with prescribing doctor for instructions How to Avoid an Infection after Your Surgery Your doctor will give you specific instructions, but remember: -ALWAYS wash hands before caring for your incision. -No picking, scratching, or rubbing your incision. -No creams, lotion, powder, rubbing alcohol or hydrogen peroxide on the incision (can harm the tissue and slow healing). -Your doctor will give you specific instructions for what type of dressing you will need and how often it will need changed for infection purposes. -No tight clothing on incision. -Do not allow anyone to touch your incision unless they are cleaning, checking, or redressing it (be sure they wash their hands first). -No contact of your incision with pets; avoid sleeping with pets. -Take full course of antibiotic if prescribed for you after surgery- do not stop unless directed terence your physician. You may also be given an antibiotic prior to your surgery to help prevent surgical site infections. -Eat a healthy and varied diet including proteins, fruits, and vegetables to help promote wound healing and keep blood sugars under control if you are diabetic. -Smoking slows the healing process by decreasing the amount of oxygen in your blood that is needed for tissue healing. Try to avoid or stop smoking if possible. LOOK at your incision each morning and each night to check the progress of healing. Some soreness, numbness, itching and/or mild bruising around the incision is normal. Call your doctor if you noticeany of the following: -Increased redness or hardening around the incision area. -Increased pain at the incision site. -Incision feels hot to the touch. -Swelling or pulling apart of the incision edges. -Yellow or green drainage or foul odor coming from the incision. -Bleeding from the incision (apply pressure as needed). -Fever higher than 101 degrees Fahrenheit for more than 4 hours. SHOWERING: Your doctor will give you specific instructions, but remember: -Be careful getting into and out of the shower. -Showers should be quick (5 minutes or less). -Use a clean washcloth to gently wash your incision with soap and water and pat the area dry with aclean towel. -No re-using wash cloths or towels; get a fresh one to clean your incision. -Do not soak in the bathtub, go swimming or use a hot tub (Jacuzzi), or perform activities where your incision is submerged in water or exposed to any fluids or substances until instructed by your doctor. -If your have the sticky strips (steri-strips) over the incision, it is OK to shower with them. Do not remove them. Let them fall off on their own. If you have a question, call your doctor s office. Go to the follow-up appointment with your doctor. documented in this encounterL[facility]12-05-2024 Miscellaneous Notes* Telephone Encounter - Annabel Marin RN - 01/19/2024 12:13 PM EST OK: Pt calls today asking about removal of ILR and gave your name. It looks like Ally also called pt to schedule a 1 year follow up visit with you. Patient has not been seen by [facility] since 02/05 and was by [facility]. Do you want to provide any orders now or would you want pt to have a one year followup with you (or [facility])? You saw pt last 07/01/22 FYI. Thank you, Annabel * Telephone Encounter - Donya Castelan MD - 01/19/2024 12:13 PM EST Okay to schedule loop recorder removal. No meds to hold. Does not need to be NPO. Can be added on schedule any time. Thanks, OK * Telephone Encounter - Dayami Leija LPN - 01/19/2024 12:13 PM EST Called and spoke with pt Rosie - agreeable to 02/01 @ 1500 Reviewed pre op instructions: TTH, entrance C, arrive @ 1400, no fasting or meds to hold She v/u of all discussed documented in this encounterLima [facility]12-05-2024 Telephone encounter Note* Telephone Encounter - Annabel Marin RN - 01/19/2024 12:13 PM EST OK: Pt calls today asking about removal of ILR and gave your name. It looks like Ally also called pt to schedule a 1 year follow up visit with you. Patient has not been seen by [facility] since 02/05 and was by [facility]. Do you want to provide any orders now or would you want pt to have a one year followup with you (or [facility])? You saw pt last 07/01/22 FYI. Thank you, Annabel [facility]12-05-2024 Telephone encounter Note* Telephone Encounter - Donya Castelan MD - 01/19/2024 12:13 PM EST Okay to schedule loop recorder removal. No meds to hold. Does not need to be NPO. Can be added on schedule any time. Thanks, OK [facility]12-05-20[facility] Telephone encounter Note* Telephone Encounter - Dayami Leija LPN - 01/19/2024 12:13 PM EST Called and spoke with pt Rosie - agreeable to 02/01 @ 1500 Reviewed pre op instructions: TTH, entrance C, arrive @ 1400, no fasting or meds to hold She v/u of all discussed [facility]03-26-2024 History of Present illness Narrative* Catarina Khoury MD - 05/10/2023 11:15 AM EDT Images from the original note were not included. [address] [place] [address] [address] [facility] [id number] Patient: Bertin Arechiga Date of : 1960 [...] past medical history, past social history, past surgicalhistory and problem list. Past Medical History: Diagnosis Date Angina pectoris ([facility]) 1981 was kept few days in hospital and tests were ran Anxiety not diagnosed doesn't see doctor Arrhythmia 1981 x1 episode when he was 31 Arthritis Atrial fibrillation ([facility]) Back pain 1989 Carpal tunnel syndrome Disc disorder of lumbosacral region Fractures Gallstones Headache Hypertension hasn't seen dr in 15 years not officially dx not on meds Injury of back Lumbar paraspinal muscle spasm Lumbar radiculopathy Neurogenic pain Raynaud's phenomenon without gangrene Past Surgical History: Procedure Laterality Date Afib Ablation, Carto, ICE N/A 03/18/2022 Performed by Donya Castelan MD at [facility] () ARTHROSCOPIC REPAIR ROTATOR CUFF SHOULDER Right 02/02/2023 Performed by Pattie Pichardo DO at [facility] COLONOSCOPY N/A 04/25/2018 Performed by Abbi Muñoz DO at [facility] HEMORRHOIDECTOMY N/A 04/25/2018 Performed by Abbi Muñoz DO at [facility] HERNIA REPAIR [...] he has a medical marijuana card and usesin the evening as needed for chronic pain psyllium (METAMUCIL) powder Take 1 packet by mouth in the morning. traMADoL (ULTRAM) 50 mg tablet Take 1 tablet (50 mg total) by mouth every 8 (eight) hours as neededfor pain. No current facility-administered medications for this [...] improved we will continue to monitor Follow-up: Catarina Khoury MD This note was created with the assistance of a speech recognition program. While intending to generate a timely document that accurately reflects the content of the visit, no guarantee can be provided that every grammatical or spelling mistake has been or will be identified or corrected. Thank you for your understanding. documented in this encounterLima [facility]02-14-2024 History of Present illness Narrative* Tracie Cao NP - 03/30/2023 10:30 AM EST HISTORY OF PRESENT ILLNESS: Bertin Arechiga is [...] He took one yesterday. No relief with shoulderpain. Using ice with little relief and CBD [...] f/U in 2 weeks documented in this encounterOzarks Medical [id number] History of Present illness Narrative* Catarina Khoury MD - 02/08/2023 12:15 PM EST Images from the original note were not included. [address] [place] [address] [address] [facility] [address] [facility] [id number] Patient: Bertin Arechiga Date of : 1960 Encounter Date: 02/08/2023 History of Present Illness: The patient is a 62 y.o. male, an established patient, and is here for follow up with his . He has a history of a PSA which had increased from 1.5 in December 16 1021 to 3.11 in October 2022. Isasymptomatic urologically. He had a repeat PSA which had increased to 5.19. This prompted a 3 teslaMRI performed January 27, 2023 showing a prostate [...] past medical history, past social history, past surgicalhistory and problem list. Past Medical History: Diagnosis Date Angina pectoris ([facility]) 1981 was kept few days in hospital and tests were ran Anxiety not diagnosed doesn't see doctor Arrhythmia 1981 x1 episode when he was 31 Arthritis Atrial fibrillation ([facility]) Back pain 1989 Carpal tunnel syndrome Disc disorder of lumbosacral region Fractures Gallstones Headache Hypertension hasn't seen in 15 years not officially dx not on meds Injury of back Lumbar paraspinal muscle spasm Lumbar radiculopathy Neurogenic pain Raynaud's phenomenon without gangrene Past Surgical History: Procedure Laterality Date Afib Ablation, Carto, ICE N/A 03/18/2022 Performed by Donya Castelan MD at [facility] () ARTHROSCOPIC REPAIR ROTATOR CUFF SHOULDER Right 02/02/2023 Performed by Pattie Pichardo DO at [facility] COLONOSCOPY N/A 04/25/2018 Performed by Abbi Muñoz DO at [facility] HEMORRHOIDECTOMY N/A 04/25/2018 Performed by Abbi Muñoz DO at [facility] HERNIA REPAIR [...] he has a medical marijuana card and usesin the evening as needed for chronic pain psyllium (METAMUCIL) powder Take 1 packet by mouth in the morning. traMADoL (ULTRAM) 50 mg tablet Take 1 tablet (50 mg total) by mouth every 8 (eight) hours as neededfor pain. No current facility-administered medications for this [...] still rising may consider random biopsies Follow-up: Catarina Khoury MD This note was created with the assistance of a speech recognition program. While intending to generate a timely document that accurately reflects the content of the visit, no guarantee can be provided that every grammatical or spelling mistake has been or will be identified or corrected. Thank you for your understanding. documented in this encounterLima [facility] Hospital12-08-2023 Evaluation note* Encounter Date Diagnosis Assessment Notes Treatment Notes Treatment Clinical Notes Jan, Complete tear of rig ht rotator cuff, unspecified whether traumatic (ICD-10 - M75.121) Pt has followup with his collections assistant for clearance today. He is medically cleared barring abnormalities on testing at [facility] which is pending or with his collections assistant. Jan,Intermittent atrial fibrillation (ICD-10 - I48.0)as above. [employer] Other 12-01-2023 Evaluation note* Encounter Date Diagnosis Assessment Notes Treatment Notes Treatment Clinical Notes Jan, Acute pain of right shoulder (IC D-10 - M25.511) [employer] Other 09-25-2023 Evaluation note* Encounter Date Diagnosis Assessment Notes Treatment Notes Treatment Clinical Notes Oct, PSA elevation (ICD-10 - R97.20) [employer] Other 09-11-2023 Evaluation note* Encounter Date Diagnosis Assessment Notes Treatment Notes Treatment Clinical Notes Oct, Acute pain of right shoulder (IC D-10 - M25.511) Pt agrees to referral, xray and further assessment at ortho Oct,Essential hypertension (ICD-10 - I10)Blood pressure remains well controlled at this time. Denies cardiac symptoms. Shows no signs or symptoms or poor control. Patient to continue with above medication and we will continue to monitor. Advised to pay attention to body and symptoms. Any developing patterns. Stay well hydrated. Oct,Hyperlipemia (ICD-10 - E78.5)Patient to continue to watch diet and increase exercise routine. Remain active as tolerated and we will continue to monitor with routine blood work. Patient is to continue with above medication as directed. Oct,Screening PSA (prostate specific antigen) (ICD-10 - Z12.5) [employer] Other 04-06-2023 NoteCONSULTATION CONSULTATION DATE: 05/20/2022 TO: Jackelin Henry M.D. CHIEF COMPLAINT: Includes lower back [...] our patients to inform us about any usdy-ziz-evhrnaw medications or herbal remedies/nutritional supplements/alternative remedies. 2. [...] treatment options with their primary care provider.[facility] [id number] Note CONSULTATION CONSULTATION DATE: 03/04/2022 HISTORY OF [...] ablation for his atrial fibrillation scheduled at [facility] in [place]. Medications include Eliquis, gabapentin 600 mg b.i.d., [...] successful cardiac ablation and approval from his collections assistant. We will also gain approval to hold his Eliquis for our procedure. Patient agrees to move forward and be followed up in the clinic thereafter.[facility] [id number] NoteCONSULTATION CONSULTATION DATE: 01/21/2022 HISTORY OF PRESENT [...] followed up in the clinic post procedure.[facility] 12-08-2021 NoteCONSULTATION CONSULTATION DATE: 12/08/2021 HISTORY OF PRESENT ILLNESS: This is a very pleasant, 61-year-old gentleman, who was referred to us by Dr. Jackelin Henry. 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 The patient also sees Dr. Harmon in [place] for his Raynaud's disease and also autonomic [...] the autonomic dystonia and the hyperhidrosis at [facility], where he may get attention for this. In the meantime, we will look to proceed with the chronic low back pain that the patient has and is the most problematic for him, by proceeding with a lumbar medial branch block at the level of L2-3 and L4-5. Questions/answers were done. The patient understands and would like to proceed. CC: Jackelin Henry M.D.[facility] HospitalEvaluation noteNo [employer] Other Evaluation note* Diagnosis Status post right rotator cuff repair- Primary Arthritis of right acromioclavicular joint documented in this encounter [facility] HealthcareEvaluation note* Diagnosis Elevated PSA Elevated prostate specific antigen (PSA) Preop examination- Primary Unspecified pre-operative examination Paroxysmal atrial fibrillation (CMS-HCC) Atrial fibrillation Essential hypertension Unspecified essential hypertension Preop examination Unspecified pre-operative examination Paroxysmal atrial fibrillation (CMS-HCC) Atrial fibrillation Essential hypertension Unspecified essential hypertension Preop examination Unspecified pre-operative examination Paroxysmal atrial fibrillation (CMS-HCC) Atrial fibrillation Essential hypertension Unspecified essential hypertension [facility] Diagnosis Elevated PSA Elevated prostate specific antigen (PSA) Essential hypertension Unspecified essential hypertension [facility] Diagnosis Elevated PSA Elevated prostate specific antigen (PSA) Status post right inguinal hernia repair- Primary Other postprocedural status Paroxysmal atrial fibrillation (CMS-HCC)- Primary Atrial fibrillation S/P ablation of atrial fibrillation Other postprocedural status Essential hypertension Unspecified essential hypertension Hyperlipidemia, unspecified hyperlipidemia type [facility] Diagnosis Elevated PSA- Primary Elevated prostate specific antigen (PSA) [facility] Diagnosis Essential hypertension Unspecified essential hypertension [facility] Diagnosis Elevated PSA- Primary Elevated prostate specific antigen (PSA) [facility] Diagnosis Elevated PSA Elevated prostate specific antigen (PSA) Paroxysmal atrial fibrillation (CMS-HCC)- Primary Atrial fibrillation [facility] Diagnosis Elevated PSA Elevated prostate specific antigen (PSA) Essential hypertension Unspecified essential hypertension [facility] Diagnosis Elevated PSA Elevated prostate specific antigen (PSA) Essential hypertension Unspecified essential hypertension [facility] Narrative - Reported* Type Description Date Medical History irregular heart rhythm Medical Historyhyperhydrosis of the handsMedical HistoryMVA 1991Medical History Sinus bradycardiaMedical HistoryIntermittent atrial fibrillationMedical History Cervical radiculopathy due to degenerative joint disease of spineMedical History Lumbosacral radiculopathy due to degenerative joint disease of spineMedical HistoryChronic neck painMedical HistoryChronic osteoarthritisMedical History HyperlipemiaMedical HistoryEssential hypertensionSurgical HistoryColonoscopy 2019 - had polyp recheck 5 [id number] Historysee surgical history [employer] Other History general Narrative - Reported* Type Description Date Medical History irregular heart rhythm Medical Historyhyperhydrosis of the handsMedical HistoryMVA 1991Medical History Sinus bradycardiaMedical HistoryIntermittent atrial fibrillationMedical History Cervical radiculopathy due to degenerative joint disease of spineMedical History Lumbosacral radiculopathy due to degenerative joint disease of spineMedical HistoryChronic neck painMedical HistoryChronic osteoarthritisMedical History HyperlipemiaMedical HistoryEssential hypertensionSurgical HistoryColonoscopy 2019 - had polyp recheck 5 [id number] HistoryBack Hospitalization Historysee surgical history [employer] Other InstructionsNot on filedocumented in this encounter [facility] on filedocumented in this encounter [facility]InstructionsNot on filedocumented in this encounter [facility] SystemInstructionsNot on filedocumented in this encounter [facility]* Attachments The following attachments cannot be sent through Care Everywhere. * Going Home on Blood Thinners (Bahraini) documented in [facility] SystemInstructionsNot on file documented in this encounterProT[facility] Health SystemInstructionsNot on file documented in this encounterProT[facility] Health SystemInstructionsNot on file documented in this encounterProTroy [facility] Health SystemInstructionsNot on file documented in this encounterOhio[facility] Summary Purpose Family History No Family History Records FoundNo Family History Records FoundNo Family History Records FoundNo Family History Records FoundNo Family History Records FoundNo Family History Records FoundNo Family History Records FoundNo Family History Records Found Advance Directives Date ActivatedDate InactivatedComments03/18/2022 10:28 AM03/18/2022 5:55 PMDate ActivatedDate InactivatedComments03/18/2022 10:28 AM03/18/2022 5:55 PMCode Status Date ActivatedDate InactivatedCommentsFull Code03/18/2022 10:28 AM03/18/2022 5:55 PM Reason for Referral Reason R shoulder - xr ay pending Diagnosis 1 Acute pain of right shoulder (M25.511) Referral Organization [facility] [employer]neem Referring Provider First Name Jackelin Referring Provider Last Name Carl Referring Provider Specialty [facility] [employer] Referred Organization [facility] Referred Provider Pattie Pichardo Referred Address ,[place], [place],[address] Referred Provider Specialty Orthopedic S urgery Referral Priority Routine General Notes Regi Merchant 12:12:13 PM >received today, waiting for XR and for Notes to be locked Regi Merchant 10/29/2022 08:52:53 AM >XR attached, sent TE to lock office notes Reason *GORDON 11/16 Dr. Kathya abbott - Urology [facility] surgeons [facility]. PSA went from 1.5 to 3.1 Diagnosis 1 PSA elevation (R97.2 0) Referral Organization [facility] [employer]neem Referring Provider First Name Jackelin Referring Provider Last Name Carl Referring Provider Specialty [facility] Referred Address [address] [facility], [place],[address] Referred Provider Specialty Urology Referral Priority Routine General Notes Regi Merchant 01:58:34 PM >received today. P: [phone] F: [id number] Regi Merchant 11/09/2022 02:06:57 PM >attachments made, notes locked, referral faxedSpecialtyDiagnoses / ProceduresReferred By ContactReferred To ContactPhysical Therapy Diagnoses Status post right rotator cuff repair Arthritis of right acromioclavicular joint Procedures [place] OFFICE/OUTPATIENT NEW HIGH MDM 60 MINUTES Tracie Cao, [employer] [address] [place] [address] Mela Suarez, PT [address] [place] [address] Referral IDStatusReasonStart DateExpiration DateVisits RequestedVisits [id number] Review Specialty Services Required Additional Source Comments (unrecognized sect ion and content) No Status Records FoundNo Status Records FoundNo Status Records FoundNo Status Records FoundNo Status Records FoundNo Status Records FoundNo Status Records FoundNo Status Records Found INFORMATION SOURCE (unrecogn ized section and content) DATE CREATED AUTHOR 02/28/2020 [facility] DATE CREATED AUTHOR AUTHOR'S ORGANIZ ATION 10/27/2021 [facility] DATE CREATED AUTHOR AUTHOR'S ORGANIZ ATION 05/29/2022 [facility] DATE CREATED AUTHOR AUTHOR'S ORGANIZ ATION 08/03/2023 [facility] EPIC DATE CREATED AUTHOR AUTHOR'S ORGANIZ ATION 02/05/2024 [facility] DATE CREATED AUTHOR AUTHOR'S ORGANIZ ATION 03/07/2024 [facility] DATE CREATED AUTHOR AUTHOR'S ORGANIZ ATION 05/31/2024 [facility] DATE CREATED AUTHOR AUTHOR'S ORGANIZ ATION 06/08/2024 [facility] REASON FOR VISIT (unrecogniz ed section and content) ReasonCommentsPainReasonCommentsMed Change RequestReasonCommentsMed RefillReason CommentsPOST-OP VISITPOST OP INGUINAL HERNIA 02/21/[address] RodriguezComshawna [id number] YEARAtrial Fibrillation Care Teams (unrecognized sec tion and content) Team MemberRelationshipSpecialtyStart DateEnd Date Jackelin Henry MD [address] [place] [address] PCP - GeneralFamily Medicine11/09/22Team MemberRelationshipSpecialtyStart DateEnd Date Jackelin Henry MD [address] [place] [address] PCP - GeneralFamily Avmditwc07/9/21Team MemberRelationshipSpecialtyStart DateEnd Date Jackelin Henry MD [address] [facility] [place] [address] PCP - GeneralFamily Qqikided39/9/21Team MemberRelationshipSpecialtyStart DateEnd Date Jackelin Henry MD [address] [facility] [place] [address] PCP - GeneralFamily Mflmydpm95/9/21Team MemberRelationshipSpecialtyStart DateEnd Date Jackelin Henry MD [address] [facility] [place] [address] PCP - GeneralFamily Xkwvitvu16/9/21Team MemberRelationshipSpecialtyStart DateEnd Date Jackelin Henry MD [address] [facility] [place] [address] PCP - GeneralFamily Ofdjagll70/9/21Te MemberRelationshipSpecialtyStart [place] [address] [place] [address], [place] [address] PCP - [facility]01/22/21Te MemberRelationshipSpecialtyStart [place] [address] [place] [address], [place] [address] PCP - [facility]01/22/21Te MemberRelationshipSpecialtyStart [place] [address] [place] [address], [place] [address] [facility] - [facility]01/22/21Te MemberRelationshipSpecialtyStart [place] [address] [place] [address], [place] [address] [facility] - [facility]01/22/21Te MemberRelationshipSpecialtyStart [place] [address] [place] [address] [place] [address] [facility] - [facility]01/22/21 FOR RECORDS PERTAINING TO PATIENTS WHO ARE [...] BE BASED ON THE PRIMARY CLINICAL RECORDS. [facility] [employer] [facility]. provides no warranty or guarantee of the accuracy or completeness of information in this document.
--- NOTE | 2024-12-05 10:06 | PM.CN ---
Consult Note: HPI Data of Consult Patient: known to practice within the last 3 years Requesting Physician: Aaliyah Slater NP Primary Care Provider: Fallon Gonzalez MD Consult Narrative Reason for consult: chronic low back pain Narrative: Abimael Ruano a pleasant 64 year old male with chronic neck and low back pain presents for evaluation. since last visit pts pain has been fairly well controlled with current medication regimen. utilizing meloxicam 7.5mg bid prn, gabapentin 600mg BID, baclofen 10mg bid prn, and medical marijuana prn. denies injury. Pain today 3/10 burning in right low back without numbness tingling weakness. patient reports pain is increased with twisting, sitting too long, standing, walking, lifting, housework, and activity. notes improvement with lying down, biofreeze, and cbd cream. cc:: CC: Aaliyah Slater NP Review of Systems ROS Musculoskeletal Reports: back pain PFSH PFSH Medical History Hernia ?K46.9 - Unspecified abdominal hernia without obstruction or gangrene (ICD-10) Upper back pain ?M54.9 - Dorsalgia, unspecified (ICD-10) Neck pain ?M54.2 - Cervicalgia (ICD-10) Low back pain ?M54.50 - Low back pain, unspecified (ICD-10) Osteoarthritis ?M19.90 - Unspecified osteoarthritis, unspecified site (ICD-10) Carpal tunnel syndrome ?G56.00 - Carpal tunnel syndrome, unspecified upper limb (ICD-10) Diabetes ?E11.9 - Type 2 diabetes mellitus without complications (ICD-10) Former smoker ?Z87.891 - Personal history of nicotine dependence (ICD-10) Atrial fibrillation ?I48.91 - Unspecified atrial fibrillation (ICD-10) Implantable loop recorder present ?Z95.818 - Presence of other cardiac implants and grafts (ICD-10) High cholesterol ?E78.00 - Pure hypercholesterolemia, unspecified (ICD-10) Hypertension ?I10 - Essential (primary) hypertension (ICD-10) Social History Smoking status: Former smoker Meds Home Medications and Allergies Home Medications ?Medication ?Instructions ?Recorded ?Confirmed ?Type atorvastatin 10 mg tablet 10 mg PO .hs 08/05/22 04/05/23 History docusate sodium 100 mg capsule 100 mg PO DAILY 08/05/22 04/05/23 History flecainide 50 mg tablet 50 mg PO Q12H 08/05/22 04/05/23 History medical marijuan 08/05/22 History metoprolol succinate 50 mg 25 mg PO QDAY 08/05/22 04/05/23 History tablet,extended release 24 hr psyllium (Hydrocil oral powder) 1 tbsp PO DAILY 08/05/22 04/05/23 History tramadol 50 mg tablet 50 mg PO TID PRN pain 08/05/22 04/05/23 History aspirin 81 mg capsule 81 mg PO DAILY 04/05/23 04/05/23 History baclofen 10 mg tablet 10 mg PO BID #60 tabs 10/27/23 Rx gabapentin 600 mg tablet 600 mg PO BID #60 tabs 06/27/24 Rx gabapentin 600 mg tablet 600 mg PO BID #60 tabs 11/13/24 Rx Allergies Allergy/AdvReac Type Severity Reaction Status Date / Time No Known Drug Allergies Allergy Verified 04/05/23 10:33 Exam Constitutional Documenting provider has reviewed patient's vital signs: yes Common normals: no apparent distress, oriented x3, healthy appearing, alert and well nourished General appearance: cooperative HENMT Common normals: normocephalic, hearing grossly normal bilaterally and moist oral mucous membranes Head and scalp: normocephalic Eye Common normals: PERRL Pupil: PERRL Neck & C-Spine Common normals: full ROM General: normal visual inspection Chest Common normals: inspection of chest normal Respiratory Common normals: normal respiratory effort, no retractions and no use of accessory muscles Back & Pelvis Lumbar spine/lower back: pain with ROM, lumbar spinal tenderness and straight leg raise negative bilaterally Sacroiliac joints: SI joints normal Other: strength 5/5 in BLE sensation intact increased pain with facet loading and forward flexion Neuro Common normals: oriented x3 Sensorium/orientation: alert Psych Common normals: mental status grossly normal, thought process normal, cooperative, affect normal, speech normal and activity/motor behavior normal Speech: normal speech Thought process: normal thought process Results Additional Findings Additional findings: If on a controlled substance or opioids, I have checked an [place]AR[place] report on this patient and there are no aberrancies noted in the prescribing history.??If on a controlled substance or opioid a drug screen was completed and reviewed within the last year, and if there has not been a drug screen completed we ordered one today to monitor higher risk, state monitored pain medication use. As part of providing excellent, safe, comprehensive care, the following was completed at our patient's visit: 1. A medication reconciliation and review to ensure accurate knowledge of current/active medications, including asking our patients to inform us about any [id number] medications or herbal remedies/nutritional supplements/alternative remedies. 2. A review to specifically ensure our patients have had annual screening for screening for depression, screening for tobacco use, and screening for unhealthy alcohol use. For concerning screenings had a discussion with the patient, provided patient education, and recommended follow-up with primary care provider when appropriate. If patient noted with a risk of falling, they received education on strength, gait, and balance training to prevent future risk of falling. Portions of this note may have been carried over from the previous visit and updated as appropriate. Please note this office utilizes paper charting in addition to the electronic medical record. A list of current medications, vitals, and PMH is available there as the clinical staff outside of myself do not have access to [employer] charting during the clinic day operations. As part of providing quality comprehensive care the current medications, vitals, and PMH were reviewed in the paper chart. Assessment and Plan Assessment and Plan (1) Chronic low back pain without sciatica: (2) Myalgia, other site: (3) Lumbar spondylosis: Plan decrease gabapentin 300mg AM and 600mg HS for 1 month, nurse call in 1 month to evaluate response to medication regimen. can continue to wean as tolerated. pt concerned for penitentiary side effects continue baclofen 10mg bid prn pain/spasms, may need to increase to tid prn in the future continue HEP as tolerated f/u in person likely 6 months, sooner if needed
== END 2024-12-05 09:53 | disposition home or self-care (01) ==
PROVIDERS: PCP Family Medicine; Visit Provider Nurse Practitioner
DX: M54.50 Low back pain, unspecified (principal); M79.18 Myalgia, other site; M47.816 Spondylosis without myelopathy or radiculopathy, lumbar region
CPT/HCPCS: G0463